=== PATIENT | female | born 1985 | race Caucasian/White ===

== ENCOUNTER 2016-08-15 18:17 | Emergency (ER) | payer MEDICAID ==
--- NOTE | 2016-08-15 18:27 | EDM.PDOC ---
ED HPI Trauma - General Chief Complaint: Lower Extremity Injury/Pain Stated Complaint: RT FOOT HURTS Time Seen by Provider: 08/15/16 18:26 Source: Reports: Patient - History of Present Illness INITIAL COMMENTS - FREE TEXT/NARRATIVE: HISTORY AND PHYSICAL: History of present illness: [] Patient presents with right ankle pain unable to bear weight due to pain she rates 8/10 with weightbearing nonradiating specific to the lateral malleolus posterior aspect, she denies known trauma or injury No fever nausea vomiting chills sweats LMP ended July 29 she has not had intercourse since Review of systems: As per history of present illness and below otherwise all systems reviewed and negative. Past medical history: As per history of present illness and as reviewed below otherwise noncontributory. Surgical history: As per history of present illness and as reviewed below otherwise noncontributory. Social history: No reported history of drug or alcohol abuse. Family history: As per history of present illness and as reviewed below otherwise noncontributory. Physical exam: HEENT: Atraumatic, normocephalic, pupils reactive, negative for conjunctival pallor or scleral icterus, mucous membranes moist, throat clear, neck supple, nontender, trachea midline. Lungs: Clear to auscultation, breath sounds equal bilaterally, chest nontender. Heart: S1S2, regular, negative for clicks, rubs, or JVD. Abdomen: Soft, nondistended, nontender. Negative for masses or hepatosplenomegaly. Negative for costovertebral tenderness. Pelvis: Stable nontender. Genitourinary: Deferred. Rectal: Deferred. Extremities: Atraumatic, negative for cords or calf pain. Neurovascular unremarkable. Neuro: Awake, alert, oriented. Cranial nerves II through XII unremarkable. Cerebellum unremarkable. Motor and sensory unremarkable throughout. Exam nonfocal. Left ankle and affected above the ankle she does have posterior tenderness concerning the lateral malleolus foot is nontender no redness warmth or swelling no mass scarred lesion entire limb neurovascularly intact Diagnostics: [] Left ankle 3 views Therapeutics: [] [Followup Stirrup brace Rest ice ibuprofen Crutches Impression: [] Ankle pain Definitive disposition and diagnosis as appropriate pending reevaluation and review of above. Allergies/ADRs: Allergies codeine Allergy (Severe, Verified 08/15/16 18:21) Swelling codaine Allergy (Uncoded 08/15/16 18:21) Swelling mushroom Allergy (Uncoded 08/15/16 18:21) Swelling Home Medications: Ambulatory Orders Albuterol [Ventolin HFA] 2 puff INH BID PRN 10/08/13 [Confirmed 08/15/16] Albuterol/Ipratropium [DuoNeb 3.0-0.5 MG/3 ML] 3 ml NEB ATDISCHARGE PRN [Confirmed 08/15/16] Cetirizine [ZyrTEC] 10 mg PO DAILY 05/11/15 [Confirmed 08/15/16] Montelukast [Singulair] 10 mg PO ONETIME 05/11/15 [Confirmed 08/15/16] Tiotropium [Spiriva] 18 mcg INH BID 05/11/15 [Confirmed 08/15/16] Albuterol [Proventil HFA] 1 puff INH ASDIRECTED 02/09/16 [Confirmed 08/15/16] Budesonide [Pulmicort] 1 puff INH ASDIRECTED 02/09/16 [Confirmed 08/15/16] Budesonide/Formoterol Fumarate [Symbicort 80-4.5 Mcg Inhaler] 1 puff INH ASDIRECTED PRN 02/09/16 [Confirmed 08/15/16] Omeprazole 20 mg PO BID 02/09/16 [Confirmed 08/15/16] Ondansetron HCl [Zofran] 4 mg PO 08/15/16 Past Medical History Cardiovascular History: Reports: None Respiratory History: Reports: Asthma Gastrointestinal History: Reports: GERD Genitourinary History: Reports: None 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: Musculoskeletal History: Reports: None Neurological History: Reports: Migraines Psychiatric History: Reports: None Endocrine/Metabolic History: Reports: None Hematologic History: Reports: None Dermatologic History: Reports: None - Infectious Disease History Infectious Disease History: Reports: Chicken pox - Past Surgical History HEENT Surgical History: Reports: Adenoidectomy, Oral surgery, Tonsillectomy GI Surgical History: Reports: Cholecystectomy Female Surgical History: Reports: section Social & Family History - Family History Family Medical History: Noncontributory - Tobacco Use Smoking Status *Q: Never Smoker Second Hand Smoke Exposure: No - Caffeine Use Caffeine Use: Reports: Coffee, Energy drinks, Soda, Tea - Alcohol Use Days Per Week of Alcohol Use: 0 Number of Drinks Per Day: 2 Total Drinks Per Week: 0 - Recreational Drug Use Recreational Drug Use: No Drug Use in Last 12 Months: No Review of Systems - Review of Systems Review Of Systems: ROS reveals no pertinent complaints other than HPI. Trauma Exam - Physical Exam Exam: See Below Course - Vital Signs Last Recorded V/S: Last Vital Signs Temp 37.1 C 08/15/16 18:25 Pulse 99 08/15/16 18:25 Resp 18 08/15/16 18:25 BP 127/56 L 08/15/16 18:25 Pulse Ox 95 08/15/16 18:25 - Orders/Labs/Meds Orders: Active Orders 24 hr Category Date Time Status Ankle Min 3V Rt [CR] Stat Exams 08/15/16 18:32 Taken Departure - Departure Time of Disposition: 18:50 Disposition: Home, Self-Care 01 Condition: good Clinical Impression: Ankle pain Forms: ED Department Discharge Additional Instructions: Stirrup brace Rest Ice 20 minute intervals 3 times daily 7-10 days Ibuprofen 4 mg 3 times daily 7-10 days Crutches as needed Followup with primary care in 2 weeks The following information is given to patients seen in the emergency department who are being discharged to home. This information is to outline your options for follow-up care. We provide all patients seen in our emergency department with a follow-up referral. The need for follow-up, as well as the timing and circumstances, are variable depending upon the specifics of your emergency department visit. If you don't have a primary care physician on staff, we will provide you with a referral. We always advise you to contact your personal physician following an emergency department visit to inform them of the circumstance of the visit and for follow-up with them and/or the need for any referrals to a consulting specialist. The emergency department will also refer you to a specialist when appropriate. This referral assures that you have the opportunity for follow-up care with a specialist. All of these measure are taken in an effort to provide you with optimal care, which includes your follow-up. Under all circumstances we always encourage you to contact your private physician who remains a resource for coordinating your care. When calling for follow-up care, please make the office aware that this follow-up is from your recent emergency room visit. If for any reason you are refused follow-up, please contact the [facility] emergency department at and asked to speak to the emergency department charge nurse. - My Orders Last 24 Hours: My Active Orders 08/15/16 18:32 Ankle Min 3V Rt [CR] Stat - Assessment/Plan Last 24 Hours: My Active Orders 08/15/16 18:32 Ankle Min 3V Rt [CR] Stat
[2016-08-15 19:20] VITALS: BP 144/72
--- NOTE | 2016-08-17 10:34 | CR ---
EXAM DATE: 08/15/16 PATIENT'S AGE: 30 Patient: JOSUE ALLEN Facility: [place], [place] Site . Site : 1985 Study: XRay Extremity Right [id number] ankle-08/15/2016 6:45:08 PM Ordering Physician: Nic Cota Final Report: Indication: Pain and swelling. No known injury. Technique: Right ankle three views. Comparison: Right ankle June 25, 2013. Findings: No acute fracture or dislocation. Calcaneal enthesopathy. No additional osseous abnormality. Soft tissues as imaged are unremarkable. Impression: No acute osseous abnormality. Dictated by Reg Castillo MD @ 08/15/2016 7:05:10 PM Dictated by: Reg Castillo MD @ 08/15/2016 19:05:14 (Electronic Signature) Report Signed by Proxy and Original Signed Document filed in the Medical Record. MTDD
== END 2016-08-15 19:15 | disposition home or self-care (01) ==
LOC: MW.ED 18:17
DX: M25.571 Pain in right ankle and joints of right foot (principal); J45.909 Unspecified asthma, uncomplicated; K21.9 Gastro-esophageal reflux disease without esophagitis; Z88.5 Allergy status to narcotic agent; Z91.018 Allergy to other foods; Z79.899 Other long term (current) drug therapy
CPT/HCPCS: 73610-26-RT; 73610-RT; 99282; 99283

== ENCOUNTER 2016-09-26 03:03 | Emergency (ER) | payer MEDICAID ==
[2016-09-26] MEDS ORDERED: predniSONE 20 MG Tab PO ONE (03:06)
[2016-09-26] MEDS ORDERED: Albuterol/Ipratropium 3.0-0.5 MG/3 ML Neb Soln NEB ONE (03:07)
--- NOTE | 2016-09-26 03:09 | EDM.PDOC ---
ED HPI GENERAL MEDICAL PROBLEM - General Chief Complaint: Respiratory Problem Stated Complaint: BREATHING DIFFICULTY Time Seen by Provider: 09/26/16 03:05 - History of Present Illness INITIAL COMMENTS - FREE TEXT/NARRATIVE: HISTORY AND PHYSICAL: History of present illness: Patient's a 30-year-old female history of asthma present since her shortness breath and wheezy she did use her home medications and no significant improvement. Review of systems: As per history of present illness and below otherwise all systems reviewed and negative. Past medical history: As per history of present illness and as reviewed below otherwise noncontributory. Surgical history: As per history of present illness and as reviewed below otherwise noncontributory. Social history: No reported history of drug or alcohol abuse. Family history: As per history of present illness and as reviewed below otherwise noncontributory. Physical exam: HEENT: Atraumatic, normocephalic, pupils reactive, negative for conjunctival pallor or scleral icterus, mucous membranes moist, throat clear, neck supple, nontender, trachea midline. Lungs: Scattered rare end expiratory wheezing no rhonchi no crackle, breath sounds equal bilaterally, chest nontender. Heart: S1S2, regular, negative for clicks, rubs, or JVD. Abdomen: Soft, nondistended, nontender. Negative for masses or hepatosplenomegaly. Negative for costovertebral tenderness. Pelvis: Stable nontender. Genitourinary: Deferred. Rectal: Deferred. Extremities: Atraumatic, negative for cords or calf pain. Neurovascular unremarkable. Neuro: Awake, alert, oriented. Cranial nerves II through XII unremarkable. Cerebellum unremarkable. Motor and sensory unremarkable throughout. Exam nonfocal. Diagnostics: None Therapeutics: Albuterol ipratropium nebulizer prednisone 60 mg by mouth Impression: #1 acute asthmatic exacerbation Definitive disposition and diagnosis as appropriate pending reevaluation and review of above. - Related Data Allergies Allergy/AdvReac Type Severity Reaction Status Date / Time codeine Allergy Severe Swelling Verified 09/26/16 03:09 codaine Allergy Swelling Uncoded 09/26/16 03:09 mushroom Allergy Swelling Uncoded 09/26/16 03:09 Home Meds: Home Meds Albuterol [Ventolin HFA] 2 puff INH BID PRN 10/08/13 [History] Albuterol/Ipratropium [DuoNeb 3.0-0.5 MG/3 ML] 3 ml NEB ATDISCHARGE PRN [History] Cetirizine [ZyrTEC] 10 mg PO DAILY 05/11/15 [History] Montelukast [Singulair] 10 mg PO ONETIME 05/11/15 [History] Tiotropium [Spiriva] 18 mcg INH BID 05/11/15 [History] Albuterol [Proventil HFA] 1 puff INH ASDIRECTED 02/09/16 [History] Budesonide [Pulmicort] 1 puff INH ASDIRECTED 02/09/16 [History] Budesonide/Formoterol Fumarate [Symbicort 80-4.5 Mcg Inhaler] 1 puff INH ASDIRECTED PRN 02/09/16 [History] Omeprazole 20 mg PO BID 02/09/16 [History] Ondansetron HCl [Zofran] 4 mg PO 08/15/16 [History] Past Medical History HEENT History: Reports: Impaired Vision Cardiovascular History: Reports: None Respiratory History: Reports: Asthma Gastrointestinal History: Reports: GERD Genitourinary History: Reports: None 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: Musculoskeletal History: Reports: None Neurological History: Reports: Migraines Psychiatric History: Reports: None Endocrine/Metabolic History: Reports: None Hematologic History: Reports: None Immunologic History: Reports: None Oncologic (Cancer) History: Reports: None Dermatologic History: Reports: None - Infectious Disease History Infectious Disease History: Reports: Chicken Pox - Past Surgical History HEENT Surgical History: Reports: Adenoidectomy, Oral Surgery, Tonsillectomy Female Surgical History: Reports: Section Social & Family History - Family History Family Medical History: Noncontributory - Tobacco Use Smoking Status *Q: Never Smoker Second Hand Smoke Exposure: No - Caffeine Use Caffeine Use: Reports: Coffee, Energy Drinks, Soda, Tea - Alcohol Use Days Per Week of Alcohol Use: 0 Number of Drinks Per Day: 2 Total Drinks Per Week: 0 - Recreational Drug Use Recreational Drug Use: No Drug Use in Last 12 Months: No ED ROS GENERAL - Review of Systems Review Of Systems: ROS reveals no pertinent complaints other than HPI. ED EXAM, GENERAL - Physical Exam Exam: See Below (See dictation) Course - Vital Signs Last Recorded V/S: Last Vital Signs Temp 36.5 C 09/26/16 03:09 Pulse 96 09/26/16 04:31 Resp 28 H 09/26/16 04:31 BP 143/77 H 09/26/16 04:31 Pulse Ox 96 09/26/16 04:31 - Orders/Labs/Meds Orders: Active Orders 24 hr Category Date Time Status RT Aerosol Therapy [RC] ASDIRECTED Care 09/26/16 03:07 Active RT Aerosol Therapy [RC] ASDIRECTED Care 09/26/16 03:07 Active Chest 2V [CR] Stat Exams 09/26/16 03:56 Taken Meds: Medications Discontinued Medications Generic Name Dose Route Start Last Admin Trade Name Freq PRN Reason Stop Dose Admin Albuterol/Ipratropium 3 ml 09/26/16 03:07 09/26/16 03:16 Duoneb 3.0-0.5 Mg/3 Ml NEB 09/26/16 03:08 3 ml ONETIME ONE Administration Albuterol/Ipratropium 3 ml 09/26/16 03:06 09/26/16 03:37 Duoneb 3.0-0.5 Mg/3 Ml NEB 09/26/16 03:07 3 ml ONETIME ONE Administration Albuterol/Ipratropium Confirm 09/26/16 03:11 09/26/16 03:17 Duoneb 3.0-0.5 Mg/3 Ml Administered 09/26/16 03:12 Not Given Dose 3 ml .ROUTE .STK-MED ONE Prednisone 60 mg 09/26/16 03:06 09/26/16 03:16 Prednisone PO 09/26/16 03:07 60 mg ONETIME ONE Administration Departure - Departure Time of Disposition: 05:16 Disposition: Home, Self-Care 01 Condition: good Clinical Impression: Acute asthma - Discharge Information Forms: ED Department Discharge Additional Instructions: The following information is given to patients seen in the emergency department who are being discharged to home. This information is to outline your options for follow-up care. We provide all patients seen in our emergency department with a follow-up referral. The need for follow-up, as well as the timing and circumstances, are variable depending upon the specifics of your emergency department visit. If you don't have a primary care physician on staff, we will provide you with a referral. We always advise you to contact your personal physician following an emergency department visit to inform them of the circumstance of the visit and for follow-up with them and/or the need for any referrals to a consulting specialist. The emergency department will also refer you to a specialist when appropriate. This referral assures that you have the opportunity for followup care with a specialist. All of these measure are taken in an effort to provide you with optimal care, which includes your followup. Under all circumstances we always encourage you to contact your private physician who remains a resource for coordinating your care. When calling for followup care, please make the office aware that this follow-up is from your recent emergency room visit. If for any reason you are refused follow-up, please contact the [facility] emergency department at and asked to speak to the emergency department charge nurse. Continue home meds Medrol as prescribed followup private medical doctor one to 2 days return as needed for discussed - My Orders Last 24 Hours: My Active Orders 09/26/16 03:07 RT Aerosol Therapy [RC] ASDIRECTED RT Aerosol Therapy [RC] ASDIRECTED 09/26/16 03:56 Chest 2V [CR] Stat - Assessment/Plan Last 24 Hours: My Active Orders 09/26/16 03:07 RT Aerosol Therapy [RC] ASDIRECTED RT Aerosol Therapy [RC] ASDIRECTED 09/26/16 03:56 Chest 2V [CR] Stat
[2016-09-26] MEDS ORDERED: Albuterol/Ipratropium 3.0-0.5 MG/3 ML Neb Soln ONE (03:11)
[2016-09-26] MEDS: Albuterol/Ipratropium 3.0-0.5 MG/3 ML Neb Soln NEB ONE ×2 (03:17→03:37)
[2016-09-26 05:31] VITALS: BP 135/71
--- NOTE | 2016-09-28 13:28 | CR ---
EXAM DATE: 09/26/16 PATIENT'S AGE: 30 Patient: JOSUE ALLEN Facility: [place], [place] Site . Site : 1985 Study: XRay Chest [id number]/3/2017 4:09:25 AM Ordering Physician: Peter Bautista Final Report: INDICATION: Shortness of breath TECHNIQUE: Two view chest. FINDINGS: The lungs are clear. The heart, mediastinum and pulmonary vessels are of normal size. There is no evidence of pleural disease. IMPRESSION: Negative chest. Dictated by Cecilia Lewis MD @ Sep 26 2016 5:09AM (Electronic Signature) Report Signed by Proxy. TERESO
== END 2016-09-26 05:27 | disposition home or self-care (01) ==
LOC: MW.ED 03:03
DX: J45.901 Unspecified asthma with (acute) exacerbation (principal); K21.9 Gastro-esophageal reflux disease without esophagitis; Z98.890 Other specified postprocedural states; Z79.899 Other long term (current) drug therapy; Z88.5 Allergy status to narcotic agent; Z91.018 Allergy to other foods
CPT/HCPCS: 71020; 99285; A9270; 99284

== ENCOUNTER 2016-10-23 17:18 | Emergency (ER) | payer MEDICAID ==
--- NOTE | 2016-10-23 17:32 | EDM.PDOC ---
ED HPI GENERAL MEDICAL PROBLEM - General Chief Complaint: Back Pain or Injury Stated Complaint: PAIN TAILBONE Time Seen by Provider: 10/23/16 17:29 Source of Information: Reports: Patient History Limitations: Reports: No Limitations - History of Present Illness INITIAL COMMENTS - FREE TEXT/NARRATIVE: HISTORY AND PHYSICAL: []30-year-old female who fell on cement today from standing position onto buttocks and feels that she might have broken her coccyx History of Present Illness: [] Denies any other injury Review of Systems: As per history of present illness and below otherwise all systems reviewed and negative. Past medical history: As per history of present illness and as reviewed below otherwise noncontributory. Surgical history: As per history of present illness and as reviewed below otherwise noncontributory. Social history: No reported history of drug or alcohol abuse. Family history: As per history of present illness and as reviewed below otherwise noncontributory. Physical exam: Alert oriented woman answering questions appropriately in full sentences HEENT: Atraumatic, normocehpalic, pupils reactive, negative for conjunctival pallor or scleral icterus, mucous membranes moist, throat clear, neck supple, nontender, trachea midline. Lungs: Clear to auscultation, breath sounds equal bilaterally, chest non tender. Heart: S1S2, regular, negative for clicks, rubs, or JVD. Abdomen: Soft, nondistended, nontender. Negative for masses or hepatossplenmegaly. Negative for costovertebral tenderness. Pelvis: Stable nontender. Genitourinary: Deferred. Rectal: Deferred/exquisite tenderness when sitting Extremities: Atraumatic, negative for cords or calf pain. Neurovascular unremarkable. Neuro: Awake, alert, oriented. Cranial nerves II through XII unremarkable. Cerebellum unremarkable. Motor and sensory unremarkable throughout. Exam nonfocal. Diagnostics: [X-ray coccyx] Therapeutics: [] Impression: [Contusion to coccyx] Plan: []Home use something to help relieve the pressure such as an inflatable tube Prescription written for hydrocodone/8 APAP/325 one 3 times a day when necessary pain #12 no refill Definitive disposition and diagnosis as appropriate pending reevaluation and review of above. Onset: Today, Sudden Duration: Hour(s): (6:40 AM) Sacral Pain Score (Numeric/FACES): 10 - Related Data Allergies Allergy/AdvReac Type Severity Reaction Status Date / Time codeine Allergy Severe Swelling Verified 09/26/16 03:09 codaine Allergy Swelling Uncoded 09/26/16 03:09 mushroom Allergy Swelling Uncoded 09/26/16 03:09 Home Meds: Home Meds Albuterol [Ventolin HFA] 2 puff INH BID PRN 10/08/13 [History] Albuterol/Ipratropium [DuoNeb 3.0-0.5 MG/3 ML] 3 ml NEB ATDISCHARGE PRN [History] Cetirizine [ZyrTEC] 10 mg PO DAILY 05/11/15 [History] Montelukast [Singulair] 10 mg PO ONETIME 05/11/15 [History] Tiotropium [Spiriva] 18 mcg INH BID 05/11/15 [History] Albuterol [Proventil HFA] 1 puff INH ASDIRECTED 02/09/16 [History] Budesonide [Pulmicort] 1 puff INH ASDIRECTED 02/09/16 [History] Budesonide/Formoterol Fumarate [Symbicort 80-4.5 Mcg Inhaler] 1 puff INH ASDIRECTED PRN 02/09/16 [History] Omeprazole 20 mg PO BID 02/09/16 [History] Ondansetron HCl [Zofran] 4 mg PO 08/15/16 [History] Clarithromycin 250 mg PO BID 10/23/16 [History] Past Medical History HEENT History: Reports: Impaired Vision Cardiovascular History: Reports: None Respiratory History: Reports: Asthma Gastrointestinal History: Reports: GERD Genitourinary History: Reports: 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: Musculoskeletal History: Reports: None Neurological History: Reports: Migraines Psychiatric History: Reports: None Endocrine/Metabolic History: Reports: None Hematologic History: Reports: None Immunologic History: Reports: None Oncologic (Cancer) History: Reports: None Dermatologic History: Reports: None - Infectious Disease History Infectious Disease History: Reports: Chicken Pox - Past Surgical History HEENT Surgical History: Reports: Adenoidectomy, Oral Surgery, Tonsillectomy Female Surgical History: Reports: Section Social & Family History - Family History Family Medical History: Noncontributory - Tobacco Use Smoking Status *Q: Never Smoker Second Hand Smoke Exposure: No - Caffeine Use Caffeine Use: Reports: Coffee, Energy Drinks, Soda, Tea - Alcohol Use Days Per Week of Alcohol Use: 0 Number of Drinks Per Day: 2 Total Drinks Per Week: 0 - Recreational Drug Use Recreational Drug Use: No Drug Use in Last 12 Months: No ED ROS GENERAL - Review of Systems Review Of Systems: ROS reveals no pertinent complaints other than HPI. ED EXAM,LOWER BACK PAIN/INJURY - Physical Exam Exam: See Below (see dictation) Course - Vital Signs Last Recorded V/S: Last Vital Signs Temp 36.5 C 10/23/16 17:25 Pulse 93 10/23/16 17:25 Resp 18 10/23/16 17:25 BP 127/69 10/23/16 17:25 Pulse Ox 94 L 10/23/16 17:25 - Orders/Labs/Meds Orders: Active Orders 24 hr Category Date Time Status Sacrum Coccyx Min 2V [CR] Stat Exams 10/23/16 17:26 Taken Departure - Departure Time of Disposition: 18:41 Disposition: Home, Self-Care 01 Condition: Good Clinical Impression: Contusion Qualifiers: Encounter type: initial encounter Contusion area: lower back Qualified Code(s) : S30.0XXA - Contusion of lower back and pelvis, initial encounter - Discharge Information Forms: ED Department Discharge Additional Instructions: The following information is given to patients seen in the emergency department who are being discharged to home. This information is to outline your options for follow-up care. We provide all patients seen in our emergency department with a follow-up referral. The need for follow-up, as well as the timing and circumstances, are variable depending upon the specifics of your emergency department visit. If you don't have a primary care physician on staff, we will provide you with a referral. We always advise you to contact your personal physician following an emergency department visit to inform them of the circumstance of the visit and for follow-up with them and/or the need for any referrals to a consulting specialist. The emergency department will also refer you to a specialist when appropriate. This referral assures that you have the opportunity for followup care with a specialist. All of these measure are taken in an effort to provide you with optimal care, which includes your followup. Under all circumstances we always encourage you to contact your private physician who remains a resource for coordinating your care. When calling for followup care, please make the office aware that this follow-up is from your recent emergency room visit. If for any reason you are refused follow-up, please contact the [facility] emergency department at and asked to speak to the emergency department charge nurse. Prescription has been written for hydrocodone/APAP 5/325 one 3 times a day when necessary pain #12 no refill Follow-up with your primary care provider - My Orders Last 24 Hours: My Active Orders 10/23/16 17:26 Sacrum Coccyx Min 2V [CR] Stat - Assessment/Plan Last 24 Hours: My Active Orders 10/23/16 17:26 Sacrum Coccyx Min 2V [CR] Stat
[2016-10-23 20:31] VITALS: BP 132/88
--- NOTE | 2016-10-26 13:40 | CR ---
EXAM DATE: 10/23/16 PATIENT'S AGE: 30 Patient: JOSUE ALLEN Facility: [place], [place] Site . Site : 1985 Study: XRay Pelvis Sacrum Coccyx [id number]/30/2017 6:16:32 PM Ordering Physician: Doctor Sandoval Final Report: INDICATION: pain. pt was sitting on milk cartons when they went out from under her. TECHNIQUE: Sacrum/coccyx view COMPARISON: None FINDINGS: Bones: No fractures or bone lesions. Joint spaces: Mild degenerative changes of the sacroiliac joints bilaterally. Mild degenerative changes of pubic symphysis. . Soft tissues: Unremarkable. IMPRESSION: No acute bony abnormality. Dictated by Selwyn Cruz MD @ 10/23/2016 6:29:56 PM Dictated by: Selwyn Cruz MD @ 10/23/2016 18:30:20 (Electronic Signature) Report Signed by Proxy. TERESO
== END 2016-10-23 19:15 | disposition home or self-care (01) ==
LOC: MW.ED 17:18
DX: S30.0XXA Contusion of lower back and pelvis, initial encounter (principal); J45.909 Unspecified asthma, uncomplicated; K21.9 Gastro-esophageal reflux disease without esophagitis; G43.909 Migraine, unspecified, not intractable, without status migrainosus; Z98.890 Other specified postprocedural states; Z79.899 Other long term (current) drug therapy; Z88.5 Allergy status to narcotic agent; W19.XXXA Unspecified fall, initial encounter
CPT/HCPCS: 72220; 72220-26; 99283

== ENCOUNTER 2016-11-11 07:15 | Day surgery (SDC) | payer MEDICAID ==
[2016-11-11] MEDS ORDERED: Bupivacaine 0.25%/EPINEPHrine 1:200,000 10 ML SDV ONE (07:39)
[2016-11-11] MEDS ORDERED: Albuterol 0.083% 2.5 MG/3 ML Neb Soln NEB ONE (07:46)
--- NOTE | 2016-11-11 07:56 | PCM.PREANE ---
Preanesthetic Assessment - Anesthesia/Transfusion/Family Hx Anesthesia History: Prior Anesthesia Without Reaction Family History of Anesthesia Reaction: No Transfusion History: No Prior Transfusion(s) Intubation History: Unknown - Review of Systems General: No Symptoms Pulmonary: No Symptoms Cardiovascular: No Symptoms Gastrointestinal: No symptoms Neurological: No Symptoms Other: Reports: None - Physical Assessment Height: 1.68 m Weight: 108.862 kg ASA Class: 2 Mental Status: Alert & Oriented x3 Airway Class: Mallampati = 2 Dentition: Reports: Normal Dentition Thyro-Mental Finger Breadths: 3 Mouth Opening Finger Breadths: 3 ROM/Head Extension: Full Lungs: Clear to auscultation, Normal respiratory effort Cardiovascular: Regular Rate, Regular Rhythm - Lab Values: Laboratory Last Values Urine HCG, Qual NEGATIVE (NEGATIVE) 11/11/16 07:18 - Allergies Allergies/Adverse Reactions: Allergies Allergy/AdvReac Type Severity Reaction Status Date / Time codeine Allergy Severe Swelling Verified 09/26/16 03:09 mushroom Allergy Swelling Uncoded 09/26/16 03:09 - Blood Blood Available: No - Anesthesia Plan Pre-Op Medication Ordered: None - Acknowledgements Anesthesia Type Planned: MAC (LMA back-up plan) Pt an Appropriate Candidate for the Planned Anesthesia: Yes Alternatives and Risks of Anesthesia Discussed w Pt/Guardian: Yes Pt/Guardian Understands and Agrees with Anesthesia Plan: Yes PreAnesthesia Questionnaire HEENT History: Reports: Impaired Vision Cardiovascular History: Reports: None Respiratory History: Reports: Asthma (severe, last visit to ER about 3 weeks ago ) Gastrointestinal History: Reports: GERD Genitourinary History: Reports: None 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: Musculoskeletal History: Reports: None Neurological History: Reports: Migraines Psychiatric History: Reports: None Endocrine/Metabolic History: Reports: Obesity/BMI 30+ Hematologic History: Reports: None Immunologic History: Reports: None Oncologic (Cancer) History: Reports: None Dermatologic History: Reports: None - Infectious Disease History Infectious Disease History: Reports: Chicken Pox - Past Surgical History Head Surgeries/Procedures: Reports: None HEENT Surgical History: Reports: Adenoidectomy, Oral Surgery, Tonsillectomy GI Surgical History: Reports: Cholecystectomy Female Surgical History: Reports: Section (x2 x2) - SUBSTANCE USE Smoking Status *Q: Never Smoker Second Hand Smoke Exposure: No Days Per Week of Alcohol Use: 0 Number of Drinks Per Day: 2 Total Drinks Per Week: 0 Recreational Drug Use History: No - HOME MEDS Home Medications: Home Meds Albuterol [Ventolin HFA] 2 puff INH BID PRN 10/08/13 [History] Albuterol/Ipratropium [DuoNeb 3.0-0.5 MG/3 ML] 3 ml NEB ATDISCHARGE PRN [History] Cetirizine [ZyrTEC] 10 mg PO DAILY 05/11/15 [History] Montelukast [Singulair] 10 mg PO ONETIME 05/11/15 [History] Tiotropium [Spiriva] 18 mcg INH BID 05/11/15 [History] Albuterol [Proventil HFA] 1 puff INH ASDIRECTED PRN MDD s 02/09/16 [History] Budesonide [Pulmicort] 1 puff NEB ASDIRECTED 02/09/16 [History] Budesonide/Formoterol Fumarate [Symbicort 80-4.5 Mcg Inhaler] 1 puff INH ASDIRECTED 02/09/16 [History] Omeprazole 20 mg PO BID 02/09/16 [History] Ondansetron HCl [Zofran] 4 mg PO ASDIRECTED PRN 08/15/16 [History] Clarithromycin 250 mg PO BID 10/23/16 [History] - CURRENT (IN HOUSE) MEDS Current Meds: Current Medications Hydrocodone Bitart/Acetaminophen ([place] 325-5 Mg) 1 tab PO Q4H PRN PRN Reason: Pain Albuterol (Proventil Neb Soln) 2.5 mg NEB ONETIME ONE Stop: 11/11/16 07:47 Bupivacaine HCl/Epinephrine Bitart ([place] 0.25%/Epinephrine 1:200,000) 10 ml INJECT ONETIME ONE Stop: 11/11/16 08:01 Lactated Ringer's (Ringers, Lactated) 1,000 mls @ 125 mls/hr IV ASDIRECTED TIFFANY Last Admin: 11/11/16 07:37 Dose: 125 mls/hr Cefazolin Sodium/Dextrose 2 gm (/ Premix) 50 mls @ 100 mls/hr IV ONETIME ONE Stop: 11/11/16 08:29 Discontinued Medications Bupivacaine HCl/Epinephrine Bitart ([place] 0.25%/Epinephrine 1:200,000) Confirm Administered Dose 20 ml .ROUTE .[facility]-MED ONE Stop: 11/11/16 07:40
[2016-11-11] MEDS ORDERED: ceFAZolin 2 GM in Premix Bag 1 BAG IV ONE (08:00)
[2016-11-11] MEDS ORDERED: Bupivacaine 0.25%/EPINEPHrine 1:200,000 10 ML SDV INJECT ONE (08:00)
[2016-11-11] MEDS ORDERED: Lactated Ringers 1,000 ML IV SCH (08:00)
[2016-11-11] MEDS ORDERED: Acetaminophen/HYDROcodone 325-5 MG Tab PO PRN (08:00)
[2016-11-11] MEDS ORDERED: Midazolam 1 MG/ML 2 ML SDV ONE (08:27)
[2016-11-11] MEDS ORDERED: Lidocaine 2% 5 ML SDV ONE (08:27)
[2016-11-11] MEDS ORDERED: fentaNYL 100 MCG/2 ML SDV ONE (08:27)
[2016-11-11] MEDS ORDERED: Propofol 200 MG/20 ML SDV ONE ×2 (08:27)
[2016-11-11] MEDS ORDERED: Ondansetron 4 MG/2 ML SDV ONE ×2 (08:28→08:33)
[2016-11-11] MEDS ORDERED: fentaNYL 100 MCG/2 ML SDV IVPUSH PRN (09:42)
[2016-11-11 13:03] VITALS: BP 132/84
--- NOTE | 2016-11-11 15:30 | PCM.OPNOTE ---
- General Post-Op/Procedure Note Date of Surgery/Procedure: 11/11/16 Operative Procedure(s): left carpal tunnel release, excision of left hand warts x 3 (0.5cm, 1cm and 1cm) and one right hand wart 1.5cm. Pre Op Diagnosis: bilateral hand warts and left carpal tunnel syndrome Post-Op Diagnosis: Same Anesthesia Technique: General LMA, Local Primary Surgeon: Jenelle Whitaker Bellows Charger Assembler: Angelica Champion Complications: None Condition: Good Free Text/Narrative:: Intake & Output 11/10/16 11/11/16 11/11/16 23:59 07:59 15:59 Intake Total 2550 Balance 2550
--- NOTE | 2016-11-12 16:28 | OR ---
SURGEON: JESSICA WILLAMS MD DATE OF PROCEDURE: 11/11/2016 PREOPERATIVE DIAGNOSES: Left carpal tunnel syndrome and bilateral hand warts. POSTOPERATIVE DIAGNOSES: Left carpal tunnel syndrome and bilateral hand warts. PROCEDURE: 1. Left carpal tunnel release. 2. Excision of left hand warts x3 (0.5 cm, 1 cm, and 1 cm). 3. Excision of one right hand wart, 1.5 cm. ANESTHESIA: General LMA. OB GYN PHYSICIAN ASSISTANT: TRINO Scott. INDICATIONS: Ms. Clark is a 30-year-old female with bilateral carpal tunnel syndrome and bilateral hand warts. We discussed release of left carpal tunnel syndrome and excision of the 3 left hand warts, and 1 right hand wart. Risks and benefits were discussed thoroughly including, but not limited to bleeding, infection, damage to underlying or overlying structures, possible need for future interventions, and possible scarring. PROCEDURE IN DETAIL: After informed consent was obtained and placed on the chart, the patient was brought to the operating theater, and laid in the supine position. After adequate general LMA anesthesia was obtained, the area was prepped and draped in normal fashion. Time-out was completed to confirm side and site. Attention was then paid to exsanguination of the left arm and a tourniquet was inflated to 200 mmHg. Once adequately completed, attention was then paid to the left carpal tunnel release. This was done with #15 blade through the skin and subcutaneous tissues under direct visualization. Once adequately released, attention was then paid to irrigation and closure using 5-0 nylon stitches in a horizontal mattress fashion. This was covered with a Band-Aid and then attention was paid to the left hand warts. The finger wart was excised in an ellipse for total of 0.5 cm and closed in a simple fashion. The first web space wart was excised for a total of 1 cm, and the thumb wart was then excised for a total 1 cm as well. Both of these were closed in a primary interrupted fashion using 4-0 chromic stitches. Attention was then paid to the right hand wart, which was excised for a total of 1.5 cm and the left open due to the inability to closure in the periungual area. All 4 warts were sent for pathology. Bovie electrocautery was used to obtain hemostasis after excision of the warts. Once this was completed, the wart locations were dressed with Band-Aids. The left hand was then dressed with an Rory wrap for compression. The patient tolerated the procedures well. All counts and needles were correct at the end of the case. FOLLOWUP INSTRUCTIONS: The patient will see us in 10 to 14 days or sooner if any problems, questions, or concerns. HEGGTHE / APPLE /[id number]
== END 2016-11-11 11:44 | disposition home or self-care (01) ==
LOC: MW.SDS 07:15
PROVIDERS: ATTEND Plastic Surgery
PROC: 01N50ZZ Release Median Nerve, Open Approach (ICD-10-PCS; principal; 2016-11-11)
PROC: 0HBGXZZ Excision of Left Hand Skin, External Approach (ICD-10-PCS; 2016-11-11)
PROC: 0HBFXZZ Excision of Right Hand Skin, External Approach (ICD-10-PCS; 2016-11-11)
DX: G56.02 Carpal tunnel syndrome, left upper limb (principal); B07.9 Viral wart, unspecified; J45.909 Unspecified asthma, uncomplicated; K21.9 Gastro-esophageal reflux disease without esophagitis; E66.9 Obesity, unspecified; Z88.5 Allergy status to narcotic agent; Z91.018 Allergy to other foods; Z90.49 Acquired absence of other specified parts of digestive tract; Z90.89 Acquired absence of other organs; Z98.890 Other specified postprocedural states; Z79.899 Other long term (current) drug therapy; Z68.38 Body mass index [BMI] 38.0-38.9, adult
CPT/HCPCS: 11420; 11421; 11422; 64721; 81025; 88305; 94664; J2250; J2405; J3010; J7120; 01810; J2704

== ENCOUNTER 2016-11-12 21:17 | Emergency (ER) | payer MEDICAID ==
[2016-11-12] MEDS ORDERED: Ondansetron 4 MG/2 ML SDV IVPUSH ONE (21:55)
[2016-11-12] MEDS ORDERED: Sodium Chloride 0.9% 1,000 ML IV SCH (22:00)
[2016-11-12] MEDS ORDERED: HYDROmorphone 2 MG/ML Syringe IVPUSH SCH (22:00)
--- NOTE | 2016-11-12 22:00 | EDM.PDOC ---
ED HPI GENERAL MEDICAL PROBLEM - General Chief Complaint: Headache Stated Complaint: UNK Time Seen by Provider: 11/12/16 21:30 Source of Information: Reports: Patient - History of Present Illness INITIAL COMMENTS - FREE TEXT/NARRATIVE: she presents to the ED today with complaints of post operative pain despite hydrocodone. She has been vomiting and u nable to tolerate po intake No fever She has a diffuse headache and abdominal pain. she states, " I feel terrible". Yesterday she underwent carpal tunnel release and excision of several hand warts. Left Hand Pain Score (Numeric/FACES): 10 Abdomen Pain Score (Numeric/FACES): 8 head Pain Score (Numeric/FACES): 8 - Related Data Allergies Allergy/AdvReac Type Severity Reaction Status Date / Time codeine Allergy Severe Swelling Verified 11/12/16 21:46 mushroom Allergy Swelling Uncoded 09/26/16 03:09 Home Meds: Home Meds Albuterol [Ventolin HFA] 2 puff INH BID PRN 10/08/13 [History] Albuterol/Ipratropium [DuoNeb 3.0-0.5 MG/3 ML] 3 ml NEB ATDISCHARGE PRN [History] Cetirizine [ZyrTEC] 10 mg PO DAILY 05/11/15 [History] Montelukast [Singulair] 10 mg PO ONETIME 05/11/15 [History] Tiotropium [Spiriva HandiHaler] 18 mcg INH BID 05/11/15 [History] Albuterol [Proventil HFA] 1 puff INH ASDIRECTED PRN MDD s 02/09/16 [History] Budesonide [Pulmicort] 1 puff NEB ASDIRECTED 02/09/16 [History] Budesonide/Formoterol Fumarate [Symbicort 80-4.5 Mcg Inhaler] 1 puff INH ASDIRECTED 02/09/16 [History] Omeprazole 20 mg PO BID 02/09/16 [History] Ondansetron HCl [Zofran] 4 mg PO ASDIRECTED PRN 08/15/16 [History] Clarithromycin 250 mg PO BID 10/23/16 [History] Acetaminophen/HYDROcodone [[place] 325-5 MG] 1 tab PO Q4H PRN #30 tablet 11/11/16 [Rx] Past Medical History HEENT History: Reports: Impaired Vision Cardiovascular History: Reports: None Respiratory History: Reports: Asthma Gastrointestinal History: Reports: GERD Genitourinary History: Reports: None 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 Denies: Diabetes, Type I , Diabetes, Type II Hematologic History: Reports: None Immunologic History: Reports: None Oncologic (Cancer) History: Reports: None Dermatologic History: Reports: None - Infectious Disease History Infectious Disease History: Reports: Chicken Pox - Past Surgical History Head Surgeries/Procedures: Reports: None HEENT Surgical History: Reports: Adenoidectomy, Oral Surgery, Tonsillectomy GI Surgical History: Reports: Cholecystectomy Female Surgical History: Reports: Section Social & Family History - Family History Family Medical History: Noncontributory - Tobacco Use Smoking Status *Q: Never Smoker Second Hand Smoke Exposure: No - Caffeine Use Caffeine Use: Reports: Coffee, Energy Drinks, Soda, Tea - Alcohol Use Days Per Week of Alcohol Use: 0 Number of Drinks Per Day: 2 Total Drinks Per Week: 0 - Recreational Drug Use Recreational Drug Use: No Drug Use in Last 12 Months: No ED ROS GENERAL - Review of Systems Review Of Systems: See Below Constitutional: Denies: Fever, Chills Respiratory: Denies: Shortness of Breath, Cough, Sputum Cardiovascular: Denies: Chest Pain GI/Abdominal: Reports: Abdominal Pain, Anorexia, Nausea, Vomiting (malaise and generalized headache.) - Physical Exam Exam: See Below Text/Narrative:: alert appears uncomfortable neck supple lungs CTA heart RRR without m abdomen soft and non tender no ankle edema surgical wounds appear clean not confused. Course - Vital Signs Last Recorded V/S: Last Vital Signs Temp 98.1 F 11/13/16 01:07 Pulse 100 11/13/16 01:39 Resp 18 11/13/16 01:07 BP 134/89 11/13/16 01:39 Pulse Ox 95 11/13/16 01:39 - Orders/Labs/Meds Orders: Active Orders 24 hr Category Date Time Status Sodium Chloride 0.9% [Normal Saline] 1,000 ml Med 11/12/16 22:00 Active IV ASDIRECTED fentaNYL [Sublimaze] Med 11/12/16 23:20 Active 50 mcg IVPUSH Q1H PRN Medication Orders Fentanyl (Sublimaze) 50 mcg IVPUSH Q1H PRN PRN Reason: Pain Last Admin: 11/12/16 23:33 Dose: 50 mcg Sodium Chloride (Normal Saline) 1,000 mls @ 250 mls/hr IV ASDIRECTED TIFFANY Last Admin: 11/12/16 22:18 Dose: 250 mls/hr Labs: Laboratory Tests 11/12/16 11/12/16 11/12/16 Range/Units 22:05 22:05 22:05 WBC 9.66 (4.0-11.0) K/uL RBC 5.19 (4.30-5.90) M/uL Hgb 14.6 (12.0-16.0) g/dL Hct 42.4 (36.0-46.0) % MCV 81.7 (80.0-98.0) fL MCH 28.1 (27.0-32.0) pg MCHC 34.4 (31.0-37.0) g/dL RDW Std Deviation 40.7 (28.0-62.0) fl RDW Coeff of [place] 14 (11.0-15.0) % Plt Count 229 (150-400) K/uL MPV 9.00 (7.40-12.00) fL Neut % (Auto) 70.6 (48.0-80.0) % Lymph % (Auto) 19.3 (16.0-40.0) % [place] % (Auto) 6.4 (0.0-15.0) % Eos % (Auto) 3.4 (0.0-7.0) % Baso % (Auto) 0.3 (0.0-1.5) % Neut # (Auto) 6.8 H (1.4-5.7) K/uL Lymph # (Auto) 1.9 (0.6-2.4) K/uL [place] # (Auto) 0.6 (0.0-0.8) K/uL Eos # (Auto) 0.3 (0.0-0.7) K/uL Baso # (Auto) 0.0 (0.0-0.1) K/uL Nucleated RBC % 0.0 /100WBC Nucleated RBCs # 0 K/uL Sodium 137 (136-146) mmol/L Potassium 4.0 (3.5-5.1) mmol/L Chloride 106 (98-110) mmol/L Carbon Dioxide 23 (21-31) mmol/L BUN 8 (6.0-23.0) mg/dL Creatinine 0.8 (0.6-1.5) mg/dL Est Cr Clr Drug Dosing 94.51 mL/min Estimated GFR (MDRD) > 60.0 ml/min Glucose 90 (60-110) mg/dL Calcium 8.8 (8.8-10.8) mg/dL Magnesium 1.7 (1.5-2.3) mEq/L Total Bilirubin 1.1 (0.1-1.5) mg/dL AST 32 (5-40) IU/L ALT 33 (8-54) IU/L Alkaline Phosphatase 52 (40-150) Total Protein 7.0 (6.0-8.0) g/dL Albumin 4.2 (3.5-5.0) g/dL Globulin 2.8 (2.0-3.5) g/dL Albumin/Globulin Ratio 1.5 (1.3-2.8) HCG, Qual NEGATIVE (NEG) Meds: Medications Generic Name Dose Route Start Last Admin Trade Name Freq PRN Reason Stop Dose Admin Fentanyl 50 mcg 11/12/16 23:20 11/12/16 23:33 Sublimaze IVPUSH 50 mcg Q1H PRN Administration Pain Sodium Chloride 1,000 mls @ 250 mls/hr 11/12/16 22:00 11/12/16 22:18 Normal Saline IV 250 mls/hr ASDIRECTED TIFFANY Administration Discontinued Medications Generic Name Dose Route Start Last Admin Trade Name Freq PRN Reason Stop Dose Admin Diphenhydramine HCl 50 mg 11/12/16 23:48 11/12/16 23:54 Benadryl IVPUSH 11/12/16 23:49 50 mg ONETIME ONE Administration Hydromorphone HCl 2 mg 11/12/16 22:00 11/12/16 22:20 Dilaudid IVPUSH 2 mg NOW TIFFANY Administration Hydromorphone HCl 2 mg 11/12/16 22:11 11/12/16 22:26 Dilaudid IVPUSH 11/12/16 22:12 Not Given ONETIME ONE Hydromorphone HCl Confirm 11/12/16 22:10 11/12/16 22:26 Dilaudid Administered 11/12/16 22:11 Not Given Dose 2 mg .ROUTE .STK-MED ONE Hydromorphone HCl 2 mg 11/13/16 00:30 11/13/16 01:03 Dilaudid IVPUSH 11/13/16 00:31 2 mg ONETIME ONE Administration Ondansetron HCl 8 mg 11/12/16 21:55 11/12/16 22:19 Zofran IVPUSH 11/12/16 21:56 8 mg ONETIME ONE Administration Ondansetron HCl 4 mg 11/13/16 01:01 Zofran IVPUSH 11/13/16 01:02 ONETIME ONE Promethazine HCl 25 mg 11/13/16 01:11 Phenergan IM 11/13/16 01:12 ONETIME ONE - Re-Assessments/Exams Free Text/Narrative Re-Assessment/Exam: 11/13/16 01:44 resting peacefully. When awakened she states, " I feel terrible". some itching with fentanyl. Departure - Departure Time of Disposition: 01:47 Disposition: Home, Self-Care 01 Clinical Impression: Post-operative pain - Discharge Information Referrals: Siddhartha Urbina MD [Primary Care Provider] - Forms: ED Department Discharge Additional Instructions: routine follow up with Dr Whitaker do not use hydrocodone with percocet do not use tylenol with percocet percocet may be habit forming, sedating and constipating zofran ODT 4 mg sl q 4 hr prn nausea #20 percocet 10 1 po q 4 hours prn pain #20 - My Orders Last 24 Hours: My Active Orders 11/12/16 22:00 Sodium Chloride 0.9% [Normal Saline] 1,000 ml IV ASDIRECTED 11/12/16 23:20 fentaNYL [Sublimaze] 50 mcg IVPUSH Q1H PRN - Assessment/Plan Last 24 Hours: My Active Orders 11/12/16 22:00 Sodium Chloride 0.9% [Normal Saline] 1,000 ml IV ASDIRECTED 11/12/16 23:20 fentaNYL [Sublimaze] 50 mcg IVPUSH Q1H PRN
[2016-11-12] MEDS ORDERED: HYDROmorphone 2 MG/ML Syringe ONE (22:10)
[2016-11-12] MEDS ORDERED: HYDROmorphone 1 MG/ML Syringe IVPUSH ONE (22:11)
[2016-11-12 22:39] LABS: CHLORIDE,CL 106 mmol/L (98-110); SODIUM,NA 137 mmol/L (136-146)
[2016-11-12] MEDS ORDERED: fentaNYL 100 MCG/2 ML SDV IVPUSH PRN (23:20)
[2016-11-12] MEDS ORDERED: diphenhydrAMINE 50 MG/ML SDV IVPUSH ONE (23:48)
[2016-11-13] MEDS ORDERED: HYDROmorphone 2 MG/ML Syringe IVPUSH ONE (00:30)
[2016-11-13] MEDS ORDERED: Ondansetron 4 MG/2 ML SDV IVPUSH ONE (01:01)
[2016-11-13] MEDS ORDERED: Promethazine 25 MG/ML SDV IM ONE (01:11)
[2016-11-13 05:07] VITALS: BP 127/72
== END 2016-11-13 02:38 | disposition home or self-care (01) ==
LOC: MW.ED 21:17
DX: G89.18 Other acute postprocedural pain (principal); M79.642 Pain in left hand; J45.909 Unspecified asthma, uncomplicated; K21.9 Gastro-esophageal reflux disease without esophagitis; G43.909 Migraine, unspecified, not intractable, without status migrainosus; E66.9 Obesity, unspecified; Z90.49 Acquired absence of other specified parts of digestive tract; Z88.5 Allergy status to narcotic agent; Z79.899 Other long term (current) drug therapy; Z98.890 Other specified postprocedural states
CPT/HCPCS: 36415; 80053; 83735; 84703; 85025; 96361; 96372; 96374; 96375; 96376; 99284; J1170; J1200; J2405; J2550; J3010; J7040

== ENCOUNTER 2016-11-14 21:04 | Emergency (ER) | payer MEDICAID ==
[2016-11-14 22:11] VITALS: BP 122/72
[2016-11-14] MEDS ORDERED: Bacitracin Oint 1 GM U/D Packet TOP ONE (22:14)
--- NOTE | 2016-11-14 22:17 | EDM.PDOC ---
ED HPI GENERAL MEDICAL PROBLEM - General Chief Complaint: Skin Complaint Stated Complaint: BROKE STITCHES IN HAND Time Seen by Provider: 11/14/16 22:14 Source of Information: Reports: Patient - History of Present Illness INITIAL COMMENTS - FREE TEXT/NARRATIVE: HISTORY AND PHYSICAL: History of present illness: Patient recently had a carpal tunnel release performed by Dr. Roxy Fairbanks on the She was playing with her child at a local playground pushing a [id number] and thought she opened up the sutures however she did put tension on the wound sutures are held just fine wound is clean and dry it did bleed a little bit at the park No fever nausea vomiting chills sweats Surgical lesion wound is clean dry intact no redness warmth or exudate for culture sutures intact entire wound is neurologically and vascularly intact Review of systems: As per history of present illness and below otherwise all systems reviewed and negative. Past medical history: As per history of present illness and as reviewed below otherwise noncontributory. Surgical history: As per history of present illness and as reviewed below otherwise noncontributory. Social history: No reported history of drug or alcohol abuse. Family history: As per history of present illness and as reviewed below otherwise noncontributory. Physical exam: HEENT: Atraumatic, normocephalic, pupils reactive, negative for conjunctival pallor or scleral icterus, mucous membranes moist, throat clear, neck supple, nontender, trachea midline. Lungs: Clear to auscultation, breath sounds equal bilaterally, chest nontender. Heart: S1S2, regular, negative for clicks, rubs, or JVD. Abdomen: Soft, nondistended, nontender. Negative for masses or hepatosplenomegaly. Negative for costovertebral tenderness. Pelvis: Stable nontender. Genitourinary: Deferred. Rectal: Deferred. Extremities: Atraumatic, negative for cords or calf pain. Neurovascular unremarkable. Neuro: Awake, alert, oriented. Cranial nerves II through XII unremarkable. Cerebellum unremarkable. Motor and sensory unremarkable throughout. Exam nonfocal. Skin as per history of present illness otherwise unremarkable Diagnostics: [] Therapeutics: []Bacitracin Bandaging Impression: []4 days postop carpal tunnel release Wound clean dry intact Definitive disposition and diagnosis as appropriate pending reevaluation and review of above. Left Wrist Pain Score (Numeric/FACES): 9 - Related Data Allergies Allergy/AdvReac Type Severity Reaction Status Date / Time codeine Allergy Severe Swelling Verified 11/12/16 21:46 mushroom Allergy Swelling Uncoded 09/26/16 03:09 Home Meds: Home Meds Albuterol [Ventolin HFA] 2 puff INH BID PRN 10/08/13 [History] Albuterol/Ipratropium [DuoNeb 3.0-0.5 MG/3 ML] 3 ml NEB ATDISCHARGE PRN [History] Cetirizine [ZyrTEC] 10 mg PO DAILY 05/11/15 [History] Montelukast [Singulair] 10 mg PO ONETIME 05/11/15 [History] Tiotropium [Spiriva HandiHaler] 18 mcg INH BID 05/11/15 [History] Albuterol [Proventil HFA] 1 puff INH ASDIRECTED PRN MDD s 02/09/16 [History] Budesonide [Pulmicort] 1 puff NEB ASDIRECTED 02/09/16 [History] Budesonide/Formoterol Fumarate [Symbicort 80-4.5 Mcg Inhaler] 1 puff INH ASDIRECTED 02/09/16 [History] Omeprazole 20 mg PO BID 02/09/16 [History] Ondansetron HCl [Zofran] 4 mg PO ASDIRECTED PRN 08/15/16 [History] Clarithromycin 250 mg PO BID 10/23/16 [History] Acetaminophen/HYDROcodone [[place] 325-5 MG] 1 tab PO Q4H PRN #30 tablet 11/11/16 [Rx] oxyCODONE HCl/Acetaminophen [Percocet 10-325 mg Tablet] 1 cap PO Q4H PRN [History] Past Medical History HEENT History: Reports: Impaired Vision Cardiovascular History: Reports: None Respiratory History: Reports: Asthma Gastrointestinal History: Reports: GERD Genitourinary History: Reports: None 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 Denies: Diabetes, Type I , Diabetes, Type II Hematologic History: Reports: None Immunologic History: Reports: None Oncologic (Cancer) History: Reports: None Dermatologic History: Reports: None - Infectious Disease History Infectious Disease History: Reports: Chicken Pox - Past Surgical History Head Surgeries/Procedures: Reports: None HEENT Surgical History: Reports: Adenoidectomy, Oral Surgery, Tonsillectomy GI Surgical History: Reports: Cholecystectomy Female Surgical History: Reports: Section Social & Family History - Family History Family Medical History: Noncontributory - Tobacco Use Smoking Status *Q: Never Smoker Second Hand Smoke Exposure: No - Caffeine Use Caffeine Use: Reports: Coffee, Energy Drinks, Soda, Tea - Alcohol Use Days Per Week of Alcohol Use: 0 Number of Drinks Per Day: 2 Total Drinks Per Week: 0 - Recreational Drug Use Recreational Drug Use: No Drug Use in Last 12 Months: No ED ROS GENERAL - Review of Systems Review Of Systems: ROS reveals no pertinent complaints other than HPI. ED EXAM, SKIN/RASH Exam: See Below Course - Vital Signs Last Recorded V/S: Last Vital Signs Temp 36.4 C 11/14/16 22:03 Pulse 80 11/14/16 22:03 Resp 20 11/14/16 22:03 BP 122/72 11/14/16 22:03 Pulse Ox 96 11/14/16 22:03 - Orders/Labs/Meds Orders: Active Orders 24 hr Category Date Time Status Bacitracin [Bacitracin Oint 1 GM] Med 11/14/16 22:14 Once 1 dose TOP ONETIME ONE Departure - Departure Time of Disposition: 22:16 Disposition: Home, Self-Care 01 Condition: Good Clinical Impression: Encounter for wound re-check - Discharge Information Forms: ED Department Discharge Additional Instructions: Follow-up with Dr. Fairbanks as scheduled Return if symptoms persist or worsen Keep wound clean and dry The following information is given to patients seen in the emergency department who are being discharged to home. This information is to outline your options for follow-up care. We provide all patients seen in our emergency department with a follow-up referral. The need for follow-up, as well as the timing and circumstances, are variable depending upon the specifics of your emergency department visit. If you don't have a primary care physician on staff, we will provide you with a referral. We always advise you to contact your personal physician following an emergency department visit to inform them of the circumstance of the visit and for follow-up with them and/or the need for any referrals to a consulting specialist. The emergency department will also refer you to a specialist when appropriate. This referral assures that you have the opportunity for follow-up care with a specialist. All of these measure are taken in an effort to provide you with optimal care, which includes your follow-up. Under all circumstances we always encourage you to contact your private physician who remains a resource for coordinating your care. When calling for follow-up care, please make the office aware that this follow-up is from your recent emergency room visit. If for any reason you are refused follow-up, please contact the [facility] emergency department at and asked to speak to the emergency department charge nurse. - My Orders Last 24 Hours: My Active Orders 11/14/16 22:14 Bacitracin [Bacitracin Oint 1 GM] 1 dose TOP ONETIME ONE - Assessment/Plan Last 24 Hours: My Active Orders 11/14/16 22:14 Bacitracin [Bacitracin Oint 1 GM] 1 dose TOP ONETIME ONE
== END 2016-11-14 22:20 | disposition home or self-care (01) ==
LOC: MW.ED 21:04
DX: Z48.817 Encounter for surgical aftercare following surgery on the skin and subcutaneous tissue (principal); K21.9 Gastro-esophageal reflux disease without esophagitis; J45.909 Unspecified asthma, uncomplicated; E66.9 Obesity, unspecified; Z91.018 Allergy to other foods; Z79.899 Other long term (current) drug therapy; Z90.49 Acquired absence of other specified parts of digestive tract; Z88.5 Allergy status to narcotic agent; Z98.890 Other specified postprocedural states; Z68.38 Body mass index [BMI] 38.0-38.9, adult
CPT/HCPCS: 99282

== ENCOUNTER 2016-11-21 21:28 | Emergency (ER) | payer MEDICAID ==
--- NOTE | 2016-11-21 21:48 | EDM.PDOC ---
ED HPI GENERAL MEDICAL PROBLEM - General Chief Complaint: Skin Complaint Stated Complaint: BOTH THUMB HURTS Time Seen by Provider: 11/21/16 21:33 - History of Present Illness INITIAL COMMENTS - FREE TEXT/NARRATIVE: HISTORY AND PHYSICAL: History of present illness: The patient is a 30-year-old female who underwent same-day surgery with Dr Whitaker on November 11 for carpal tunnel release of the left wrist as well as wart removal on the left thumb and the right thumb. The patient has been seen in the ED 2 prior times since then on November 12 and November 14, the first visit for pain management as her pain pills were working in the second because she broke open the stitches from her wrist incision. The patient was seen on , 2 days ago, in the clinic and it was felt that there was some early infection in the wounds and she was placed on Bactrim. She was told that if the Bactrim did not improve the redness and the swelling that she should come to be seen to have another antibiotic given to her. She has a follow-up appointment in the clinic on Wednesday and is concerned about the persistent pain most especially in her left thumb as well as the antibiotic not working. She is told that she might have to go on Levaquin. She has no systemic complaints and is otherwise feeling good Review of systems: As per history of present illness and below otherwise all systems reviewed and negative. Past medical history: As per history of present illness and as reviewed below otherwise noncontributory. Surgical history: As per history of present illness and as reviewed below otherwise noncontributory. Social history: No reported history of drug or alcohol abuse. Family history: As per history of present illness and as reviewed below otherwise noncontributory. Physical exam: Gen.: Well-developed mildly overweight female who is nontoxic and speaking clearly and easily in the ED. HEENT: Atraumatic, normocephalic, negative for conjunctival pallor or scleral icterus, mucous membranes moist, throat clear, neck supple, nontender, trachea midline. Lungs: Clear to auscultation, breath sounds equal bilaterally, chest nontender. Heart: S1S2, regular rate and rhythm no overt murmurs Abdomen: Deferred Pelvis: Deferred Genitourinary: Deferred. Rectal: Deferred. Extremities: Atraumatic with no palpable bony deformities, the volar wrist incision on the left clean dry and intact but is slightly open and showing good signs of healing by secondary intention. The incision on the left thumb has surrounding soft tissue swelling and some erythema and tenderness and some serous drainage but the patient is able to range of motion at the thumb albeit with discomfort. It is not grossly swollen warm. The incision on the right thumb is clean and dry and only minimally tender and with no surrounding erythema. All other extremities have full range of motion without defects or deficits. Pulses are intact in the left upper extremity as his neurovascular distally., The legs are negative for cords or calf pain. Neurovascular unremarkable. Neuro: Awake, alert, oriented. Cranial nerves II through XII unremarkable. Cerebellum unremarkable. Motor and sensory unremarkable throughout. Exam nonfocal. Diagnostics: [] Therapeutics: The patient states that she cannot fill her medications via [facility] because she only has Medicaid so I'll write prescriptions that she can fill tomorrow and we will give her a dose of Levaquin and Percocet here. I will also give her a sling. I discussed with the patient that we would add a second antibiotic along with the Bactrim, Levaquin, as well as give her some pain pills to tide her over until she can get to her appointment on Wednesday. I advised moving the fingers of it more elevation and close follow-up as scheduled. Impression: Encounter for wound reevaluation, cellulitis of finger Definitive disposition and diagnosis as appropriate pending reevaluation and review of above. Bilateral Hand Pain Score (Numeric/FACES): 10 - Related Data Allergies Allergy/AdvReac Type Severity Reaction Status Date / Time codeine Allergy Severe Swelling Verified 11/12/16 21:46 mushroom Allergy Swelling Uncoded 09/26/16 03:09 Home Meds: Home Meds Albuterol [Ventolin HFA] 2 puff INH BID PRN 10/08/13 [History] Albuterol/Ipratropium [DuoNeb 3.0-0.5 MG/3 ML] 3 ml NEB ATDISCHARGE PRN [History] Cetirizine [ZyrTEC] 10 mg PO DAILY 05/11/15 [History] Montelukast [Singulair] 10 mg PO ONETIME 05/11/15 [History] Tiotropium [Spiriva HandiHaler] 18 mcg INH BID 05/11/15 [History] Albuterol [Proventil HFA] 1 puff INH ASDIRECTED PRN MDD s 02/09/16 [History] Budesonide [Pulmicort] 1 puff NEB ASDIRECTED 02/09/16 [History] Budesonide/Formoterol Fumarate [Symbicort 80-4.5 Mcg Inhaler] 1 puff INH ASDIRECTED 02/09/16 [History] Omeprazole 20 mg PO BID 02/09/16 [History] Ondansetron HCl [Zofran] 4 mg PO ASDIRECTED PRN 08/15/16 [History] Clarithromycin 250 mg PO BID 10/23/16 [History] Acetaminophen/HYDROcodone [[place] 325-5 MG] 1 tab PO Q4H PRN #30 tablet 11/11/16 [Rx] oxyCODONE HCl/Acetaminophen [Percocet 10-325 mg Tablet] 1 cap PO Q4H PRN [History] Past Medical History HEENT History: Reports: Impaired Vision Cardiovascular History: Reports: None Respiratory History: Reports: Asthma Gastrointestinal History: Reports: GERD Genitourinary History: Reports: None 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 Denies: Diabetes, Type I , Diabetes, Type II Hematologic History: Reports: None Immunologic History: Reports: None Oncologic (Cancer) History: Reports: None Dermatologic History: Reports: None - Infectious Disease History Infectious Disease History: Reports: Chicken Pox - Past Surgical History Head Surgeries/Procedures: Reports: None HEENT Surgical History: Reports: Adenoidectomy, Oral Surgery, Tonsillectomy GI Surgical History: Reports: Cholecystectomy Female Surgical History: Reports: Section Social & Family History - Family History Family Medical History: Noncontributory - Tobacco Use Smoking Status *Q: Never Smoker Second Hand Smoke Exposure: No - Caffeine Use Caffeine Use: Reports: Coffee, Energy Drinks, Soda, Tea - Alcohol Use Days Per Week of Alcohol Use: 0 Number of Drinks Per Day: 2 Total Drinks Per Week: 0 - Recreational Drug Use Recreational Drug Use: No Drug Use in Last 12 Months: No ED ROS GENERAL - Review of Systems Review Of Systems: ROS reveals no pertinent complaints other than HPI. ED EXAM, SKIN/RASH Exam: See Below (See dictation) Course - Vital Signs Last Recorded V/S: Last Vital Signs Temp 36.6 C 11/21/16 21:36 Pulse 97 11/21/16 21:36 Resp 18 11/21/16 21:36 BP 159/88 H 11/21/16 21:36 Pulse Ox 98 11/21/16 21:36 Departure - Departure Time of Disposition: 21:47 Disposition: Home, Self-Care 01 Condition: Good Clinical Impression: Encounter for evaluation of wound Cellulitis Qualifiers: Site of cellulitis: extremity Site of cellulitis of extremity: upper extremity Laterality: left Qualified Code(s): L03.114 - Cellulitis of left upper limb - Discharge Information Forms: ED Department Discharge Additional Instructions: The following information is given to patients seen in the emergency department who are being discharged to home. This information is to outline your options for follow-up care. We provide all patients seen in our emergency department with a follow-up referral. The need for follow-up, as well as the timing and circumstances, are variable depending upon the specifics of your emergency department visit. If you don't have a primary care physician on staff, we will provide you with a referral. We always advise you to contact your personal physician following an emergency department visit to inform them of the circumstance of the visit and for follow-up with them and/or the need for any referrals to a consulting specialist. The emergency department will also refer you to a specialist when appropriate. This referral assures that you have the opportunity for followup care with a specialist. All of these measure are taken in an effort to provide you with optimal care, which includes your followup. Under all circumstances we always encourage you to contact your private physician who remains a resource for coordinating your care. When calling for followup care, please make the office aware that this follow-up is from your recent emergency room visit. If for any reason you are refused follow-up, please contact the [facility] emergency department at and ask to speak to the emergency department charge nurse. [facility] Specialty clinic-Plastic [facility] Hand [facility] [address] [address] Continue to elevate the hand as much as you can and continue with the Bactrim you have at home as well as adding the new antibiotic, Levaquin, that you have been prescribed tonight. Please also take the Percocet as needed for pain and keep your appointment on Wednesday in the clinic. Return to ER as needed and as discussed. Use sling as needed to elevate the hand.
[2016-11-21] MEDS ORDERED: Acetaminophen/oxyCODONE 325-7.5 MG Tab PO ONE (21:50)
[2016-11-21] MEDS ORDERED: Levofloxacin 500 MG Tab PO ONE (21:50)
[2016-11-21 22:17] VITALS: BP 134/75
== END 2016-11-21 22:12 | disposition home or self-care (01) ==
LOC: MW.ED 21:28
DX: L03.114 Cellulitis of left upper limb (principal); J45.909 Unspecified asthma, uncomplicated; K21.9 Gastro-esophageal reflux disease without esophagitis; E66.9 Obesity, unspecified; Z88.5 Allergy status to narcotic agent; Z79.899 Other long term (current) drug therapy; Z68.41 Body mass index [BMI] 40.0-44.9, adult
CPT/HCPCS: 99282; A4566; A9270

== ENCOUNTER 2017-01-17 02:58 | Inpatient (IN) | payer MEDICAID ==
[2017-01-17] MEDS ORDERED: Albuterol/Ipratropium 3.0-0.5 MG/3 ML Neb Soln NEB ONE (03:03)
[2017-01-17] MEDS ORDERED: methylPREDNISolone Sodium Succinate 125 MG/2 ML SDV IVPUSH ONE ×2 (03:03→03:30)
[2017-01-17] MEDS ORDERED: LORazepam 2 MG/ML MDV IVPUSH ONE (03:03)
[2017-01-17] MEDS ORDERED: Albuterol/Ipratropium 3.0-0.5 MG/3 ML Neb Soln ONE (03:05)
--- NOTE | 2017-01-17 03:05 | EDM.PDOC ---
ED HPI GENERAL MEDICAL PROBLEM - General Stated Complaint: HARD TIME BREATHING Time Seen by Provider: 01/17/17 03:04 Source of Information: Reports: Patient - History of Present Illness INITIAL COMMENTS - FREE TEXT/NARRATIVE: HISTORY AND PHYSICAL: History of present illness: []Patient with history of asthma presents with shortness of breath and asthma exacerbation no fever nausea vomiting chills sweats chest pain dizziness or palpitation no bowel or urine symptoms Denies previous hospitalization for asthma therefore no intubations per patient Review of systems: As per history of present illness and below otherwise all systems reviewed and negative. Past medical history: As per history of present illness and as reviewed below otherwise noncontributory. Surgical history: As per history of present illness and as reviewed below otherwise noncontributory. Social history: No reported history of drug or alcohol abuse. Family history: As per history of present illness and as reviewed below otherwise noncontributory. Physical exam: HEENT: Atraumatic, normocephalic, pupils reactive, negative for conjunctival pallor or scleral icterus, mucous membranes moist, throat clear, neck supple, nontender, trachea midline. Lungs: Clear to auscultation and diminished on arrival, coarse wheezing throughout post treatment breath sounds equal bilaterally, chest nontender. Heart: S1S2, regular, negative for clicks, rubs, or JVD. Abdomen: Soft, nondistended, nontender. Negative for masses or hepatosplenomegaly. Negative for costovertebral tenderness. Pelvis: Stable nontender. Genitourinary: Deferred. Rectal: Deferred. Extremities: Atraumatic, negative for cords or calf pain. Neurovascular unremarkable. Neuro: Awake, alert, oriented. Cranial nerves II through XII unremarkable. Cerebellum unremarkable. Motor and sensory unremarkable throughout. Exam nonfocal. Diagnostics: []Chest 1 view CBC CMP UA hCG Therapeutics: []DuoNeb Solu-Medrol 125 mg IV Ativan 1 mg IV Magnesium 2 g IV Impression: []Asthma exacerbation Definitive disposition and diagnosis as appropriate pending reevaluation and review of above. - Related Data Allergies Allergy/AdvReac Type Severity Reaction Status Date / Time codeine Allergy Severe Swelling Verified 01/17/17 03:09 mushroom Allergy Swelling Uncoded 01/17/17 03:09 Home Meds: Home Meds Albuterol [Ventolin HFA] 2 puff INH BID PRN 10/08/13 [History] Albuterol/Ipratropium [DuoNeb 3.0-0.5 MG/3 ML] 3 ml NEB ATDISCHARGE PRN [History] Cetirizine [ZyrTEC] 10 mg PO DAILY 05/11/15 [History] Montelukast [Singulair] 10 mg PO ONETIME 05/11/15 [History] Tiotropium [Spiriva HandiHaler] 18 mcg INH BID 05/11/15 [History] Albuterol [Proventil HFA] 1 puff INH ASDIRECTED PRN MDD s 02/09/16 [History] Budesonide [Pulmicort] 1 puff NEB ASDIRECTED 02/09/16 [History] Budesonide/Formoterol Fumarate [Symbicort 80-4.5 Mcg Inhaler] 1 puff INH ASDIRECTED 02/09/16 [History] Omeprazole 20 mg PO BID 02/09/16 [History] Ondansetron HCl [Zofran] 4 mg PO ASDIRECTED PRN 08/15/16 [History] Clarithromycin 250 mg PO BID 10/23/16 [History] Acetaminophen/HYDROcodone [[place] 325-5 MG] 1 tab PO Q4H PRN #30 tablet 11/11/16 [Rx] oxyCODONE HCl/Acetaminophen [Percocet 10-325 mg Tablet] 1 cap PO Q4H PRN [History] Past Medical History HEENT History: Reports: Impaired Vision Cardiovascular History: Reports: None Respiratory History: Reports: Asthma Gastrointestinal History: Reports: GERD Genitourinary History: Reports: None 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 Denies: Diabetes, Type I , Diabetes, Type II Hematologic History: Reports: None Immunologic History: Reports: None Oncologic (Cancer) History: Reports: None Dermatologic History: Reports: None - Infectious Disease History Infectious Disease History: Reports: Chicken Pox - Past Surgical History Head Surgeries/Procedures: Reports: None HEENT Surgical History: Reports: Adenoidectomy, Oral Surgery, Tonsillectomy GI Surgical History: Reports: Cholecystectomy Female Surgical History: Reports: Section Social & Family History - Family History Family Medical History: Noncontributory - Tobacco Use Smoking Status *Q: Never Smoker Second Hand Smoke Exposure: No - Caffeine Use Caffeine Use: Reports: Coffee, Energy Drinks, Soda, Tea Caffeine Use Comment: 2-3drinks/day - Alcohol Use Days Per Week of Alcohol Use: 0 Number of Drinks Per Day: 2 Total Drinks Per Week: 0 - Recreational Drug Use Recreational Drug Use: No Drug Use in Last 12 Months: No ED ROS GENERAL - Review of Systems Review Of Systems: ROS reveals no pertinent complaints other than HPI. ED EXAM, GENERAL - Physical Exam Exam: See Below Course - Vital Signs Last Recorded V/S: Last Vital Signs Temp Pulse 116 H 01/17/17 04:06 Resp 14 01/17/17 04:06 BP 103/70 01/17/17 04:06 Pulse Ox 95 01/17/17 04:07 - Orders/Labs/Meds Orders: Active Orders 24 hr Category Date Time Status RT Aerosol Therapy [RC] ASDIRECTED Care 01/17/17 03:03 Active Chest 1V Frontal [CR] Stat Exams 01/17/17 03:10 Taken HCG QUALITATIVE,URINE [URCHEM] Stat Lab 01/17/17 03:31 Uncollected UA W/MICROSCOPIC [URIN] Stat Lab 01/17/17 03:31 Uncollected Magnesium Sulfate/Water [Magnesium Sulfate 2 GM in Med 01/17/17 03:30 Active Water 50 ML] 2 gm Premix Bag 1 bag IV ONETIME Sodium Chloride 0.9% [Normal Saline] 1,000 ml Med 01/17/17 03:32 Active IV STAT Medication Orders Magnesium Sulfate 2 gm/ Premix 50 mls @ 25 mls/hr IV ONETIME ONE Stop: 01/17/17 05:29 Last Admin: 01/17/17 03:42 Dose: 25 mls/hr Sodium Chloride (Normal Saline) 1,000 mls @ 999 mls/hr IV STAT ONE Stop: 01/17/17 04:32 Last Infusion: 01/17/17 03:48 Dose: 350 mls/hr Admin: 01/17/17 03:41 Dose: 999 mls/hr Labs: Laboratory Tests 01/17/17 01/17/17 Range/Units 03:06 03:06 WBC 9.58 (4.0-11.0) K/uL RBC 5.15 (4.30-5.90) M/uL Hgb 14.7 (12.0-16.0) g/dL Hct 41.9 (36.0-46.0) % MCV 81.4 (80.0-98.0) fL MCH 28.5 (27.0-32.0) pg MCHC 35.1 (31.0-37.0) g/dL RDW Std Deviation 39.4 (28.0-62.0) fl RDW Coeff of Shaniqua 13 (11.0-15.0) % Plt Count 249 (150-400) K/uL MPV 9.50 (7.40-12.00) fL Neut % (Auto) 48.1 (48.0-80.0) % Lymph % (Auto) 31.9 (16.0-40.0) % [place] % (Auto) 9.1 (0.0-15.0) % Eos % (Auto) 10.2 H (0.0-7.0) % Baso % (Auto) 0.7 (0.0-1.5) % Neut # (Auto) 4.6 (1.4-5.7) K/uL Lymph # (Auto) 3.1 H (0.6-2.4) K/uL [place] # (Auto) 0.9 H (0.0-0.8) K/uL Eos # (Auto) 1.0 H (0.0-0.7) K/uL Baso # (Auto) 0.1 (0.0-0.1) K/uL Nucleated RBC % 0.0 /100WBC Nucleated RBCs # 0 K/uL Sodium 140 (136-146) mmol/L Potassium 3.8 (3.5-5.1) mmol/L Chloride 110 (98-110) mmol/L Carbon Dioxide 18 L (21-31) mmol/L BUN 11 (6.0-23.0) mg/dL Creatinine 0.8 (0.6-1.5) mg/dL Est Cr Clr Drug Dosing 79.11 mL/min Estimated GFR (MDRD) > 60.0 ml/min Glucose 95 (60-110) mg/dL Calcium 9.7 (8.8-10.8) mg/dL Total Bilirubin 0.7 (0.1-1.5) mg/dL AST 24 (5-40) IU/L ALT 24 (8-54) IU/L Alkaline Phosphatase 58 (40-150) Total Protein 7.5 (6.0-8.0) g/dL Albumin 4.1 (3.5-5.0) g/dL Globulin 3.4 (2.0-3.5) g/dL Albumin/Globulin Ratio 1.2 L (1.3-2.8) Meds: Medications Generic Name Dose Route Start Last Admin Trade Name Freq PRN Reason Stop Dose Admin Magnesium Sulfate 2 gm/ Premix 50 mls @ 25 mls/hr 01/17/17 03:30 01/17/17 03: 42 IV 01/17/17 05:29 25 mls/hr ONETIME ONE Administration Sodium Chloride 1,000 mls @ 999 mls/hr 01/17/17 03:32 01/17/17 03:48 Normal Saline IV 01/17/17 04:32 350 mls/hr STAT ONE Infusion Discontinued Medications Generic Name Dose Route Start Last Admin Trade Name Freq PRN Reason Stop Dose Admin Albuterol/Ipratropium 3 ml 01/17/17 03:03 01/17/17 03:13 Duoneb 3.0-0.5 Mg/3 Ml NEB 01/17/17 03:04 3 ml ONETIME ONE Administration Albuterol/Ipratropium Confirm 01/17/17 03:05 01/17/17 03:25 Duoneb 3.0-0.5 Mg/3 Ml Administered 01/17/17 03:06 Not Given Dose 3 ml .ROUTE .STK-MED ONE Lorazepam 1 mg 01/17/17 03:03 01/17/17 03:13 Ativan IVPUSH 01/17/17 03:04 1 mg ONETIME ONE Administration Methylprednisolone Sodium Succinate 125 mg 01/17/17 03:03 01/17/17 03:13 Solu-Medrol IVPUSH 01/17/17 03:04 125 mg ONETIME ONE Administration Methylprednisolone Sodium Succinate 125 mg 01/17/17 03:30 01/17/17 03:42 Solu-Medrol IVPUSH 01/17/17 03:31 125 mg ONETIME ONE Administration Departure - Departure Time of Disposition: 04:09 Disposition: Admitted As Inpatient 64 Condition: Poor Clinical Impression: Asthma exacerbation - Discharge Information - My Orders Last 24 Hours: My Active Orders 01/17/17 03:03 RT Aerosol Therapy [RC] ASDIRECTED 01/17/17 03:10 Chest 1V Frontal [CR] Stat 01/17/17 03:30 Magnesium Sulfate/Water [Magnesium Sulfate 2 GM in Water 50 ML] 2 gm Premix Bag 1 bag IV ONETIME 01/17/17 03:31 HCG QUALITATIVE,URINE [URCHEM] Stat UA W/MICROSCOPIC [URIN] Stat 01/17/17 03:32 Sodium Chloride 0.9% [Normal Saline] 1,000 ml IV STAT - Assessment/Plan Last 24 Hours: My Active Orders 01/17/17 03:03 RT Aerosol Therapy [RC] ASDIRECTED 01/17/17 03:10 Chest 1V Frontal [CR] Stat 01/17/17 03:30 Magnesium Sulfate/Water [Magnesium Sulfate 2 GM in Water 50 ML] 2 gm Premix Bag 1 bag IV ONETIME 01/17/17 03:31 HCG QUALITATIVE,URINE [URCHEM] Stat UA W/MICROSCOPIC [URIN] Stat 01/17/17 03:32 Sodium Chloride 0.9% [Normal Saline] 1,000 ml IV STAT
[2017-01-17] MEDS ORDERED: Magnesium Sulfate/Water 2 GM in Premix Bag 1 BAG IV ONE (03:30)
[2017-01-17] MEDS ORDERED: Sodium Chloride 0.9% 1,000 ML IV ONE (03:32)
[2017-01-17 03:47] LABS: CHLORIDE,CL 110 mmol/L (98-110); SODIUM,NA 140 mmol/L (136-146)
[2017-01-17] MEDS ORDERED: Ondansetron 4 MG/2 ML SDV IVPUSH PRN (05:36)
[2017-01-17] MEDS: Acetaminophen 325 MG Tab PO PRN ×2 (05:46→11:55)
[2017-01-17] MEDS: Albuterol/Ipratropium 3.0-0.5 MG/3 ML Neb Soln NEB SCH ×4 (06:05→23:42)
[2017-01-17] MEDS: methylPREDNISolone Sodium Succinate 125 MG/2 ML SDV IVPUSH SCH ×3 (08:46→20:19)
[2017-01-17] MEDS ORDERED: Budesonide 0.5 MG/2 ML Neb Susp NEB SCH (13:45)
--- NOTE | 2017-01-17 13:49 | PCM.HP ---
H&P History of Present Illness - General Admit Problem/Dx: Admission Diagnosis/Problem Admission Diagnosis/Problem Asthma attack - History of Present Illness Initial Comments - Free Text/Narative: 31 yo female with pmh of Asthma who presents with one day history of shortness of breath and wheezing. She denies any fevers or productive cough. She reports her asthma has worsened when the weather turned cold. chest Pain Score (Numeric/FACES): 8 head Pain Score (Numeric/FACES): 8 - Related Data Allergies/Adverse Reactions: Allergies Allergy/AdvReac Type Severity Reaction Status Date / Time codeine Allergy Severe Swelling Verified 01/17/17 03:09 mushroom Allergy Swelling Uncoded 01/17/17 03:09 Home Medications: Home Meds Albuterol [Ventolin HFA] 2 puff INH BID PRN 10/08/13 [History] Albuterol/Ipratropium [DuoNeb 3.0-0.5 MG/3 ML] 3 ml NEB ATDISCHARGE PRN [History] Cetirizine [ZyrTEC] 10 mg PO DAILY 05/11/15 [History] Montelukast [Singulair] 10 mg PO BEDTIME 05/11/15 [History] Tiotropium [Spiriva HandiHaler] 18 mcg INH BID 05/11/15 [History] Albuterol [Proventil HFA] 1 puff INH ASDIRECTED PRN 02/09/16 [History] Budesonide [Pulmicort] 1 puff NEB ASDIRECTED 02/09/16 [History] Budesonide/Formoterol Fumarate [Symbicort 80-4.5 Mcg Inhaler] 1 puff INH ASDIRECTED 02/09/16 [History] Omeprazole 20 mg PO BID 02/09/16 [History] Ondansetron HCl [Zofran] 4 mg PO ASDIRECTED PRN 08/15/16 [History] Past Medical History HEENT History: Reports: Impaired Vision Cardiovascular History: Reports: None Respiratory History: Reports: Asthma Gastrointestinal History: Reports: GERD Genitourinary History: Reports: None [employer]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: Musculoskeletal History: Reports: None Other Musculoskeletal History: carpal tunnel Neurological History: Reports: Migraines Psychiatric History: Reports: None Endocrine/Metabolic History: Reports: Obesity/BMI 30+ Hematologic History: Reports: None Immunologic History: Reports: None Oncologic (Cancer) History: Reports: None Dermatologic History: Reports: None - Infectious Disease History Infectious Disease History: Reports: Chicken Pox - Past Surgical History Head Surgeries/Procedures: Reports: None HEENT Surgical History: Reports: Adenoidectomy, Oral Surgery, Tonsillectomy GI Surgical History: Reports: Cholecystectomy Female Surgical History: Reports: Section Social & Family History - Family History Family Medical History: Noncontributory Respiratory: Reports: Asthma Endocrine/Metabolic: Reports: Diabetes, type II - Tobacco Use Smoking Status *Q: Never Smoker Second Hand Smoke Exposure: No - Caffeine Use Caffeine Use: Reports: Coffee Caffeine Use Comment: 2-3drinks/day - Alcohol Use Days Per Week of Alcohol Use: 0 Number of Drinks Per Day: 2 Total Drinks Per Week: 0 - Recreational Drug Use Recreational Drug Use: No Drug Use in Last 12 Months: No H&P Review of Systems - Review of Systems: Review Of Systems: ROS reveals no pertinent complaints other than HPI. Exam - Exam Exam: See Below - Vital Signs Vital Signs: Last Vital Signs Temp 36.6 C 01/17/17 12:00 Pulse 119 H 01/17/17 12:00 Resp 20 01/17/17 12:00 BP 109/50 L 01/17/17 12:00 Pulse Ox 93 L 01/17/17 12:00 Weight: 108.499 kg - Exam General: Alert, Oriented, 4 HEENT: Mucosa Moist & [place], Posterior Pharynx Clear Neck: Supple Lungs: Normal Respiratory Effort, Wheezing Cardiovascular: Regular Rhythm, Tachycardia Extremities: Normal Inspection, No Pedal Edema Skin: Warm, Dry, Intact - Patient Data Lab Results Last 24 hrs: Laboratory Results - last 24 hr 01/17/17 01/17/17 Range/Units 08:45 08:45 Urine Color YELLOW Urine Appearance CLEAR Urine pH 6.0 (5.0-8.0) Ur Specific [place] 1.025 (1.001-1.035) Urine Protein NEGATIVE (NEGATIVE) mg/dL Urine Glucose (UA) NEGATIVE (NEGATIVE) mg/dL Urine Ketones NEGATIVE (NEGATIVE) mg/dL Urine Occult Blood NEGATIVE (NEGATIVE) Urine Nitrite NEGATIVE (NEGATIVE) Urine Bilirubin NEGATIVE (NEGATIVE) Urine Urobilinogen 0.2 (<2.0) EU/dL Ur Leukocyte Esterase NEGATIVE (NEGATIVE) Urine RBC 0-2 (0-2/HPF) Urine WBC 0-2 (0-5/HPF) Ur Epithelial Cells MODERATE (NONE-FEW) Urine Bacteria FEW (NEGATIVE) Urine HCG, Qual NEGATIVE (NEGATIVE) Result Diagrams: 01/17/17 03:06 01/17/17 03:06 *Q Meaningful Use (ADM) - VTE *Q VTE Criteria *Q: - Stroke *Q Stroke Criteria *Q: - AMI *Q AMI Criteria *Q: Problem List Initiated/Reviewed/Updated: Yes Orders Last 24hrs: Active Orders 24 hr Category Date Time Status Antiembolic Devices [RC] PER UNIT ROUTINE Care 01/17/17 13:45 Ordered Intake and Output [RC] QSHIFT Care 01/17/17 13:44 Ordered Oxygen Therapy [RC] PRN Care 01/17/17 13:44 Ordered Up ad Suad [RC] ASDIRECTED Care 01/17/17 13:43 Ordered VTE/DVT Education [RC] PER UNIT ROUTINE Care 01/17/17 13:44 Ordered Vital Signs [RC] Q4H Care 01/17/17 13:44 Ordered Regular Diet [DIET] Diet 01/17/17 Breakfast Active BASIC METABOLIC PANEL,BMP [CHEM] AM Lab 01/18/17 05:11 Ordered BASIC METABOLIC PANEL,BMP [CHEM] AM Lab 01/19/17 05:11 Ordered CBC WITH AUTO DIFF [HEME] AM Lab 01/18/17 05:11 Ordered CBC WITH AUTO DIFF [HEME] AM Lab 01/19/17 05:11 Ordered Acetaminophen [Tylenol] Med 01/17/17 05:35 Active 650 mg PO Q4H PRN Albuterol/Ipratropium [DuoNeb 3.0-0.5 MG/3 ML] Med 01/17/17 06:00 Active 3 ml NEB Q6HRRT Budesonide [Pulmicort] Med 01/17/17 13:45 Ordered DOSE mg NEB ASDIRECTED Cetirizine [ZyrTEC] Med 01/18/17 09:00 Ordered 10 mg PO DAILY Enoxaparin [Lovenox] Med 01/18/17 09:00 Ordered 40 mg SUBCUT DAILY Montelukast [Singulair] Med 01/17/17 21:00 Ordered 10 mg PO BEDTIME Omeprazole [Omeprazole] Med 01/17/17 21:00 Ordered 20 mg PO BID Ondansetron [Zofran] Med 01/17/17 05:36 Active 4 mg IVPUSH Q6H PRN Tiotropium [Spiriva HandiHaler] Med 01/17/17 21:00 Ordered 18 mcg INH BID methylPREDNISolone Sod Succ [Solu-MEDROL] Med 01/17/17 09:00 Active 125 mg IVPUSH Q6H Pulse Oximetry Continuous Monitoring [OM.PC] Routine Oth 01/17/17 05:37 Ordered Sequential Compression Device [OM.PC] Per Unit Routine Oth 01/17/17 13:44 Ordered Resuscitation Status Routine Resus Stat 01/17/17 13:43 Ordered Medication Orders Acetaminophen (Tylenol) 650 mg PO Q4H PRN PRN Reason: Headache/Pain Last Admin: 01/17/17 11:55 Dose: 650 mg Admin: 01/17/17 05:46 Dose: 650 mg Albuterol/Ipratropium (Duoneb 3.0-0.5 Mg/3 Ml) 3 ml NEB Q6HRRT [facility] Last Admin: 01/17/17 11:30 Dose: 3 ml Admin: 01/17/17 06:05 Dose: 3 ml Budesonide (Pulmicort) mg NEB ASDIRECTED [place] Methylprednisolone Sodium Succinate (Solu-Medrol) 125 mg IVPUSH Q6H [facility] Last Admin: 01/17/17 08:46 Dose: 125 mg Montelukast Sodium (Singulair) 10 mg PO BEDTIME [facility] Non-Formulary Medication (Cetirizine [Zyrtec]) 10 mg PO DAILY [facility] Non-Formulary Medication (Omeprazole [Omeprazole]) 20 mg PO BID [facility] Ondansetron HCl (Zofran) 4 mg IVPUSH Q6H PRN PRN Reason: Nausea/Vomiting Last Admin: 01/17/17 11:30 Dose: 4 mg Tiotropium [place] (Spiriva Handihaler) 18 mcg INH BID [facility] Assessment/Plan Comment:: 31 yo female admitted with asthma exacerbation. Will treat with duonebs, and IV solumedrol.
[2017-01-17] MEDS ORDERED: SUMAtriptan 50 MG Tab PO STA (14:45)
[2017-01-17] MEDS ORDERED: Sodium Chloride 0.9% 500 ML IV SCH (15:00)
[2017-01-17] MEDS: Omeprazole 20 MG Cap.CR PO SCH (17:34)
[2017-01-17] MEDS: Tiotropium Inhaler 18 MCG Inhalation Powder Cap Kit of 5 INH SCH (20:37)
[2017-01-17] MEDS ORDERED: SUMAtriptan 50 MG Tab PO PRN (20:50)
[2017-01-17] MEDS ORDERED: Montelukast 10 MG Tab PO SCH (21:00)
[2017-01-18] MEDS: methylPREDNISolone Sodium Succinate 125 MG/2 ML SDV IVPUSH SCH ×2 (03:31→08:19)
[2017-01-18 06:15] LABS: CHLORIDE,CL 110 mmol/L (98-110); SODIUM,NA 138 mmol/L (136-146)
[2017-01-18] MEDS: Albuterol/Ipratropium 3.0-0.5 MG/3 ML Neb Soln NEB SCH ×2 (06:23→12:03)
[2017-01-18] MEDS: Omeprazole 20 MG Cap.CR PO SCH (06:36)
[2017-01-18] MEDS ORDERED: Cetirizine 10 MG Tab PO SCH (09:00)
[2017-01-18] MEDS ORDERED: Enoxaparin 40 MG/0.4 ML Syringe SUBCUT SCH (09:00)
[2017-01-18] MEDS: Tiotropium Inhaler 18 MCG Inhalation Powder Cap Kit of 5 INH SCH (09:00)
--- NOTE | 2017-01-18 13:29 | PCM.DCSUM1 ---
Discharge Summary - Hospital Course Brief History: This 31 year old female with pmh of asthma who presented to the ED with one day history of shortness of breath and wheezing. She denies any fevers or productive cough. She reports her asthma has worsened when the weather turned cold. Labwork in the ED was negative and CXR was negative for acute cardiopulmonary process. She was noted to be hypoxic on RA 89% and tachypneic. She was treated with Duonebs and Solumedrol. She was admitted for acute asthma exacerbation. She follows with Dr. French, [employer] in [place] , but has not seen him in over 1 year. - Discharge Data Discharge Date: 01/18/17 Discharge Disposition: Home, Self-Care 01 Condition: Good - Patient Instructions Diet: Regular Diet as Tolerated Activity: No Strenuous Activities Driving: May Drive Today Showering/Bathing: May Shower Notify Provider of: Fever, Increased Pain, Swelling and Redness, Drainage, Nausea and/or Vomiting - Discharge Plan Prescriptions/Med Rec: Prednisone [IJD: Prednisone] 10 - 40 mg PO DAILY #50 tab Home Medications: Home Meds Albuterol [Ventolin HFA] 2 puff INH BID PRN 10/08/13 [History] Albuterol/Ipratropium [DuoNeb 3.0-0.5 MG/3 ML] 3 ml NEB ATDISCHARGE PRN [History] Cetirizine [ZyrTEC] 10 mg PO DAILY 05/11/15 [History] Montelukast [Singulair] 10 mg PO BEDTIME 05/11/15 [History] Tiotropium [Spiriva HandiHaler] 18 mcg INH BID 05/11/15 [History] Albuterol [Proventil HFA] 1 puff INH ASDIRECTED PRN 02/09/16 [History] Budesonide [Pulmicort] 1 puff NEB ASDIRECTED 02/09/16 [History] Budesonide/Formoterol Fumarate [Symbicort 80-4.5 Mcg Inhaler] 1 puff INH ASDIRECTED 02/09/16 [History] Omeprazole 20 mg PO BID 02/09/16 [History] Ondansetron HCl [Zofran] 4 mg PO ASDIRECTED PRN 08/15/16 [History] Acetaminophen [Tylenol] 650 mg PO Q4H PRN tablet 01/18/17 [Rx] Prednisone [IJD: Prednisone] 10 - 40 mg PO DAILY #50 tab 01/18/17 [Rx] Forms: ED Department Discharge Referrals: PCP,None [Primary Care Provider] - (Follow up with PCP in 1 Week. 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 she will arrange this appointment to coincide with her childrens appointments in [place].) - Discharge Summary/Plan Comment DC Time >30 min.: No Discharge Summary/Plan Comment: Discharge Diagnoses Acute asthma exacerbation Nohemy was admitted and treated with nebulizer treatments and Solumderol 125 mg IV q6hr. She is no longer needing oxygen and is sating well on RA, mid to high 90s. She is no longer tachypneic, slight tachycardia noted, low 100-110s. She reports she is feelig much better and is requesting discharge today. She needs to bring her son to a specialist appointment in [facility] tomorrow and is leaving no matter what. She has some scant wheezing, but reports feeling a lot better and is not having much dyspnea. She is to continue all home inhalers as prescribed and long with Zyrtec and Singulair. She was encouraged to follow up with Dr. French, which she reports she will make the appointment because her sons have many appointments and will line up the date to coincide with an appointment of theirs in [place]. She will be given Prednisone taper upon discharge. She is to return to ED or clinic if concerns should arise. - General Info Date of Service: 01/18/17 Admission Dx/Problem (Free Text: Admission Diagnosis/Problem Admission Diagnosis/Problem Asthma exacerbation Subjective Update: Feeling better, scant wheezing. But dyspnea and pressure has improved greatly. Requesting discharge today, she needs to be on the road by "5 am to make it to [place] for my sons appointment." Denies chest pain. No longer hypoxic on RA. Functional Status: Reports: Tolerating Diet, Ambulating, Urinating - Review of Systems General: Reports: No Symptoms. Denies: Fever HEENT: Denies: Headaches, Visual Changes Pulmonary: Reports: Shortness of Breath (scant, much improved.), Wheezing. Denies: Pleuritic Chest Pain, Sputum Cardiovascular: Reports: No Symptoms. Denies: Chest Pain, Palpitations, Edema Gastrointestinal: Reports: No Symptoms. Denies: Abdominal Pain, Nausea, Vomiting Genitourinary: Reports: No Symptoms. Denies: Dysuria, Frequency, Burning Musculoskeletal: Reports: No Symptoms Skin: Reports: No Symptoms Neurological: Reports: No Symptoms Psychiatric: Reports: No Symptoms - Patient Data Vitals - Most Recent: Last Vital Signs Temp 97.8 F 01/18/17 08:00 Pulse 101 H 01/18/17 08:00 Resp 16 01/18/17 08:00 BP 119/69 01/18/17 08:00 Pulse Ox 95 01/18/17 08:00 Weight - Most Recent: 108.499 kg I&O - Last 24 hours: Intake & Output 01/17/17 01/18/17 01/18/17 22:59 06:59 14:59 Intake Total 1025 400 Output Total 500 1550 Balance 525 -1150 Lab Results - Last 24 hrs: Laboratory Results - last 24 hr 01/18/17 01/18/17 Range/Units 05:29 05:29 WBC 15.27 H (4.0-11.0) K/uL RBC 4.93 (4.30-5.90) M/uL Hgb 14.0 (12.0-16.0) g/dL Hct 41.3 (36.0-46.0) % MCV 83.8 (80.0-98.0) fL MCH 28.4 (27.0-32.0) pg MCHC 33.9 (31.0-37.0) g/dL RDW Std Deviation 39.7 (28.0-62.0) fl RDW Coeff of [place] 13 (11.0-15.0) % Plt Count 255 (150-400) K/uL MPV 9.60 (7.40-12.00) fL Neut % (Auto) 90.4 H (48.0-80.0) % Lymph % (Auto) 5.4 L (16.0-40.0) % [place] % (Auto) 4.1 (0.0-15.0) % Eos % (Auto) 0.0 (0.0-7.0) % Baso % (Auto) 0.1 (0.0-1.5) % Neut # (Auto) 13.8 H (1.4-5.7) K/uL Lymph # (Auto) 0.8 (0.6-2.4) K/uL [place] # (Auto) 0.6 (0.0-0.8) K/uL Eos # (Auto) 0.0 (0.0-0.7) K/uL Baso # (Auto) 0.0 (0.0-0.1) K/uL Nucleated RBC % 0.0 /100WBC Nucleated RBCs # 0 K/uL Sodium 138 (136-146) mmol/L Potassium 4.3 (3.5-5.1) mmol/L Chloride 110 (98-110) mmol/L Carbon Dioxide 18 L (21-31) mmol/L BUN 8 (6.0-23.0) mg/dL Creatinine 0.8 (0.6-1.5) mg/dL Est Cr Clr Drug Dosing 93.63 mL/min Estimated GFR (MDRD) > 60.0 ml/min Glucose 177 H (60-110) mg/dL Calcium 9.3 (8.8-10.8) mg/dL Med Orders - Current: Current Medications Acetaminophen (Tylenol) 650 mg PO Q4H PRN PRN Reason: Headache/Pain Last Admin: 01/17/17 11:55 Dose: 650 mg Albuterol/Ipratropium (Duoneb 3.0-0.5 Mg/3 Ml) 3 ml NEB Q6HRRT [facility] Last Admin: 01/18/17 12:03 Dose: Not Given Budesonide (Pulmicort) 0.5 mg NEB ASDIRECTED [facility] Cetirizine HCl (Zyrtec) 10 mg PO DAILY [facility] Last Admin: 01/18/17 08:19 Dose: 10 mg Enoxaparin Sodium (Lovenox) 40 mg SUBCUT DAILY [facility] Last Admin: 01/18/17 08:22 Dose: 40 mg Methylprednisolone Sodium Succinate (Solu-Medrol) 125 mg IVPUSH Q6H [facility] Last Admin: 01/18/17 08:19 Dose: 125 mg Montelukast Sodium (Singulair) 10 mg PO BEDTIME [facility] Last Admin: 01/17/17 20:19 Dose: 10 mg Omeprazole (Omeprazole) 20 mg PO BIDAC [facility] Last Admin: 01/18/17 06:36 Dose: 20 mg Ondansetron HCl (Zofran) 4 mg IVPUSH Q6H PRN PRN Reason: Nausea/Vomiting Last Admin: 01/17/17 11:30 Dose: 4 mg Sumatriptan Succinate (Imitrex) 50 mg PO Q2H PRN PRN Reason: Headache Last Admin: 01/17/17 22:30 Dose: 50 mg Tiotropium [place] (Spiriva Handihaler) 18 mcg INH BID [facility] Last Admin: 01/18/17 09:00 Dose: 1 cap Discontinued Medications Albuterol/Ipratropium (Duoneb 3.0-0.5 Mg/3 Ml) 3 ml NEB ONETIME ONE Stop: 01/17/17 03:04 Last Admin: 01/17/17 03:13 Dose: 3 ml Albuterol/Ipratropium (Duoneb 3.0-0.5 Mg/3 Ml) Confirm Administered Dose 3 ml .ROUTE .STK-MED ONE Stop: 01/17/17 03:06 Last Admin: 01/17/17 03:25 Dose: Not Given Magnesium Sulfate 2 gm/ Premix 50 mls @ 25 mls/hr IV ONETIME ONE Stop: 01/17/17 05:29 Last Admin: 01/17/17 03:42 Dose: 25 mls/hr Sodium Chloride (Normal Saline) 1,000 mls @ 999 mls/hr IV STAT ONE Stop: 01/17/17 04:32 Last Infusion: 01/17/17 03:48 Dose: 350 mls/hr Sodium Chloride (Normal Saline) 500 mls @ 150 mls/hr IV ASDIRECTED [facility] Stop: 01/17/17 18:19 Last Admin: 01/17/17 15:22 Dose: 150 mls/hr Lorazepam (Ativan) 1 mg IVPUSH ONETIME ONE Stop: 01/17/17 03:04 Last Admin: 01/17/17 03:13 Dose: 1 mg Methylprednisolone Sodium Succinate (Solu-Medrol) 125 mg IVPUSH ONETIME ONE Stop: 01/17/17 03:04 Last Admin: 01/17/17 03:13 Dose: 125 mg Methylprednisolone Sodium Succinate (Solu-Medrol) 125 mg IVPUSH ONETIME ONE Stop: 01/17/17 03:31 Last Admin: 01/17/17 03:42 Dose: 125 mg Sumatriptan Succinate (Imitrex) 50 mg PO NOW STA Stop: 01/17/17 14:46 Last Admin: 01/17/17 15:24 Dose: 50 mg - Exam Quality Assessment: Denies: Supplemental Oxygen General: Reports: Alert, Oriented, Cooperative Lungs: Reports: Normal Respiratory Effort, Wheezing (scant throughout) Cardiovascular: Reports: Regular Rate, Regular Rhythm Extremities: Normal Inspection, Normal Range of Motion, Non-Tender, No Pedal Edema, Normal Capillary Refill Neurological: Reports: No New Focal Deficit Psy/Mental Status: Reports: Alert, Normal Affect, Normal Mood *Q Meaningful Use (DIS) - VTE *Q VTE Criteria *Q: - Stroke *Q Stroke Criteria *Q: - AMI *Q AMI Criteria *Q:
[2017-01-18 14:09] VITALS: BP 128/58
--- NOTE | 2017-01-18 18:34 | CR ---
EXAM DATE: 01/17/17 PATIENT'S AGE: 31 Patient: JOSUE ALLEN Facility: [place], [place] Site . Site : [id number] Study: XRay Chest [id number]/24/2017 3:32:33 AM Ordering Physician: Nic Cota Final Report: INDICATION: Shortness of breath TECHNIQUE: Chest radiograph 1 view COMPARISON: 09/26/16 FINDINGS: Moderate degradation of image quality is noted due to body habitus. Cardiovascular and mediastinum: The cardiac silhouette is normal in appearance and size. Mediastinum is within normal limits. Lungs and pleural space: Both lungs are unremarkable in appearance. No sign of pleural effusion. No pneumothorax is seen. Bones and soft tissues: No significant findings. IMPRESSION: 1. No acute cardiopulmonary disease seen. Dictated by: Fred Bruner MD @ 01/17/2017 03:33:37 (Electronic Signature) Report Signed by Proxy. TERESO
== END 2017-01-18 14:10 | disposition home or self-care (01) | DRG 203 ==
LOC: MW.ED 02:58 → MW.MS 04:10
PROVIDERS: ADMIT Internal Medicine; ATTEND Internal Medicine
DX: J45.901 Unspecified asthma with (acute) exacerbation (principal); Z79.899 Other long term (current) drug therapy; Z88.8 Allergy status to other drugs, medicaments and biological substances
CPT/HCPCS: 71010; 80053; 85025; 94664; 96365; 96375; 99285; J2060; J2930 ×2; J3475; J7040; 36415; 80048; 81001; 81025; 94640; 99283; A9270-GY; J1650; J2405

== ENCOUNTER 2017-02-18 12:59 | Inpatient (IN) | payer MEDICAID ==
[2017-02-18] MEDS ORDERED: Sodium Chloride 0.9% 2.5 ML Syringe FLUSH PRN (13:08)
[2017-02-18] MEDS ORDERED: Sodium Chloride 0.9% 10 ML Syringe FLUSH PRN (13:08)
[2017-02-18] MEDS ORDERED: predniSONE 20 MG Tab PO ONE (13:09)
[2017-02-18] MEDS ORDERED: Ketorolac 30 MG/ML SDV IVPUSH ONE (13:15)
[2017-02-18] MEDS: Albuterol/Ipratropium 3.0-0.5 MG/3 ML Neb Soln NEB ONE (13:16)
[2017-02-18] MEDS ORDERED: Sodium Chloride 0.9% 1,000 ML IV ONE ×2 (13:25→15:58)
[2017-02-18] MEDS ORDERED: diphenhydrAMINE 50 MG/ML SDV IVPUSH ONE ×2 (13:45→16:32)
[2017-02-18] MEDS ORDERED: Albuterol 0.5% 5 MG/ML Neb Soln 20 ML Bottle NEB ONE (13:46)
[2017-02-18] MEDS ORDERED: LORazepam 2 MG/ML MDV IVPUSH ONE (14:20)
--- NOTE | 2017-02-18 14:27 | EDM.PDOC ---
ED HPI GENERAL MEDICAL PROBLEM - General Chief Complaint: Asthma Stated Complaint: HEADACHE Time Seen by Provider: 02/18/17 13:01 Source of Information: Reports: Patient History Limitations: Reports: No Limitations - History of Present Illness INITIAL COMMENTS - FREE TEXT/NARRATIVE: History of present illness: []Patient has a history of asthma and started having worsening shortness of breath today and severe wheezing yesterday that is progressively worsening.. She also complains of a severe headache denies any trauma, change in vision, nausea or vomiting. Patient used albuterol and Pulmicort today without relief. Review of systems: As per history of present illness and below otherwise all systems reviewed and negative. Past medical history: As per history of present illness and as reviewed below otherwise noncontributory. Surgical history: As per history of present illness and as reviewed below otherwise noncontributory. Social history: No reported history of drug or alcohol abuse. Family history: As per history of present illness and as reviewed below otherwise noncontributory. Physical exam: General: Well developed, well nourished in NAD HEENT: Atraumatic, normocephalic, pupils reactive, negative for conjunctival pallor or scleral icterus, mucous membranes moist, throat clear, neck supple, nontender, trachea midline. Lungs: Clear to auscultation, breath sounds bilateral expiratory wheezing without accessory muscle use or respiratory distress, chest nontender. Heart: S1S2, regular, negative for clicks, rubs, or JVD. Abdomen: Soft, nondistended, nontender. Negative for masses or hepatosplenomegaly. Negative for costovertebral tenderness. Pelvis: Stable nontender. Genitourinary: Deferred. Rectal: Deferred. Extremities: Atraumatic, negative for cords or calf pain. Neurovascular unremarkable. Neuro: Awake, alert, oriented. Cranial nerves II through XII unremarkable. Cerebellum unremarkable. Motor and sensory unremarkable throughout. Exam nonfocal. Diagnostics: []Chest x-ray shows atelectasis no infiltrates. Therapeutics: []Patient was given several nebulized treatments including 2 albuterol continuous neb and steroids with moderate improvement however wheezing still continued. Also given morphine, Dilaudid, Toradol for pain without any relief patient was also hydrated and given 2 g of magnesium. After 4 hours in the ED with minimal improvement sats maintaining in the high 80s when ahead and call the hospitalist for admission. Impression: []Asthma exacerbation cephalgia Plan: []Admit for observation With continued breathing treatments Definitive disposition and diagnosis as appropriate pending reevaluation and review of above. Headache Pain Score (Numeric/FACES): 10 - Related Data Allergies Allergy/AdvReac Type Severity Reaction Status Date / Time codeine Allergy Severe Swelling Verified 02/18/17 13:10 mushroom Allergy Swelling Uncoded 02/18/17 13:10 Home Meds: Home Meds Albuterol [Ventolin HFA] 2 puff INH BID PRN 10/08/13 [History] Albuterol/Ipratropium [DuoNeb 3.0-0.5 MG/3 ML] 3 ml NEB ATDISCHARGE PRN [History] Cetirizine [ZyrTEC] 10 mg PO DAILY 05/11/15 [History] Montelukast [Singulair] 10 mg PO BEDTIME 05/11/15 [History] Albuterol [Proventil HFA] 1 puff INH ASDIRECTED PRN 02/09/16 [History] Budesonide [Pulmicort] 1 puff NEB ASDIRECTED 02/09/16 [History] Budesonide/Formoterol Fumarate [Symbicort 80-4.5 Mcg Inhaler] 1 puff INH ASDIRECTED 02/09/16 [History] Omeprazole 20 mg PO BID 02/09/16 [History] Ondansetron HCl [Zofran] 4 mg PO ASDIRECTED PRN 08/15/16 [History] Acetaminophen [Tylenol] 650 mg PO Q4H PRN tablet 01/18/17 [Rx] Past Medical History HEENT History: Reports: Impaired Vision Cardiovascular History: Reports: None Respiratory History: Reports: Asthma Gastrointestinal History: Reports: GERD Genitourinary History: Reports: None [employer] History: Reports: Musculoskeletal History: Reports: None Other Musculoskeletal History: carpal tunnel Neurological History: Reports: Migraines Psychiatric History: Reports: None Endocrine/Metabolic History: Reports: Obesity/BMI 30+ Hematologic History: Reports: None Immunologic History: Reports: None Oncologic (Cancer) History: Reports: None Dermatologic History: Reports: None - Infectious Disease History Infectious Disease History: Reports: Chicken Pox - Past Surgical History Head Surgeries/Procedures: Reports: None HEENT Surgical History: Reports: Adenoidectomy, Oral Surgery, Tonsillectomy GI Surgical History: Reports: Cholecystectomy Female Surgical History: Reports: Section Social & Family History - Family History Family Medical History: Noncontributory Respiratory: Reports: Asthma Endocrine/Metabolic: Reports: Diabetes, type II - Tobacco Use Smoking Status *Q: Never Smoker Second Hand Smoke Exposure: No - Caffeine Use Caffeine Use: Reports: Coffee Caffeine Use Comment: 2-3drinks/day - Alcohol Use Days Per Week of Alcohol Use: 0 Number of Drinks Per Day: 2 Total Drinks Per Week: 0 - Recreational Drug Use Recreational Drug Use: No Drug Use in Last 12 Months: No ED ROS GENERAL - Review of Systems Review Of Systems: See Below (See history of present illness) ED EXAM, GENERAL - Physical Exam Exam: See Below (See history of present illness) Course - Vital Signs Last Recorded V/S: Last Vital Signs Temp 36.4 C 02/19/17 07:46 Pulse 103 H 02/19/17 07:46 Resp 16 02/19/17 07:46 BP 139/64 02/19/17 07:46 Pulse Ox 96 02/19/17 07:46 - Orders/Labs/Meds Orders: Active Orders 24 hr Category Date Time Status RT Aerosol Therapy [RC] ASDIRECTED Care 02/18/17 13:08 Active RT Aerosol Therapy [RC] ASDIRECTED Care 02/18/17 13:46 Active RT Aerosol Therapy [RC] ASDIRECTED Care 02/18/17 16:30 Active Chest 2V [CR] Stat Exams 02/18/17 15:59 Taken Sodium Chloride 0.9% [Saline Flush] Med 02/18/17 13:08 Active 10 ml FLUSH ASDIRECTED PRN Sodium Chloride 0.9% [Saline Flush] Med 02/18/17 13:08 Active 2.5 ml FLUSH ASDIRECTED PRN Saline Lock Insert [OM.PC] Stat Oth 02/18/17 13:08 Ordered Medication Orders Acetaminophen (Tylenol) 650 mg PO Q4H PRN PRN Reason: Pain (Mild 1-3)/fever Last Admin: 02/19/17 07:50 Dose: 650 mg Admin: 02/18/17 18:46 Dose: 650 mg Albuterol/Ipratropium (Duoneb 3.0-0.5 Mg/3 Ml) 3 ml NEB Q4HRRT TIFFANY Last Admin: 02/19/17 02:00 Dose: 3 ml Admin: 02/18/17 23:20 Dose: 3 ml Admin: 02/18/17 21:42 Dose: Not Given Admin: 02/18/17 18:50 Dose: 3 ml Bisacodyl (Dulcolax) 5 mg PO DAILY PRN PRN Reason: Constipation Cetirizine HCl (Zyrtec) 10 mg PO DAILY PENDING SALE TO [facility] Enoxaparin Sodium (Lovenox) 40 mg SUBCUT DAILY PENDING SALE TO [facility] Levalbuterol HCl (Xopenex) 1.25 mg NEB Q4H PRN PRN Reason: Wheezing Methylprednisolone Sodium Succinate (Solu-Medrol) 125 mg IVPUSH Q6H PENDING SALE TO [facility] Last Admin: 02/19/17 05:28 Dose: 125 mg Admin: 02/18/17 23:21 Dose: 125 mg Admin: 02/18/17 18:35 Dose: 125 mg Montelukast Sodium (Singulair) 10 mg PO BEDTIME PENDING SALE TO [facility] Last Admin: 02/18/17 20:18 Dose: 10 mg Nalbuphine HCl (Nubain) 10 mg IVPUSH Q3H PRN PRN Reason: Pain Omeprazole (Omeprazole) 20 mg PO BID PENDING SALE TO [facility] Last Admin: 02/18/17 20:18 Dose: 20 mg Ondansetron HCl (Zofran) 4 mg IVPUSH Q4H PRN PRN Reason: Nausea Sodium Chloride (Saline Flush) 10 ml FLUSH ASDIRECTED PRN PRN Reason: Keep Vein Open Last Admin: 02/18/17 13:27 Dose: 10 ml Sodium Chloride (Saline Flush) 2.5 ml FLUSH ASDIRECTED PRN PRN Reason: Keep Vein Open Last Admin: 02/18/17 13:27 Dose: 2.5 ml Temazepam (Restoril) 15 mg PO BEDTIME PRN PRN Reason: Sleep Labs: Laboratory Tests 02/18/17 02/18/17 02/18/17 Range/Units 13:34 13:34 13:34 WBC 9.22 (4.0-11.0) K/uL RBC 5.12 (4.30-5.90) M/uL Hgb 14.7 (12.0-16.0) g/dL Hct 41.9 (36.0-46.0) % MCV 81.8 (80.0-98.0) fL MCH 28.7 (27.0-32.0) pg MCHC 35.1 (31.0-37.0) g/dL RDW Std Deviation 39.7 (28.0-62.0) fl RDW Coeff of Shaniqua 13 (11.0-15.0) % Plt Count 233 (150-400) K/uL MPV 10.10 (7.40-12.00) fL Neut % (Auto) 69.7 (48.0-80.0) % Lymph % (Auto) 17.0 (16.0-40.0) % [place] % (Auto) 8.8 (0.0-15.0) % Eos % (Auto) 4.0 (0.0-7.0) % Baso % (Auto) 0.5 (0.0-1.5) % Neut # (Auto) 6.4 H (1.4-5.7) K/uL Lymph # (Auto) 1.6 (0.6-2.4) K/uL [place] # (Auto) 0.8 (0.0-0.8) K/uL Eos # (Auto) 0.4 (0.0-0.7) K/uL Baso # (Auto) 0.1 (0.0-0.1) K/uL Nucleated RBC % 0.0 /100WBC Nucleated RBCs # 0 K/uL Sodium 138 (136-146) mmol/L Potassium 3.9 (3.5-5.1) mmol/L Chloride 109 (98-110) mmol/L Carbon Dioxide 22 (21-31) mmol/L BUN 9 (6.0-23.0) mg/dL Creatinine 0.8 (0.6-1.5) mg/dL Est Cr Clr Drug Dosing 93.63 mL/min Estimated GFR (MDRD) > 60.0 ml/min Glucose 122 H (60-110) mg/dL Calcium 9.5 (8.8-10.8) mg/dL Total Bilirubin 0.8 (0.1-1.5) mg/dL AST 21 (5-40) IU/L ALT 24 (8-54) IU/L Alkaline Phosphatase 55 (40-150) Total Protein 7.3 (6.0-8.0) g/dL Albumin 4.1 (3.5-5.0) g/dL Globulin 3.2 (2.0-3.5) g/dL Albumin/Globulin Ratio 1.3 (1.3-2.8) HCG, Qual NEGATIVE (NEG) Urine Color Urine Appearance Urine pH (5.0-8.0) Ur Specific [place] (1.001-1.035) Urine Protein (NEGATIVE) mg/dL Urine Glucose (UA) (NEGATIVE) mg/dL Urine Ketones (NEGATIVE) mg/dL Urine Occult Blood (NEGATIVE) Urine Nitrite (NEGATIVE) Urine Bilirubin (NEGATIVE) Urine Urobilinogen (<2.0) EU/dL Ur Leukocyte Esterase (NEGATIVE) Urine RBC (0-2/HPF) Urine WBC (0-5/HPF) Ur Epithelial Cells (NONE-FEW) Urine Bacteria (NEGATIVE) 02/18/17 Range/Units 14:26 WBC (4.0-11.0) K/uL RBC (4.30-5.90) M/uL Hgb (12.0-16.0) g/dL Hct (36.0-46.0) % MCV (80.0-98.0) fL MCH (27.0-32.0) pg MCHC (31.0-37.0) g/dL RDW Std Deviation (28.0-62.0) fl RDW Coeff of [place] (11.0-15.0) % Plt Count (150-400) K/uL MPV (7.40-12.00) fL Neut % (Auto) (48.0-80.0) % Lymph % (Auto) (16.0-40.0) % [place] % (Auto) (0.0-15.0) % Eos % (Auto) (0.0-7.0) % Baso % (Auto) (0.0-1.5) % Neut # (Auto) (1.4-5.7) K/uL Lymph # (Auto) (0.6-2.4) K/uL [place] # (Auto) (0.0-0.8) K/uL Eos # (Auto) (0.0-0.7) K/uL Baso # (Auto) (0.0-0.1) K/uL Nucleated RBC % /100WBC Nucleated RBCs # K/uL Sodium (136-146) mmol/L Potassium (3.5-5.1) mmol/L Chloride (98-110) mmol/L Carbon Dioxide (21-31) mmol/L BUN (6.0-23.0) mg/dL Creatinine (0.6-1.5) mg/dL Est Cr Clr Drug Dosing mL/min Estimated GFR (MDRD) ml/min Glucose (60-110) mg/dL Calcium (8.8-10.8) mg/dL Total Bilirubin (0.1-1.5) mg/dL AST (5-40) IU/L ALT (8-54) IU/L Alkaline Phosphatase (40-150) Total Protein (6.0-8.0) g/dL Albumin (3.5-5.0) g/dL Globulin (2.0-3.5) g/dL Albumin/Globulin Ratio (1.3-2.8) HCG, Qual (NEG) Urine Color YELLOW Urine Appearance CLEAR Urine pH 6.0 (5.0-8.0) Ur Specific [place] <= 1.005 (1.001-1.035) Urine Protein NEGATIVE (NEGATIVE) mg/dL Urine Glucose (UA) NEGATIVE (NEGATIVE) mg/dL Urine Ketones NEGATIVE (NEGATIVE) mg/dL Urine Occult Blood NEGATIVE (NEGATIVE) Urine Nitrite NEGATIVE (NEGATIVE) Urine Bilirubin NEGATIVE (NEGATIVE) Urine Urobilinogen 0.2 (<2.0) EU/dL Ur Leukocyte Esterase NEGATIVE (NEGATIVE) Urine RBC 0-1 (0-2/HPF) Urine WBC 0-1 (0-5/HPF) Ur Epithelial Cells RARE (NONE-FEW) Urine Bacteria RARE (NEGATIVE) Meds: Medications Generic Name Dose Route Start Last Admin Trade Name Freq PRN Reason Stop Dose Admin Acetaminophen 650 mg 02/18/17 18:08 02/19/17 07:50 Tylenol PO 650 mg Q4H PRN Administration Pain (Mild 1-3)/fever Albuterol/Ipratropium 3 ml 02/18/17 19:00 02/19/17 02:00 Duoneb 3.0-0.5 Mg/3 Ml NEB 3 ml Q4HRRT TIFFANY Administration Bisacodyl 5 mg 02/18/17 18:08 Dulcolax PO DAILY PRN Constipation Cetirizine HCl 10 mg 02/19/17 09:00 Zyrtec PO DAILY TIFFANY Enoxaparin Sodium 40 mg 02/19/17 09:00 Lovenox SUBCUT DAILY TIFFANY Levalbuterol HCl 1.25 mg 02/18/17 18:08 Xopenex NEB Q4H PRN Wheezing Methylprednisolone Sodium Succinate 125 mg 02/18/17 18:00 02/19/17 05:28 Solu-Medrol IVPUSH 125 mg Q6H TIFFANY Administration Montelukast Sodium 10 mg 02/18/17 21:00 02/18/17 20:18 Singulair PO 10 mg BEDTIME TIFFANY Administration Nalbuphine HCl 10 mg 02/18/17 18:12 Nubain IVPUSH Q3H PRN Pain Omeprazole 20 mg 02/18/17 21:00 02/18/17 20:18 Omeprazole PO 20 mg BID TIFFANY Administration Ondansetron HCl 4 mg 02/18/17 18:08 Zofran IVPUSH Q4H PRN Nausea Sodium Chloride 10 ml 02/18/17 13:08 02/18/17 13:27 Saline Flush FLUSH 10 ml ASDIRECTED PRN Administration Keep Vein Open Sodium Chloride 2.5 ml 02/18/17 13:08 02/18/17 13:27 Saline Flush FLUSH 2.5 ml ASDIRECTED PRN Administration Keep Vein Open Temazepam 15 mg 02/18/17 18:08 Restoril PO BEDTIME PRN Sleep Discontinued Medications Generic Name Dose Route Start Last Admin Trade Name Freq PRN Reason Stop Dose Admin Albuterol 10 mg 02/18/17 13:46 02/18/17 14:01 Proventil Neb Soln NEB 02/18/17 13:47 10 mg ONETIME ONE Administration Albuterol/Ipratropium 3 ml 02/18/17 13:08 02/18/17 13:16 Duoneb 3.0-0.5 Mg/3 Ml NEB 02/18/17 13:09 3 ml ONETIME ONE Administration Albuterol/Ipratropium 3 ml 02/18/17 16:30 02/18/17 16:40 Duoneb 3.0-0.5 Mg/3 Ml NEB 02/18/17 16:31 3 ml ONETIME ONE Administration Diphenhydramine HCl 50 mg 02/18/17 13:45 02/18/17 13:58 Benadryl IVPUSH 02/18/17 13:46 50 mg ONETIME ONE Administration Diphenhydramine HCl 25 mg 02/18/17 16:32 02/18/17 16:58 Benadryl IVPUSH 02/18/17 16:33 25 mg ONETIME ONE Administration Hydromorphone HCl 0.5 mg 02/18/17 16:20 02/18/17 16:27 Dilaudid IVPUSH 0.5 mg Q1H PRN Administration Pain Sodium Chloride 1,000 mls @ 999 mls/hr 02/18/17 13:25 02/18/17 13:27 Normal Saline IV 02/18/17 14:25 999 mls/hr .Bolus ONE Administration Magnesium Sulfate 2 gm/ Premix 50 mls @ 25 mls/hr 02/18/17 14:52 02/18/17 15: 02 IV 02/18/17 16:51 100 mls/hr ONETIME ONE Administration Sodium Chloride 1,000 mls @ 999 mls/hr 02/18/17 15:58 02/18/17 16:03 Normal Saline IV 02/18/17 16:58 999 mls/hr .Bolus ONE Administration Prochlorperazine Edisylate 10 52 mls @ 150 mls/hr 02/18/17 16:31 02/18/17 17: 34 mg/ Sodium Chloride IV 02/18/17 16:51 Not Given ONETIME ONE Ketorolac Tromethamine 30 mg 02/18/17 13:15 02/18/17 13:33 Toradol IVPUSH 02/18/17 13:16 30 mg ONETIME ONE Administration Lorazepam 1 mg 02/18/17 14:20 02/18/17 14:41 Ativan IVPUSH 02/18/17 14:21 1 mg ONETIME ONE Administration Morphine Sulfate 4 mg 02/18/17 15:37 02/18/17 15:48 Morphine IVPUSH 02/18/17 15:38 4 mg ONETIME ONE Administration Prednisone 60 mg 02/18/17 13:09 02/18/17 13:16 Prednisone PO 02/18/17 13:10 60 mg ONETIME ONE Administration Prochlorperazine Edisylate 10 mg 02/18/17 16:45 02/18/17 16:58 Compazine IV 02/18/17 16:46 10 mg ONETIME ONE Administration Departure - Departure Time of Disposition: 17:35 Disposition: Admitted As Inpatient 64 Clinical Impression: Asthma exacerbation - Discharge Information - My Orders Last 24 Hours: My Active Orders 02/18/17 13:08 RT Aerosol Therapy [RC] ASDIRECTED Sodium Chloride 0.9% [Saline Flush] 10 ml FLUSH ASDIRECTED PRN Sodium Chloride 0.9% [Saline Flush] 2.5 ml FLUSH ASDIRECTED PRN Saline Lock Insert [OM.PC] Stat 02/18/17 13:46 RT Aerosol Therapy [RC] ASDIRECTED 02/18/17 15:59 Chest 2V [CR] Stat 02/18/17 16:30 RT Aerosol Therapy [RC] ASDIRECTED - Assessment/Plan Last 24 Hours: My Active Orders 02/18/17 13:08 RT Aerosol Therapy [RC] ASDIRECTED Sodium Chloride 0.9% [Saline Flush] 10 ml FLUSH ASDIRECTED PRN Sodium Chloride 0.9% [Saline Flush] 2.5 ml FLUSH ASDIRECTED PRN Saline Lock Insert [OM.PC] Stat 02/18/17 13:46 RT Aerosol Therapy [RC] ASDIRECTED 02/18/17 15:59 Chest 2V [CR] Stat 02/18/17 16:30 RT Aerosol Therapy [RC] ASDIRECTED
[2017-02-18 14:40] LABS: CHLORIDE,CL 109 mmol/L (98-110); SODIUM,NA 138 mmol/L (136-146)
[2017-02-18] MEDS ORDERED: Magnesium Sulfate/Water 2 GM in Premix Bag 1 BAG IV ONE (14:52)
[2017-02-18] MEDS ORDERED: Morphine 2 MG/ML Syringe IVPUSH ONE (15:37)
[2017-02-18] MEDS ORDERED: HYDROmorphone 1 MG/ML Syringe IVPUSH PRN (16:20)
[2017-02-18] MEDS ORDERED: Albuterol/Ipratropium 3.0-0.5 MG/3 ML Neb Soln NEB ONE (16:30)
[2017-02-18] MEDS ORDERED: Prochlorperazine 10 MG in Sodium Chloride 0.9% 50 ML IV ONE (16:31)
[2017-02-18] MEDS ORDERED: Prochlorperazine 10 MG/2 ML SDV IV ONE (16:45)
--- NOTE | 2017-02-18 18:06 | PCM.HP ---
H&P History of Present Illness - General Date of Service: 02/18/17 Admit Problem/Dx: Admission Diagnosis/Problem Admission Diagnosis/Problem Asthma with acute exacerbation Source of Information: Patient, Provider, RN - History of Present Illness Initial Comments - Free Text/Narative: She presented to the ED today with headache, nausea and wheezing. She has a history of asthma. Despite ER treatment, she continues to have marked wheezing although she has shown subjective improvement. Headache Pain Score (Numeric/FACES): 10 - Related Data Allergies/Adverse Reactions: Allergies Allergy/AdvReac Type Severity Reaction Status Date / Time codeine Allergy Severe Swelling Verified 02/18/17 13:10 mushroom Allergy Swelling Uncoded 02/18/17 13:10 Home Medications: Home Meds Albuterol [Ventolin HFA] 2 puff INH BID PRN 10/08/13 [History] Albuterol/Ipratropium [DuoNeb 3.0-0.5 MG/3 ML] 3 ml NEB ATDISCHARGE PRN [History] Cetirizine [ZyrTEC] 10 mg PO DAILY 05/11/15 [History] Montelukast [Singulair] 10 mg PO BEDTIME 05/11/15 [History] Albuterol [Proventil HFA] 1 puff INH ASDIRECTED PRN 02/09/16 [History] Budesonide [Pulmicort] 1 puff NEB ASDIRECTED 02/09/16 [History] Budesonide/Formoterol Fumarate [Symbicort 80-4.5 Mcg Inhaler] 1 puff INH ASDIRECTED 02/09/16 [History] Omeprazole 20 mg PO BID 02/09/16 [History] Ondansetron HCl [Zofran] 4 mg PO ASDIRECTED PRN 08/15/16 [History] Acetaminophen [Tylenol] 650 mg PO Q4H PRN tablet 01/18/17 [Rx] Past Medical History HEENT History: Reports: Impaired Vision Cardiovascular History: Reports: None Respiratory History: Reports: Asthma Gastrointestinal History: Reports: GERD Genitourinary History: Reports: None [employer] History: Reports: Musculoskeletal History: Reports: Other (See Below) Other Musculoskeletal History: carpal tunnel Neurological History: Reports: Migraines Psychiatric History: Reports: None Endocrine/Metabolic History: Reports: Obesity/BMI 30+ Hematologic History: Reports: None Immunologic History: Reports: None Oncologic (Cancer) History: Reports: None Dermatologic History: Reports: None - Infectious Disease History Infectious Disease History: Reports: Chicken Pox - Past Surgical History Head Surgeries/Procedures: Reports: None HEENT Surgical History: Reports: Adenoidectomy, Oral Surgery, Tonsillectomy GI Surgical History: Reports: Cholecystectomy Female Surgical History: Reports: Section Musculoskeletal Surgical History: Reports: Carpal Tunnel Social & Family History - Family History Family Medical History: Noncontributory Respiratory: Reports: Asthma Endocrine/Metabolic: Reports: Diabetes, type II - Tobacco Use Smoking Status *Q: Never Smoker Second Hand Smoke Exposure: No - Caffeine Use Caffeine Use: Reports: Coffee Caffeine Use Comment: 2-3drinks/day - Alcohol Use Days Per Week of Alcohol Use: 0 Number of Drinks Per Day: 2 Total Drinks Per Week: 0 - Recreational Drug Use Recreational Drug Use: No Drug Use in Last 12 Months: No H&P Review of Systems - Review of Systems: Review Of Systems: See Below General: Denies: Fever, Chills Pulmonary: Reports: Shortness of Breath, Wheezing Cardiovascular: Denies: Chest Pain Gastrointestinal: Denies: Black Stool, Bloody Stool, Distension, Melena Genitourinary: Denies: Dysuria, Frequency, Burning, Hematuria Skin: Denies: Jaundice Neurological: Reports: Headache. Denies: Seizure Exam - Exam Exam: See Below - Vital Signs Vital Signs: Last Vital Signs Temp 98.6 F 02/18/17 17:43 Pulse 105 H 02/18/17 17:43 Resp 20 02/18/17 17:43 BP 97/57 L 02/18/17 17:43 Pulse Ox 91 L 02/18/17 17:43 Weight: 108.862 kg - Exam Quality Assessment: Supplemental Oxygen General: Alert, Oriented HEENT: EOMI Lungs: Wheezing, Other (marked prolongation of expiration). No: Clear to Auscultation, Rales Cardiovascular: Regular Rate, Regular Rhythm GI/Abdominal Exam: Soft, Non-Tender (Female) Exam: Deferred Rectal (Female) Exam: Deferred Extremities: Non-Tender, No Pedal Edema Neurological: Cranial Nerves Intact Neuro Extensive - Mental Status: Other (she avoids eye contact; ) Neuro Extensive - Motor, Sensory, Reflexes: No: Facial palsy (L), Facial Palsy ( R), Hemeplagia (R), Hemeplagia (L) Psychiatric: Alert. No: Normal Affect (avoids eye contact; answers questions very briefly) - Patient Data Result Diagrams: 02/18/17 13:34 02/18/17 13:34 *Q Meaningful Use (ADM) - VTE *Q VTE Criteria *Q: - Stroke *Q Stroke Criteria *Q: - AMI *Q AMI Criteria *Q: - Problem List (1) Acute asthma SNOMED Code(s): 283052939 ICD Code: J45.909 - UNSPECIFIED ASTHMA, UNCOMPLICATED Status: Acute Current Visit: No (2) Migraine headache SNOMED Code(s): 86978972 Status: Acute Current Visit: No Problem List Initiated/Reviewed/Updated: Yes Orders Last 24hrs: Medication Orders Hydromorphone HCl (Dilaudid) 0.5 mg IVPUSH Q1H PRN PRN Reason: Pain Last Admin: 02/18/17 16:27 Dose: 0.5 mg Sodium Chloride (Saline Flush) 10 ml FLUSH ASDIRECTED PRN PRN Reason: Keep Vein Open Last Admin: 02/18/17 13:27 Dose: 10 ml Sodium Chloride (Saline Flush) 2.5 ml FLUSH ASDIRECTED PRN PRN Reason: Keep Vein Open Last Admin: 02/18/17 13:27 Dose: 2.5 ml Assessment/Plan Comment:: resistent to ER treatment. Admit see orders I reviewed her CXR. I did not see any acute changes. Moises Duque MD
[2017-02-18] MEDS ORDERED: Bisacodyl 5 MG Tab PO PRN (18:08)
[2017-02-18] MEDS ORDERED: Temazepam 15 MG Cap PO PRN (18:08)
[2017-02-18] MEDS ORDERED: Ondansetron 4 MG/2 ML SDV IVPUSH PRN (18:08)
[2017-02-18] MEDS ORDERED: Levalbuterol HCl 1.25 MG/0.5 ML Neb NEB PRN (18:08)
[2017-02-18] MEDS: methylPREDNISolone Sodium Succinate 125 MG/2 ML SDV IVPUSH SCH ×2 (18:35→23:21)
[2017-02-18] MEDS: Acetaminophen 325 MG Tab PO PRN (18:46)
[2017-02-18] MEDS: Albuterol/Ipratropium 3.0-0.5 MG/3 ML Neb Soln NEB SCH ×3 (18:50→23:20)
[2017-02-18] MEDS: Montelukast 10 MG Tab PO SCH (20:18)
[2017-02-18] MEDS: Omeprazole 20 MG Cap.CR PO SCH (20:18)
[2017-02-19] MEDS: Albuterol/Ipratropium 3.0-0.5 MG/3 ML Neb Soln NEB SCH ×7 (02:00→22:07)
[2017-02-19] MEDS: methylPREDNISolone Sodium Succinate 125 MG/2 ML SDV IVPUSH SCH ×3 (05:28→19:24)
[2017-02-19 05:34] LABS: CHLORIDE,CL 112 mmol/L (98-110); SODIUM,NA 140 mmol/L (136-146)
[2017-02-19] MEDS: Acetaminophen 325 MG Tab PO PRN (07:50)
[2017-02-19] MEDS: Enoxaparin 40 MG/0.4 ML Syringe SUBCUT SCH (09:29)
[2017-02-19] MEDS: Cetirizine 10 MG Tab PO SCH (09:30)
[2017-02-19] MEDS: Omeprazole 20 MG Cap.CR PO SCH ×2 (09:30→21:13)
[2017-02-19] MEDS ORDERED: SUMAtriptan 50 MG Tab PO ONE ×2 (10:09→10:30)
--- NOTE | 2017-02-19 12:09 | PCM.PN ---
- General Info Date of Service: 02/19/17 Subjective Update: 31-year-old female with a history of poorly controlled asthma who was admitted to the service last night. Talked to the patient this morning, she tells me that her asthma has been very poorly controlled she's become frustrated with that. Currently she says that she began to feel more short of breath after she went to go take a shower although this isn't something completely new for her. Denies any cough, fever, chills nausea or vomiting. No other complaints. - Review of Systems General: Reports: Other (See history of present illness) - Patient Data Vitals - Most Recent: Last Vital Signs Temp 36.6 C 02/19/17 11:34 Pulse 118 H 02/19/17 11:34 Resp 20 02/19/17 11:34 BP 128/67 02/19/17 11:34 Pulse Ox 94 L 02/19/17 11:34 Weight - Most Recent: 108.862 kg I&O - Last 24 Hours: Intake & Output 02/18/17 02/19/17 02/19/17 22:59 06:59 14:59 Intake Total 250 Output Total 1100 Balance -850 Lab Results Last 24 Hours: Laboratory Results - last 24 hr 02/19/17 02/19/17 Range/Units 04:37 04:37 WBC 8.48 (4.0-11.0) K/uL RBC 4.98 (4.30-5.90) M/uL Hgb 14.1 (12.0-16.0) g/dL Hct 41.4 (36.0-46.0) % MCV 83.1 (80.0-98.0) fL MCH 28.3 (27.0-32.0) pg MCHC 34.1 (31.0-37.0) g/dL RDW Std Deviation 39.9 (28.0-62.0) fl RDW Coeff of Shaniqua 13 (11.0-15.0) % Plt Count 225 (150-400) K/uL MPV 9.90 (7.40-12.00) fL Neut % (Auto) 91.2 H (48.0-80.0) % Lymph % (Auto) 6.8 L (16.0-40.0) % Howard % (Auto) 2.0 (0.0-15.0) % Eos % (Auto) 0.0 (0.0-7.0) % Baso % (Auto) 0.0 (0.0-1.5) % Neut # (Auto) 7.7 H (1.4-5.7) K/uL Lymph # (Auto) 0.6 (0.6-2.4) K/uL Howard # (Auto) 0.2 (0.0-0.8) K/uL Eos # (Auto) 0.0 (0.0-0.7) K/uL Baso # (Auto) 0.0 (0.0-0.1) K/uL Nucleated RBC % 0.0 /100WBC Nucleated RBCs # 0 K/uL Sodium 140 (136-146) mmol/L Potassium 4.4 (3.5-5.1) mmol/L Chloride 112 H (98-110) mmol/L Carbon Dioxide 18 L (21-31) mmol/L BUN 9 (6.0-23.0) mg/dL Creatinine 0.7 (0.6-1.5) mg/dL Est Cr Clr Drug Dosing 107.01 mL/min Estimated GFR (MDRD) > 60.0 ml/min Glucose 146 H (60-110) mg/dL Calcium 9.1 (8.8-10.8) mg/dL Med Orders - Current: Current Medications Acetaminophen (Tylenol) 650 mg PO Q4H PRN PRN Reason: Pain (Mild 1-3)/fever Last Admin: 02/19/17 07:50 Dose: 650 mg Albuterol/Ipratropium (Duoneb 3.0-0.5 Mg/3 Ml) 3 ml NEB Q4HRRT [facility] Last Admin: 02/19/17 10:40 Dose: 3 ml Bisacodyl (Dulcolax) 5 mg PO DAILY PRN PRN Reason: Constipation Cetirizine HCl (Zyrtec) 10 mg PO DAILY [facility] Last Admin: 02/19/17 09:30 Dose: 10 mg Enoxaparin Sodium (Lovenox) 40 mg SUBCUT DAILY [facility] Last Admin: 02/19/17 09:29 Dose: 40 mg Levalbuterol HCl (Xopenex) 1.25 mg NEB Q4H PRN PRN Reason: Wheezing Methylprednisolone Sodium Succinate (Solu-Medrol) 125 mg IVPUSH Q6H [facility] Last Admin: 02/19/17 05:28 Dose: 125 mg Montelukast Sodium (Singulair) 10 mg PO BEDTIME [facility] Last Admin: 02/18/17 20:18 Dose: 10 mg Nalbuphine HCl (Nubain) 10 mg IVPUSH Q3H PRN PRN Reason: Pain Omeprazole (Omeprazole) 20 mg PO BID [facility] Last Admin: 02/19/17 09:30 Dose: 20 mg Ondansetron HCl (Zofran) 4 mg IVPUSH Q4H PRN PRN Reason: Nausea Sodium Chloride (Saline Flush) 10 ml FLUSH ASDIRECTED PRN PRN Reason: Keep Vein Open Last Admin: 02/18/17 13:27 Dose: 10 ml Sodium Chloride (Saline Flush) 2.5 ml FLUSH ASDIRECTED PRN PRN Reason: Keep Vein Open Last Admin: 02/18/17 13:27 Dose: 2.5 ml Temazepam (Restoril) 15 mg PO BEDTIME PRN PRN Reason: Sleep Discontinued Medications Albuterol (Proventil Neb Soln) 10 mg NEB ONETIME ONE Stop: 02/18/17 13:47 Last Admin: 02/18/17 14:01 Dose: 10 mg Albuterol/Ipratropium (Duoneb 3.0-0.5 Mg/3 Ml) 3 ml NEB ONETIME ONE Stop: 02/18/17 13:09 Last Admin: 02/18/17 13:16 Dose: 3 ml Albuterol/Ipratropium (Duoneb 3.0-0.5 Mg/3 Ml) 3 ml NEB ONETIME ONE Stop: 02/18/17 16:31 Last Admin: 02/18/17 16:40 Dose: 3 ml Diphenhydramine HCl (Benadryl) 50 mg IVPUSH ONETIME ONE Stop: 02/18/17 13:46 Last Admin: 02/18/17 13:58 Dose: 50 mg Diphenhydramine HCl (Benadryl) 25 mg IVPUSH ONETIME ONE Stop: 02/18/17 16:33 Last Admin: 02/18/17 16:58 Dose: 25 mg Hydromorphone HCl (Dilaudid) 0.5 mg IVPUSH Q1H PRN PRN Reason: Pain Last Admin: 02/18/17 16:27 Dose: 0.5 mg Sodium Chloride (Normal Saline) 1,000 mls @ 999 mls/hr IV .Bolus ONE Stop: 02/18/17 14:25 Last Admin: 02/18/17 13:27 Dose: 999 mls/hr Magnesium Sulfate 2 gm/ Premix 50 mls @ 25 mls/hr IV ONETIME ONE Stop: 02/18/17 16:51 Last Admin: 02/18/17 15:02 Dose: 100 mls/hr Sodium Chloride (Normal Saline) 1,000 mls @ 999 mls/hr IV .Bolus ONE Stop: 02/18/17 16:58 Last Admin: 02/18/17 16:03 Dose: 999 mls/hr Prochlorperazine Edisylate 10 (mg/ Sodium Chloride) 52 mls @ 150 mls/hr IV ONETIME ONE Stop: 02/18/17 16:51 Last Admin: 02/18/17 17:34 Dose: Not Given Ketorolac Tromethamine (Toradol) 30 mg IVPUSH ONETIME ONE Stop: 02/18/17 13:16 Last Admin: 02/18/17 13:33 Dose: 30 mg Lorazepam (Ativan) 1 mg IVPUSH ONETIME ONE Stop: 02/18/17 14:21 Last Admin: 02/18/17 14:41 Dose: 1 mg Morphine Sulfate (Morphine) 4 mg IVPUSH ONETIME ONE Stop: 02/18/17 15:38 Last Admin: 02/18/17 15:48 Dose: 4 mg Prednisone (Prednisone) 60 mg PO ONETIME ONE Stop: 02/18/17 13:10 Last Admin: 02/18/17 13:16 Dose: 60 mg Prochlorperazine Edisylate (Compazine) 10 mg IV ONETIME ONE Stop: 02/18/17 16:46 Last Admin: 02/18/17 16:58 Dose: 10 mg Sumatriptan Succinate (Imitrex) 50 mg PO ONETIME ONE Stop: 02/19/17 10:10 Last Admin: 02/19/17 10:31 Dose: 50 mg Sumatriptan Succinate (Imitrex) 50 mg PO ONETIME ONE Stop: 02/19/17 10:31 Last Admin: 02/19/17 10:32 Dose: Not Given - Exam General: Alert, Oriented, Cooperative, No Acute Distress HEENT: Pupils Equal, EOMI, Mucous Membr. Moist/[place] Neck: Supple, Trachea Midline, No JVD Lungs: Clear to Auscultation, Other (Increased respiratory effort). No: Rales, Rhonchi, Rub, Stridor, Wheezing GI/Abdominal Exam: Normal Bowel Sounds, Soft, Non-Tender Extremities: Normal Inspection, Normal Range of Motion, Non-Tender, No Pedal Edema, Normal Capillary Refill Skin: Warm, Intact - Problem List Review Problem List Initiated/Reviewed/Updated: Yes - Assessment Assessment:: #1. Acute asthma exacerbation #2. Acute migraine in a patient with a history of it. #2. History of asthma - Plan Plan:: #1. Patient will continue management as is, and we'll try to wean the patient off oxygen as tolerated. Follow-up on labs ordered for tomorrow morning. All questions and concerns were addressed. 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 Anticipated discharge within 1- 2 days. Gave her a one-time dose of 50 mg by mouth sumatriptan for her migraine. We'll follow-up on her response to this.
[2017-02-19] MEDS ORDERED: Ketorolac 30 MG/ML SDV IVPUSH ONE (12:37)
[2017-02-19] MEDS ORDERED: Prochlorperazine 10 MG in Sodium Chloride 0.9% 50 ML IV ONE (12:37)
[2017-02-19] MEDS ORDERED: diphenhydrAMINE 50 MG/ML SDV IVPUSH ONE (12:40)
--- NOTE | 2017-02-19 13:03 | CR ---
EXAM DATE: 02/18/17 PATIENT'S AGE: 31 Patient: JOSUE ALLEN Facility: [place], [place] Site . Site : 1985 Study: XRay Chest [id number] 4:21:12 PM Ordering Physician: Sharath Fuentes Final Report: INDICATIONS: Pain. Shortness of breath. Asthma. Migraine. TECHNIQUE: Chest 2 view. COMPARISON: Chest radiograph 01/17/2017. FINDINGS: No pneumothorax, pleural effusion or airspace consolidation. Cardiac and mediastinal contours are within normal limits. Upper abdomen and osseous structures show no acute abnormality. IMPRESSION: No acute cardiopulmonary disease. Dictated by Reg Castillo MD @ 02/18/2017 4:45:45 PM Dictated by: Reg Castillo MD @ 02/18/2017 16:45:59 (Electronic Signature) Report Signed by Proxy. [facility] HOSPITALAngela
[2017-02-19] MEDS ORDERED: SUMAtriptan 50 MG Tab PO PRN (13:32)
[2017-02-19] MEDS: Albuterol/Ipratropium 3.0-0.5 MG/3 ML Neb Soln NEB ONE (14:14)
[2017-02-19] MEDS: Montelukast 10 MG Tab PO SCH (21:13)
[2017-02-20] MEDS: methylPREDNISolone Sodium Succinate 125 MG/2 ML SDV IVPUSH SCH ×3 (00:18→11:42)
[2017-02-20] MEDS: Albuterol/Ipratropium 3.0-0.5 MG/3 ML Neb Soln NEB SCH ×4 (01:49→14:23)
[2017-02-20] MEDS: Nalbuphine 10 MG/1 ML Vial IVPUSH PRN ×2 (06:08→11:39)
[2017-02-20] MEDS: Enoxaparin 40 MG/0.4 ML Syringe SUBCUT SCH (11:42)
[2017-02-20] MEDS: Omeprazole 20 MG Cap.CR PO SCH (11:43)
[2017-02-20] MEDS: Cetirizine 10 MG Tab PO SCH (11:43)
--- NOTE | 2017-02-20 12:20 | PCM.DCSUM1 ---
Discharge Summary - Hospital Course Brief History: she was admitted with a persistent asthma partially refractory to emergency room treatment. - Discharge Data Discharge Date: 02/20/17 Discharge Disposition: Home, Self-Care 01 Condition: Fair - Discharge Diagnosis/Problem(s) (1) Acute asthma SNOMED Code(s): 746096491 ICD Code: J45.909 - UNSPECIFIED ASTHMA, UNCOMPLICATED Status: Acute Current Visit: No (2) Migraine headache SNOMED Code(s): 16250997 Status: Acute Current Visit: No - Patient Summary/Data Hospital Course: She was treated with maximyst treatments as well as solumedrol. Her asthma improved and her lungs are CTA with oxygen saturation of 94$ on room air at discharge. She also was treated with imitrex and nubain for a migraine headache which is incompletely resolved at discharge but she feels that she can go home now and she wants to return to work today. - Patient Instructions Diet: Usual Diet as Tolerated - Discharge Plan Home Medications: Home Meds Albuterol [Ventolin HFA] 2 puff INH BID PRN 10/08/13 [History] Albuterol/Ipratropium [DuoNeb 3.0-0.5 MG/3 ML] 3 ml NEB ATDISCHARGE PRN [History] Cetirizine [ZyrTEC] 10 mg PO DAILY 05/11/15 [History] Montelukast [Singulair] 10 mg PO BEDTIME 05/11/15 [History] Albuterol [Proventil HFA] 1 puff INH ASDIRECTED PRN 02/09/16 [History] Budesonide [Pulmicort] 1 puff NEB ASDIRECTED 02/09/16 [History] Budesonide/Formoterol Fumarate [Symbicort 80-4.5 Mcg Inhaler] 1 puff INH ASDIRECTED 02/09/16 [History] Omeprazole 20 mg PO BID 02/09/16 [History] Ondansetron HCl [Zofran] 4 mg PO ASDIRECTED PRN 08/15/16 [History] Acetaminophen [Tylenol] 650 mg PO Q4H PRN tablet 01/18/17 [Rx] Patient Handouts: Asthma, Adult Referrals: Siddhartha Urbina MD [Physician] - 03/01/17 10:00 am - Patient Data Vitals - Most Recent: Last Vital Signs Temp 97.9 F 02/20/17 08:00 Pulse 100 02/20/17 08:00 Resp 20 02/20/17 08:00 BP 136/80 02/20/17 08:00 Pulse Ox 93 L 02/20/17 08:00 Weight - Most Recent: 108.862 kg I&O - Last 24 hours: Intake & Output 02/19/17 02/20/17 02/20/17 22:59 06:59 14:59 Intake Total 420 770 Output Total 375 350 Balance 45 420 Med Orders - Current: Current Medications Acetaminophen (Tylenol) 650 mg PO Q4H PRN PRN Reason: Pain (Mild 1-3)/fever Last Admin: 02/19/17 07:50 Dose: 650 mg Albuterol/Ipratropium (Duoneb 3.0-0.5 Mg/3 Ml) 3 ml NEB Q4HRRT [facility] Last Admin: 02/20/17 10:12 Dose: 3 ml Bisacodyl (Dulcolax) 5 mg PO DAILY PRN PRN Reason: Constipation Cetirizine HCl (Zyrtec) 10 mg PO DAILY [facility] Last Admin: 02/20/17 11:43 Dose: 10 mg Enoxaparin Sodium (Lovenox) 40 mg SUBCUT DAILY [facility] Last Admin: 02/20/17 11:42 Dose: 40 mg Levalbuterol HCl (Xopenex) 1.25 mg NEB Q4H PRN PRN Reason: Wheezing Methylprednisolone Sodium Succinate (Solu-Medrol) 125 mg IVPUSH Q6H [facility] Last Admin: 02/20/17 11:42 Dose: 125 mg Montelukast Sodium (Singulair) 10 mg PO BEDTIME [facility] Last Admin: 02/19/17 21:13 Dose: 10 mg Nalbuphine HCl (Nubain) 10 mg IVPUSH Q3H PRN PRN Reason: Pain Last Admin: 02/20/17 11:39 Dose: 10 mg Omeprazole (Omeprazole) 20 mg PO BID [facility] Last Admin: 02/20/17 11:43 Dose: 20 mg Ondansetron HCl (Zofran) 4 mg IVPUSH Q4H PRN PRN Reason: Nausea Sodium Chloride (Saline Flush) 10 ml FLUSH ASDIRECTED PRN PRN Reason: Keep Vein Open Last Admin: 02/18/17 13:27 Dose: 10 ml Sodium Chloride (Saline Flush) 2.5 ml FLUSH ASDIRECTED PRN PRN Reason: Keep Vein Open Last Admin: 02/18/17 13:27 Dose: 2.5 ml Sumatriptan Succinate (Imitrex) 50 mg PO Q2H PRN PRN Reason: migrane Last Admin: 02/19/17 15:01 Dose: 50 mg Temazepam (Restoril) 15 mg PO BEDTIME PRN PRN Reason: Sleep Discontinued Medications Albuterol (Proventil Neb Soln) 10 mg NEB ONETIME ONE Stop: 02/18/17 13:47 Last Admin: 02/18/17 14:01 Dose: 10 mg Albuterol/Ipratropium (Duoneb 3.0-0.5 Mg/3 Ml) 3 ml NEB ONETIME ONE Stop: 02/18/17 13:09 Last Admin: 02/19/17 14:14 Dose: 3 ml Albuterol/Ipratropium (Duoneb 3.0-0.5 Mg/3 Ml) 3 ml NEB ONETIME ONE Stop: 02/18/17 16:31 Last Admin: 02/18/17 16:40 Dose: 3 ml Diphenhydramine HCl (Benadryl) 50 mg IVPUSH ONETIME ONE Stop: 02/18/17 13:46 Last Admin: 02/18/17 13:58 Dose: 50 mg Diphenhydramine HCl (Benadryl) 25 mg IVPUSH ONETIME ONE Stop: 02/18/17 16:33 Last Admin: 02/18/17 16:58 Dose: 25 mg Diphenhydramine HCl (Benadryl) 50 mg IVPUSH ONETIME ONE Stop: 02/19/17 12:41 Last Admin: 02/19/17 13:12 Dose: 50 mg Hydromorphone HCl (Dilaudid) 0.5 mg IVPUSH Q1H PRN PRN Reason: Pain Last Admin: 02/18/17 16:27 Dose: 0.5 mg Sodium Chloride (Normal Saline) 1,000 mls @ 999 mls/hr IV .Bolus ONE Stop: 02/18/17 14:25 Last Admin: 02/18/17 13:27 Dose: 999 mls/hr Magnesium Sulfate 2 gm/ Premix 50 mls @ 25 mls/hr IV ONETIME ONE Stop: 02/18/17 16:51 Last Admin: 02/18/17 15:02 Dose: 100 mls/hr Sodium Chloride (Normal Saline) 1,000 mls @ 999 mls/hr IV .Bolus ONE Stop: 02/18/17 16:58 Last Admin: 02/18/17 16:03 Dose: 999 mls/hr Prochlorperazine Edisylate 10 (mg/ Sodium Chloride) 52 mls @ 150 mls/hr IV ONETIME ONE Stop: 02/18/17 16:51 Last Admin: 02/18/17 17:34 Dose: Not Given Prochlorperazine Edisylate 10 (mg/ Sodium Chloride) 52 mls @ 104 mls/hr IV ONETIME ONE Stop: 02/19/17 13:06 Last Admin: 02/19/17 13:50 Dose: 104 mls/hr Ketorolac Tromethamine (Toradol) 30 mg IVPUSH ONETIME ONE Stop: 02/18/17 13:16 Last Admin: 02/18/17 13:33 Dose: 30 mg Ketorolac Tromethamine (Toradol) 30 mg IVPUSH ONETIME ONE Stop: 02/19/17 12:38 Last Admin: 02/19/17 13:11 Dose: 30 mg Lorazepam (Ativan) 1 mg IVPUSH ONETIME ONE Stop: 02/18/17 14:21 Last Admin: 02/18/17 14:41 Dose: 1 mg Morphine Sulfate (Morphine) 4 mg IVPUSH ONETIME ONE Stop: 02/18/17 15:38 Last Admin: 02/18/17 15:48 Dose: 4 mg Prednisone (Prednisone) 60 mg PO ONETIME ONE Stop: 02/18/17 13:10 Last Admin: 02/18/17 13:16 Dose: 60 mg Prochlorperazine Edisylate (Compazine) 10 mg IV ONETIME ONE Stop: 02/18/17 16:46 Last Admin: 02/18/17 16:58 Dose: 10 mg Sumatriptan Succinate (Imitrex) 50 mg PO ONETIME ONE Stop: 02/19/17 10:10 Last Admin: 02/19/17 10:31 Dose: 50 mg Sumatriptan Succinate (Imitrex) 50 mg PO ONETIME ONE Stop: 02/19/17 10:31 Last Admin: 02/19/17 10:32 Dose: Not Given *Q Meaningful Use (DIS) - VTE *Q VTE Criteria *Q: - Stroke *Q Stroke Criteria *Q: - AMI *Q AMI Criteria *Q:
[2017-02-20 12:32] VITALS: BP 138/74
== END 2017-02-20 13:10 | disposition home or self-care (01) | DRG 203 ==
LOC: MW.ED 12:59 → MW.MS 17:25
PROVIDERS: ADMIT Family Medicine; ATTEND Family Medicine
DX: J45.901 Unspecified asthma with (acute) exacerbation (principal); R51 Headache; G43.909 Migraine, unspecified, not intractable, without status migrainosus; Z79.899 Other long term (current) drug therapy; Z88.8 Allergy status to other drugs, medicaments and biological substances
CPT/HCPCS: 36415; 71020; 80053; 81001; 84703; 85025; 94640; 96361; 96365; 96375; 96376; 99285; A9270; J0780; J1170; J1200 ×2; J1885; J2060; J2270; J3475; J7040 ×2; 80048; 99283; J1650; J2300; J2405; J2930; J7050

== ENCOUNTER 2017-05-19 08:31 | Emergency (ER) | payer SELFPAY ==
--- NOTE | 2017-05-19 09:05 | EDM.PDOC ---
ED HPI GENERAL MEDICAL PROBLEM - General Chief Complaint: Head Injury Stated Complaint: FALL AND HIT HER FACE ON THE SIDEWALK Time Seen by Provider: 05/19/17 08:59 - History of Present Illness INITIAL COMMENTS - FREE TEXT/NARRATIVE: HISTORY AND PHYSICAL: History of present illness: Patient 31-year-old female presents with a history of head trauma she had a fall on Wednesday with loss of consciousness she's had some small bruising to her right face she's had some mild headache no vomiting no neck pain or trauma denies any other concern is now but no visual disturbance. No neurological signs or symptoms Review of systems: As per history of present illness and below otherwise all systems reviewed and negative. Past medical history: As per history of present illness and as reviewed below otherwise noncontributory. Surgical history: As per history of present illness and as reviewed below otherwise noncontributory. Social history: No reported history of drug or alcohol abuse. Family history: As per history of present illness and as reviewed below otherwise noncontributory. Physical exam: HEENT: Some right-sided facial ecchymosis no bony step-off depression crepitation or other significant finding, normocephalic, pupils reactive, negative for conjunctival pallor or scleral icterus, mucous membranes moist, throat clear, neck supple, nontender, trachea midline. Lungs: Clear to auscultation, breath sounds equal bilaterally, chest nontender. Heart: S1S2, regular, negative for clicks, rubs, or JVD. Abdomen: Soft, nondistended, nontender. Negative for masses or hepatosplenomegaly. Negative for costovertebral tenderness. Pelvis: Stable nontender. Genitourinary: Deferred. Rectal: Deferred. Extremities: Atraumatic, negative for cords or calf pain. Neurovascular unremarkable. Neuro: Awake, alert, oriented. Cranial nerves II through XII unremarkable. Cerebellum unremarkable. Motor and sensory unremarkable throughout. Exam nonfocal. Diagnostics: CT brain Therapeutics: None Impression: # 1 cerebral concussion Definitive disposition and diagnosis as appropriate pending reevaluation and review of above. right eye Pain Score (Numeric/FACES): 8 - Related Data Allergies Allergy/AdvReac Type Severity Reaction Status Date / Time codeine Allergy Severe Swelling Verified 05/19/17 08:38 mushroom Allergy Swelling Uncoded 02/18/17 13:10 Home Meds: Home Meds Albuterol [Ventolin HFA] 2 puff INH BID PRN 10/08/13 [History] Albuterol/Ipratropium [DuoNeb 3.0-0.5 MG/3 ML] 3 ml NEB ATDISCHARGE PRN [History] Cetirizine [ZyrTEC] 10 mg PO DAILY 05/11/15 [History] Montelukast [Singulair] 10 mg PO BEDTIME 05/11/15 [History] Albuterol [Proventil HFA] 1 puff INH ASDIRECTED PRN 02/09/16 [History] Budesonide [Pulmicort] 1 puff NEB ASDIRECTED 02/09/16 [History] Budesonide/Formoterol Fumarate [Symbicort 80-4.5 Mcg Inhaler] 1 puff INH ASDIRECTED 02/09/16 [History] Omeprazole 20 mg PO BID 02/09/16 [History] Ondansetron HCl [Zofran] 4 mg PO ASDIRECTED PRN 08/15/16 [History] Acetaminophen [Tylenol] 650 mg PO Q4H PRN tablet 01/18/17 [Rx] Prednisone [IJD: predniSONE] 20 mg PO DAILY #12 tab 02/20/17 [Rx] Past Medical History HEENT History: Reports: Impaired Vision Cardiovascular History: Reports: None Respiratory History: Reports: Asthma Gastrointestinal History: Reports: GERD Genitourinary History: Reports: None R D MANAGER History: Reports: Musculoskeletal History: Reports: None Other Musculoskeletal History: carpal tunnel Neurological History: Reports: Migraines Psychiatric History: Reports: None Endocrine/Metabolic History: Reports: Obesity/BMI 30+ Hematologic History: Reports: None Immunologic History: Reports: None Oncologic (Cancer) History: Reports: None Dermatologic History: Reports: None - Infectious Disease History Infectious Disease History: Reports: Chicken Pox - Past Surgical History Head Surgeries/Procedures: Reports: None HEENT Surgical History: Reports: Adenoidectomy, Oral Surgery, Tonsillectomy GI Surgical History: Reports: Cholecystectomy Female Surgical History: Reports: Section Social & Family History - Family History Family Medical History: Noncontributory Respiratory: Reports: Asthma Endocrine/Metabolic: Reports: Diabetes, type II - Tobacco Use Smoking Status *Q: Never Smoker Second Hand Smoke Exposure: No - Caffeine Use Caffeine Use: Reports: Coffee, Tea Caffeine Use Comment: 2-3drinks/day - Alcohol Use Days Per Week of Alcohol Use: 0 Number of Drinks Per Day: 2 Total Drinks Per Week: 0 - Recreational Drug Use Recreational Drug Use: No Drug Use in Last 12 Months: No ED ROS GENERAL - Review of Systems Review Of Systems: ROS reveals no pertinent complaints other than HPI. ED EXAM, HEAD INJURY - Physical Exam Exam: See Below (See dictation) Course - Vital Signs Last Recorded V/S: Last Vital Signs Temp 36.1 C 05/19/17 08:39 Pulse 93 05/19/17 08:39 Resp 18 05/19/17 08:39 BP 132/60 05/19/17 08:39 Pulse Ox 98 05/19/17 08:39 - Orders/Labs/Meds Orders: Active Orders 24 hr Category Date Time Status Head wo Cont [CT] Stat Exams 05/19/17 08:59 Ordered Departure - Departure Time of Disposition: 09:04 Disposition: Home, Self-Care 01 Condition: Good Clinical Impression: Concussion injury of brain - Discharge Information Referrals: Siddhartha Urbina MD [Primary Care Provider] - Additional Instructions: The following information is given to patients seen in the emergency department who are being discharged to home. This information is to outline your options for follow-up care. We provide all patients seen in our emergency department with a follow-up referral. The need for follow-up, as well as the timing and circumstances, are variable depending upon the specifics of your emergency department visit. If you don't have a primary care physician on staff, we will provide you with a referral. We always advise you to contact your personal physician following an emergency department visit to inform them of the circumstance of the visit and for follow-up with them and/or the need for any referrals to a consulting specialist. The emergency department will also refer you to a specialist when appropriate. This referral assures that you have the opportunity for followup care with a specialist. All of these measure are taken in an effort to provide you with optimal care, which includes your followup. Under all circumstances we always encourage you to contact your private physician who remains a resource for coordinating your care. When calling for followup care, please make the office aware that this follow-up is from your recent emergency room visit. If for any reason you are refused follow-up, please contact the [facility] emergency department at and asked to speak to the emergency department charge nurse. Motrin/Tylenol as directed follow-up primary medical doctor return as needed as discussed - My Orders Last 24 Hours: My Active Orders 05/19/17 08:59 Head wo Cont [CT] Stat - Assessment/Plan Last 24 Hours: My Active Orders 05/19/17 08:59 Head wo Cont [CT] Stat
--- NOTE | 2017-05-19 09:21 | CT ---
EXAMINATION: Non contrast CT head. Coronal and sagittal reformats. HISTORY: Pain FINDINGS: No evidence of intra or extra axial hemorrhage, mass, midline shift, hydrocephalus or edema. No hypoattenuation changes in the major vascular territories to suggest acute infarct. No abnormal intracranial calcifications are detected. No evidence of substantial vascular calcificat ions. Moderate mucosal thickening is noted throughout the maxillary, frontal, and sphenoid sinuses as well as the ethmoid air cells. Minimal leftward deviation of the nasal septum with a small spur. The masto id air cells are clear. Orbits and globes are symmetric. Pituitary fossa appears unremarkable. Calvarium is intact. No evidence of skull fracture. IMPRESSION: 1. No acute intracranial findings. 2. Prominent mucosal thickening noted throughout the paranasal sinuses.
[2017-05-19 09:52] VITALS: BP 111/72
== END 2017-05-19 09:39 | disposition home or self-care (01) ==
LOC: MW.ED 08:31
DX: S06.0X9A Concussion with loss of consciousness of unspecified duration, initial encounter (principal); S00.83XA Contusion of other part of head, initial encounter; J45.909 Unspecified asthma, uncomplicated; K21.9 Gastro-esophageal reflux disease without esophagitis; Z79.899 Other long term (current) drug therapy; Z88.5 Allergy status to narcotic agent; Z91.018 Allergy to other foods; W18.30XA Fall on same level, unspecified, initial encounter
CPT/HCPCS: 70450; 70450-26; 99283-25

== ENCOUNTER 2017-05-27 08:30 | Emergency (ER) | payer SELFPAY ==
[2017-05-27] MEDS ORDERED: Albuterol/Ipratropium 3.0-0.5 MG/3 ML Neb Soln NEB ONE ×2 (08:36→10:15)
[2017-05-27] MEDS ORDERED: methylPREDNISolone Sodium Succinate 125 MG/2 ML SDV IM ONE (08:42)
--- NOTE | 2017-05-27 08:46 | EDM.PDOC ---
ED HPI GENERAL MEDICAL PROBLEM - General Chief Complaint: Respiratory Problem Stated Complaint: ASTHMA ATTACK Time Seen by Provider: 05/27/17 08:38 - History of Present Illness INITIAL COMMENTS - FREE TEXT/NARRATIVE: HISTORY AND PHYSICAL: History of present illness: The patient is a 31-year-old female with a long-standing history of asthma who gives her self neb treatments at home and is currently not on any prednisone and presents with a 2 to three-day history of asthma exacerbation. She has had cough occasionally productive of clear phlegm and increasing shortness of breath and wheezing and says that she has not used prednisone for over a month. She's had no fever runny nose vomiting or diarrhea but sometimes she coughs so hard she has posttussive vomiting. She is tolerating fluids and has no diarrhea. SHe is unsure if she is as she and her are trying that she was told by the doctor that she probably could not get . She's had no urinary complaints no head neck or back pain no sinus congestion; she is not a smoker. Patient states that she was at work this morning and could not give her self neb treatment Review of systems: As per history of present illness and below otherwise all systems reviewed and negative. Past medical history: As per history of present illness and as reviewed below otherwise noncontributory. Surgical history: As per history of present illness and as reviewed below otherwise noncontributory. Social history: No reported history of drug or alcohol abuse. Family history: As per history of present illness and as reviewed below otherwise noncontributory. Physical exam: Gen.: Well-developed well-nourished overweight female who is nontoxic and has a dry hacking cough on my evaluation. Vitals have been reviewed by me. HEENT: Atraumatic, normocephalic, pupils reactive, negative for conjunctival pallor or scleral icterus, mucous membranes moist, throat clear, neck supple, nontender, trachea midline. Lungs: Wheezing throughout all cle[place] with diminished breath sounds at the bases and coarse breath sounds, no work of breathing breath sounds equal bilaterally, chest nontender. Heart: S1S2, slightly tachycardic rate and regular rhythm no overt murmurs Abdomen: Soft, nondistended, nontender. NABS Pelvis: Deferred Genitourinary: Deferred. Rectal: Deferred. Extremities: Atraumatic, negative for cords or calf pain. Neurovascular unremarkable. Neuro: Awake, alert, oriented. Cranial nerves II through XII unremarkable. Cerebellum unremarkable. Motor and sensory unremarkable throughout. Exam nonfocal. Diagnostics: [] Therapeutics: DuoNeb Solu-Medrol After to do an absence wheezing is improved and patient's O2 sat is now 96% with a heart rate of 94. We'll plan on prednisone for home and I will advise the patient on doing nebs at home. Impression: Acute asthma exacerbation Definitive disposition and diagnosis as appropriate pending reevaluation and review of above. - Related Data Allergies Allergy/AdvReac Type Severity Reaction Status Date / Time codeine Allergy Severe Swelling Verified 05/27/17 08:51 mushroom Allergy Swelling Uncoded 05/27/17 08:51 Home Meds: Home Meds Albuterol [Ventolin HFA] 2 puff INH BID PRN 10/08/13 [History] Albuterol/Ipratropium [DuoNeb 3.0-0.5 MG/3 ML] 3 ml NEB ATDISCHARGE PRN [History] Cetirizine [ZyrTEC] 10 mg PO DAILY 05/11/15 [History] Montelukast [Singulair] 10 mg PO BEDTIME 05/11/15 [History] Albuterol [Proventil HFA] 1 puff INH ASDIRECTED PRN 02/09/16 [History] Budesonide [Pulmicort] 1 puff NEB ASDIRECTED 02/09/16 [History] Budesonide/Formoterol Fumarate [Symbicort 80-4.5 Mcg Inhaler] 1 puff INH ASDIRECTED 02/09/16 [History] Omeprazole 20 mg PO BID 02/09/16 [History] Ondansetron HCl [Zofran] 4 mg PO ASDIRECTED PRN 08/15/16 [History] Acetaminophen [Tylenol] 650 mg PO Q4H PRN tablet 01/18/17 [Rx] Past Medical History HEENT History: Reports: Impaired Vision Cardiovascular History: Reports: None Respiratory History: Reports: Asthma Gastrointestinal History: Reports: GERD Genitourinary History: Reports: None 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: Musculoskeletal History: Reports: None Other Musculoskeletal History: carpal tunnel Neurological History: Reports: Migraines Psychiatric History: Reports: None Endocrine/Metabolic History: Reports: Obesity/BMI 30+ Hematologic History: Reports: None Immunologic History: Reports: None Oncologic (Cancer) History: Reports: None Dermatologic History: Reports: None - Infectious Disease History Infectious Disease History: Reports: Chicken Pox - Past Surgical History Head Surgeries/Procedures: Reports: None HEENT Surgical History: Reports: Adenoidectomy, Oral Surgery, Tonsillectomy GI Surgical History: Reports: Cholecystectomy Female Surgical History: Reports: Section Social & Family History - Family History Family Medical History: Noncontributory Respiratory: Reports: Asthma Endocrine/Metabolic: Reports: Diabetes, type II - Tobacco Use Smoking Status *Q: Never Smoker Second Hand Smoke Exposure: No - Caffeine Use Caffeine Use: Reports: Coffee, Tea Caffeine Use Comment: 2-3drinks/day - Alcohol Use Days Per Week of Alcohol Use: 0 Number of Drinks Per Day: 2 Total Drinks Per Week: 0 - Recreational Drug Use Recreational Drug Use: No Drug Use in Last 12 Months: No ED ROS GENERAL - Review of Systems Review Of Systems: ROS reveals no pertinent complaints other than HPI. ED EXAM, GENERAL - Physical Exam Exam: See Below (see Dictation) Course - Vital Signs Last Recorded V/S: Last Vital Signs Temp 37.2 C 05/27/17 08:35 Pulse 115 H 05/27/17 08:35 Resp 30 H 05/27/17 08:35 BP 139/95 H 05/27/17 08:35 Pulse Ox 95 05/27/17 08:35 - Orders/Labs/Meds Orders: Active Orders 24 hr Category Date Time Status RT Aerosol Therapy [RC] ASDIRECTED Care 05/27/17 08:36 Active RT Aerosol Therapy [RC] ASDIRECTED Care 05/27/17 10:15 Active Labs: Laboratory Tests 05/27/17 Range/Units 09:15 Urine HCG, Qual NEGATIVE (NEGATIVE) Meds: Medications Discontinued Medications Generic Name Dose Route Start Last Admin Trade Name Freq PRN Reason Stop Dose Admin Albuterol/Ipratropium 3 ml 05/27/17 08:36 05/27/17 08:40 Duoneb 3.0-0.5 Mg/3 Ml NEB 05/27/17 08:37 3 ml ONETIME ONE Administration Albuterol/Ipratropium 3 ml 05/27/17 10:15 05/27/17 10:32 Duoneb 3.0-0.5 Mg/3 Ml NEB 05/27/17 10:16 3 ml ONETIME ONE Administration Methylprednisolone Sodium Succinate 125 mg 05/27/17 08:42 05/27/17 10:16 Solu-Medrol IM 05/27/17 08:43 125 mg ONETIME ONE Administration Departure - Departure Time of Disposition: 10:54 Disposition: Home, Self-Care 01 Clinical Impression: Acute asthma exacerbation Qualifiers: Asthma severity: mild Asthma persistence: unspecified Qualified Code(s): J45.901 - Unspecified asthma with (acute) exacerbation - Discharge Information Forms: ED Department Discharge Additional Instructions: The following information is given to patients seen in the emergency department who are being discharged to home. This information is to outline your options for follow-up care. We provide all patients seen in our emergency department with a follow-up referral. The need for follow-up, as well as the timing and circumstances, are variable depending upon the specifics of your emergency department visit. If you don't have a primary care physician on staff, we will provide you with a referral. We always advise you to contact your personal physician following an emergency department visit to inform them of the circumstance of the visit and for follow-up with them and/or the need for any referrals to a consulting specialist. The emergency department will also refer you to a specialist when appropriate. This referral assures that you have the opportunity for followup care with a specialist. All of these measure are taken in an effort to provide you with optimal care, which includes your followup. Under all circumstances we always encourage you to contact your private physician who remains a resource for coordinating your care. When calling for followup care, please make the office aware that this follow-up is from your recent emergency room visit. If for any reason you are refused follow-up, please contact the [facility] emergency department at and ask to speak to the emergency department charge nurse. [facility] Primary care- Internal Medicine and Family [address] [address] Please push hydration and use her nebulizer at home every 6 hours for the next 2 days even if you are not feeling like you are wheezing and then every 6 hours as needed. Please take the prednisone as prescribed and call and schedule a clinic follow-up appointment with your provider or one of our clinic doctors in the next few days for reevaluation and further care. Return to ER as needed and as discussed - My Orders Last 24 Hours: My Active Orders 05/27/17 08:36 RT Aerosol Therapy [RC] ASDIRECTED 05/27/17 10:15 RT Aerosol Therapy [RC] ASDIRECTED - Assessment/Plan Last 24 Hours: My Active Orders 05/27/17 08:36 RT Aerosol Therapy [RC] ASDIRECTED 05/27/17 10:15 RT Aerosol Therapy [RC] ASDIRECTED
[2017-05-27 08:51] VITALS: BP 139/95
== END 2017-05-27 11:14 | disposition home or self-care (01) ==
LOC: MW.ED 08:30
DX: J45.901 Unspecified asthma with (acute) exacerbation (principal); K21.9 Gastro-esophageal reflux disease without esophagitis; Z79.899 Other long term (current) drug therapy; Z88.5 Allergy status to narcotic agent; Z91.018 Allergy to other foods
CPT/HCPCS: 81025; 87804; 94640; 96372; 99285; J2930; 99283

== ENCOUNTER 2017-06-22 03:45 | Emergency (ER) | payer SELFPAY ==
[2017-06-22] MEDS ORDERED: Ketorolac 30 MG/ML SDV IVPUSH ONE (03:59)
[2017-06-22] MEDS ORDERED: diphenhydrAMINE 50 MG/ML SDV IVPUSH ONE (03:59)
[2017-06-22] MEDS ORDERED: Metoclopramide 10 MG/2 ML SDV IV ONE (03:59)
[2017-06-22] MEDS ORDERED: Ondansetron 4 MG/2 ML SDV IVPUSH ONE (03:59)
[2017-06-22] MEDS ORDERED: Sodium Chloride 0.9% 1,000 ML IV ONE (04:01)
--- NOTE | 2017-06-22 04:02 | EDM.PDOC ---
ED HPI GENERAL MEDICAL PROBLEM - General Chief Complaint: Headache Stated Complaint: MIGRAINE Time Seen by Provider: 06/22/17 04:00 - History of Present Illness INITIAL COMMENTS - FREE TEXT/NARRATIVE: HISTORY AND PHYSICAL: History of present illness: Patient 31-year-old female presents with concern of migraine headache patient also states she has body aches and pain all over Review of systems: As per history of present illness and below otherwise all systems reviewed and negative. Past medical history: As per history of present illness and as reviewed below otherwise noncontributory. Surgical history: As per history of present illness and as reviewed below otherwise noncontributory. Social history: No reported history of drug or alcohol abuse. Family history: As per history of present illness and as reviewed below otherwise noncontributory. Physical exam: HEENT: Atraumatic, normocephalic, pupils reactive, negative for conjunctival pallor or scleral icterus, mucous membranes moist, throat clear, neck supple, nontender, trachea midline. Lungs: Clear to auscultation, breath sounds equal bilaterally, chest nontender. Heart: S1S2, regular, negative for clicks, rubs, or JVD. Abdomen: Soft, nondistended, nontender. Negative for masses or hepatosplenomegaly. Negative for costovertebral tenderness. Pelvis: Stable nontender. Genitourinary: Deferred. Rectal: Deferred. Extremities: Atraumatic, negative for cords or calf pain. Neurovascular unremarkable. Neuro: Awake, alert, oriented. Cranial nerves II through XII unremarkable. Cerebellum unremarkable. Motor and sensory unremarkable throughout. Exam nonfocal. Diagnostics: CBC CMP influenza screen Therapeutics: Saline 1 L bolus and Toradol 30 mg IV Reglan 10 mg IV Benadryl 50 mg IV Zofran 4 mg IV Impression: #1 migraine headache Definitive disposition and diagnosis as appropriate pending reevaluation and review of above. head Pain Score (Numeric/FACES): 10 - Related Data Allergies Allergy/AdvReac Type Severity Reaction Status Date / Time codeine Allergy Severe Swelling Verified 06/22/17 03:56 mushroom Allergy Swelling Uncoded 06/22/17 03:56 Home Meds: Home Meds Albuterol [Ventolin HFA] 2 puff INH BID PRN 10/08/13 [History] Albuterol/Ipratropium [DuoNeb 3.0-0.5 MG/3 ML] 3 ml NEB ATDISCHARGE PRN [History] Cetirizine [ZyrTEC] 10 mg PO DAILY 05/11/15 [History] Montelukast [Singulair] 10 mg PO BEDTIME 05/11/15 [History] Albuterol [Proventil HFA] 1 puff INH ASDIRECTED PRN 02/09/16 [History] Budesonide [Pulmicort] 1 puff NEB ASDIRECTED 02/09/16 [History] Budesonide/Formoterol Fumarate [Symbicort 80-4.5 Mcg Inhaler] 1 puff INH ASDIRECTED 02/09/16 [History] Omeprazole 20 mg PO BID 02/09/16 [History] Ondansetron HCl [Zofran] 4 mg PO ASDIRECTED PRN 08/15/16 [History] Acetaminophen [Tylenol] 650 mg PO Q4H PRN tablet 01/18/17 [Rx] Past Medical History HEENT History: Reports: Impaired Vision Cardiovascular History: Reports: None Respiratory History: Reports: Asthma Gastrointestinal History: Reports: GERD Genitourinary History: Reports: None 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: Musculoskeletal History: Reports: None Other Musculoskeletal History: carpal tunnel Neurological History: Reports: Migraines Psychiatric History: Reports: None Endocrine/Metabolic History: Reports: Obesity/BMI 30+ Hematologic History: Reports: None Immunologic History: Reports: None Oncologic (Cancer) History: Reports: None Dermatologic History: Reports: None - Infectious Disease History Infectious Disease History: Reports: Chicken Pox - Past Surgical History Head Surgeries/Procedures: Reports: None HEENT Surgical History: Reports: Adenoidectomy, Oral Surgery, Tonsillectomy GI Surgical History: Reports: Cholecystectomy Female Surgical History: Reports: Section Social & Family History - Family History Family Medical History: Noncontributory Respiratory: Reports: Asthma Endocrine/Metabolic: Reports: Diabetes, type II - Tobacco Use Smoking Status *Q: Never Smoker Second Hand Smoke Exposure: No - Caffeine Use Caffeine Use: Reports: Coffee, Tea Caffeine Use Comment: 2-3drinks/day - Alcohol Use Days Per Week of Alcohol Use: 0 Number of Drinks Per Day: 2 Total Drinks Per Week: 0 - Recreational Drug Use Recreational Drug Use: No Drug Use in Last 12 Months: No ED ROS GENERAL - Review of Systems Review Of Systems: ROS reveals no pertinent complaints other than HPI. ED EXAM, GENERAL - Physical Exam Exam: See Below (See dictation) Course - Vital Signs Last Recorded V/S: Last Vital Signs Temp 36.9 C 06/22/17 05:27 Pulse 106 H 06/22/17 05:27 Resp 18 06/22/17 05:27 BP 108/57 L 06/22/17 05:27 Pulse Ox 94 L 06/22/17 05:27 - Orders/Labs/Meds Labs: Laboratory Tests 06/22/17 06/22/17 Range/Units 03:55 03:55 WBC 14.30 H (4.0-11.0) K/uL RBC 5.16 (4.30-5.90) M/uL Hgb 14.4 (12.0-16.0) g/dL Hct 40.8 (36.0-46.0) % MCV 79.1 L (80.0-98.0) fL MCH 27.9 (27.0-32.0) pg MCHC 35.3 (31.0-37.0) g/dL RDW Std Deviation 37.3 (28.0-62.0) fl RDW Coeff of Shaniqua 13 (11.0-15.0) % Plt Count 238 (150-400) K/uL MPV 9.50 (7.40-12.00) fL Neut % (Auto) 88.5 H (48.0-80.0) % Lymph % (Auto) 4.4 L (16.0-40.0) % [place] % (Auto) 6.9 (0.0-15.0) % Eos % (Auto) 0.1 (0.0-7.0) % Baso % (Auto) 0.1 (0.0-1.5) % Neut # (Auto) 12.7 H (1.4-5.7) K/uL Lymph # (Auto) 0.6 (0.6-2.4) K/uL [place] # (Auto) 1.0 H (0.0-0.8) K/uL Eos # (Auto) 0.0 (0.0-0.7) K/uL Baso # (Auto) 0.0 (0.0-0.1) K/uL Nucleated RBC % 0.0 /100WBC Nucleated RBCs # 0 K/uL Sodium 136 (136-146) mmol/L Potassium 4.1 (3.5-5.1) mmol/L Chloride 108 (98-110) mmol/L Carbon Dioxide 17 L (21-31) mmol/L BUN 10 (6.0-23.0) mg/dL Creatinine 1.0 (0.6-1.5) mg/dL Est Cr Clr Drug Dosing TNP Estimated GFR (MDRD) > 60.0 ml/min Glucose 129 H (60-110) mg/dL Calcium 9.6 (8.8-10.8) mg/dL Total Bilirubin 1.6 H (0.1-1.5) mg/dL AST 23 (5-40) IU/L ALT 24 (8-54) IU/L Alkaline Phosphatase 49 (40-150) Total Protein 7.1 (6.0-8.0) g/dL Albumin 4.2 (3.5-5.0) g/dL Globulin 2.9 (2.0-3.5) g/dL Albumin/Globulin Ratio 1.5 (1.3-2.8) Meds: Medications Discontinued Medications Generic Name Dose Route Start Last Admin Trade Name Freq PRN Reason Stop Dose Admin Diphenhydramine HCl 50 mg 06/22/17 03:59 06/22/17 04:07 Benadryl IVPUSH 06/22/17 04:00 50 mg ONETIME ONE Administration Sodium Chloride 1,000 mls @ 999 mls/hr 06/22/17 04:01 06/22/17 04:03 Normal Saline IV 06/22/17 05:01 999 mls/hr STAT ONE Administration Ketorolac Tromethamine 30 mg 06/22/17 03:59 06/22/17 04:06 Toradol IVPUSH 06/22/17 04:00 30 mg ONETIME ONE Administration Metoclopramide HCl 10 mg 06/22/17 03:59 06/22/17 04:06 Reglan IV 06/22/17 04:00 10 mg ONETIME ONE Administration Ondansetron HCl 4 mg 06/22/17 03:59 06/22/17 04:06 Zofran IVPUSH 06/22/17 04:00 4 mg ONETIME ONE Administration Departure - Departure Time of Disposition: 04:02 Disposition: Home, Self-Care 01 Condition: Good Clinical Impression: Migraine - Discharge Information Instructions: Migraine Headache, [id number] Referrals: PCP,None [Primary Care Provider] - Forms: ED Department Discharge Additional Instructions: The following information is given to patients seen in the emergency department who are being discharged to home. This information is to outline your options for follow-up care. We provide all patients seen in our emergency department with a follow-up referral. The need for follow-up, as well as the timing and circumstances, are variable depending upon the specifics of your emergency department visit. If you don't have a primary care physician on staff, we will provide you with a referral. We always advise you to contact your personal physician following an emergency department visit to inform them of the circumstance of the visit and for follow-up with them and/or the need for any referrals to a consulting specialist. The emergency department will also refer you to a specialist when appropriate. This referral assures that you have the opportunity for followup care with a specialist. All of these measure are taken in an effort to provide you with optimal care, which includes your followup. Under all circumstances we always encourage you to contact your private physician who remains a resource for coordinating your care. When calling for followup care, please make the office aware that this follow-up is from your recent emergency room visit. If for any reason you are refused follow-up, please contact the [facility] emergency department at and asked to speak to the emergency department charge nurse. Follow-up primary medical doctor 1-2 days return as needed as discussed Motrin/ Tylenol as directed
[2017-06-22 04:24] LABS: CHLORIDE,CL 108 mmol/L (98-110); SODIUM,NA 136 mmol/L (136-146)
[2017-06-22 07:23] VITALS: BP 102/60
== END 2017-06-22 07:20 | disposition home or self-care (01) ==
LOC: MW.ED 03:45
DX: G43.909 Migraine, unspecified, not intractable, without status migrainosus (principal); Z88.5 Allergy status to narcotic agent; Z91.018 Allergy to other foods; Z79.899 Other long term (current) drug therapy
CPT/HCPCS: 80053; 85025; 87804; 96361; 96374; 96375; 99283; J1200; J1885; J2405; J2765; J7040

== ENCOUNTER 2017-06-24 03:14 | Emergency (ER) | payer SELFPAY ==
--- NOTE | 2017-06-24 03:22 | EDM.PDOC ---
ED HPI GENERAL MEDICAL PROBLEM - General Chief Complaint: Respiratory Problem Stated Complaint: TROUBLE BREATHING Time Seen by Provider: 06/24/17 03:18 - History of Present Illness INITIAL COMMENTS - FREE TEXT/NARRATIVE: HISTORY AND PHYSICAL: History of present illness: Patient 31-year-old female presents with a concern of hyperventilation she denies chest pain nausea vomiting fever chills or other complaints upon arrival she is quite anxious. Review of systems: As per history of present illness and below otherwise all systems reviewed and negative. Past medical history: As per history of present illness and as reviewed below otherwise noncontributory. Surgical history: As per history of present illness and as reviewed below otherwise noncontributory. Social history: No reported history of drug or alcohol abuse. Family history: As per history of present illness and as reviewed below otherwise noncontributory. Physical exam: HEENT: Atraumatic, normocephalic, pupils reactive, negative for conjunctival pallor or scleral icterus, mucous membranes moist, throat clear, neck supple, nontender, trachea midline. Lungs: Clear to auscultation, breath sounds equal bilaterally, chest nontender. Heart: S1S2, regular, negative for clicks, rubs, or JVD. Abdomen: Soft, nondistended, nontender. Negative for masses or hepatosplenomegaly. Negative for costovertebral tenderness. Pelvis: Stable nontender. Genitourinary: Deferred. Rectal: Deferred. Extremities: Atraumatic, negative for cords or calf pain. Neurovascular unremarkable. Neuro: Awake, alert, oriented. Cranial nerves II through XII unremarkable. Cerebellum unremarkable. Motor and sensory unremarkable throughout. Exam nonfocal. Diagnostics: Chest x-ray EKG pulse oximetry Therapeutics: None Impression: 1 anxiety with hyperventilation Definitive disposition and diagnosis as appropriate pending reevaluation and review of above. - Related Data Allergies Allergy/AdvReac Type Severity Reaction Status Date / Time codeine Allergy Severe Swelling Verified 06/24/17 03:18 mushroom Allergy Swelling Uncoded 06/24/17 03:18 Home Meds: Home Meds Albuterol [Ventolin HFA] 2 puff INH BID PRN 10/08/13 [History] Albuterol/Ipratropium [DuoNeb 3.0-0.5 MG/3 ML] 3 ml NEB ATDISCHARGE PRN [History] Cetirizine [ZyrTEC] 10 mg PO DAILY 05/11/15 [History] Montelukast [Singulair] 10 mg PO BEDTIME 05/11/15 [History] Albuterol [Proventil HFA] 1 puff INH ASDIRECTED PRN 02/09/16 [History] Budesonide [Pulmicort] 1 puff NEB ASDIRECTED 02/09/16 [History] Budesonide/Formoterol Fumarate [Symbicort 80-4.5 Mcg Inhaler] 1 puff INH ASDIRECTED 02/09/16 [History] Omeprazole 20 mg PO BID 02/09/16 [History] Ondansetron HCl [Zofran] 4 mg PO ASDIRECTED PRN 08/15/16 [History] Acetaminophen [Tylenol] 650 mg PO Q4H PRN tablet 01/18/17 [Rx] Past Medical History HEENT History: Reports: Impaired Vision Cardiovascular History: Reports: None Respiratory History: Reports: Asthma Gastrointestinal History: Reports: GERD Genitourinary History: Reports: 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: Musculoskeletal History: Reports: None Other Musculoskeletal History: carpal tunnel Neurological History: Reports: Migraines Psychiatric History: Reports: None Endocrine/Metabolic History: Reports: Obesity/BMI 30+ Hematologic History: Reports: None Immunologic History: Reports: None Oncologic (Cancer) History: Reports: None Dermatologic History: Reports: None - Infectious Disease History Infectious Disease History: Reports: Chicken Pox - Past Surgical History Head Surgeries/Procedures: Reports: None HEENT Surgical History: Reports: Adenoidectomy, Oral Surgery, Tonsillectomy GI Surgical History: Reports: Cholecystectomy Female Surgical History: Reports: Section Social & Family History - Family History Family Medical History: Noncontributory Respiratory: Reports: Asthma Endocrine/Metabolic: Reports: Diabetes, type II - Tobacco Use Smoking Status *Q: Never Smoker Second Hand Smoke Exposure: No - Caffeine Use Caffeine Use: Reports: Coffee, Tea Caffeine Use Comment: 2-3drinks/day - Alcohol Use Days Per Week of Alcohol Use: 0 Number of Drinks Per Day: 2 Total Drinks Per Week: 0 - Recreational Drug Use Recreational Drug Use: No Drug Use in Last 12 Months: No ED ROS GENERAL - Review of Systems Review Of Systems: ROS reveals no pertinent complaints other than HPI. ED EXAM, GENERAL - Physical Exam Exam: See Below (See dictation) Departure - Departure Time of Disposition: 03:20 Disposition: Home, Self-Care 01 Condition: Good Clinical Impression: Anxiety, Hyperventilation - Discharge Information Referrals: PCP,None [Primary Care Provider] -
[2017-06-24] MEDS ORDERED: Albuterol/Ipratropium 3.0-0.5 MG/3 ML Neb Soln NEB ONE (04:01)
[2017-06-24 04:24] VITALS: BP 102/73
--- NOTE | 2017-06-24 11:26 | CR ---
EXAM DATE: 06/24/17 PATIENT'S AGE: 31 Patient: JOSUE ALLEN Facility: [place], [place] Site . Site : [id number] Study: XRay Chest [id number] 3:42:30 AM Ordering Physician: Peter Bautista Final Report: Indication: SOB, chest pain, asthma Technique: Chest 2 views Comparison: 02/18/2017 Findings/Impression: Cardiovascular and mediastinum: Heart size and vasculature are normal in caliber and appearance. Mediastinum is within normal limits. Lungs and pleural spaces: Lungs are clear. No sign of infiltrate or mass. No sign of pleural effusion. No pneumothorax. Bones and soft tissues: No significant change. Dictated by Bertin Jackson MD @ 06/24/2017 3:50:12 AM Dictated by: Bertin Jackson MD @ 06/24/2017 03:50:19 (Electronic Signature) Report Signed by Proxy. TERESO
== END 2017-06-24 04:23 | disposition home or self-care (01) ==
LOC: MW.ED 03:14
DX: F41.9 Anxiety disorder, unspecified (principal); F45.8 Other somatoform disorders; Z79.899 Other long term (current) drug therapy
CPT/HCPCS: 71046; 71046-26; 93005; 94640; 99282; 99285-25

== ENCOUNTER 2017-07-25 08:41 | Emergency (ER) | payer MEDICAID, SELFPAY ==
[2017-07-25 09:18] VITALS: BP 137/87
[2017-07-25] MEDS ORDERED: Benzocaine 20% Topical Spray UD MUCMEM ONE (09:24)
[2017-07-25] MEDS ORDERED: Lidocaine 2% Viscous Solution 15 ML Cup PO ONE (09:24)
--- NOTE | 2017-07-25 09:29 | EDM.PDOC ---
ED HPI GENERAL MEDICAL PROBLEM - General Chief Complaint: ENT Problem Stated Complaint: PAIN IN JAW Time Seen by Provider: 07/25/17 08:59 Source of Information: Reports: Patient History Limitations: Reports: No Limitations - History of Present Illness INITIAL COMMENTS - FREE TEXT/NARRATIVE: History of present illness: []She has had 5 days of right lower jaw pain. She has a bad tooth and went and saw a dentist 3 days ago who took x-rays and stated that it was not her tooth causing the pain. Her on penicillin however for an abscess but did not give her any pain medicines. She is now stating that her pain is worse. Review of systems: As per history of present illness and below otherwise all systems reviewed and negative. Past medical history: As per history of present illness and as reviewed below otherwise noncontributory. Surgical history: As per history of present illness and as reviewed below otherwise noncontributory. Social history: No reported history of drug or alcohol abuse. Family history: As per history of present illness and as reviewed below otherwise noncontributory. Physical exam: General: Well developed, well nourished in NAD HEENT: Atraumatic, normocephalic, pupils reactive, negative for conjunctival pallor or scleral icterus, mucous membranes moist, throat clear, neck supple, nontender, trachea midline. No facial swelling no gingival erythema or drainage , but tender to palpation in the area. Lungs: Clear to auscultation, breath sounds equal bilaterally, chest nontender. Heart: S1S2, regular, negative for clicks, rubs, or JVD. Abdomen: Soft, nondistended, nontender. Negative for masses or hepatosplenomegaly. Negative for costovertebral tenderness. Pelvis: Stable nontender. Genitourinary: Deferred. Rectal: Deferred. Extremities: Atraumatic, negative for cords or calf pain. Neurovascular unremarkable. Neuro: Awake, alert, oriented. Cranial nerves II through XII unremarkable. Cerebellum unremarkable. Motor and sensory unremarkable throughout. Exam nonfocal. Diagnostics: [] Therapeutics: [] Impression: []Dental pain Plan: []Continue antibiotics, ibuprofen and Tylenol and ice alternating with heat. Gentle balls for severe pain. Definitive disposition and diagnosis as appropriate pending reevaluation and review of above. left jaw Pain Score (Numeric/FACES): 8 - Related Data Allergies Allergy/AdvReac Type Severity Reaction Status Date / Time codeine Allergy Severe Swelling Verified 07/25/17 09:08 mushroom Allergy Swelling Uncoded 07/25/17 09:08 Home Meds: Home Meds Albuterol [Ventolin HFA] 2 puff INH BID PRN 10/08/13 [History] Albuterol/Ipratropium [DuoNeb 3.0-0.5 MG/3 ML] 3 ml NEB ATDISCHARGE PRN [History] Cetirizine [ZyrTEC] 10 mg PO DAILY 05/11/15 [History] Montelukast [Singulair] 10 mg PO BEDTIME 05/11/15 [History] Albuterol [Proventil HFA] 1 puff INH ASDIRECTED PRN 02/09/16 [History] Budesonide [Pulmicort] 1 puff NEB ASDIRECTED 02/09/16 [History] Budesonide/Formoterol Fumarate [Symbicort 80-4.5 Mcg Inhaler] 1 puff INH ASDIRECTED 02/09/16 [History] Acetaminophen [Tylenol] 650 mg PO Q4H PRN tablet 01/18/17 [Rx] Past Medical History HEENT History: Reports: Impaired Vision Cardiovascular History: Reports: None Respiratory History: Reports: Asthma Gastrointestinal History: Reports: GERD Genitourinary History: Reports: None 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: Musculoskeletal History: Reports: None Other Musculoskeletal History: carpal tunnel Neurological History: Reports: Migraines Psychiatric History: Reports: None Endocrine/Metabolic History: Reports: Obesity/BMI 30+ Hematologic History: Reports: None Immunologic History: Reports: None Oncologic (Cancer) History: Reports: None Dermatologic History: Reports: None - Infectious Disease History Infectious Disease History: Reports: Chicken Pox - Past Surgical History Head Surgeries/Procedures: Reports: None HEENT Surgical History: Reports: Adenoidectomy, Oral Surgery, Tonsillectomy GI Surgical History: Reports: Cholecystectomy Female Surgical History: Reports: Section Social & Family History - Family History Family Medical History: Noncontributory Respiratory: Reports: Asthma Endocrine/Metabolic: Reports: Diabetes, type II - Tobacco Use Smoking Status *Q: Never Smoker Second Hand Smoke Exposure: No - Caffeine Use Caffeine Use: Reports: Other Caffeine Use Comment: 2-3drinks/day - Alcohol Use Days Per Week of Alcohol Use: 0 Number of Drinks Per Day: 2 Total Drinks Per Week: 0 - Recreational Drug Use Recreational Drug Use: No Drug Use in Last 12 Months: No ED ROS ENT - Review of Systems Review Of Systems: See Below (See history of present illness) ED EXAM, ENT - Physical Exam Exam: See Below (See history of present illness) Course - Vital Signs Last Recorded V/S: Last Vital Signs Temp 98.1 F 07/25/17 09:13 Pulse 88 07/25/17 09:13 Resp 18 07/25/17 09:13 BP 137/87 07/25/17 09:13 Pulse Ox 98 07/25/17 09:13 - Orders/Labs/Meds Meds: Medications Discontinued Medications Generic Name Dose Route Start Last Admin Trade Name Pau PRN Reason Stop Dose Admin Benzocaine 2 each 07/25/17 09:24 Hurricaine One 20% MUCMEM 07/25/17 09:25 ONETIME ONE Lidocaine HCl 15 ml 07/25/17 09:24 Xylocaine 2% Viscous PO 07/25/17 09:25 ONETIME ONE Departure - Departure Time of Disposition: 09:27 Disposition: Home, Self-Care 01 Condition: Good Clinical Impression: Pain, dental - Discharge Information Referrals: Siddhartha Urbina MD [Primary Care Provider] -
== END 2017-07-25 09:58 | disposition home or self-care (01) ==
LOC: MW.ED 08:41
DX: K08.89 Other specified disorders of teeth and supporting structures (principal); J45.909 Unspecified asthma, uncomplicated; E66.9 Obesity, unspecified; Z88.5 Allergy status to narcotic agent; Z91.018 Allergy to other foods; Z79.899 Other long term (current) drug therapy
CPT/HCPCS: 99282; A9270

== ENCOUNTER 2017-09-22 09:42 | Emergency (ER) | payer SELFPAY ==
--- NOTE | 2017-09-22 10:15 | EDM.PDOC ---
ED HPI GENERAL MEDICAL PROBLEM - General Chief Complaint: Back Pain or Injury Stated Complaint: BACK PAIN Time Seen by Provider: 09/22/17 10:09 Source of Information: Reports: Patient History Limitations: Reports: No Limitations - History of Present Illness INITIAL COMMENTS - FREE TEXT/NARRATIVE: HISTORY AND PHYSICAL: [] 31-year-old female presenting with right-sided back pain and has to the sciatic area and radiates to her thigh History of Present Illness: []Admission to Dr. Siddhartha Urbina's but was unable to get in to see him today and presented to the emergency department Patient is states this pain has worsened over the last several days. She has been unable to sleep. She also complains of wheezing from her asthma. And the dog jumped on her scratching her eye last night. She did use her nebulizer machine twice daily for the last week Review of Systems: As per history of present illness and below otherwise all systems reviewed and negative. Past medical history: As per history of present illness and as reviewed below otherwise noncontributory. Surgical history: As per history of present illness and as reviewed below otherwise noncontributory. Social history: No reported history of drug or alcohol abuse. Family history: As per history of present illness and as reviewed below otherwise noncontributory. Physical exam: Pleasant woman who is speaking in full sentences without any shortness of breath she is wheezing. She is nontoxic in appearance. HEENT: Atraumatic, normocehpalic, pupils reactive, negative for conjunctival pallor or scleral icterus, mucous membranes moist, throat clear, neck supple, nontender, trachea midline. Tympanic membranes without erythema throat is unremarkable chest has wheezing throughout. Lungs: Anterior crackles on auscultation, breath sounds equal bilaterally, chest non tender. Heart: S1S2, regular, negative for clicks, rubs, or JVD. Abdomen: Soft, nondistended, nontender. Negative for masses or hepatossplenmegaly. Positive for right-sided costovertebral tenderness. Pelvis: Stable nontender. Genitourinary: Deferred. Rectal: Deferred Extremities: Atraumatic, negative for cords or calf pain. Neurovascular unremarkable. Neuro: Awake, alert, oriented. Cranial nerves II through XII unremarkable. Cerebellum unremarkable. Motor and sensory unremarkable throughout. Exam nonfocal. Patient tolerated all procedures well. Minor abrasion noted more towards the sclera not on the left cornea. Diagnostics: []Wood's lamp Therapeutics: []Proparacaine drops Flexeril Toradol Impression: []#1 exacerbation of asthma #2 abrasion to her right eye #3 sciatic pain Plan: []Discharged to home Follow up with Dr. Urbina next week call today for an appointment [address] [place] [id number] Prescription for Flexeril Prescription for Medrol Dosepak Prescription for erythromycin ophthalmic ointment Consider physical therapy for follow-up Definitive disposition and diagnosis as appropriate pending reevaluation and review of above. Onset: Gradual Duration: Day(s):, Getting Worse Location: Reports: Back Quality: Reports: Ache, Burning Severity: Moderate Improves with: Reports: None Worsens with: Reports: None Right Mid Back Pain Score (Numeric/FACES): 7 - Related Data Allergies Allergy/AdvReac Type Severity Reaction Status Date / Time codeine Allergy Severe Swelling Verified 09/22/17 09:52 mushroom Allergy Swelling Uncoded 09/22/17 09:52 Home Meds: Home Meds Albuterol [Ventolin HFA] 2 puff INH BID PRN 10/08/13 [History] Albuterol/Ipratropium [DuoNeb 3.0-0.5 MG/3 ML] 3 ml NEB QID PRN 05/11/15 [ History] Cetirizine [ZyrTEC] 10 mg PO DAILY 05/11/15 [History] Montelukast [Singulair] 10 mg PO BEDTIME 05/11/15 [History] Albuterol [Proventil HFA] 1 puff INH ASDIRECTED PRN 02/09/16 [History] Budesonide [Pulmicort] 1 puff NEB ASDIRECTED 02/09/16 [History] Budesonide/Formoterol Fumarate [Symbicort 80-4.5 Mcg Inhaler] 1 puff INH ASDIRECTED 02/09/16 [History] Acetaminophen [Tylenol] 650 mg PO Q4H PRN tablet 01/18/17 [Rx] Cyclobenzaprine [Flexeril] 10 mg PO TID #30 tab 09/22/17 [Rx] Diclofenac Sodium [Voltaren] 75 mg PO BIDMEALS #20 tab.cr 09/22/17 [Rx] Erythromycin Base [Erythromycin 0.5% Ophth Oint] 1 applic OP Q4H #1 tube [Rx] Past Medical History HEENT History: Reports: Impaired Vision Cardiovascular History: Reports: None Respiratory History: Reports: Asthma Gastrointestinal History: Reports: GERD Genitourinary History: Reports: None 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: Musculoskeletal History: Reports: None Other Musculoskeletal History: carpal tunnel Neurological History: Reports: Migraines Psychiatric History: Reports: None Endocrine/Metabolic History: Reports: Obesity/BMI 30+ Hematologic History: Reports: None Immunologic History: Reports: None Oncologic (Cancer) History: Reports: None Dermatologic History: Reports: None - Infectious Disease History Infectious Disease History: Reports: Chicken Pox - Past Surgical History Head Surgeries/Procedures: Reports: None HEENT Surgical History: Reports: Adenoidectomy, Oral Surgery, Tonsillectomy GI Surgical History: Reports: Cholecystectomy Female Surgical History: Reports: Section Social & Family History - Family History Family Medical History: Noncontributory Respiratory: Reports: Asthma Endocrine/Metabolic: Reports: Diabetes, type II - Tobacco Use Smoking Status *Q: Never Smoker - Caffeine Use Caffeine Use: Reports: Energy Drinks, Soda, Tea Caffeine Use Comment: 2-3drinks/day - Recreational Drug Use Recreational Drug Use: No ED ROS GENERAL - Review of Systems Review Of Systems: ROS reveals no pertinent complaints other than HPI. ED EXAM,LOWER BACK PAIN/INJURY - Physical Exam Exam: See Below (see dictation) Course - Vital Signs Last Recorded V/S: Last Vital Signs Temp 36.6 C 09/22/17 09:49 Pulse 95 09/22/17 09:49 Resp 18 09/22/17 09:49 BP 142/88 H 09/22/17 09:49 Pulse Ox 93 L 09/22/17 09:49 - Orders/Labs/Meds Orders: Active Orders 24 hr Category Date Time Status RT Aerosol Therapy [RC] ASDIRECTED Care 09/22/17 10:54 Ordered Meds: Medications Discontinued Medications Generic Name Dose Route Start Last Admin Trade Name Freq PRN Reason Stop Dose Admin Albuterol/Ipratropium 3 ml 09/22/17 10:54 Duoneb 3.0-0.5 Mg/3 Ml NEB 09/22/17 10:55 ONETIME ONE Cyclobenzaprine HCl 10 mg 09/22/17 10:09 09/22/17 10:19 Flexeril PO 09/22/17 10:10 10 mg ONETIME ONE Administration Ketorolac Tromethamine 60 mg 09/22/17 10:09 09/22/17 10:17 Toradol IM 09/22/17 10:10 60 mg ONETIME ONE Administration Proparacaine HCl 1 ml 09/22/17 10:44 Proparacaine 0.5% Ophth Soln EYERT 09/22/17 10:45 ONETIME ONE Departure - Departure Time of Disposition: 10:51 Disposition: Home, Self-Care 01 Condition: Good Clinical Impression: Exacerbation of asthma Sciatica Qualifiers: Laterality: right Qualified Code(s): M54.31 - Sciatica, right side Corneal abrasion, right Qualifiers: Encounter type: initial encounter Qualified Code(s): S05.01XA - Injury of conjunctiva and corneal abrasion without foreign body, right eye, initial encounter - Discharge Information Prescriptions: Cyclobenzaprine [Flexeril] 10 mg PO TID #30 tab Diclofenac Sodium [Voltaren] 75 mg PO BIDMEALS #20 tab.cr Erythromycin Base [Erythromycin 0.5% Ophth Oint] 1 applic OP Q4H #1 tube Instructions: Asthma, Adult Referrals: PCP,None [Primary Care Provider] - Forms: ED Department Discharge Additional Instructions: The following information is given to patients seen in the emergency department who are being discharged to home. This information is to outline your options for follow-up care. We provide all patients seen in our emergency department with a follow-up referral. The need for follow-up, as well as the timing and circumstances, are variable depending upon the specifics of your emergency department visit. If you don't have a primary care physician on staff, we will provide you with a referral. We always advise you to contact your personal physician following an emergency department visit to inform them of the circumstance of the visit and for follow-up with them and/or the need for any referrals to a consulting specialist. The emergency department will also refer you to a specialist when appropriate. This referral assures that you have the opportunity for followup care with a specialist. All of these measure are taken in an effort to provide you with optimal care, which includes your followup. Under all circumstances we always encourage you to contact your private physician who remains a resource for coordinating your care. When calling for followup care, please make the office aware that this follow-up is from your recent emergency room visit. If for any reason you are refused follow-up, please contact the [facility] emergency department at and asked to speak to the emergency department charge nurse. Today you were found to have some events of sciatica pain of right hip Minor corneal abrasion to the right eye Exacerbation of your asthma Follow-up with Dr. Siddhartha Urbina next week please call for an appointment [address] [place], [place] [address] Prescription for Flexeril Prescription for diclofenac Prescription for erythromycin ophthalmic ointment - My Orders Last 24 Hours: My Active Orders 09/22/17 10:54 RT Aerosol Therapy [RC] ASDIRECTED - Assessment/Plan Last 24 Hours: My Active Orders 09/22/17 10:54 RT Aerosol Therapy [RC] ASDIRECTED
[2017-09-22] MEDS: Ketorolac 60 MG/2 ML SDV IM ONE (10:17)
[2017-09-22] MEDS: Cyclobenzaprine 10 MG Tab PO ONE (10:19)
[2017-09-22] MEDS: Albuterol/Ipratropium 3.0-0.5 MG/3 ML Neb Soln NEB ONE (11:02)
[2017-09-22] MEDS: Proparacaine 0.5% Ophth Soln 15 ML Bottle EYERT ONE (11:36)
[2017-09-22 11:41] VITALS: BP 144/85
== END 2017-09-22 11:25 | disposition home or self-care (01) ==
LOC: MW.ED 09:42
DX: S05.01XA Injury of conjunctiva and corneal abrasion without foreign body, right eye, initial encounter (principal); J45.901 Unspecified asthma with (acute) exacerbation; M54.31 Sciatica, right side; W54.1XXA Struck by dog, initial encounter; K21.9 Gastro-esophageal reflux disease without esophagitis; Z79.899 Other long term (current) drug therapy; Z88.5 Allergy status to narcotic agent; Z91.018 Allergy to other foods
CPT/HCPCS: 94640; 96372; 99283; A9270; J1885

== ENCOUNTER 2017-09-26 10:04 | Emergency (ER) | payer SELFPAY ==
[2017-09-26] MEDS ORDERED: methylPREDNISolone Sodium Succinate 125 MG/2 ML SDV IM ONE (10:30)
[2017-09-26] MEDS ORDERED: diphenhydrAMINE 50 MG Cap PO ONE (10:30)
--- NOTE | 2017-09-26 10:37 | EDM.PDOC ---
ED HPI GENERAL MEDICAL PROBLEM - General Chief Complaint: Skin Complaint Stated Complaint: RASH ON PT'S LEG Time Seen by Provider: 09/26/17 10:21 Source of Information: Reports: Patient History Limitations: Reports: No Limitations - History of Present Illness INITIAL COMMENTS - FREE TEXT/NARRATIVE: HISTORY AND PHYSICAL: History of present illness: Patient is a 31-year-old female who presents to the emergency room today with complaints of a rash to her bilateral lower extremities. She states she was getting ready to go fishing and had been outside for approximately an hour and a half, noted that she had welts and itching to her lower extremities, knees down bilaterally. She does not recall any new contacts with lotions creams or detergents. Has not tried any [id number] products at this time. Review of systems: As per history of present illness and below otherwise all systems reviewed and negative. Past medical history: As per history of present illness and as reviewed below otherwise noncontributory. Surgical history: As per history of present illness and as reviewed below otherwise noncontributory. Social history: No reported history of drug or alcohol abuse. Family history: As per history of present illness and as reviewed below otherwise noncontributory. Physical exam: General: Well-developed and well-nourished 31-year-old female. Alert and oriented. Nontoxic appearing and in no acute distress. HEENT: Atraumatic, normocephalic, pupils equal and reactive bilaterally, negative for conjunctival pallor or scleral icterus, mucous membranes moist, throat clear, neck supple, nontender, trachea midline. No drooling or trismus noted. No meningeal signs Lungs: Clear to auscultation, breath sounds equal bilaterally, chest nontender. Breathes easy and even. No distress. Heart: S1S2, regular rate and rhythm without overt murmur Abdomen: Soft, nondistended, nontender. Negative for masses or hepatosplenomegaly. Negative for costovertebral tenderness. Pelvis: Stable nontender. Genitourinary: Deferred. Rectal: Deferred. Skin: Sporadic welt like hives noted to the lateral calves bilaterally. The area appears erythematous as she has been scratching. Intact, warm, dry. No lesions or rashes noted. Extremities: Atraumatic, negative for cords or calf pain. Neurovascular unremarkable. Neuro: Awake, alert, oriented. Cranial nerves II through XII unremarkable. Cerebellum unremarkable. Motor and sensory unremarkable throughout. Exam nonfocal. Notes: We'll give her Solu-Medrol IM and 50 mg of Benadryl while here. Prescription for hydrocortisone cream for external use 2-3 times daily. We discussed supportive care measures. She voices understanding and is agreeable to plan of care. She denies any further questions at this time. Diagnostics: [] Therapeutics: Solu-Medrol, Benadryl Impression: Contact dermatitis Plan: 1. Please use the hydrocortisone topical cream to to 3 times daily, sparingly to the affected areas. 2. Continue taking Benadryl over the next 24-72 hours. You may add Zantac with the Benadryl for additional relief once daily. 3. Avoid any hot showers or direct heat as this will cause increased itching. 4. Follow-up with her primary caregiver in the next 1-2 days. Return to the ED as needed and as discussed. Definitive disposition and diagnosis as appropriate pending reevaluation and review of above. Onset: Today Duration: Minutes: Location: Reports: Lower Extremity, Left, Lower Extremity, Right Bilateral Lower Leg Pain Score (Numeric/FACES): 6 - Related Data Allergies Allergy/AdvReac Type Severity Reaction Status Date / Time codeine Allergy Severe Swelling Verified 09/26/17 10:15 mushroom Allergy Swelling Uncoded 09/26/17 10:15 Home Meds: Home Meds Albuterol [Ventolin HFA] 2 puff INH BID PRN 10/08/13 [History] Albuterol/Ipratropium [DuoNeb 3.0-0.5 MG/3 ML] 3 ml NEB QID PRN 05/11/15 [ History] Cetirizine [ZyrTEC] 10 mg PO DAILY 05/11/15 [History] Montelukast [Singulair] 10 mg PO BEDTIME 05/11/15 [History] Albuterol [Proventil HFA] 1 puff INH ASDIRECTED PRN 02/09/16 [History] Budesonide [Pulmicort] 1 puff NEB ASDIRECTED 02/09/16 [History] Budesonide/Formoterol Fumarate [Symbicort 80-4.5 Mcg Inhaler] 1 puff INH ASDIRECTED 02/09/16 [History] Acetaminophen [Tylenol] 650 mg PO Q4H PRN tablet 01/18/17 [Rx] Benzonatate [Tessalon Perle] 100 mg PO QID #40 capsule 09/22/17 [Rx] Cyclobenzaprine [Flexeril] 10 mg PO TID #30 tab 09/22/17 [Rx] Diclofenac Sodium [Voltaren] 75 mg PO BIDMEALS #20 tab.cr 09/22/17 [Rx] Past Medical History HEENT History: Reports: Impaired Vision Cardiovascular History: Reports: None Respiratory History: Reports: Asthma Gastrointestinal History: Reports: GERD Genitourinary History: Reports: None 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: Musculoskeletal History: Reports: None Other Musculoskeletal History: carpal tunnel Neurological History: Reports: Migraines Psychiatric History: Reports: None Endocrine/Metabolic History: Reports: Obesity/BMI 30+ Hematologic History: Reports: None Immunologic History: Reports: None Oncologic (Cancer) History: Reports: None Dermatologic History: Reports: None - Infectious Disease History Infectious Disease History: Reports: Chicken Pox - Past Surgical History Head Surgeries/Procedures: Reports: None HEENT Surgical History: Reports: Adenoidectomy, Oral Surgery, Tonsillectomy GI Surgical History: Reports: Cholecystectomy Female Surgical History: Reports: Section Social & Family History - Family History Family Medical History: Noncontributory Respiratory: Reports: Asthma Endocrine/Metabolic: Reports: Diabetes, type II - Tobacco Use Smoking Status *Q: Never Smoker - Caffeine Use Caffeine Use: Reports: Soda, Tea Caffeine Use Comment: 2-3drinks/day - Recreational Drug Use Recreational Drug Use: No ED ROS GENERAL - Review of Systems Review Of Systems: ROS reveals no pertinent complaints other than HPI. ED EXAM, SKIN/RASH Exam: See Below (See dictation) Course - Vital Signs Last Recorded V/S: Last Vital Signs Temp 97.2 F 09/26/17 10:18 Pulse 88 09/26/17 10:18 Resp 18 09/26/17 10:18 BP 139/78 09/26/17 10:18 Pulse Ox 97 09/26/17 10:18 - Orders/Labs/Meds Meds: Medications Discontinued Medications Generic Name Dose Route Start Last Admin Trade Name Freq PRN Reason Stop Dose Admin Diphenhydramine HCl 50 mg 09/26/17 10:30 Benadryl PO 09/26/17 10:31 ONETIME ONE Methylprednisolone Sodium Succinate 125 mg 09/26/17 10:30 Solu-Medrol IM 09/26/17 10:31 ONETIME ONE Departure - Departure Time of Disposition: 10:35 Disposition: Home, Self-Care 01 Clinical Impression: Contact dermatitis Qualifiers: Contact dermatitis type: unspecified Contact dermatitis trigger: unspecified trigger Qualified Code(s): L25.9 - Unspecified contact dermatitis, unspecified cause - Discharge Information Instructions: Contact Dermatitis, [id number] Referrals: PCP,None [Primary Care Provider] - Forms: ED Department Discharge Additional Instructions: The following information is given to patients seen in the emergency department who are being discharged to home. This information is to outline your options for follow-up care. We provide all patients seen in our emergency department with a follow-up referral. The need for follow-up, as well as the timing and circumstances, are variable depending upon the specifics of your emergency department visit. If you don't have a primary care physician on staff, we will provide you with a referral. We always advise you to contact your personal physician following an emergency department visit to inform them of the circumstance of the visit and for follow-up with them and/or the need for any referrals to a consulting specialist. The emergency department will also refer you to a specialist when appropriate. This referral assures that you have the opportunity for follow-up care with a specialist. All of these measure are taken in an effort to provide you with optimal care, which includes your follow-up. Under all circumstances we always encourage you to contact your private physician who remains a resource for coordinating your care. When calling for follow-up care, please make the office aware that this follow-up is from your recent emergency room visit. If for any reason you are refused follow-up, please contact the [facility] Emergency Department at and asked to speak to the emergency department charge nurse. [facility] [address] [place] [id number] 1. Please use the hydrocortisone topical cream to to 3 times daily, sparingly to the affected areas. 2. Continue taking Benadryl over the next 24-72 hours. You may add Zantac with the Benadryl for additional relief once daily. 3. Avoid any hot showers or direct heat as this will cause increased itching. 4. Follow-up with her primary caregiver in the next 1-2 days. Return to the ED as needed and as discussed.
[2017-09-26 11:14] VITALS: BP 136/82
== END 2017-09-26 11:10 | disposition home or self-care (01) ==
LOC: MW.ED 10:04
DX: L25.9 Unspecified contact dermatitis, unspecified cause (principal); J45.909 Unspecified asthma, uncomplicated; K21.9 Gastro-esophageal reflux disease without esophagitis; E66.9 Obesity, unspecified; E11.9 Type 2 diabetes mellitus without complications; Z88.5 Allergy status to narcotic agent; Z91.018 Allergy to other foods; Z79.899 Other long term (current) drug therapy; Z68.38 Body mass index [BMI] 38.0-38.9, adult
CPT/HCPCS: 96372; 99283; A9270; J2930

== ENCOUNTER 2017-10-17 21:03 | Emergency (ER) | payer SELFPAY ==
[2017-10-17] MEDS ORDERED: Albuterol/Ipratropium 3.0-0.5 MG/3 ML Neb Soln NEB ONE (21:24)
--- NOTE | 2017-10-17 21:28 | EDM.PDOC ---
ED HPI GENERAL MEDICAL PROBLEM - General Chief Complaint: General Stated Complaint: MIGRAINE Time Seen by Provider: 10/17/17 21:21 Source of Information: Reports: Patient History Limitations: Reports: No Limitations - History of Present Illness INITIAL COMMENTS - FREE TEXT/NARRATIVE: HISTORY AND PHYSICAL: []31-year-old female presenting with 2 concerns she had a asthma attack today just before coming in and she has a migraine headache History of Present Illness: []Migraine has been present all day the asthma attack started this evening Review of Systems: As per history of present illness and below otherwise all systems reviewed and negative. Past medical history: As per history of present illness and as reviewed below otherwise noncontributory. Surgical history: As per history of present illness and as reviewed below otherwise noncontributory. Social history: No reported history of drug or alcohol abuse. Family history: As per history of present illness and as reviewed below otherwise noncontributory. Physical exam: Alert and oriented female, she is having quick mouth breathing. Patient is flushed skin is warm and dry HEENT: Atraumatic, normocehpalic, pupils reactive, negative for conjunctival pallor or scleral icterus, mucous membranes moist, throat clear, neck supple, nontender, trachea midline. Lungs: Clear to auscultation, breath sounds equal bilaterally, chest non tender. Heart: S1S2, regular, negative for clicks, rubs, or JVD. Abdomen: Soft, nondistended, nontender. Negative for masses or hepatossplenmegaly. Negative for costovertebral tenderness. Pelvis: Stable nontender. Genitourinary: Deferred. Rectal: Deferred Extremities: Atraumatic, negative for cords or calf pain. Neurovascular unremarkable. Neuro: Awake, alert, oriented. Cranial nerves II through XII unremarkable. Cerebellum unremarkable. Motor and sensory unremarkable throughout. Exam nonfocal. Diagnostics: [] Therapeutics: []DuoNeb Compazine IM Benadryl PO Ativan Toradal IM Impression: []Migraine Asthma exacerbation Plan: []Discharge Home and rest Definitive disposition and diagnosis as appropriate pending reevaluation and review of above. Onset: Today, Sudden Duration: Hour(s):, Getting Worse Location: Reports: Head, Chest Quality: Reports: Ache Severity: Moderate Improves with: Reports: None Worsens with: Reports: None Associated Symptoms: Reports: Nausea/Vomiting head Pain Score (Numeric/FACES): 9 - Related Data Allergies Allergy/AdvReac Type Severity Reaction Status Date / Time codeine Allergy Severe Swelling Verified 10/17/17 21:30 mushroom Allergy Swelling Uncoded 10/17/17 21:30 Home Meds: Home Meds Albuterol [Ventolin HFA] 2 puff INH BID PRN 10/08/13 [History] Albuterol/Ipratropium [DuoNeb 3.0-0.5 MG/3 ML] 3 ml NEB QID PRN 05/11/15 [ History] Cetirizine [ZyrTEC] 10 mg PO DAILY 05/11/15 [History] Montelukast [Singulair] 10 mg PO BEDTIME 05/11/15 [History] Albuterol [Proventil HFA] 1 puff INH ASDIRECTED PRN 02/09/16 [History] Budesonide [Pulmicort] 1 puff NEB ASDIRECTED 02/09/16 [History] Budesonide/Formoterol Fumarate [Symbicort 80-4.5 Mcg Inhaler] 1 puff INH ASDIRECTED 02/09/16 [History] Acetaminophen [Tylenol] 650 mg PO Q4H PRN tablet 01/18/17 [Rx] Benzonatate [Tessalon Perle] 100 mg PO QID #40 capsule 09/22/17 [Rx] Cyclobenzaprine [Flexeril] 10 mg PO TID #30 tab 09/22/17 [Rx] Diclofenac Sodium [Voltaren] 75 mg PO BIDMEALS #20 tab.cr 09/22/17 [Rx] Past Medical History HEENT History: Reports: Impaired Vision Cardiovascular History: Reports: None Respiratory History: Reports: Asthma Gastrointestinal History: Reports: GERD Genitourinary History: Reports: None 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: Musculoskeletal History: Reports: None Other Musculoskeletal History: carpal tunnel Neurological History: Reports: Migraines Psychiatric History: Reports: None Endocrine/Metabolic History: Reports: Obesity/BMI 30+ Hematologic History: Reports: None Immunologic History: Reports: None Oncologic (Cancer) History: Reports: None Dermatologic History: Reports: None - Infectious Disease History Infectious Disease History: Reports: Chicken Pox - Past Surgical History Head Surgeries/Procedures: Reports: None HEENT Surgical History: Reports: Adenoidectomy, Oral Surgery, Tonsillectomy GI Surgical History: Reports: Cholecystectomy Female Surgical History: Reports: Section Social & Family History - Family History Family Medical History: Noncontributory Respiratory: Reports: Asthma Endocrine/Metabolic: Reports: Diabetes, type II - Caffeine Use Caffeine Use: Reports: Soda, Tea Caffeine Use Comment: 2-3drinks/day ED ROS GENERAL - Review of Systems Review Of Systems: ROS reveals no pertinent complaints other than HPI. ED EXAM, GENERAL - Physical Exam Exam: See Below (see dictation) Course - Vital Signs Last Recorded V/S: Last Vital Signs Temp 36.9 C 10/17/17 21:03 Pulse 95 10/17/17 21:03 Resp 20 10/17/17 21:03 BP 139/77 10/17/17 21:03 Pulse Ox 95 10/17/17 21:03 - Orders/Labs/Meds Orders: Active Orders 24 hr Category Date Time Status RT Aerosol Therapy [RC] ASDIRECTED Care 10/17/17 21:24 Active Meds: Medications Discontinued Medications Generic Name Dose Route Start Last Admin Trade Name Pau PRN Reason Stop Dose Admin Albuterol/Ipratropium 3 ml 10/17/17 21:24 10/17/17 21:31 Duoneb 3.0-0.5 Mg/3 Ml NEB 10/17/17 21:25 3 ml ONETIME ONE Administration Diphenhydramine HCl 25 mg 10/17/17 21:29 Benadryl PO 10/17/17 21:30 ONETIME ONE Ketorolac Tromethamine 60 mg 10/17/17 21:29 Toradol IM 10/17/17 21:30 ONETIME ONE Lorazepam 0.5 mg 10/17/17 21:30 Ativan PO 10/17/17 21:31 ONETIME ONE Prochlorperazine Edisylate 10 mg 10/17/17 21:30 Compazine IM 10/17/17 21:31 ONETIME ONE Departure - Departure Time of Disposition: 22:04 Disposition: Home, Self-Care 01 Condition: Good Clinical Impression: Migraine Acute asthma exacerbation Qualifiers: Asthma severity: mild Asthma persistence: unspecified Qualified Code(s): J45.901 - Unspecified asthma with (acute) exacerbation - Discharge Information Instructions: Recurrent Migraine Headache, Asthma, Adult, [id number], Asthma Attack Prevention, Adult Referrals: Siddhartha Urbina MD [Primary Care Provider] - Meghann Leyva MD [Physician] - Forms: ED Department Discharge Additional Instructions: The following information is given to patients seen in the emergency department who are being discharged to home. This information is to outline your options for follow-up care. We provide all patients seen in our emergency department with a follow-up referral. The need for follow-up, as well as the timing and circumstances, are variable depending upon the specifics of your emergency department visit. If you don't have a primary care physician on staff, we will provide you with a referral. We always advise you to contact your personal physician following an emergency department visit to inform them of the circumstance of the visit and for follow-up with them and/or the need for any referrals to a consulting specialist. The emergency department will also refer you to a specialist when appropriate. This referral assures that you have the opportunity for followup care with a specialist. All of these measure are taken in an effort to provide you with optimal care, which includes your followup. Under all circumstances we always encourage you to contact your private physician who remains a resource for coordinating your care. When calling for followup care, please make the office aware that this follow-up is from your recent emergency room visit. If for any reason you are refused follow-up, please contact the [facility] emergency department at and asked to speak to the emergency department charge nurse. Follow-up with Dr. Urbina next week Would recommend that you see Dr. Leyva for better control of your migraine headaches Return to the emergency room as discussed directly discussed - My Orders Last 24 Hours: My Active Orders 10/17/17 21:24 RT Aerosol Therapy [RC] ASDIRECTED - Assessment/Plan Last 24 Hours: My Active Orders 10/17/17 21:24 RT Aerosol Therapy [RC] ASDIRECTED
[2017-10-17] MEDS ORDERED: diphenhydrAMINE 25 MG Cap PO ONE (21:29)
[2017-10-17] MEDS ORDERED: Ketorolac 60 MG/2 ML SDV IM ONE (21:29)
[2017-10-17] MEDS ORDERED: Prochlorperazine 10 MG/2 ML SDV IM ONE (21:30)
[2017-10-17] MEDS ORDERED: LORazepam 0.5 MG Tab PO ONE (21:30)
[2017-10-18 02:36] VITALS: BP 138/70
== END 2017-10-17 22:40 | disposition home or self-care (01) ==
LOC: MW.ED 21:03
DX: J45.901 Unspecified asthma with (acute) exacerbation (principal); G43.909 Migraine, unspecified, not intractable, without status migrainosus; K21.9 Gastro-esophageal reflux disease without esophagitis; E11.9 Type 2 diabetes mellitus without complications; Z88.5 Allergy status to narcotic agent; Z91.018 Allergy to other foods; Z79.899 Other long term (current) drug therapy
CPT/HCPCS: 94640; 96372; 99283; A9270; J0780; J1885

== ENCOUNTER 2018-06-30 08:20 | Emergency (ER) | payer BC ==
[2018-06-30] MEDS ORDERED: diphenhydrAMINE 25 MG Cap PO ONE (08:35)
[2018-06-30] MEDS ORDERED: Ketorolac 60 MG/2 ML SDV IM ONE (08:35)
[2018-06-30] MEDS ORDERED: Ondansetron 4 MG Tab.DIS PO ONE (08:35)
--- NOTE | 2018-06-30 08:38 | EDM.PDOC ---
ED HPI GENERAL MEDICAL PROBLEM - General Chief Complaint: Headache Stated Complaint: HEADACHE Time Seen by Provider: 06/30/18 08:33 Source of Information: Reports: Patient History Limitations: Reports: No Limitations - History of Present Illness INITIAL COMMENTS - FREE TEXT/NARRATIVE: History of present illness: []Has a history of chronic migraines and woke up at 1 AM with a typical migraine that was not relieved with Tylenol. She denies any fevers or head trauma. Review of systems: As per history of present illness and below otherwise all systems reviewed and negative. Past medical history: As per history of present illness and as reviewed below otherwise noncontributory. Surgical history: As per history of present illness and as reviewed below otherwise noncontributory. Social history: No reported history of drug or alcohol abuse. Family history: As per history of present illness and as reviewed below otherwise noncontributory. Physical exam: General: Well developed, well nourished in NAD HEENT: Atraumatic, normocephalic, pupils reactive, negative for conjunctival pallor or scleral icterus, mucous membranes moist, throat clear, neck supple, no rigidity nontender, trachea midline. Lungs: Clear to auscultation, breath sounds equal bilaterally, chest nontender. Heart: S1S2, regular, negative for clicks, rubs, or JVD. Abdomen: NABS, Soft, nondistended, nontender. Negative for masses or hepatosplenomegaly. Negative for costovertebral tenderness. Pelvis: Stable nontender. Genitourinary: Deferred. Rectal: Deferred. Extremities: Atraumatic, negative for cords or calf pain. Neurovascular unremarkable. Neuro: Awake, alert, oriented. Cranial nerves II through XII unremarkable. Cerebellum unremarkable. Motor and sensory unremarkable throughout. Exam nonfocal. Skin:warm and dry Diagnostics: None Therapeutics: Toradol, Benadryl, Zofran, Fioricet ED Course: Unremarkable Impression: Migraine headache Prescriptions: None Plan: Follow-up with primary care as needed Definitive disposition and diagnosis as appropriate pending reevaluation and review of above. Headache Pain Score (Numeric/FACES): 8 - Related Data Allergies Allergy/AdvReac Type Severity Reaction Status Date / Time codeine Allergy Severe Swelling Verified 06/30/18 08:29 mushroom Allergy Swelling Uncoded 06/30/18 08:29 Home Meds: Home Meds Albuterol [Ventolin HFA] 2 puff INH BID PRN 10/08/13 [History] Albuterol/Ipratropium [DuoNeb 3.0-0.5 MG/3 ML] 3 ml NEB QID PRN 05/11/15 [ History] Cetirizine [ZyrTEC] 10 mg PO DAILY 05/11/15 [History] Montelukast [Singulair] 10 mg PO BEDTIME 05/11/15 [History] Budesonide [Pulmicort] 1 puff NEB ASDIRECTED 02/09/16 [History] Budesonide/Formoterol Fumarate [Symbicort 80-4.5 Mcg Inhaler] 1 puff INH ASDIRECTED 02/09/16 [History] Past Medical History HEENT History: Reports: Impaired Vision Cardiovascular History: Reports: None Respiratory History: Reports: Asthma Gastrointestinal History: Reports: GERD Genitourinary History: Reports: None 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: Musculoskeletal History: Reports: None Other Musculoskeletal History: carpal tunnel Neurological History: Reports: Migraines Psychiatric History: Reports: None Endocrine/Metabolic History: Reports: Obesity/BMI 30+ Hematologic History: Reports: None Immunologic History: Reports: None Oncologic (Cancer) History: Reports: None Dermatologic History: Reports: None - Infectious Disease History Infectious Disease History: Reports: Chicken Pox - Past Surgical History Head Surgeries/Procedures: Reports: None HEENT Surgical History: Reports: Adenoidectomy, Oral Surgery, Tonsillectomy GI Surgical History: Reports: Cholecystectomy Female Surgical History: Reports: Section Social & Family History - Family History Family Medical History: Noncontributory HEENT: Reports: Glaucoma Cardiac: Reports: None Respiratory: Reports: Asthma GI: Reports: Other (See Below) Other GI Family History: ulcers OBGYN: Reports: 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, Recurrent Spontaneous Musculoskeletal: Reports: Fibromyalgia Endocrine/Metabolic: Reports: Diabetes, type II Dermatologic: Reports: Eczema Oncologic: Reports: Breast, Lung - Tobacco Use Smoking Status *Q: Never Smoker - Caffeine Use Caffeine Use: Reports: Tea Caffeine Use Comment: 2-3drinks/day - Recreational Drug Use Recreational Drug Use: No ED ROS GENERAL - Review of Systems Review Of Systems: ROS reveals no pertinent complaints other than HPI. - Physical Exam Exam: See Below (The history of present illness) Course - Vital Signs Last Recorded V/S: Last Vital Signs Temp 97.9 F 06/30/18 08:29 Pulse 93 06/30/18 08:29 Resp 18 06/30/18 08:29 BP 139/81 06/30/18 08:29 Pulse Ox 93 L 06/30/18 08:29 - Orders/Labs/Meds Meds: Medications Discontinued Medications Generic Name Dose Route Start Last Admin Trade Name Pau PRN Reason Stop Dose Admin Acetaminophen/Butalbital/Caffeine 2 tab 06/30/18 10:22 06/30/18 10:28 Fioricet 325-50-40 Mg PO 06/30/18 10:23 2 tab ONETIME ONE Administration Diphenhydramine HCl 25 mg 06/30/18 08:35 06/30/18 09:02 Benadryl PO 06/30/18 08:36 25 mg ONETIME ONE Administration Ketorolac Tromethamine 60 mg 06/30/18 08:35 06/30/18 09:02 Toradol IM 06/30/18 08:36 60 mg ONETIME ONE Administration Ondansetron HCl 4 mg 06/30/18 08:35 06/30/18 09:02 Zofran Odt PO 06/30/18 08:36 4 mg ONETIME ONE Administration Departure - Departure Time of Disposition: 10:53 Disposition: Home, Self-Care 01 Condition: Good Clinical Impression: Migraine headache Qualifiers: Migraine type: unspecified Status migrainosus presence: without status migrainosus Intractability: not intractable Qualified Code(s): G43.909 - Migraine, unspecified, not intractable, without status migrainosus - Discharge Information *PRESCRIPTION DRUG MONITORING PROGRAM REVIEWED*: No *COPY OF PRESCRIPTION DRUG MONITORING REPORT IN PATIENT GINGER: No Instructions: Migraine Headache, [id number] Referrals: Siddhartha Urbina MD [Primary Care Provider] - Forms: ED Department Discharge Additional Instructions: The following information is given to patients seen in the emergency department who are being discharged to home. This information is to outline your options for follow-up care. We provide all patients seen in our emergency department with a follow-up referral. The need for follow-up, as well as the timing and circumstances, are variable depending upon the specifics of your emergency department visit. If you don't have a primary care physician on staff, we will provide you with a referral. We always advise you to contact your personal physician following an emergency department visit to inform them of the circumstance of the visit and for follow-up with them and/or the need for any referrals to a consulting specialist. The emergency department will also refer you to a specialist when appropriate. This referral assures that you have the opportunity for follow-up care with a specialist. All of these measure are taken in an effort to provide you with optimal care, which includes your follow-up. Under all circumstances we always encourage you to contact your private physician who remains a resource for coordinating your care. When calling for follow-up care, please make the office aware that this follow-up is from your recent emergency room visit. If for any reason you are refused follow-up, please contact the [facility] Emergency Department at and asked to speak to the emergency department charge nurse. [facility] [address] [place] [id number]
[2018-06-30 09:06] VITALS: BP 139/81
[2018-06-30] MEDS ORDERED: Acetaminophen/Butalbital/Caffeine 325-50-40 MG Tab PO ONE (10:22)
== END 2018-06-30 10:30 | disposition home or self-care (01) ==
LOC: MW.ED 08:20
DX: G43.909 Migraine, unspecified, not intractable, without status migrainosus (principal); J45.909 Unspecified asthma, uncomplicated; K21.9 Gastro-esophageal reflux disease without esophagitis; Z88.5 Allergy status to narcotic agent; Z91.018 Allergy to other foods; Z79.899 Other long term (current) drug therapy
CPT/HCPCS: 96372; 99283; A9270; J1885; 99282

== ENCOUNTER 2018-07-24 21:27 | Emergency (ER) | payer BC ==
[2018-07-24] MEDS ORDERED: Amoxicillin/Clavulanate K 875-125 MG Tab PO ONE (21:33)
[2018-07-24] MEDS ORDERED: Ketorolac 60 MG/2 ML SDV IM ONE (21:33)
[2018-07-24] MEDS ORDERED: Benzocaine 20% Topical Spray UD MUCMEM ONE (21:33)
[2018-07-24] MEDS ORDERED: Lidocaine 2% Viscous Solution 15 ML Cup PO ONE (21:33)
--- NOTE | 2018-07-24 21:36 | EDM.PDOC ---
ED HPI GENERAL MEDICAL PROBLEM - General Chief Complaint: ENT Problem Stated Complaint: PT HAS MIGRAINE Time Seen by Provider: 07/24/18 21:32 - History of Present Illness INITIAL COMMENTS - FREE TEXT/NARRATIVE: HISTORY AND PHYSICAL: History of present illness: Patient 32-year-old female presented concern of dentalgia Asians don't have a upper and lower left molar abscess is in the process of trying secured dental follow-up. There's been no fever chills nausea vomiting Review of systems: As per history of present illness and below otherwise all systems reviewed and negative. Past medical history: As per history of present illness and as reviewed below otherwise noncontributory. Surgical history: As per history of present illness and as reviewed below otherwise noncontributory. Social history: No reported history of drug or alcohol abuse. Family history: As per history of present illness and as reviewed below otherwise noncontributory. Physical exam: HEENT: Atraumatic, normocephalic, pupils reactive, negative for conjunctival pallor or scleral icterus, mucous membranes moist, throat clear, neck supple, nontender, trachea midline. Generally poor dentition noted tenderness to the left upper and lower molar region. Lungs: Clear to auscultation, breath sounds equal bilaterally, chest nontender. Heart: S1S2, regular, negative for clicks, rubs, or JVD. Abdomen: Soft, nondistended, nontender. Negative for masses or hepatosplenomegaly. Negative for costovertebral tenderness. Pelvis: Stable nontender. Genitourinary: Deferred. Rectal: Deferred. Extremities: Atraumatic, negative for cords or calf pain. Neurovascular unremarkable. Neuro: Awake, alert, oriented. Cranial nerves II through XII unremarkable. Cerebellum unremarkable. Motor and sensory unremarkable throughout. Exam nonfocal. Diagnostics: None Therapeutics: Augmentin 875 by mouth Toradol 60 mg IM dental balls Impression: #1 dentalgia #2 history of multiple dental abscesses Definitive disposition and diagnosis as appropriate pending reevaluation and review of above. dental pain Pain Score (Numeric/FACES): 10 - Related Data Allergies Allergy/AdvReac Type Severity Reaction Status Date / Time codeine Allergy Severe Swelling Verified 07/24/18 21:31 mushroom Allergy Swelling Uncoded 07/24/18 21:31 Home Meds: Home Meds Albuterol [Ventolin HFA] 2 puff INH BID PRN 10/08/13 [History] Albuterol/Ipratropium [DuoNeb 3.0-0.5 MG/3 ML] 3 ml NEB QID PRN 05/11/15 [ History] Cetirizine [ZyrTEC] 10 mg PO DAILY 05/11/15 [History] Montelukast [Singulair] 10 mg PO BEDTIME 05/11/15 [History] Budesonide [Pulmicort] 1 puff NEB ASDIRECTED 02/09/16 [History] Budesonide/Formoterol Fumarate [Symbicort 80-4.5 Mcg Inhaler] 1 puff INH ASDIRECTED 02/09/16 [History] Past Medical History HEENT History: Reports: Impaired Vision Cardiovascular History: Reports: None Respiratory History: Reports: Asthma Gastrointestinal History: Reports: GERD Genitourinary History: Reports: None 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: Musculoskeletal History: Reports: None Other Musculoskeletal History: carpal tunnel Neurological History: Reports: Migraines Psychiatric History: Reports: None Endocrine/Metabolic History: Reports: Obesity/BMI 30+ Hematologic History: Reports: None Immunologic History: Reports: None Oncologic (Cancer) History: Reports: None Dermatologic History: Reports: None - Infectious Disease History Infectious Disease History: Reports: Chicken Pox - Past Surgical History Head Surgeries/Procedures: Reports: None HEENT Surgical History: Reports: Adenoidectomy, Oral Surgery, Tonsillectomy GI Surgical History: Reports: Cholecystectomy Female Surgical History: Reports: Section Social & Family History - Family History Family Medical History: Noncontributory HEENT: Reports: Glaucoma Cardiac: Reports: None Respiratory: Reports: Asthma GI: Reports: Other (See Below) Other GI Family History: ulcers OBGYN: Reports: 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, Recurrent Spontaneous Musculoskeletal: Reports: Fibromyalgia Endocrine/Metabolic: Reports: Diabetes, type II Dermatologic: Reports: Eczema Oncologic: Reports: Breast, Lung - Caffeine Use Caffeine Use: Reports: Tea Caffeine Use Comment: 2-3drinks/day ED ROS GENERAL - Review of Systems Review Of Systems: ROS reveals no pertinent complaints other than HPI. ED EXAM, GENERAL - Physical Exam Exam: See Below (See dictation) Course - Vital Signs Last Recorded V/S: Last Vital Signs Temp 36.3 C 07/24/18 21:31 Pulse 92 07/24/18 21:31 Resp 18 03/31/19 21:31 BP 145/90 H 07/24/18 21:31 Pulse Ox 98 07/24/18 21:31 Departure - Departure Time of Disposition: 21:35 Disposition: Home, Self-Care 01 Condition: Good Clinical Impression: Dentalgia - Discharge Information Referrals: PCP,None [Primary Care Provider] - Additional Instructions: The following information is given to patients seen in the emergency department who are being discharged to home. This information is to outline your options for follow-up care. We provide all patients seen in our emergency department with a follow-up referral. The need for follow-up, as well as the timing and circumstances, are variable depending upon the specifics of your emergency department visit. If you don't have a primary care physician on staff, we will provide you with a referral. We always advise you to contact your personal physician following an emergency department visit to inform them of the circumstance of the visit and for follow-up with them and/or the need for any referrals to a consulting specialist. The emergency department will also refer you to a specialist when appropriate. This referral assures that you have the opportunity for followup care with a specialist. All of these measure are taken in an effort to provide you with optimal care, which includes your followup. Under all circumstances we always encourage you to contact your private physician who remains a resource for coordinating your care. When calling for followup care, please make the office aware that this follow-up is from your recent emergency room visit. If for any reason you are refused follow-up, please contact the [facility] emergency department at and asked to speak to the emergency department charge nurse. Pen-Vee K as prescribed Motrin/Tylenol as directed dental balls as directed follow-up dentist as discussed and return as needed as discussed
[2018-07-24 22:03] VITALS: BP 145/85
== END 2018-07-24 22:00 | disposition home or self-care (01) ==
LOC: MW.ED 21:27
DX: K08.89 Other specified disorders of teeth and supporting structures (principal); J45.909 Unspecified asthma, uncomplicated; K21.9 Gastro-esophageal reflux disease without esophagitis; Z88.5 Allergy status to narcotic agent; Z79.899 Other long term (current) drug therapy
CPT/HCPCS: 96372; 99282; A9270; J1885

== ENCOUNTER 2018-12-09 01:54 | Emergency (ER) | payer BC ==
[2018-12-09 02:04] VITALS: BP 140/64
[2018-12-09] MEDS ORDERED: Sodium Chloride 0.9% 1,000 ML IV ONE (02:10)
[2018-12-09] MEDS ORDERED: Ketorolac 30 MG/ML SDV IVPUSH ONE (02:10)
[2018-12-09] MEDS ORDERED: Ondansetron 4 MG/2 ML SDV IVPUSH ONE (02:16)
--- NOTE | 2018-12-09 02:16 | EDM.PDOC ---
ED HPI GENERAL MEDICAL PROBLEM - General Chief Complaint: Abdominal Pain Stated Complaint: ABDOMINAL AND VAGINAL PAIN Time Seen by Provider: 12/09/18 02:08 - History of Present Illness INITIAL COMMENTS - FREE TEXT/NARRATIVE: HISTORY AND PHYSICAL: History of present illness: Patient 32-year-old white female presents with concern of lower abdominal pain there's been no fever chills no trauma she denies denies vaginal discharge or irregular bleeding Review of systems: As per history of present illness and below otherwise all systems reviewed and negative. Past medical history: As per history of present illness and as reviewed below otherwise noncontributory. Surgical history: As per history of present illness and as reviewed below otherwise noncontributory. Social history: No reported history of drug or alcohol abuse. Family history: As per history of present illness and as reviewed below otherwise noncontributory. Physical exam: HEENT: Atraumatic, normocephalic, pupils reactive, negative for conjunctival pallor or scleral icterus, mucous membranes moist, throat clear, neck supple, nontender, trachea midline. Lungs: Clear to auscultation, breath sounds equal bilaterally, chest nontender. Heart: S1S2, regular, negative for clicks, rubs, or JVD. Abdomen: Soft, nondistended, no localized tenderness. Negative for masses or hepatosplenomegaly. Negative for costovertebral tenderness. Pelvis: Stable nontender. Genitourinary: Deferred. Rectal: Deferred. Extremities: Atraumatic, negative for cords or calf pain. Neurovascular unremarkable. Neuro: Awake, alert, oriented. Cranial nerves II through XII unremarkable. Cerebellum unremarkable. Motor and sensory unremarkable throughout. Exam nonfocal. Diagnostics: CBC CMP UA hCG CT abdomen and pelvis Therapeutics: Saline 1 L bolus Toradol 30 mg IV Zofran 4 mg IV Impression: #1 abdominal pain #2 medical screening exam Definitive disposition and diagnosis as appropriate pending reevaluation and review of above. abdomen/genital Pain Score (Numeric/FACES): 10 - Related Data Allergies Allergy/AdvReac Type Severity Reaction Status Date / Time codeine Allergy Severe Swelling Verified 12/09/18 01:57 mushroom Allergy Swelling Uncoded 12/09/18 01:57 Home Meds: Home Meds Albuterol [Ventolin HFA] 2 puff INH BID PRN 10/08/13 [History] Albuterol/Ipratropium [DuoNeb 3.0-0.5 MG/3 ML] 3 ml NEB QID PRN 05/11/15 [ History] Cetirizine [ZyrTEC] 10 mg PO DAILY 05/11/15 [History] Montelukast [Singulair] 10 mg PO BEDTIME 05/11/15 [History] Budesonide [Pulmicort] 1 puff NEB ASDIRECTED 02/09/16 [History] Budesonide/Formoterol Fumarate [Symbicort 80-4.5 Mcg Inhaler] 1 puff INH ASDIRECTED 02/09/16 [History] Past Medical History HEENT History: Reports: Impaired Vision Cardiovascular History: Reports: None Respiratory History: Reports: Asthma Gastrointestinal History: Reports: GERD Genitourinary History: Reports: None [employer] History: Reports: Musculoskeletal History: Reports: None Other Musculoskeletal History: carpal tunnel Neurological History: Reports: Migraines Psychiatric History: Reports: None Endocrine/Metabolic History: Reports: Obesity/BMI 30+ Hematologic History: Reports: None Immunologic History: Reports: None Oncologic (Cancer) History: Reports: None Dermatologic History: Reports: None - Infectious Disease History Infectious Disease History: Reports: Chicken Pox - Past Surgical History Head Surgeries/Procedures: Reports: None HEENT Surgical History: Reports: Adenoidectomy, Oral Surgery, Tonsillectomy GI Surgical History: Reports: Cholecystectomy Female Surgical History: Reports: Section Social & Family History - Family History Family Medical History: Noncontributory HEENT: Reports: Glaucoma Cardiac: Reports: None Respiratory: Reports: Asthma GI: Reports: Other (See Below) Other GI Family History: ulcers OBGYN: Reports: 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, Recurrent Spontaneous Musculoskeletal: Reports: Fibromyalgia Endocrine/Metabolic: Reports: Diabetes, type II Dermatologic: Reports: Eczema Oncologic: Reports: Breast, Lung - Tobacco Use Smoking Status *Q: Never Smoker - Caffeine Use Caffeine Use: Reports: Tea Caffeine Use Comment: 2-3drinks/day - Recreational Drug Use Recreational Drug Use: No ED ROS GENERAL - Review of Systems Review Of Systems: ROS reveals no pertinent complaints other than HPI. ED EXAM, GENERAL - Physical Exam Exam: See Below (See dictation) Course - Vital Signs Last Recorded V/S: Last Vital Signs Temp 35.7 C 12/09/18 01:57 Pulse 62 12/09/18 01:57 Resp 18 12/09/18 01:57 BP 140/64 12/09/18 01:57 Pulse Ox 97 12/09/18 01:57 - Orders/Labs/Meds Labs: Laboratory Tests 12/09/18 12/09/18 12/09/18 Range/Units 02:12 02:20 02:20 WBC 5.72 (4.0-11.0) K/uL RBC 5.43 (4.30-5.90) M/uL Hgb 14.5 (12.0-16.0) g/dL Hct 43.1 (36.0-46.0) % MCV 79.4 L (80.0-98.0) fL MCH 26.7 L (27.0-32.0) pg MCHC 33.6 (31.0-37.0) g/dL RDW Std Deviation 39.7 (28.0-62.0) fl RDW Coeff of [place] 14 (11.0-15.0) % Plt Count 299 (150-400) K/uL MPV 9.70 (7.40-12.00) fL Neut % (Auto) 49.5 (48.0-80.0) % Lymph % (Auto) 29.9 (16.0-40.0) % [place] % (Auto) 12.2 (0.0-15.0) % Eos % (Auto) 7.2 H (0.0-7.0) % Baso % (Auto) 1.2 (0.0-1.5) % Neut # (Auto) 2.8 (1.4-5.7) K/uL Lymph # (Auto) 1.7 (0.6-2.4) K/uL [place] # (Auto) 0.7 (0.0-0.8) K/uL Eos # (Auto) 0.4 (0.0-0.7) K/uL Baso # (Auto) 0.1 (0.0-0.1) K/uL Nucleated RBC % 0.0 /100WBC Nucleated RBCs # 0 K/uL Sodium 140 (136-145) mmol/L Potassium 3.8 (3.5-5.1) mmol/L Chloride 105 (98-107) mmol/L Carbon Dioxide 21.7 (21.0-32.0) mmol/L BUN 12 (7.0-18.0) mg/dL Creatinine 1.0 (0.6-1.0) mg/dL Est Cr Clr Drug Dosing 74.21 mL/min Estimated GFR (MDRD) > 60.0 ml/min Glucose 110 H (74-106) mg/dL Calcium 9.1 (8.5-10.1) mg/dL Total Bilirubin 0.5 (0.2-1.0) mg/dL AST 22 (15-37) IU/L ALT 29 (14-63) IU/L Alkaline Phosphatase 64 (46-116) U/L Total Protein 7.2 (6.4-8.2) g/dL Albumin 3.5 (3.4-5.0) g/dL Globulin 3.7 (2.6-4.0) g/dL Albumin/Globulin Ratio 0.9 (0.9-1.6) HCG, Qual (NEG) Urine Color YELLOW Urine Appearance SLT CLOUDY Urine pH 5.5 (5.0-8.0) Ur Specific [place] >= 1.030 (1.001-1.035) Urine Protein NEGATIVE (NEGATIVE) mg/dL Urine Glucose (UA) NEGATIVE (NEGATIVE) mg/dL Urine Ketones NEGATIVE (NEGATIVE) mg/dL Urine Occult Blood MODERATE H (NEGATIVE) Urine Nitrite NEGATIVE (NEGATIVE) Urine Bilirubin NEGATIVE (NEGATIVE) Urine Urobilinogen 0.2 (<2.0) EU/dL Ur Leukocyte Esterase NEGATIVE (NEGATIVE) Urine RBC 5-8 (0-2/HPF) Urine WBC 0-2 (0-5/HPF) Ur Epithelial Cells FEW (NONE-FEW) Calcium Oxalate Crystal RARE (NEGATIVE) Urine Bacteria 1+ H (NEGATIVE) Urine Mucus MODERATE (NONE-MOD) 12/09/18 Range/Units 02:20 WBC (4.0-11.0) K/uL RBC (4.30-5.90) M/uL Hgb (12.0-16.0) g/dL Hct (36.0-46.0) % MCV (80.0-98.0) fL MCH (27.0-32.0) pg MCHC (31.0-37.0) g/dL RDW Std Deviation (28.0-62.0) fl RDW Coeff of [place] (11.0-15.0) % Plt Count (150-400) K/uL MPV (7.40-12.00) fL Neut % (Auto) (48.0-80.0) % Lymph % (Auto) (16.0-40.0) % [place] % (Auto) (0.0-15.0) % Eos % (Auto) (0.0-7.0) % Baso % (Auto) (0.0-1.5) % Neut # (Auto) (1.4-5.7) K/uL Lymph # (Auto) (0.6-2.4) K/uL [place] # (Auto) (0.0-0.8) K/uL Eos # (Auto) (0.0-0.7) K/uL Baso # (Auto) (0.0-0.1) K/uL Nucleated RBC % /100WBC Nucleated RBCs # K/uL Sodium (136-145) mmol/L Potassium (3.5-5.1) mmol/L Chloride (98-107) mmol/L Carbon Dioxide (21.0-32.0) mmol/L BUN (7.0-18.0) mg/dL Creatinine (0.6-1.0) mg/dL Est Cr Clr Drug Dosing mL/min Estimated GFR (MDRD) ml/min Glucose (74-106) mg/dL Calcium (8.5-10.1) mg/dL Total Bilirubin (0.2-1.0) mg/dL AST (15-37) IU/L ALT (14-63) IU/L Alkaline Phosphatase (46-116) U/L Total Protein (6.4-8.2) g/dL Albumin (3.4-5.0) g/dL Globulin (2.6-4.0) g/dL Albumin/Globulin Ratio (0.9-1.6) HCG, Qual NEGATIVE (NEG) Urine Color Urine Appearance Urine pH (5.0-8.0) Ur Specific [place] (1.001-1.035) Urine Protein (NEGATIVE) mg/dL Urine Glucose (UA) (NEGATIVE) mg/dL Urine Ketones (NEGATIVE) mg/dL Urine Occult Blood (NEGATIVE) Urine Nitrite (NEGATIVE) Urine Bilirubin (NEGATIVE) Urine Urobilinogen (<2.0) EU/dL Ur Leukocyte Esterase (NEGATIVE) Urine RBC (0-2/HPF) Urine WBC (0-5/HPF) Ur Epithelial Cells (NONE-FEW) Calcium Oxalate Crystal (NEGATIVE) Urine Bacteria (NEGATIVE) Urine Mucus (NONE-MOD) Meds: Medications Discontinued Medications Generic Name Dose Route Start Last Admin Trade Name Pau PRN Reason Stop Dose Admin Sodium Chloride 1,000 mls @ 999 mls/hr 12/09/18 02:10 12/09/18 02:21 Normal Saline IV 12/09/18 03:10 999 mls/hr STAT ONE Administration Ketorolac Tromethamine 30 mg 12/09/18 02:10 12/09/18 02:22 Toradol IVPUSH 12/09/18 02:11 30 mg ONETIME ONE Administration Ondansetron HCl 4 mg 12/09/18 02:16 12/09/18 02:21 Zofran IVPUSH 12/09/18 02:17 4 mg ONETIME ONE Administration Departure - Departure Time of Disposition: 18:25 Disposition: Home, Self-Care 01 Clinical Impression: Abdominal pain - Discharge Information Instructions: Abdominal Pain, Adult, Over-hf-Rzzo Referrals: General Surgery [Provider Group] [facility] [Outside] Siddhartha Urbina MD [Primary Care Provider] - Forms: ED Department Discharge Additional Instructions: The following information is given to patients seen in the emergency department who are being discharged to home. This information is to outline your options for follow-up care. We provide all patients seen in our emergency department with a follow-up referral. The need for follow-up, as well as the timing and circumstances, are variable depending upon the specifics of your emergency department visit. If you don't have a primary care physician on staff, we will provide you with a referral. We always advise you to contact your personal physician following an emergency department visit to inform them of the circumstance of the visit and for follow-up with them and/or the need for any referrals to a consulting specialist. The emergency department will also refer you to a specialist when appropriate. This referral assures that you have the opportunity for followup care with a specialist. All of these measure are taken in an effort to provide you with optimal care, which includes your followup. Under all circumstances we always encourage you to contact your private physician who remains a resource for coordinating your care. When calling for followup care, please make the office aware that this follow-up is from your recent emergency room visit. If for any reason you are refused follow-up, please contact the [facility] emergency department at and asked to speak to the emergency department charge nurse.
[2018-12-09 02:51] LABS: CHLORIDE,CL 105 mmol/L (98-107); SODIUM,NA 140 mmol/L (136-145)
--- NOTE | 2018-12-09 03:24 | CT ---
INDICATION: Lower abdominal pain. TECHNIQUE: CT Abdomen and pelvis without i.v. contrast. Coronal and sagittal reformats were obtained. COMPARISON: 05/29/2016 FINDINGS: Lower chest: Unremarkable. Liver: Unremarkable. Spleen: Moderate splenomegaly is present with the spleen measuring 13.5 x 6.2 x 12.8 cm and splenic index of 1071.4 Pancreas: Unremarkable. Gallbladder: Previous cholecystectomy noted without significant intra- or extrahepatic biliary ductal dilatation seen. Kidney: There is a 1 mm stone present in the upper pole of the left kidney. The right kidney is unremarkable in appearance. No ureteral calculi seen. Adrenal: Unremarkable. Bowel: Unremarkable. The appendix is normal in appearance and size. Vascular: Unremarkable. Lymph: Unremarkable. Peritoneum: Unremarkable. No pneumoperitoneum is seen. No significant ascites is noted. Pelvis: Unremarkable. Soft tissue: Unremarkable. Bone: Unremarkable for age. IMPRESSION: 1. Moderate splenomegaly is present with the spleen measuring 13.5 x 6.2 x 12.8 cm and splenic index of 1071.4 the appearance is similar to prior exam. Dictated by Fred Bruner MD @ 12/09/2018 3:22:24 AM Please note that all CT scans at this facility use dose modulation, iterative reconstruction, and/or weight-based dosing when appropriate to reduce radiation dose to as low as reasonably achievable. Dictated by: Fred Bruner MD @ 12/09/2018 03:22:29 (Electronically Signed)
== END 2018-12-09 04:10 | disposition home or self-care (01) ==
LOC: MW.ED 01:54
DX: R10.30 Lower abdominal pain, unspecified (principal); J45.909 Unspecified asthma, uncomplicated; K21.9 Gastro-esophageal reflux disease without esophagitis; Z88.5 Allergy status to narcotic agent; Z91.018 Allergy to other foods; Z79.899 Other long term (current) drug therapy
CPT/HCPCS: 36415; 74176; 80053; 81001; 84703; 85025; 96361; 96374; 96375; 99284; J1885; J2405; J7040

== ENCOUNTER 2018-12-10 07:54 | Emergency (ER) | payer BC ==
[2018-12-10] MEDS ORDERED: Ketorolac 30 MG/ML SDV IVPUSH ONE (08:08)
[2018-12-10] MEDS ORDERED: Sodium Chloride 0.9% 2.5 ML Syringe FLUSH PRN (08:08)
[2018-12-10] MEDS ORDERED: Sodium Chloride 0.9% 10 ML Syringe FLUSH PRN (08:08)
[2018-12-10] MEDS ORDERED: Sodium Chloride 0.9% 1,000 ML IV ONE (08:08)
--- NOTE | 2018-12-10 08:13 | EDM.PDOC ---
ED HPI GENERAL MEDICAL PROBLEM - General Chief Complaint: Abdominal Pain Stated Complaint: ABDOMINAL PAIN Time Seen by Provider: 12/10/18 08:09 - History of Present Illness INITIAL COMMENTS - FREE TEXT/NARRATIVE: HISTORY AND PHYSICAL: History of present illness: Patient 32-year-old white female who presents concern of upper abdominal pain she was seen by myself several days prior had an extensive workup including CT of her abdomen and pelvis she has yet to secure follow-up as directed she denies fever chills nausea vomiting. Review of systems: As per history of present illness and below otherwise all systems reviewed and negative. Past medical history: As per history of present illness and as reviewed below otherwise noncontributory. Surgical history: As per history of present illness and as reviewed below otherwise noncontributory. Social history: No reported history of drug or alcohol abuse. Family history: As per history of present illness and as reviewed below otherwise noncontributory. Physical exam: HEENT: Atraumatic, normocephalic, pupils reactive, negative for conjunctival pallor or scleral icterus, mucous membranes moist, throat clear, neck supple, nontender, trachea midline. Lungs: Clear to auscultation, breath sounds equal bilaterally, chest nontender. Heart: S1S2, regular, negative for clicks, rubs, or JVD. Abdomen: Soft, nondistended, no localized tenderness mild tenderness across her upper abdomen deep palpation Negative for masses or hepatosplenomegaly. Negative for costovertebral tenderness. Pelvis: Stable nontender. Genitourinary: Deferred. Rectal: Deferred. Extremities: Atraumatic, negative for cords or calf pain. Neurovascular unremarkable. Neuro: Awake, alert, oriented. Cranial nerves II through XII unremarkable. Cerebellum unremarkable. Motor and sensory unremarkable throughout. Exam nonfocal. Diagnostics: CBC CMP and lipase UA urine drug screen acute abdominal series with chest x-ray Therapeutics: Saline 1 L bolus Toradol 30 mg IV Impression: #1 abdominal pain Definitive disposition and diagnosis as appropriate pending reevaluation and review of above. Epigastric Pain Score (Numeric/FACES): 10 - Related Data Allergies Allergy/AdvReac Type Severity Reaction Status Date / Time codeine Allergy Severe Swelling Verified 12/09/18 01:57 mushroom Allergy Swelling Uncoded 12/09/18 01:57 Home Meds: Home Meds Albuterol [Ventolin HFA] 2 puff INH BID PRN 10/08/13 [History] Albuterol/Ipratropium [DuoNeb 3.0-0.5 MG/3 ML] 3 ml NEB QID PRN 05/11/15 [ History] Cetirizine [ZyrTEC] 10 mg PO DAILY 05/11/15 [History] Montelukast [Singulair] 10 mg PO BEDTIME 05/11/15 [History] Budesonide [Pulmicort] 1 puff NEB ASDIRECTED 02/09/16 [History] Budesonide/Formoterol Fumarate [Symbicort 80-4.5 Mcg Inhaler] 1 puff INH ASDIRECTED 02/09/16 [History] Past Medical History HEENT History: Reports: Impaired Vision Cardiovascular History: Reports: None Respiratory History: Reports: Asthma Gastrointestinal History: Reports: GERD Genitourinary History: Reports: None 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: Musculoskeletal History: Reports: None Other Musculoskeletal History: carpal tunnel Neurological History: Reports: Migraines Psychiatric History: Reports: None Endocrine/Metabolic History: Reports: Obesity/BMI 30+ Hematologic History: Reports: None Immunologic History: Reports: None Oncologic (Cancer) History: Reports: None Dermatologic History: Reports: None - Infectious Disease History Infectious Disease History: Reports: Chicken Pox - Past Surgical History Head Surgeries/Procedures: Reports: None HEENT Surgical History: Reports: Adenoidectomy, Oral Surgery, Tonsillectomy GI Surgical History: Reports: Cholecystectomy Female Surgical History: Reports: Section Social & Family History - Family History Family Medical History: Noncontributory HEENT: Reports: Glaucoma Cardiac: Reports: None Respiratory: Reports: Asthma GI: Reports: Other (See Below) Other GI Family History: ulcers OBGYN: Reports: 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, Recurrent Spontaneous Musculoskeletal: Reports: Fibromyalgia Endocrine/Metabolic: Reports: Diabetes, type II Dermatologic: Reports: Eczema Oncologic: Reports: Breast, Lung - Tobacco Use Smoking Status *Q: Never Smoker - Caffeine Use Caffeine Use: Reports: None Caffeine Use Comment: 2-3drinks/day - Recreational Drug Use Recreational Drug Use: No ED ROS GENERAL - Review of Systems Review Of Systems: ROS reveals no pertinent complaints other than HPI. ED EXAM, GENERAL - Physical Exam Exam: See Below (See dictation) Course - Vital Signs Last Recorded V/S: Last Vital Signs Temp 36.1 C 12/10/18 08:05 Pulse 67 12/10/18 09:18 Resp 16 12/10/18 09:18 BP 115/69 12/10/18 09:18 Pulse Ox 97 12/10/18 09:18 - Orders/Labs/Meds Orders: Active Orders 24 hr Category Date Time Status Abdomen Series w Chest 1V [CR] Stat Exams 12/10/18 08:08 Taken Sodium Chloride 0.9% [Saline Flush] Med 12/10/18 08:08 Active 10 ml FLUSH ASDIRECTED PRN Sodium Chloride 0.9% [Saline Flush] Med 12/10/18 08:08 Active 2.5 ml FLUSH ASDIRECTED PRN Saline Lock Insert [OM.PC] Stat Oth 12/10/18 08:07 Ordered Medication Orders Sodium Chloride (Saline Flush) 10 ml FLUSH ASDIRECTED PRN PRN Reason: Keep Vein Open Last Admin: 12/10/18 08:24 Dose: 10 ml Sodium Chloride (Saline Flush) 2.5 ml FLUSH ASDIRECTED PRN PRN Reason: Keep Vein Open Last Admin: 12/10/18 08:24 Dose: 2.5 ml Labs: Laboratory Tests 12/10/18 12/10/18 12/10/18 Range/Units 08:23 08:23 08:28 WBC 5.59 (4.0-11.0) K/uL RBC 4.73 (4.30-5.90) M/uL Hgb 12.6 (12.0-16.0) g/dL Hct 37.2 (36.0-46.0) % MCV 78.6 L (80.0-98.0) fL MCH 26.6 L (27.0-32.0) pg MCHC 33.9 (31.0-37.0) g/dL RDW Std Deviation 38.9 (28.0-62.0) fl RDW Coeff of Shaniqua 14 (11.0-15.0) % Plt Count 277 (150-400) K/uL MPV 9.20 (7.40-12.00) fL Neut % (Auto) 45.0 L (48.0-80.0) % Lymph % (Auto) 34.7 (16.0-40.0) % [place] % (Auto) 12.2 (0.0-15.0) % Eos % (Auto) 7.0 (0.0-7.0) % Baso % (Auto) 1.1 (0.0-1.5) % Neut # (Auto) 2.5 (1.4-5.7) K/uL Lymph # (Auto) 1.9 (0.6-2.4) K/uL [place] # (Auto) 0.7 (0.0-0.8) K/uL Eos # (Auto) 0.4 (0.0-0.7) K/uL Baso # (Auto) 0.1 (0.0-0.1) K/uL Nucleated RBC % 0.0 /100WBC Nucleated RBCs # 0 K/uL INR Sodium (136-145) mmol/L Potassium (3.5-5.1) mmol/L Chloride (98-107) mmol/L Carbon Dioxide (21.0-32.0) mmol/L BUN (7.0-18.0) mg/dL Creatinine (0.6-1.0) mg/dL Est Cr Clr Drug Dosing mL/min Estimated GFR (MDRD) ml/min Glucose (74-106) mg/dL Calcium (8.5-10.1) mg/dL Total Bilirubin (0.2-1.0) mg/dL AST (15-37) IU/L ALT (14-63) IU/L Alkaline Phosphatase (46-116) U/L Total Protein (6.4-8.2) g/dL Albumin (3.4-5.0) g/dL Globulin (2.6-4.0) g/dL Albumin/Globulin Ratio (0.9-1.6) Lipase (73-393) U/L HCG, Qual (NEG) Urine Color YELLOW Urine Appearance CLEAR Urine pH 5.5 (5.0-8.0) Ur Specific [place] >= 1.030 (1.001-1.035) Urine Protein NEGATIVE (NEGATIVE) mg/dL Urine Glucose (UA) NEGATIVE (NEGATIVE) mg/dL Urine Ketones NEGATIVE (NEGATIVE) mg/dL Urine Occult Blood MODERATE H (NEGATIVE) Urine Nitrite NEGATIVE (NEGATIVE) Urine Bilirubin NEGATIVE (NEGATIVE) Urine Urobilinogen 0.2 (<2.0) EU/dL Ur Leukocyte Esterase NEGATIVE (NEGATIVE) Urine RBC 1-2 (0-2/HPF) Urine WBC 0-1 (0-5/HPF) Ur Epithelial Cells RARE (NONE-FEW) Urine Bacteria RARE (NEGATIVE) Urine Opiates Screen NEGATIVE (NEGATIVE) Ur Oxycodone Screen NEGATIVE (NEGATIVE) Urine Methadone Screen NEGATIVE (NEGATIVE) Ur Barbiturates Screen NEGATIVE (NEGATIVE) Ur Phencyclidine Scrn NEGATIVE (NEGATIVE) Ur Amphetamine Screen NEGATIVE (NEGATIVE) U Methamphetamines Scrn NEGATIVE (NEGATIVE) U Benzodiazepines Scrn NEGATIVE (NEGATIVE) U Cocaine Metab Screen NEGATIVE (NEGATIVE) U Marijuana (THC) Screen NEGATIVE (NEGATIVE) 12/10/18 12/10/18 12/10/18 Range/Units 08:28 08:28 08:28 WBC (4.0-11.0) K/uL RBC (4.30-5.90) M/uL Hgb (12.0-16.0) g/dL Hct (36.0-46.0) % MCV (80.0-98.0) fL MCH (27.0-32.0) pg MCHC (31.0-37.0) g/dL RDW Std Deviation (28.0-62.0) fl RDW Coeff of Shaniqua (11.0-15.0) % Plt Count (150-400) K/uL MPV (7.40-12.00) fL Neut % (Auto) (48.0-80.0) % Lymph % (Auto) (16.0-40.0) % [place] % (Auto) (0.0-15.0) % Eos % (Auto) (0.0-7.0) % Baso % (Auto) (0.0-1.5) % Neut # (Auto) (1.4-5.7) K/uL Lymph # (Auto) (0.6-2.4) K/uL [place] # (Auto) (0.0-0.8) K/uL Eos # (Auto) (0.0-0.7) K/uL Baso # (Auto) (0.0-0.1) K/uL Nucleated RBC % /100WBC Nucleated RBCs # K/uL INR 0.99 Sodium 142 (136-145) mmol/L Potassium 3.9 (3.5-5.1) mmol/L Chloride 107 (98-107) mmol/L Carbon Dioxide 21.8 (21.0-32.0) mmol/L BUN 10 (7.0-18.0) mg/dL Creatinine 0.9 (0.6-1.0) mg/dL Est Cr Clr Drug Dosing 82.45 mL/min Estimated GFR (MDRD) > 60.0 ml/min Glucose 92 (74-106) mg/dL Calcium 9.0 (8.5-10.1) mg/dL Total Bilirubin 0.3 (0.2-1.0) mg/dL AST 21 (15-37) IU/L ALT 29 (14-63) IU/L Alkaline Phosphatase 62 (46-116) U/L Total Protein 6.6 (6.4-8.2) g/dL Albumin 3.3 L (3.4-5.0) g/dL Globulin 3.3 (2.6-4.0) g/dL Albumin/Globulin Ratio 1.0 (0.9-1.6) Lipase 88 (73-393) U/L HCG, Qual NEGATIVE (NEG) Urine Color Urine Appearance Urine pH (5.0-8.0) Ur Specific [place] (1.001-1.035) Urine Protein (NEGATIVE) mg/dL Urine Glucose (UA) (NEGATIVE) mg/dL Urine Ketones (NEGATIVE) mg/dL Urine Occult Blood (NEGATIVE) Urine Nitrite (NEGATIVE) Urine Bilirubin (NEGATIVE) Urine Urobilinogen (<2.0) EU/dL Ur Leukocyte Esterase (NEGATIVE) Urine RBC (0-2/HPF) Urine WBC (0-5/HPF) Ur Epithelial Cells (NONE-FEW) Urine Bacteria (NEGATIVE) Urine Opiates Screen (NEGATIVE) Ur Oxycodone Screen (NEGATIVE) Urine Methadone Screen (NEGATIVE) Ur Barbiturates Screen (NEGATIVE) Ur Phencyclidine Scrn (NEGATIVE) Ur Amphetamine Screen (NEGATIVE) U Methamphetamines Scrn (NEGATIVE) U Benzodiazepines Scrn (NEGATIVE) U Cocaine Metab Screen (NEGATIVE) U Marijuana (THC) Screen (NEGATIVE) Meds: Medications Generic Name Dose Route Start Last Admin Trade Name Freq PRN Reason Stop Dose Admin Sodium Chloride 10 ml 12/10/18 08:08 12/10/18 08:24 Saline Flush FLUSH 10 ml ASDIRECTED PRN Administration Keep Vein Open Sodium Chloride 2.5 ml 12/10/18 08:08 12/10/18 08:24 Saline Flush FLUSH 2.5 ml ASDIRECTED PRN Administration Keep Vein Open Discontinued Medications Generic Name Dose Route Start Last Admin Trade Name Pau PRN Reason Stop Dose Admin Sodium Chloride 1,000 mls @ 999 mls/hr 12/10/18 08:08 12/10/18 08:24 Normal Saline IV 12/10/18 09:08 999 mls/hr STAT ONE Administration Ketorolac Tromethamine 30 mg 12/10/18 08:08 12/10/18 08:23 Toradol IVPUSH 12/10/18 08:09 30 mg ONETIME ONE Administration Departure - Departure Time of Disposition: 09:21 Disposition: Home, Self-Care 01 Condition: Good Clinical Impression: Abdominal pain - Discharge Information Referrals: Siddhartha Urbina MD [Primary Care Provider] - Forms: ED Department Discharge Additional Instructions: The following information is given to patients seen in the emergency department who are being discharged to home. This information is to outline your options for follow-up care. We provide all patients seen in our emergency department with a follow-up referral. The need for follow-up, as well as the timing and circumstances, are variable depending upon the specifics of your emergency department visit. If you don't have a primary care physician on staff, we will provide you with a referral. We always advise you to contact your personal physician following an emergency department visit to inform them of the circumstance of the visit and for follow-up with them and/or the need for any referrals to a consulting specialist. The emergency department will also refer you to a specialist when appropriate. This referral assures that you have the opportunity for followup care with a specialist. All of these measure are taken in an effort to provide you with optimal care, which includes your followup. Under all circumstances we always encourage you to contact your private physician who remains a resource for coordinating your care. When calling for followup care, please make the office aware that this follow-up is from your recent emergency room visit. If for any reason you are refused follow-up, please contact the [facility] emergency department at and asked to speak to the emergency department charge nurse. [facility] Professional Building [address] [place] [address], [address] [place] [address] Follow-up Gen. surgery above: Schedule appointment clear liquids as discussed return as needed as discussed - My Orders Last 24 Hours: My Active Orders 12/10/18 08:07 Saline Lock Insert [OM.PC] Stat 12/10/18 08:08 Abdomen Series w Chest 1V [CR] Stat Sodium Chloride 0.9% [Saline Flush] 10 ml FLUSH ASDIRECTED PRN Sodium Chloride 0.9% [Saline Flush] 2.5 ml FLUSH ASDIRECTED PRN - Assessment/Plan Last 24 Hours: My Active Orders 12/10/18 08:07 Saline Lock Insert [OM.PC] Stat 12/10/18 08:08 Abdomen Series w Chest 1V [CR] Stat Sodium Chloride 0.9% [Saline Flush] 10 ml FLUSH ASDIRECTED PRN Sodium Chloride 0.9% [Saline Flush] 2.5 ml FLUSH ASDIRECTED PRN
[2018-12-10 09:00] LABS: CHLORIDE,CL 107 mmol/L (98-107); SODIUM,NA 142 mmol/L (136-145)
--- NOTE | 2018-12-10 09:44 | CR ---
Indication: Abdominal pain. Technique: AP supine and upright views of the abdomen and pelvis were obtained. Comparison: July 21, 2011. Findings: The heart is normal in size. The lungs are clear. No infiltrate, pleural effusion, or pneumothorax is identified. No free air is identified. Surgical clips are identified in the right upper quadrant. The bowel gas pattern is nonobstructive. Impression: Nonobstructive bowel gas pattern. No free air. No acute cardiopulmonary process. Dictated by Dulce Lee MD @ Dec 10 2018 9:40AM Signed by Dr. Dulce Lee @ Dec 10 2018 9:42AM
[2018-12-10 10:12] VITALS: BP 107/56
== END 2018-12-10 10:19 | disposition home or self-care (01) ==
LOC: MW.ED 07:54
DX: R10.13 Epigastric pain (principal); J45.909 Unspecified asthma, uncomplicated; Z88.5 Allergy status to narcotic agent; Z91.018 Allergy to other foods; Z79.899 Other long term (current) drug therapy
CPT/HCPCS: 36415; 74022; 80053; 80305; 81001; 83690; 84703; 85025; 85610; 96361; 96374; 99284; J1885; J7040; 99283

== ENCOUNTER 2019-01-10 07:13 | Day surgery (SDC) | payer BC ==
[~2019-01-10 07:13] MED LIST: Lactated Ringers 1,000 ML IV SCH; Sodium Chloride 0.9% 10 ML SDV IV PRN; Sodium Chloride 0.9% 10 ML Syringe FLUSH PRN; Sodium Chloride 0.9% 2.5 ML Syringe FLUSH PRN
[2019-01-10] MEDS ORDERED: Propofol 200 MG/20 ML SDV ONE ×2 (07:26→08:49)
[2019-01-10] MEDS ORDERED: Lidocaine 2% 5 ML SDV ONE (07:26)
[2019-01-10] MEDS ORDERED: Midazolam 1 MG/ML 2 ML SDV ONE (07:27)
[2019-01-10] MEDS ORDERED: fentaNYL 100 MCG/2 ML SDV ONE (07:27)
[2019-01-10] MEDS ORDERED: Albuterol/Ipratropium 3.0-0.5 MG/3 ML Neb Soln NEB ONE (07:48)
--- NOTE | 2019-01-10 07:48 | PCM.PREANE ---
Preanesthetic Assessment - Anesthesia/Transfusion/Family Hx Anesthesia History: Prior Anesthesia Without Reaction Family History of Anesthesia Reaction: No Transfusion History: No Prior Transfusion(s) Intubation History: Unknown - Review of Systems General: No Symptoms Pulmonary: No Symptoms Cardiovascular: No Symptoms Neurological: No Symptoms Other: Reports: None - Physical Assessment Vital Signs: Last Vital Signs Temp 97.2 F 01/10/19 07:42 Pulse 71 01/10/19 07:42 Resp 16 01/10/19 07:42 BP 134/60 01/10/19 07:42 Pulse Ox 94 L 01/10/19 07:42 Height: 5 ft 6 in Weight: 112.037 kg ASA Class: 2 Mental Status: Alert & Oriented x3 Airway Class: Mallampati = 3 Dentition: Reports: Normal Dentition ROM/Head Extension: Full Lungs: Normal Respiratory Effort, Other (no wheezes but " tight" despite apparently good airflow) Cardiovascular: Regular Rate, Regular Rhythm - Allergies Allergies/Adverse Reactions: Allergies Allergy/AdvReac Type Severity Reaction Status Date / Time codeine Allergy Severe Swelling Verified 01/04/19 14:58 mushroom Allergy Swelling Uncoded 01/04/19 14:58 - Anesthesia Plan Pre-Op Medication Ordered: Other (taina neb) - Acknowledgements Anesthesia Type Planned: General Anesthesia Pt an Appropriate Candidate for the Planned Anesthesia: Yes Alternatives and Risks of Anesthesia Discussed w Pt/Guardian: Yes Pt/Guardian Understands and Agrees with Anesthesia Plan: Yes Additional Comments: PMH: asthma, last oral steroids 2 mo ago, last ED visit 2 months ago, MO, PLAN: pre-op duoneb, tiva PreAnesthesia Questionnaire HEENT History: Reports: Other (See Below) Other HEENT History: wears glasses, contacts Cardiovascular History: Reports: None Respiratory History: Reports: Asthma Other Respiratory History: uses rescue inhaler daily Gastrointestinal History: Reports: GERD Genitourinary History: Reports: Renal Calculus Other Genitourinary History: currently has kidney stone 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: 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, Musculoskeletal History: Reports: None Other Musculoskeletal History: carpal tunnel Neurological History: Reports: Migraines, Other (See Below) Other Neuro History: hx of motion sickness Psychiatric History: Reports: PTSD Endocrine/Metabolic History: Reports: Obesity/BMI 30+ Hematologic History: Reports: None Immunologic History: Reports: None Oncologic (Cancer) History: Reports: None Dermatologic History: Reports: Eczema - Infectious Disease History Infectious Disease History: Reports: Chicken Pox - Past Surgical History HEENT Surgical History: Reports: Naso-Sinus Surgery, Oral Surgery, Tonsillectomy Other HEENT Surgeries/Procedures: wisdom teeth GI Surgical History: Reports: Cholecystectomy Female Surgical History: Reports: Section - SUBSTANCE USE Smoking Status *Q: Never Smoker Recreational Drug Use History: No - HOME MEDS Home Medications: Home Meds Cetirizine [ZyrTEC] 10 mg PO DAILY 05/11/15 [History] Albuterol Sulfate 2.5 mg INH ASDIRECTED PRN 01/04/19 [History] Albuterol [Proventil HFA] 1 puff INH ASDIRECTED PRN 01/04/19 [History] Fluticasone Propionate [Flonase Allergy Relief] 1 puff NASBOTH ASDIRECTED PRN [History] Fluticasone/Vilanterol [Breo Ellipta 200-25 MCG Inhalation Kit] 1 dose INH DAILY 01/04/19 [History] Imiquimod 1 dose TOP ASDIRECTED 01/04/19 [History] SUMAtriptan Succinate [Imitrex] 100 mg PO ASDIRECTED PRN 01/04/19 [History] Tiotropium [place] [Spiriva Respimat] 1 dose INH ASDIRECTED 01/04/19 [History] - CURRENT (IN HOUSE) MEDS Current Meds: Current Medications Lactated Ringer's (Ringers, Lactated) 1,000 mls @ 125 mls/hr IV ASDIRECTED TIFFANY Last Admin: 01/10/19 07:41 Dose: 125 mls/hr Sodium Chloride (Saline Flush) 10 ml FLUSH ASDIRECTED PRN PRN Reason: Keep Vein Open Sodium Chloride (Saline Flush) 2.5 ml FLUSH ASDIRECTED PRN PRN Reason: Keep Vein Open Sodium Chloride (Saline Flush) 10 ml FLUSH ASDIRECTED PRN PRN Reason: Keep Vein Open Sodium Chloride (Saline Flush) 2.5 ml FLUSH ASDIRECTED PRN PRN Reason: Keep Vein Open Sodium Chloride (Normal Saline) 10 ml IV ASDIRECTED PRN PRN Reason: IV Use Discontinued Medications Fentanyl (Sublimaze) Confirm Administered Dose 100 mcg .ROUTE .STK-MED ONE Stop: 01/10/19 07:28 Lidocaine (Xylocaine-Mpf 2%) Confirm Administered Dose 5 ml .ROUTE .STK-MED ONE Stop: 01/10/19 07:27 Midazolam HCl (Versed 1 Mg/Ml) Confirm Administered Dose 2 mg .ROUTE .STK-MED ONE Stop: 01/10/19 07:28 Propofol (Diprivan 20 Ml) Confirm Administered Dose 400 mg .ROUTE .STK-MED ONE Stop: 01/10/19 07:27
[2019-01-10] MEDS ORDERED: Albuterol 0.083% 2.5 MG/3 ML Neb Soln NEB ONE (08:07)
--- NOTE | 2019-01-10 09:13 | PCM.OPNOTE ---
- General Post-Op/Procedure Note Date of Surgery/Procedure: 01/10/19 Operative Procedure(s): Diagnostic EGD and colonoscopy Findings: Normal EGD and colonoscopy. Limited colonoscopy due to poor prep Pre Op Diagnosis: Abdominal pain Post-Op Diagnosis: same Anesthesia Technique: MAC Primary Surgeon: Cathy Wiggins Condition: Good
--- NOTE | 2019-01-10 09:34 | PCM.POSTAN ---
POST ANESTHESIA ASSESSMENT - MENTAL STATUS Mental Status: Alert, Oriented - VITAL SIGNS Vital Signs: Last Vital Signs Temp 36.2 C 01/10/19 07:42 Pulse 84 01/10/19 09:27 Resp 17 01/10/19 09:27 BP 131/68 01/10/19 09:27 Pulse Ox 94 L 01/10/19 09:27 - RESPIRATORY Respiratory Status: Respiratory Rate WNL, Airway Patent, O2 Saturation Stable - CARDIOVASCULAR CV Status: Pulse Rate WNL, Blood Pressure Stable - GASTROINTESTINAL GI Status: No Symptoms - PAIN Pain Score: 0 - POST OP HYDRATION Hydration Status: Adequate & Stable
--- NOTE | 2019-01-10 09:37 | PCM48HPAN ---
Post Anesthesia Note - EVALUATION WITHIN 48HRS OF ANESTHETIC Vital Signs in Normal Range: Yes Patient Participated in Evaluation: Yes Respiratory Function Stable: Yes Airway Patent: Yes Cardiovascular Function Stable: Yes Hydration Status Stable: Yes Pain Control Satisfactory: Yes Nausea and Vomiting Control Satisfactory: Yes Mental Status Recovered: Yes Vital Signs: Last Vital Signs Temp 97.2 F 01/10/19 07:42 Pulse 84 01/10/19 09:27 Resp 17 01/10/19 09:27 BP 131/68 01/10/19 09:27 Pulse Ox 94 L 01/10/19 09:27
[2019-01-10 10:05] VITALS: BP 110/72; PULSE 76
--- NOTE | 2019-01-10 14:50 | OR ---
SURGEON: CATHY WIGGINS MD DATE OF PROCEDURE: 01/10/2019 PREOPERATIVE DIAGNOSIS: Abdominal pain. POSTOPERATIVE DIAGNOSIS: Abdominal pain. PROCEDURES PERFORMED: Diagnostic esophagogastroduodenoscopy and colonoscopy. PRIMARY SURGEON: Cathy Wiggins MD. ANESTHESIA: MAC. INSTRUMENT USED: Olympus endoscope, colonoscope. EXTENT OF EXAM: To the second portion of duodenum, to the cecum. PREPARATION: EGD, good. Colonoscopy, poor. LIMITATIONS: A large amount of liquid stool and vegetable matter in the colon. INDICATIONS: The patient is a 33-year-old female who presents with epigastric abdominal pain as well as changes in her bowel habits. I explained the need for diagnostic EGD and colonoscopy. I explained the procedure; expected perioperative course; and risks including bleeding, infection, or damage to surrounding structures including perforation. The patient verbalized understanding and wishes to proceed. PROCEDURE IN DETAIL: The patient was brought into the endoscopy suite and placed in the left lateral decubitus position. A time-out was completed verifying the patient's name, age, date of , allergies, and procedure to be performed. Monitored anesthesia care was induced and continuous oxygen was provided via nasal cannula throughout the procedure. After adequate sedation was achieved, a well-lubricated endoscope was placed in the patient's mouth and advanced under direct visualization to the second portion of duodenum. This appeared normal and a photograph was taken. Scope was then fully withdrawn while examining the color, texture, anatomy, and integrity of the mucosa of the upper GI tract. The duodenum appeared normal. The scope was brought in the stomach and a photograph was taken the pylorus as well as the GE junction. Both appeared normal. The gastric mucosa appeared healthy with no evidence of gross inflammation or ulceration. Biopsies were taken of the gastric antrum, body, and fundus, and sent for histologic review and H. pylori testing. The scope was brought in the distal esophagus. The Z-line appeared healthy. A photograph was taken. The distal esophageal mucosa appeared healthy and pink, but a biopsy was taken just above the Z-line and sent to pathology for testing. The remainder of the esophageal mucosa was free of pathology. The scope was removed and this portion of the procedure terminated. A digital rectal exam was performed. This exam was within normal limits. A well-lubricated colonoscope was inserted in the rectum and advanced under direct visualization to the level of the cecum. This was somewhat difficult given that the patient had a large amount of liquid stool in the colon. The cecum was identified by the appendiceal orifice and the terminal ileum. A photograph of this was taken. I then performed a copious amount of irrigation and slowly retracted the scope back while inspecting the color, texture, anatomy, and integrity of the mucosa from the cecum to the anal canal. There was a large amount of vegetable matter in the liquid stool in the colon making it difficult to suction. I was able to clean out the colon adequately enough to note no evidence of any inflammation or ulceration. The terminal ileum did appear healthy. However, the scope was somewhat limited by the amount of solid and semi-solid stool within the colon. The scope was brought into the rectum and retroflexed to allow visualization of the anal canal opening. This appeared normal and a photograph was taken. The scope was straightened out and fully withdrawn. The cecum to anus time was 7 minutes. The patient tolerated the procedure well and was transferred to the PACU in stable condition. ENDOSCOPIC DIAGNOSES: Normal esophagogastroduodenoscopy and colonoscopy, abdominal pain. RECOMMENDATIONS: Follow up in clinic in 2 weeks to discuss the next steps in workup and treatment of this patient. CHRISS CHIU /[id number]
== END 2019-01-10 09:43 | disposition home or self-care (01) ==
LOC: MW.SDS 07:13
PROVIDERS: ATTEND Surgery
DX: R19.4 Change in bowel habit (principal); R10.13 Epigastric pain; K21.9 Gastro-esophageal reflux disease without esophagitis; J45.909 Unspecified asthma, uncomplicated; E66.9 Obesity, unspecified; Z68.39 Body mass index [BMI] 39.0-39.9, adult; Z88.5 Allergy status to narcotic agent; Z79.899 Other long term (current) drug therapy; Z91.018 Allergy to other foods
CPT/HCPCS: 43239; 45378; 81025; 94640; J2001; J2250; J2704; J3010; J7120

== ENCOUNTER 2019-02-03 20:25 | Emergency (ER) | payer BC ==
[2019-02-03] MEDS ORDERED: Albuterol/Ipratropium 3.0-0.5 MG/3 ML Neb Soln NEB ONE (20:48)
[2019-02-03] MEDS ORDERED: methylPREDNISolone Sodium Succinate 125 MG/2 ML SDV IM ONE (20:48)
--- NOTE | 2019-02-03 20:55 | EDM.PDOC ---
ED HPI GENERAL MEDICAL PROBLEM - General Chief Complaint: Respiratory Problem Stated Complaint: ASTHMA Time Seen by Provider: 02/03/19 20:43 - History of Present Illness INITIAL COMMENTS - FREE TEXT/NARRATIVE: HISTORY AND PHYSICAL: History of present illness: The patient is a 33-year-old female who has a history of asthma and presents with 2 or 3 weeks of cough congestion and wheezing and believes allergies on her trip to [place] have been aggravating her asthma. The patient had to be in [place] for her son who had surgery and she said that the symptoms started while she was there. She was not able to get seen by provider their origin in ER and returns here home and is now concerns. She has had a dry hacking cough occasionally productive of some phlegm and some sinus congestion but no fevers no body aches no abdominal pain nausea or vomiting. She says she is mostly concerned about asthma and she has not gotten her flu shot yet. She says she does not feel ill. The patient also states incidentally that she has not had a period and her last period was just over 4 weeks ago. She is just newly late with her menstrual cycle and she has done home test 3 which are positive. She has no abdominal complaints or vaginal bleeding. The patient has a rescue inhaler and has not been on steroids for quite some time and she does have a nebulizer machine but has not been giving any treatments to herself. Review of systems: As per history of present illness and below otherwise all systems reviewed and negative. Past medical history: As per history of present illness and as reviewed below otherwise noncontributory. Surgical history: As per history of present illness and as reviewed below otherwise noncontributory. Social history: No reported history of drug or alcohol abuse. Family history: As per history of present illness and as reviewed below otherwise noncontributory. Physical exam: General: Well-developed well-nourished female who has a slight nasal quality to voice and his cough is dry and hacking here in the ER. She is speaking without breathlessness HEENT: Atraumatic, normocephalic, pupils reactive, negative for conjunctival pallor or scleral icterus, mucous membranes moist, throat clear, neck supple, nontender, trachea midline. Lungs: The patient has wheezing bilaterally with coarse breath sounds but no work of breathing, there is no stridor breath sounds equal bilaterally, chest nontender. Heart: S1S2, regular rate and rhythm no overt murmurs Abdomen: Soft, nondistended, nontender. NABS Pelvis: Deferred Genitourinary: Deferred. Rectal: Deferred. Extremities: Atraumatic, negative for cords or calf pain. Neurovascular unremarkable. No pedal edema Neuro: Awake, alert, oriented. Cranial nerves II through XII unremarkable. Cerebellum unremarkable. Motor and sensory unremarkable throughout. Exam nonfocal. Diagnostics: Influenza swab chest x-ray UCG The patient refused the chest x-ray despite shielding due to her and she says she does not think that she needs it. Therapeutics: Duo neb same Medrol IM The patient is aware that she is and that she needs to start care and on reevaluation she is moving air better and having less wheezing but still has some scattered rhonchi. She has a nebulizer machine at home so I will give her some duo neb and she has albuterol that she can alternate with. I will also give her prednisone and advised that she is follow-up with her provider. Impression: Acute asthma exacerbation, acute bronchitis; early asymptomatic Definitive disposition and diagnosis as appropriate pending reevaluation and review of above. Chest Pain Score (Numeric/FACES): 6 - Related Data Allergies Allergy/AdvReac Type Severity Reaction Status Date / Time codeine Allergy Severe Swelling Verified 02/03/19 20:35 mushroom Allergy Swelling Uncoded 02/03/19 20:35 Home Meds: Home Meds Cetirizine [ZyrTEC] 10 mg PO DAILY 05/11/15 [History] Albuterol Sulfate 2.5 mg INH ASDIRECTED PRN 01/04/19 [History] Albuterol [Proventil HFA] 1 puff INH ASDIRECTED PRN 01/04/19 [History] Fluticasone Propionate [Flonase Allergy Relief] 1 puff NASBOTH ASDIRECTED PRN [History] Fluticasone/Vilanterol [Breo Ellipta 200-25 MCG Inhalation Kit] 1 dose INH DAILY 01/04/19 [History] Imiquimod 1 dose TOP ASDIRECTED 01/04/19 [History] SUMAtriptan Succinate [Imitrex] 100 mg PO ASDIRECTED PRN 01/04/19 [History] Tiotropium [place] [Spiriva Respimat] 1 dose INH ASDIRECTED 01/04/19 [History] Past Medical History HEENT History: Reports: Other (See Below) Other HEENT History: wears glasses, contacts Cardiovascular History: Reports: None Respiratory History: Reports: Asthma Other Respiratory History: uses rescue inhaler daily Gastrointestinal History: Reports: GERD Genitourinary History: Reports: Renal Calculus Other Genitourinary History: currently has kidney stone [employer] History: Reports: 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, Musculoskeletal History: Reports: None Other Musculoskeletal History: carpal tunnel Neurological History: Reports: Migraines, Other (See Below) Other Neuro History: hx of motion sickness Psychiatric History: Reports: PTSD Endocrine/Metabolic History: Reports: Obesity/BMI 30+ Hematologic History: Reports: None Immunologic History: Reports: None Oncologic (Cancer) History: Reports: None Dermatologic History: Reports: Eczema - Infectious Disease History Infectious Disease History: Reports: Chicken Pox - Past Surgical History Head Surgeries/Procedures: Reports: None HEENT Surgical History: Reports: Naso-Sinus Surgery, Oral Surgery, Tonsillectomy Other HEENT Surgeries/Procedures: wisdom teeth GI Surgical History: Reports: Cholecystectomy Female Surgical History: Reports: Section Social & Family History - Family History Family Medical History: Noncontributory HEENT: Reports: Glaucoma Cardiac: Reports: None Respiratory: Reports: Asthma GI: Reports: Other (See Below) Other GI Family History: ulcers OBGYN: Reports: 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, Recurrent Spontaneous Musculoskeletal: Reports: Fibromyalgia Endocrine/Metabolic: Reports: Diabetes, type II Dermatologic: Reports: Eczema Oncologic: Reports: Breast, Lung - Tobacco Use Smoking Status *Q: Never Smoker - Caffeine Use Caffeine Use: Reports: Soda, Tea Caffeine Use Comment: 2-3drinks/day - Recreational Drug Use Recreational Drug Use: No ED ROS GENERAL - Review of Systems Review Of Systems: ROS reveals no pertinent complaints other than HPI. ED EXAM, GENERAL - Physical Exam Exam: See Below (See dictation) Course - Vital Signs Last Recorded V/S: Last Vital Signs Temp 36.6 C 02/03/19 20:36 Pulse 106 H 02/03/19 20:36 Resp 20 02/03/19 20:36 BP 131/87 02/03/19 20:36 Pulse Ox 97 02/03/19 20:36 - Orders/Labs/Meds Orders: Active Orders 24 hr Category Date Time Status RT Aerosol Therapy [RC] ASDIRECTED Care 02/03/19 20:48 Active Labs: Laboratory Tests 02/03/19 Range/Units 21:10 Urine HCG, Qual POSITIVE (NEGATIVE) Meds: Medications Discontinued Medications Generic Name Dose Route Start Last Admin Trade Name Pau PRN Reason Stop Dose Admin Albuterol/Ipratropium 3 ml 02/03/19 20:48 02/03/19 20:53 Duoneb 3.0-0.5 Mg/3 Ml NEB 02/03/19 20:49 3 ml ONETIME ONE Administration Methylprednisolone Sodium Succinate 125 mg 02/03/19 20:48 02/03/19 21:17 Solu-Medrol IM 02/03/19 20:49 125 mg ONETIME ONE Administration Departure - Departure Time of Disposition: 22:01 Disposition: Home, Self-Care 01 Condition: Good Clinical Impression: Early stage of Acute asthma exacerbation Qualifiers: Asthma severity: mild Asthma persistence: unspecified Qualified Code(s): J45.901 - Unspecified asthma with (acute) exacerbation - Discharge Information Referrals: Siddhartha Urbina MD [Primary Care Provider] - Forms: ED Department Discharge Additional Instructions: The following information is given to patients seen in the emergency department who are being discharged to home. This information is to outline your options for follow-up care. We provide all patients seen in our emergency department with a follow-up referral. The need for follow-up, as well as the timing and circumstances, are variable depending upon the specifics of your emergency department visit. If you don't have a primary care physician on staff, we will provide you with a referral. We always advise you to contact your personal physician following an emergency department visit to inform them of the circumstance of the visit and for follow-up with them and/or the need for any referrals to a consulting specialist. The emergency department will also refer you to a specialist when appropriate. This referral assures that you have the opportunity for followup care with a specialist. All of these measure are taken in an effort to provide you with optimal care, which includes your followup. Under all circumstances we always encourage you to contact your private physician who remains a resource for coordinating your care. When calling for followup care, please make the office aware that this follow-up is from your recent emergency room visit. If for any reason you are refused follow-up, please contact the [facility] emergency department at and ask to speak to the emergency department charge nurse. [facility]- Internal Medicine and Family [facility] [address] [place] [id number] [place] [address] Please connect with your provider in the clinic for further care and evaluation of her asthma or connect with one of ours. Also start care for your early and use all medications as prescribed. Also use your rescue inhaler as needed and push hydration. Return to ER as needed and as discussed - My Orders Last 24 Hours: My Active Orders 02/03/19 20:48 RT Aerosol Therapy [RC] ASDIRECTED - Assessment/Plan Last 24 Hours: My Active Orders 02/03/19 20:48 RT Aerosol Therapy [RC] ASDIRECTED
[2019-02-03 23:41] VITALS: BP 147/81; PULSE 94
== END 2019-02-03 22:20 | disposition home or self-care (01) ==
LOC: MW.ED 20:25
DX: O99.511 Diseases of the respiratory system complicating pregnancy, first trimester (principal); J45.901 Unspecified asthma with (acute) exacerbation; Z88.5 Allergy status to narcotic agent; Z91.018 Allergy to other foods; Z79.899 Other long term (current) drug therapy; Z3A.01 Less than 8 weeks gestation of pregnancy
CPT/HCPCS: 81025; 87804; 94640; 96372; 99283; J2930; J7620-GY

== ENCOUNTER 2019-02-09 03:02 | Emergency (ER) | payer BC ==
--- NOTE | 2019-02-09 03:18 | EDM.PDOC ---
ED HPI GENERAL MEDICAL PROBLEM - General Stated Complaint: AND BLEEDING Time Seen by Provider: 02/09/19 03:16 - History of Present Illness INITIAL COMMENTS - FREE TEXT/NARRATIVE: HISTORY AND PHYSICAL: History of present illness: Patient is a 33-year-old white female presents with a concern of cramping and vaginal bleeding with first trimester she has not had OB and this was diagnosed on a recent ER visit in which a routine UCG was done and was found to be positive. Review of systems: As per history of present illness and below otherwise all systems reviewed and negative. Past medical history: As per history of present illness and as reviewed below otherwise noncontributory. Surgical history: As per history of present illness and as reviewed below otherwise noncontributory. Social history: No reported history of drug or alcohol abuse. Family history: As per history of present illness and as reviewed below otherwise noncontributory. Physical exam: HEENT: Atraumatic, normocephalic, pupils reactive, negative for conjunctival pallor or scleral icterus, mucous membranes moist, throat clear, neck supple, nontender, trachea midline. Lungs: Clear to auscultation, breath sounds equal bilaterally, chest nontender. Heart: S1S2, regular, negative for clicks, rubs, or JVD. Abdomen: Soft, nondistended, nontender. Negative for masses or hepatosplenomegaly. Negative for costovertebral tenderness. Pelvis: Stable nontender. Genitourinary: Deferred. Rectal: Deferred. Extremities: Atraumatic, negative for cords or calf pain. Neurovascular unremarkable. Neuro: Awake, alert, oriented. Cranial nerves II through XII unremarkable. Cerebellum unremarkable. Motor and sensory unremarkable throughout. Exam nonfocal. Diagnostics: CBC ABO Rh quantitative beta pelvic ultrasound Therapeutics: None Impression: #1 threatened Definitive disposition and diagnosis as appropriate pending reevaluation and review of above. - Related Data Allergies Allergy/AdvReac Type Severity Reaction Status Date / Time codeine Allergy Severe Swelling Verified 02/09/19 03:21 mushroom Allergy Swelling Uncoded 02/09/19 03:21 Home Meds: Home Meds Cetirizine [ZyrTEC] 10 mg PO DAILY 05/11/15 [History] Albuterol Sulfate 2.5 mg INH ASDIRECTED PRN 01/04/19 [History] Albuterol [Proventil HFA] 1 puff INH ASDIRECTED PRN 01/04/19 [History] Fluticasone Propionate [Flonase Allergy Relief] 1 puff NASBOTH ASDIRECTED PRN [History] Fluticasone/Vilanterol [Breo Ellipta 200-25 MCG Inhalation Kit] 1 dose INH DAILY 01/04/19 [History] Imiquimod 1 dose TOP ASDIRECTED 01/04/19 [History] SUMAtriptan Succinate [Imitrex] 100 mg PO ASDIRECTED PRN 01/04/19 [History] Tiotropium [place] [Spiriva Respimat] 1 dose INH ASDIRECTED 01/04/19 [History] Past Medical History HEENT History: Reports: Other (See Below) Other HEENT History: wears glasses, contacts Cardiovascular History: Reports: None Respiratory History: Reports: Asthma Other Respiratory History: uses rescue inhaler daily Gastrointestinal History: Reports: GERD Genitourinary History: Reports: Renal Calculus Other Genitourinary History: currently has kidney stone [employer] History: Reports: 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, Musculoskeletal History: Reports: None Other Musculoskeletal History: carpal tunnel Neurological History: Reports: Migraines, Other (See Below) Other Neuro History: hx of motion sickness Psychiatric History: Reports: PTSD Endocrine/Metabolic History: Reports: Obesity/BMI 30+ Hematologic History: Reports: None Immunologic History: Reports: None Oncologic (Cancer) History: Reports: None Dermatologic History: Reports: Eczema - Infectious Disease History Infectious Disease History: Reports: Chicken Pox - Past Surgical History Head Surgeries/Procedures: Reports: None HEENT Surgical History: Reports: Naso-Sinus Surgery, Oral Surgery, Tonsillectomy Other HEENT Surgeries/Procedures: wisdom teeth GI Surgical History: Reports: Cholecystectomy Female Surgical History: Reports: Section Social & Family History - Family History Family Medical History: Noncontributory HEENT: Reports: Glaucoma Cardiac: Reports: None Respiratory: Reports: Asthma GI: Reports: Other (See Below) Other GI Family History: ulcers OBGYN: Reports: 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, Recurrent Spontaneous Musculoskeletal: Reports: Fibromyalgia Endocrine/Metabolic: Reports: Diabetes, type II Dermatologic: Reports: Eczema Oncologic: Reports: Breast, Lung - Caffeine Use Caffeine Use: Reports: Soda, Tea Caffeine Use Comment: 2-3drinks/day ED ROS GENERAL - Review of Systems Review Of Systems: ROS reveals no pertinent complaints other than HPI. ED EXAM, GENERAL - Physical Exam Exam: See Below (dictation) Course - Vital Signs Last Recorded V/S: Last Vital Signs Temp 36.1 C 02/09/19 03:10 Pulse 99 02/09/19 03:10 Resp 18 02/09/19 03:10 BP 134/94 H 02/09/19 03:10 Pulse Ox 96 02/09/19 03:10 - Orders/Labs/Meds Orders: Active Orders 24 hr Category Date Time Status OB 1st Tri Sgl 1st Gest [US] Stat Exams 02/09/19 03:16 Ordered ABO/RH TYPE [BBK] Stat Lab 02/09/19 03:25 Received HCG QUANTITATIVE [CHEM] Stat Lab 02/09/19 03:25 Received Labs: Laboratory Tests 02/09/19 Range/Units 03:25 WBC 8.80 (4.0-11.0) K/uL RBC 5.16 (4.30-5.90) M/uL Hgb 13.8 (12.0-16.0) g/dL Hct 41.5 (36.0-46.0) % MCV 80.4 (80.0-98.0) fL MCH 26.7 L (27.0-32.0) pg MCHC 33.3 (31.0-37.0) g/dL RDW Std Deviation 41.3 (28.0-62.0) fl RDW Coeff of Shaniqua 14 (11.0-15.0) % Plt Count 273 (150-400) K/uL MPV 9.00 (7.40-12.00) fL Neut % (Auto) 51.8 (48.0-80.0) % Lymph % (Auto) 28.3 (16.0-40.0) % [place] % (Auto) 7.7 (0.0-15.0) % Eos % (Auto) 11.7 H (0.0-7.0) % Baso % (Auto) 0.5 (0.0-1.5) % Neut # (Auto) 4.6 (1.4-5.7) K/uL Lymph # (Auto) 2.5 H (0.6-2.4) K/uL [place] # (Auto) 0.7 (0.0-0.8) K/uL Eos # (Auto) 1.0 H (0.0-0.7) K/uL Baso # (Auto) 0.0 (0.0-0.1) K/uL Nucleated RBC % 0.0 /100WBC Nucleated RBCs # 0 K/uL Departure - Departure Time of Disposition: 03:40 Disposition: Home, Self-Care 01 Condition: Good Clinical Impression: Vomiting - Discharge Information Referrals: PCP,None [Primary Care Provider] - Additional Instructions: The following information is given to patients seen in the emergency department who are being discharged to home. This information is to outline your options for follow-up care. We provide all patients seen in our emergency department with a follow-up referral. The need for follow-up, as well as the timing and circumstances, are variable depending upon the specifics of your emergency department visit. If you don't have a primary care physician on staff, we will provide you with a referral. We always advise you to contact your personal physician following an emergency department visit to inform them of the circumstance of the visit and for follow-up with them and/or the need for any referrals to a consulting specialist. The emergency department will also refer you to a specialist when appropriate. This referral assures that you have the opportunity for followup care with a specialist. All of these measure are taken in an effort to provide you with optimal care, which includes your followup. Under all circumstances we always encourage you to contact your private physician who remains a resource for coordinating your care. When calling for followup care, please make the office aware that this follow-up is from your recent emergency room visit. If for any reason you are refused follow-up, please contact the [facility] emergency department at and asked to speak to the emergency department charge nurse. [facility] Specialty Care - General Surgery Professional Building [address] [place] [address], [address] [place] [address] [place] as prescribed follow-up general surgery and/or private medical doctor as discussed return as needed as discussed - My Orders Last 24 Hours: My Active Orders 02/09/19 03:16 OB 1st Tri Sgl 1st Gest [US] Stat 02/09/19 03:25 ABO/RH TYPE [BBK] Stat HCG QUANTITATIVE [CHEM] Stat - Assessment/Plan Last 24 Hours: My Active Orders 02/09/19 03:16 OB 1st Tri Sgl 1st Gest [US] Stat 02/09/19 03:25 ABO/RH TYPE [BBK] Stat HCG QUANTITATIVE [CHEM] Stat
--- NOTE | 2019-02-09 04:00 | US ---
INDICATION: Vaginal spotting TECHNIQUE: Ultrasound OB pelvis transvaginal. Real time preciado scale imaging of the pelvis was performed. COMPARISON: None FINDINGS: Gestational sac: A small gestational sac is present near the uterine fundus measuring 7 x 6 x 6 mm with estimated gestational age of 5 weeks, 1 day. No evidence of a perigestational hemorrhage is seen. The amount of fluid within the sac appears appropriate for gestational age. Fetus: No pole is identified. A small yolk sac is seen. Placenta: The placenta has not yet developed. Pelvis: The visualized cervix is closed. The visualized myometrium appears normal. The ovaries are of normal size. Arterial blood flow seen in both ovaries. No significant ascites noted. IMPRESSION: 1. Impression By the 2012 Society of Radiologists in Ultrasound consensus panel criteria, there is an early intrauterine of approximately 5 weeks, 1 day in age and is of unknown viability. Followup beta HCG and ultrasound is recommended. Dictated by Fred Bruner MD @ 02/09/2019 3:58:48 AM Dictated by: Fred Bruner MD @ 02/09/2019 03:58:53 (Electronically Signed)
[2019-02-09 04:34] VITALS: BP 139/58; PULSE 100
== END 2019-02-09 04:34 | disposition home or self-care (01) ==
LOC: MW.ED 03:02
DX: O20.0 Threatened abortion (principal); O99.511 Diseases of the respiratory system complicating pregnancy, first trimester; J45.909 Unspecified asthma, uncomplicated; O99.211 Obesity complicating pregnancy, first trimester; E66.9 Obesity, unspecified; O09.521 Supervision of elderly multigravida, first trimester; Z88.5 Allergy status to narcotic agent; Z91.018 Allergy to other foods; Z79.899 Other long term (current) drug therapy; Z79.51 Long term (current) use of inhaled steroids; Z3A.01 Less than 8 weeks gestation of pregnancy
CPT/HCPCS: 36415; 76801; 76801-26; 84702; 85025; 86900; 86901; 99284-25

== ENCOUNTER 2019-02-14 19:36 | Emergency (ER) | payer BC ==
[2019-02-14] MEDS ORDERED: Ondansetron 4 MG/2 ML SDV IVPUSH ONE (21:10)
[2019-02-14] MEDS ORDERED: Sodium Chloride 0.9% 1,000 ML IV ONE (21:10)
[2019-02-14] MEDS ORDERED: diphenhydrAMINE 50 MG/ML SDV IVPUSH ONE (21:10)
[2019-02-14] MEDS ORDERED: Metoclopramide 10 MG/2 ML SDV IV ONE (21:10)
--- NOTE | 2019-02-14 21:13 | EDM.PDOC ---
ED HPI GENERAL MEDICAL PROBLEM - General Chief Complaint: Headache Stated Complaint: SEVERE HEADACHE Time Seen by Provider: 02/14/19 21:02 - History of Present Illness INITIAL COMMENTS - FREE TEXT/NARRATIVE: HISTORY AND PHYSICAL: History of present illness: Patient 33-year-old white female presents with her migraine headache she denies other trauma concerns and no abdominal pain vaginal bleeding discharge cramping or other concerns. Review of systems: As per history of present illness and below otherwise all systems reviewed and negative. Past medical history: As per history of present illness and as reviewed below otherwise noncontributory. Surgical history: As per history of present illness and as reviewed below otherwise noncontributory. Social history: No reported history of drug or alcohol abuse. Family history: As per history of present illness and as reviewed below otherwise noncontributory. Physical exam: HEENT: Atraumatic, normocephalic, pupils reactive, negative for conjunctival pallor or scleral icterus, mucous membranes moist, throat clear, neck supple, nontender, trachea midline. Lungs: Clear to auscultation, breath sounds equal bilaterally, chest nontender. Heart: S1S2, regular, negative for clicks, rubs, or JVD. Abdomen: Soft, nondistended, nontender. Negative for masses or hepatosplenomegaly. Negative for costovertebral tenderness. Pelvis: Stable nontender. Genitourinary: Deferred. Rectal: Deferred. Extremities: Atraumatic, negative for cords or calf pain. Neurovascular unremarkable. Neuro: Awake, alert, oriented. Cranial nerves II through XII unremarkable. Cerebellum unremarkable. Motor and sensory unremarkable throughout. Exam nonfocal. Diagnostics: None Therapeutics: Saline 1 L bolus Reglan 5 mg IV Benadryl 25 mg IV Zofran 4 mg Impression: #1 migraine headache #2 Definitive disposition and diagnosis as appropriate pending reevaluation and review of above. Headache Pain Score (Numeric/FACES): 10 - Related Data Allergies Allergy/AdvReac Type Severity Reaction Status Date / Time codeine Allergy Severe Swelling Verified 02/14/19 20:08 mushroom Allergy Swelling Uncoded 02/14/19 20:08 Home Meds: Home Meds Cetirizine [ZyrTEC] 10 mg PO DAILY 05/11/15 [History] Albuterol Sulfate 2.5 mg INH ASDIRECTED PRN 01/04/19 [History] Albuterol [Proventil HFA] 1 puff INH ASDIRECTED PRN 01/04/19 [History] Fluticasone Propionate [Flonase Allergy Relief] 1 puff NASBOTH ASDIRECTED PRN [History] Fluticasone/Vilanterol [Breo Ellipta 200-25 MCG Inhalation Kit] 1 dose INH DAILY 01/04/19 [History] Imiquimod 1 dose TOP ASDIRECTED 01/04/19 [History] Tiotropium [place] [Spiriva Respimat] 1 dose INH ASDIRECTED 01/04/19 [History] Past Medical History HEENT History: Reports: Other (See Below) Other HEENT History: wears glasses, contacts Cardiovascular History: Reports: None Respiratory History: Reports: Asthma Other Respiratory History: uses rescue inhaler daily Gastrointestinal History: Reports: GERD Genitourinary History: Reports: Renal Calculus Other Genitourinary History: currently has kidney stone [employer] History: Reports: 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, Musculoskeletal History: Reports: None Other Musculoskeletal History: carpal tunnel Neurological History: Reports: Migraines, Other (See Below) Other Neuro History: hx of motion sickness Psychiatric History: Reports: PTSD Endocrine/Metabolic History: Reports: Obesity/BMI 30+ Hematologic History: Reports: None Immunologic History: Reports: None Oncologic (Cancer) History: Reports: None Dermatologic History: Reports: Eczema - Infectious Disease History Infectious Disease History: Reports: Chicken Pox - Past Surgical History Head Surgeries/Procedures: Reports: None HEENT Surgical History: Reports: Naso-Sinus Surgery, Oral Surgery, Tonsillectomy Other HEENT Surgeries/Procedures: wisdom teeth GI Surgical History: Reports: Cholecystectomy Female Surgical History: Reports: Section Social & Family History - Family History Family Medical History: Noncontributory HEENT: Reports: Glaucoma Cardiac: Reports: None Respiratory: Reports: Asthma GI: Reports: Other (See Below) Other GI Family History: ulcers OBGYN: Reports: 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, Recurrent Spontaneous Musculoskeletal: Reports: Fibromyalgia Endocrine/Metabolic: Reports: Diabetes, type II Dermatologic: Reports: Eczema Oncologic: Reports: Breast, Lung - Tobacco Use Smoking Status *Q: Never Smoker Second Hand Smoke Exposure: No - Caffeine Use Caffeine Use: Reports: None Caffeine Use Comment: 2-3drinks/day - Recreational Drug Use Recreational Drug Use: No ED ROS GENERAL - Review of Systems Review Of Systems: ROS reveals no pertinent complaints other than HPI. ED EXAM, GENERAL - Physical Exam Exam: See Below (See dictation) Course - Vital Signs Last Recorded V/S: Last Vital Signs Temp 36.2 C 02/14/19 20:10 Pulse 104 H 02/14/19 20:10 Resp 20 02/14/19 20:10 BP 136/73 02/14/19 20:10 Pulse Ox 98 02/14/19 20:10 - Orders/Labs/Meds Orders: Active Orders 24 hr Category Date Time Status Sodium Chloride 0.9% [Normal Saline] 1,000 ml Med 02/14/19 21:10 Active IV STAT Medication Orders Sodium Chloride (Normal Saline) 1,000 mls @ 999 mls/hr IV STAT ONE Stop: 02/14/19 22:10 Labs: Laboratory Tests 02/14/19 Range/Units 20:15 Urine Color YELLOW Urine Appearance SLT CLOUDY Urine pH 7.5 (5.0-8.0) Ur Specific [place] 1.020 (1.001-1.035) Urine Protein NEGATIVE (NEGATIVE) mg/dL Urine Glucose (UA) NEGATIVE (NEGATIVE) mg/dL Urine Ketones NEGATIVE (NEGATIVE) mg/dL Urine Occult Blood MODERATE H (NEGATIVE) Urine Nitrite NEGATIVE (NEGATIVE) Urine Bilirubin NEGATIVE (NEGATIVE) Urine Urobilinogen 0.2 (<2.0) EU/dL Ur Leukocyte Esterase NEGATIVE (NEGATIVE) Urine RBC 0-2 (0-2/HPF) Urine WBC 0-2 (0-5/HPF) Ur Epithelial Cells MODERATE (NONE-FEW) Amorphous Sediment LIGHT (NEGATIVE) Urine Bacteria 1+ H (NEGATIVE) Meds: Medications Generic Name Dose Route Start Last Admin Trade Name Freq PRN Reason Stop Dose Admin Sodium Chloride 1,000 mls @ 999 mls/hr 02/14/19 21:10 Normal Saline IV 02/14/19 22:10 STAT ONE Discontinued Medications Generic Name Dose Route Start Last Admin Trade Name Freq PRN Reason Stop Dose Admin Diphenhydramine HCl 25 mg 02/14/19 21:10 Benadryl IVPUSH 02/14/19 21:11 ONETIME ONE Metoclopramide HCl 5 mg 02/14/19 21:10 Reglan IV 02/14/19 21:11 ONETIME ONE Ondansetron HCl 4 mg 02/14/19 21:10 Zofran IVPUSH 02/14/19 21:11 ONETIME ONE Departure - Departure Time of Disposition: 21:12 Disposition: Home, Self-Care 01 Condition: Good Clinical Impression: Migraine, - Discharge Information Referrals: Siddhartha Urbina MD [Primary Care Provider] - Additional Instructions: The following information is given to patients seen in the emergency department who are being discharged to home. This information is to outline your options for follow-up care. We provide all patients seen in our emergency department with a follow-up referral. The need for follow-up, as well as the timing and circumstances, are variable depending upon the specifics of your emergency department visit. If you don't have a primary care physician on staff, we will provide you with a referral. We always advise you to contact your personal physician following an emergency department visit to inform them of the circumstance of the visit and for follow-up with them and/or the need for any referrals to a consulting specialist. The emergency department will also refer you to a specialist when appropriate. This referral assures that you have the opportunity for followup care with a specialist. All of these measure are taken in an effort to provide you with optimal care, which includes your followup. Under all circumstances we always encourage you to contact your private physician who remains a resource for coordinating your care. When calling for followup care, please make the office aware that this follow-up is from your recent emergency room visit. If for any reason you are refused follow-up, please contact the [facility] emergency department at and asked to speak to the emergency department charge nurse. Follow-up primary medical doctor and [employer] as needed as discussed return as needed as discussed - My Orders Last 24 Hours: My Active Orders 02/14/19 21:10 Sodium Chloride 0.9% [Normal Saline] 1,000 ml IV STAT - Assessment/Plan Last 24 Hours: My Active Orders 02/14/19 21:10 Sodium Chloride 0.9% [Normal Saline] 1,000 ml IV STAT
[2019-02-14 22:48] VITALS: BP 126/73; PULSE 94
== END 2019-02-14 22:45 | disposition home or self-care (01) ==
LOC: MW.ED 19:36
DX: O99.351 Diseases of the nervous system complicating pregnancy, first trimester (principal); G43.909 Migraine, unspecified, not intractable, without status migrainosus; O09.512 Supervision of elderly primigravida, second trimester; O34.219 Maternal care for unspecified type scar from previous cesarean delivery; O99.511 Diseases of the respiratory system complicating pregnancy, first trimester; J45.909 Unspecified asthma, uncomplicated; O99.211 Obesity complicating pregnancy, first trimester; E66.9 Obesity, unspecified; Z3A.01 Less than 8 weeks gestation of pregnancy; Z91.048 Other nonmedicinal substance allergy status; Z79.51 Long term (current) use of inhaled steroids; Z79.899 Other long term (current) drug therapy; Z88.5 Allergy status to narcotic agent
CPT/HCPCS: 81001; 96361; 96374; 96375; 99284; J1200; J2405; J2765; J7040; 99283

== ENCOUNTER 2019-02-21 02:09 | Emergency (ER) | payer BC ==
[2019-02-21] MEDS ORDERED: Albuterol/Ipratropium 3.0-0.5 MG/3 ML Neb Soln ONE (02:14)
[2019-02-21] MEDS ORDERED: methylPREDNISolone Sodium Succinate 125 MG/2 ML SDV IM ONE (02:17)
[2019-02-21] MEDS ORDERED: Albuterol/Ipratropium 3.0-0.5 MG/3 ML Neb Soln NEB ONE ×3 (02:17→03:06)
[2019-02-21 02:21] VITALS: PULSE 96
--- NOTE | 2019-02-21 02:33 | EDM.PDOC ---
ED HPI GENERAL MEDICAL PROBLEM - General Chief Complaint: Respiratory Problem Stated Complaint: TROUBLE BREATHING Time Seen by Provider: 02/21/19 02:31 - History of Present Illness INITIAL COMMENTS - FREE TEXT/NARRATIVE: HISTORY AND PHYSICAL: History of present illness: Patient 33-year-old white female with history of asthma dyspraxia 7 weeks presents with concern of wheezing and shortness of breath she states she's use her inhaler numerous times in the last 24 hours and no significant improvement no fever chills vomiting or other concerns she denies vaginal discharge bleeding or other complaints. Review of systems: As per history of present illness and below otherwise all systems reviewed and negative. Past medical history: As per history of present illness and as reviewed below otherwise noncontributory. Surgical history: As per history of present illness and as reviewed below otherwise noncontributory. Social history: No reported history of drug or alcohol abuse. Family history: As per history of present illness and as reviewed below otherwise noncontributory. Physical exam: HEENT: Atraumatic, normocephalic, pupils reactive, negative for conjunctival pallor or scleral icterus, mucous membranes moist, throat clear, neck supple, nontender, trachea midline. Lungs: Scattered wheezing throughout, breath sounds equal bilaterally, chest nontender. Heart: S1S2, regular, negative for clicks, rubs, or JVD. Abdomen: Soft, nondistended, nontender. Negative for masses or hepatosplenomegaly. Negative for costovertebral tenderness. Pelvis: Stable nontender. Genitourinary: Deferred. Rectal: Deferred. Extremities: Atraumatic, negative for cords or calf pain. Neurovascular unremarkable. Neuro: Awake, alert, oriented. Cranial nerves II through XII unremarkable. Cerebellum unremarkable. Motor and sensory unremarkable throughout. Exam nonfocal. Diagnostics: CBC CMP chest x-ray influenza screen Therapeutics: soluMedrol 125 mg IM albuterol ipratropium nebulizer Impression: #1 first trimester #2 acute asthmatic exacerbation Definitive disposition and diagnosis as appropriate pending reevaluation and review of above. headache Pain Score (Numeric/FACES): 8 - Related Data Allergies Allergy/AdvReac Type Severity Reaction Status Date / Time codeine Allergy Severe Swelling Verified 02/14/19 20:08 mushroom Allergy Swelling Uncoded 02/14/19 20:08 Home Meds: Home Meds Cetirizine [ZyrTEC] 10 mg PO DAILY 05/11/15 [History] Albuterol Sulfate 2.5 mg INH ASDIRECTED PRN 01/04/19 [History] Albuterol [Proventil HFA] 1 puff INH ASDIRECTED PRN 01/04/19 [History] Fluticasone Propionate [Flonase Allergy Relief] 1 puff NASBOTH ASDIRECTED PRN [History] Fluticasone/Vilanterol [Breo Ellipta 200-25 MCG Inhalation Kit] 1 dose INH DAILY 01/04/19 [History] Imiquimod 1 dose TOP ASDIRECTED 01/04/19 [History] Tiotropium [place] [Spiriva Respimat] 1 dose INH ASDIRECTED 01/04/19 [History] Past Medical History HEENT History: Reports: Other (See Below) Other HEENT History: wears glasses, contacts Cardiovascular History: Reports: None Respiratory History: Reports: Asthma Other Respiratory History: uses rescue inhaler daily Gastrointestinal History: Reports: GERD Genitourinary History: Reports: Renal Calculus Other Genitourinary History: currently has kidney stone [employer]OUNTER History: Reports: 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, Musculoskeletal History: Reports: None Other Musculoskeletal History: carpal tunnel Neurological History: Reports: Migraines, Other (See Below) Other Neuro History: hx of motion sickness Psychiatric History: Reports: PTSD Endocrine/Metabolic History: Reports: Obesity/BMI 30+ Insulin Pump Model and Side Gluer: None Hematologic History: Reports: None Immunologic History: Reports: None Oncologic (Cancer) History: Reports: None Dermatologic History: Reports: Eczema - Infectious Disease History Infectious Disease History: Reports: None - Past Surgical History Head Surgeries/Procedures: Reports: None HEENT Surgical History: Reports: Naso-Sinus Surgery, Oral Surgery, Tonsillectomy Other HEENT Surgeries/Procedures: wisdom teeth GI Surgical History: Reports: Cholecystectomy Female Surgical History: Reports: Section Social & Family History - Family History Family Medical History: Noncontributory HEENT: Reports: Glaucoma Cardiac: Reports: None Respiratory: Reports: Asthma GI: Reports: Other (See Below) Other GI Family History: ulcers OBGYN: Reports: 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, Recurrent Spontaneous Musculoskeletal: Reports: Fibromyalgia Endocrine/Metabolic: Reports: Diabetes, type II Dermatologic: Reports: Eczema Oncologic: Reports: Breast, Lung - Tobacco Use Smoking Status *Q: Never Smoker - Caffeine Use Caffeine Use: Reports: Soda Caffeine Use Comment: 2-3drinks/day - Recreational Drug Use Recreational Drug Use: No ED ROS GENERAL - Review of Systems Review Of Systems: ROS reveals no pertinent complaints other than HPI. ED EXAM, GENERAL - Physical Exam Exam: See Below (See dictation) Course - Vital Signs Last Recorded V/S: Last Vital Signs Temp 36.3 C 02/21/19 02:17 Pulse 96 02/21/19 02:17 Resp 24 H 02/21/19 02:17 BP 117/72 02/21/19 02:17 Pulse Ox 96 02/21/19 02:17 - Orders/Labs/Meds Orders: Active Orders 24 hr Category Date Time Status RT Aerosol Therapy [RC] ASDIRECTED Care 02/21/19 02:17 Active RT Aerosol Therapy [RC] ASDIRECTED Care 02/21/19 02:18 Active Labs: Laboratory Tests 02/21/19 02/21/19 Range/Units 02:33 02:33 WBC 7.34 (4.0-11.0) K/uL RBC 4.94 (4.30-5.90) M/uL Hgb 13.5 (12.0-16.0) g/dL Hct 39.9 (36.0-46.0) % MCV 80.8 (80.0-98.0) fL MCH 27.3 (27.0-32.0) pg MCHC 33.8 (31.0-37.0) g/dL RDW Std Deviation 42.2 (28.0-62.0) fl RDW Coeff of Shaniqua 14 (11.0-15.0) % Plt Count 218 (150-400) K/uL MPV 9.40 (7.40-12.00) fL Neut % (Auto) 47.2 L (48.0-80.0) % Lymph % (Auto) 30.7 (16.0-40.0) % [place] % (Auto) 10.6 (0.0-15.0) % Eos % (Auto) 10.5 H (0.0-7.0) % Baso % (Auto) 1.0 (0.0-1.5) % Neut # (Auto) 3.5 (1.4-5.7) K/uL Lymph # (Auto) 2.3 (0.6-2.4) K/uL [place] # (Auto) 0.8 (0.0-0.8) K/uL Eos # (Auto) 0.8 H (0.0-0.7) K/uL Baso # (Auto) 0.1 (0.0-0.1) K/uL Nucleated RBC % 0.0 /100WBC Nucleated RBCs # 0 K/uL Sodium 138 (136-145) mmol/L Potassium 3.4 L (3.5-5.1) mmol/L Chloride 102 (98-107) mmol/L Carbon Dioxide 25.1 (21.0-32.0) mmol/L BUN 11 (7.0-18.0) mg/dL Creatinine 0.9 (0.6-1.0) mg/dL Est Cr Clr Drug Dosing 81.67 mL/min Estimated GFR (MDRD) > 60.0 ml/min Glucose 115 H (74-106) mg/dL Calcium 9.0 (8.5-10.1) mg/dL Total Bilirubin 0.6 (0.2-1.0) mg/dL AST 19 (15-37) IU/L ALT 27 (14-63) IU/L Alkaline Phosphatase 49 (46-116) U/L Total Protein 7.0 (6.4-8.2) g/dL Albumin 3.6 (3.4-5.0) g/dL Globulin 3.4 (2.6-4.0) g/dL Albumin/Globulin Ratio 1.1 (0.9-1.6) Meds: Medications Discontinued Medications Generic Name Dose Route Start Last Admin Trade Name Freq PRN Reason Stop Dose Admin Albuterol/Ipratropium 3 ml 02/21/19 02:17 02/21/19 02:20 Duoneb 3.0-0.5 Mg/3 Ml NEB 02/21/19 02:18 3 ml ONETIME ONE Administration Albuterol/Ipratropium Confirm 02/21/19 02:14 02/21/19 02:21 Duoneb 3.0-0.5 Mg/3 Ml Administered 02/21/19 02:15 Not Given Dose 3 ml .ROUTE .STK-MED ONE Albuterol/Ipratropium 3 ml 02/21/19 02:17 02/21/19 02:27 Duoneb 3.0-0.5 Mg/3 Ml NEB 02/21/19 02:18 Not Given ONETIME ONE Methylprednisolone Sodium Succinate 125 mg 02/21/19 02:17 02/21/19 02:40 Solu-Medrol IM 02/21/19 02:18 125 mg ONETIME ONE Administration Departure - Departure Time of Disposition: 03:04 Disposition: Home, Self-Care 01 Condition: Good Clinical Impression: Exacerbation of asthma, First trimester - Discharge Information Referrals: Siddhartha Urbina MD [Primary Care Provider] - Forms: ED Department Discharge Additional Instructions: The following information is given to patients seen in the emergency department who are being discharged to home. This information is to outline your options for follow-up care. We provide all patients seen in our emergency department with a follow-up referral. The need for follow-up, as well as the timing and circumstances, are variable depending upon the specifics of your emergency department visit. If you don't have a primary care physician on staff, we will provide you with a referral. We always advise you to contact your personal physician following an emergency department visit to inform them of the circumstance of the visit and for follow-up with them and/or the need for any referrals to a consulting specialist. The emergency department will also refer you to a specialist when appropriate. This referral assures that you have the opportunity for followup care with a specialist. All of these measure are taken in an effort to provide you with optimal care, which includes your followup. Under all circumstances we always encourage you to contact your private physician who remains a resource for coordinating your care. When calling for followup care, please make the office aware that this follow-up is from your recent emergency room visit. If for any reason you are refused follow-up, please contact the [facility] emergency department at and asked to speak to the emergency department charge nurse. Medrol as prescribed continue albuterol as directed - My Orders Last 24 Hours: My Active Orders 02/21/19 02:17 RT Aerosol Therapy [RC] ASDIRECTED 02/21/19 02:18 RT Aerosol Therapy [RC] ASDIRECTED - Assessment/Plan Last 24 Hours: My Active Orders 02/21/19 02:17 RT Aerosol Therapy [RC] ASDIRECTED 02/21/19 02:18 RT Aerosol Therapy [RC] ASDIRECTED
[2019-02-21 03:00] LABS: BLOOD UREA NITROGEN,BUN 11 mg/dL (7.0-18.0); CARBON DIOXIDE,CO2 25.1 mmol/L (21.0-32.0); CHLORIDE,CL 102 mmol/L (98-107); GLUCOSE RANDOM 115 mg/dL (74-106); POTASSIUM,K 3.4 mmol/L (3.5-5.1); SODIUM,NA 138 mmol/L (136-145)
[2019-02-21 03:07] VITALS: BP 133/70
== END 2019-02-21 03:18 | disposition home or self-care (01) ==
LOC: MW.ED 02:09
DX: O99.511 Diseases of the respiratory system complicating pregnancy, first trimester (principal); J45.901 Unspecified asthma with (acute) exacerbation; O99.281 Endocrine, nutritional and metabolic diseases complicating pregnancy, first trimester; E66.9 Obesity, unspecified; Z79.51 Long term (current) use of inhaled steroids; Z3A.09 9 weeks gestation of pregnancy; Z88.5 Allergy status to narcotic agent; Z91.018 Allergy to other foods; Z68.39 Body mass index [BMI] 39.0-39.9, adult
CPT/HCPCS: 36415; 80053; 85025; 87804; 94640; 96372; 99284; J2930; 99283; J7620-GY

== ENCOUNTER 2019-02-23 02:41 | Emergency (ER) | payer BC ==
--- NOTE | 2019-02-23 02:54 | EDM.PDOC ---
ED HPI GENERAL MEDICAL PROBLEM - General Stated Complaint: 7 WEEKS PREG- "SOMETHING WRONG" Time Seen by Provider: 02/23/19 02:48 - History of Present Illness INITIAL COMMENTS - FREE TEXT/NARRATIVE: HISTORY AND PHYSICAL: History of present illness: Patient 33-year-old female who is currently first trimester pregnancies been seen on multiple occasions and has had a documented intrauterine and presents with a concern of vaginal bleeding patient states she's had some cramping and bleeding that's mostly consistent with what would be a regular. No shortness of breath chest pain there's been no trauma no other concern. Review of systems: As per history of present illness and below otherwise all systems reviewed and negative. Past medical history: As per history of present illness and as reviewed below otherwise noncontributory. Surgical history: As per history of present illness and as reviewed below otherwise noncontributory. Social history: No reported history of drug or alcohol abuse. Family history: As per history of present illness and as reviewed below otherwise noncontributory. Physical exam: HEENT: Atraumatic, normocephalic, pupils reactive, negative for conjunctival pallor or scleral icterus, mucous membranes moist, throat clear, neck supple, nontender, trachea midline. Lungs: Clear to auscultation, breath sounds equal bilaterally, chest nontender. Heart: S1S2, regular, negative for clicks, rubs, or JVD. Abdomen: Soft, nondistended, nontender. Negative for masses or hepatosplenomegaly. Negative for costovertebral tenderness. Pelvis: Stable nontender. Genitourinary: Deferred. Rectal: Deferred. Extremities: Atraumatic, negative for cords or calf pain. Neurovascular unremarkable. Neuro: Awake, alert, oriented. Cranial nerves II through XII unremarkable. Cerebellum unremarkable. Motor and sensory unremarkable throughout. Exam nonfocal. Diagnostics: CBC Therapeutics: None Impression: #1 first trimester bleeding #2 threatened Definitive disposition and diagnosis as appropriate pending reevaluation and review of above. - Related Data Allergies Allergy/AdvReac Type Severity Reaction Status Date / Time codeine Allergy Severe Swelling Verified 02/14/19 20:08 mushroom Allergy Swelling Uncoded 02/14/19 20:08 Home Meds: Home Meds Cetirizine [ZyrTEC] 10 mg PO DAILY 05/11/15 [History] Albuterol Sulfate 2.5 mg INH ASDIRECTED PRN 01/04/19 [History] Albuterol [Proventil HFA] 1 puff INH ASDIRECTED PRN 01/04/19 [History] Fluticasone Propionate [Flonase Allergy Relief] 1 puff NASBOTH ASDIRECTED PRN [History] Fluticasone/Vilanterol [Breo Ellipta 200-25 MCG Inhalation Kit] 1 dose INH DAILY 01/04/19 [History] Imiquimod 1 dose TOP ASDIRECTED 01/04/19 [History] Tiotropium [place] [Spiriva Respimat] 1 dose INH ASDIRECTED 01/04/19 [History] Past Medical History HEENT History: Reports: Other (See Below) Other HEENT History: wears glasses, contacts Cardiovascular History: Reports: None Respiratory History: Reports: Asthma Other Respiratory History: uses rescue inhaler daily Gastrointestinal History: Reports: GERD Genitourinary History: Reports: Renal Calculus Other Genitourinary History: currently has kidney stone 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 NURSE MANAGER History: Reports: 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, Musculoskeletal History: Reports: None Other Musculoskeletal History: carpal tunnel Neurological History: Reports: Migraines, Other (See Below) Other Neuro History: hx of motion sickness Psychiatric History: Reports: PTSD Endocrine/Metabolic History: Reports: Obesity/BMI 30+ 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 Pump Model 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: None Hematologic History: Reports: None Immunologic History: Reports: None Oncologic (Cancer) History: Reports: None Dermatologic History: Reports: Eczema - Infectious Disease History Infectious Disease History: Reports: None - Past Surgical History Head Surgeries/Procedures: Reports: None HEENT Surgical History: Reports: Naso-Sinus Surgery, Oral Surgery, Tonsillectomy Other HEENT Surgeries/Procedures: wisdom teeth GI Surgical History: Reports: Cholecystectomy Female Surgical History: Reports: Section Social & Family History - Family History Family Medical History: Noncontributory HEENT: Reports: Glaucoma Cardiac: Reports: None Respiratory: Reports: Asthma GI: Reports: Other (See Below) Other GI Family History: ulcers OBGYN: Reports: 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, Recurrent Spontaneous Musculoskeletal: Reports: Fibromyalgia Endocrine/Metabolic: Reports: Diabetes, type II Dermatologic: Reports: Eczema Oncologic: Reports: Breast, Lung - Caffeine Use Caffeine Use: Reports: Soda Caffeine Use Comment: 2-3drinks/day ED ROS GENERAL - Review of Systems Review Of Systems: ROS reveals no pertinent complaints other than HPI. ED EXAM, GENERAL - Physical Exam Exam: See Below (See dictation) Course - Orders/Labs/Meds Orders: Active Orders 24 hr Category Date Time Status CBC WITH AUTO DIFF [HEME] Stat Lab 02/23/19 02:49 Ordered Departure - Departure Time of Disposition: 02:53 Disposition: Home, Self-Care 01 Condition: Good Clinical Impression: Threatened - Discharge Information Referrals: Siddhartha Urbina MD [Primary Care Provider] - Additional Instructions: The following information is given to patients seen in the emergency department who are being discharged to home. This information is to outline your options for follow-up care. We provide all patients seen in our emergency department with a follow-up referral. The need for follow-up, as well as the timing and circumstances, are variable depending upon the specifics of your emergency department visit. If you don't have a primary care physician on staff, we will provide you with a referral. We always advise you to contact your personal physician following an emergency department visit to inform them of the circumstance of the visit and for follow-up with them and/or the need for any referrals to a consulting specialist. The emergency department will also refer you to a specialist when appropriate. This referral assures that you have the opportunity for followup care with a specialist. All of these measure are taken in an effort to provide you with optimal care, which includes your followup. Under all circumstances we always encourage you to contact your private physician who remains a resource for coordinating your care. When calling for followup care, please make the office aware that this follow-up is from your recent emergency room visit. If for any reason you are refused follow-up, please contact the [facility] emergency department at and asked to speak to the emergency department charge nurse. Vaginal rest follow-up CLINICAL NURSE MANAGER as discussed return as needed as discussed - My Orders Last 24 Hours: My Active Orders 02/23/19 02:49 CBC WITH AUTO DIFF [HEME] Stat - Assessment/Plan Last 24 Hours: My Active Orders 02/23/19 02:49 CBC WITH AUTO DIFF [HEME] Stat
[2019-02-23 03:02] VITALS: BP 149/91; PULSE 95
== END 2019-02-23 03:12 | disposition home or self-care (01) ==
LOC: MW.ED 02:41
DX: O20.0 Threatened abortion (principal); E66.9 Obesity, unspecified; J45.909 Unspecified asthma, uncomplicated; Z88.5 Allergy status to narcotic agent; Z91.018 Allergy to other foods; Z79.51 Long term (current) use of inhaled steroids; Z3A.01 Less than 8 weeks gestation of pregnancy
CPT/HCPCS: 36415; 85025; 99283; 99284

== ENCOUNTER 2019-09-23 22:18 | Emergency (ER) | payer BC ==
[2019-09-23 22:29] VITALS: BP 136/76; PULSE 96
--- NOTE | 2019-09-23 22:47 | EDM.PDOC ---
ED HPI GENERAL MEDICAL PROBLEM - General Chief Complaint: Lower Extremity Injury/Pain Stated Complaint: RIGHT LEG INJURY Time Seen by Provider: 09/23/19 22:40 Source of Information: Reports: Patient History Limitations: Reports: No Limitations - History of Present Illness INITIAL COMMENTS - FREE TEXT/NARRATIVE: 33-year-old female past medical history of asthma, GERD, migraines, kidney stones presenting with a right ankle injury. About 2 hours prior to arrival, the patient was walking down a flight of stairs when she missed the last few steps and rolled her right ankle. She arrives to the emergency department complaining of pain to the anterior aspect of the right ankle joint. Unable to bear weight due to pain. No other complaints numbness or tingling to the affected extremity. Right Ankle Pain Score (Numeric/FACES): 10 - Related Data Allergies Allergy/AdvReac Type Severity Reaction Status Date / Time codeine Allergy Severe Swelling Verified 09/23/19 22:31 mushroom Allergy Swelling Uncoded 09/23/19 22:31 Home Meds: Home Meds Cetirizine [ZyrTEC] 10 mg PO DAILY 05/11/15 [History] Albuterol Sulfate 2.5 mg INH ASDIRECTED PRN 01/04/19 [History] Albuterol [Proventil HFA] 1 puff INH ASDIRECTED PRN 01/04/19 [History] Fluticasone Propionate [Flonase Allergy Relief] 1 puff NASBOTH ASDIRECTED PRN [History] Fluticasone/Vilanterol [Breo Ellipta 200-25 MCG Inhalation Kit] 1 dose INH DAILY 01/04/19 [History] Imiquimod 1 dose TOP ASDIRECTED 01/04/19 [History] Tiotropium [place] [Spiriva Respimat] 1 dose INH ASDIRECTED 01/04/19 [History] Past Medical History HEENT History: Reports: Other (See Below) Other HEENT History: wears glasses, contacts Cardiovascular History: Reports: None Respiratory History: Reports: Asthma Other Respiratory History: uses rescue inhaler daily Gastrointestinal History: Reports: GERD Genitourinary History: Reports: Renal Calculus Other Genitourinary History: currently has kidney stone 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: Reports: 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, Musculoskeletal History: Reports: None Other Musculoskeletal History: carpal tunnel Neurological History: Reports: Migraines, Other (See Below) Other Neuro History: hx of motion sickness Psychiatric History: Reports: PTSD Endocrine/Metabolic History: Reports: Obesity/BMI 30+ Insulin Pump Model and Parking Assistant: None Hematologic History: Reports: None Immunologic History: Reports: None Oncologic (Cancer) History: Reports: None Dermatologic History: Reports: Eczema - Infectious Disease History Infectious Disease History: Reports: None - Past Surgical History Head Surgeries/Procedures: Reports: None HEENT Surgical History: Reports: Naso-Sinus Surgery, Oral Surgery, Tonsillectomy Other HEENT Surgeries/Procedures: wisdom teeth GI Surgical History: Reports: Cholecystectomy Female Surgical History: Reports: Section Social & Family History - Family History Family Medical History: Noncontributory HEENT: Reports: Glaucoma Cardiac: Reports: None Respiratory: Reports: Asthma GI: Reports: Other (See Below) Other GI Family History: ulcers OBGYN: Reports: 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, Recurrent Spontaneous Musculoskeletal: Reports: Fibromyalgia Endocrine/Metabolic: Reports: Diabetes, type II Dermatologic: Reports: Eczema Oncologic: Reports: Breast, Lung - Tobacco Use Smoking Status *Q: Never Smoker Second Hand Smoke Exposure: No - Caffeine Use Caffeine Use: Reports: None Caffeine Use Comment: 2-3drinks/day - Recreational Drug Use Recreational Drug Use: No Review of Systems - Review of Systems Review Of Systems: See Below Musculoskeletal: Reports: Foot Pain. Denies: Joint Swelling Neurological: Denies: Paresthesia, Tingling, Weakness ED EXAM, GENERAL - Physical Exam Exam: See Below Free Text/Narrative:: Vital signs reviewed. Nursing notes reviewed. Constitutional: Awake, alert, non-distressed. Head: Normocephalic, atraumatic. Eyes: EOMI, conjunctiva normal, no discharge, no scleral icterus. Ears, Nose, Throat: External ears and ears normal, moist oral mucosa. Cardiovascular: 2+ right DP pulse, capillary refill less than 2 seconds in the toes of the right foot. Pulmonary: normal work of breathing, no accessory muscle use. Abdomen/GI: Soft, nontender, nondistended, no guarding or rigidity, no masses. Musculoskeletal: No deformities. Mild tenderness to palpation of the anterior mortise of the right ankle. No tenderness to the malleoli. No tenderness to the calcaneus. No gross deformity or effusion or ecchymosis noted. No tenderness of the right fibular head or the right knee joint. Integumentary: Appropriate color for ethnicity, warm, dry, no pallor or jaundice , no rash. Neurologic: Alert, answering questions appropriately, normal speech, no facial droop, moving all extremities well. Sensation intact to light touch to the right foot and toes of the right foot. Able to wiggle toes without issue. Psychiatric: Appropriate mood and affect, normal thought process. Course - Vital Signs Text/Narrative:: Patient hemodynamically stable, afebrile, well-appearing, looks nontoxic. Differential diagnosis includes but is not limited to: Fracture, dislocation, soft tissue injury. Neurovascularly intact in the affected extremity. No other complaints. 2351: Ankle x-ray read returned, showing no bony injury. Suspect ankle sprain. Will place removable ankle splint and discharge with pain medications. Plan: Patient is stable to discharge home with outpatient primary care follow- up. Given removal ankle splint. Prescription sent for a short course of hydrocodone/APAP via [facility]. [place] PDMP queried, no red flags noted. Recommended [id number] acetaminophen and ibuprofen as well. Strict emergency department return precautions were provided, patient indicated understanding. All questions were answered prior to departure. Discharged in good condition. Last Recorded V/S: Last Vital Signs Temp 36.4 C 09/23/19 22:28 Pulse 96 09/23/19 22:28 Resp 20 09/23/19 22:28 BP 136/76 09/23/19 22:28 Pulse Ox 96 09/23/19 22:28 - Orders/Labs/Meds Orders: Active Orders 24 hr Category Date Time Status Acetaminophen/oxyCODONE [Percocet 325-5 MG] Med 09/23/19 23:59 Once 2 tab PO ONETIME ONE DME for Discharge [COMM] Stat Oth 09/23/19 23:54 Ordered Meds: Medications Discontinued Medications Generic Name Dose Route Start Last Admin Trade Name Darylq PRN Reason Stop Dose Admin Ibuprofen 400 mg 09/23/19 22:50 09/23/19 23:01 Motrin PO 09/23/19 22:51 400 mg ONETIME ONE Administration Oxycodone HCl 10 mg 09/23/19 22:50 09/23/19 23:00 Oxycodone PO 09/23/19 22:51 10 mg ONETIME ONE Administration Departure - Departure Time of Disposition: 23:52 Disposition: Home, Self-Care 01 Condition: Good Clinical Impression: Sprain of right ankle Qualifiers: Encounter type: initial encounter Involved ligament of ankle: unspecified ligament Qualified Code(s): S93.401A - Sprain of unspecified ligament of right ankle, initial encounter - Discharge Information *PRESCRIPTION DRUG MONITORING PROGRAM REVIEWED*: Yes *COPY OF PRESCRIPTION DRUG MONITORING REPORT IN PATIENT GINGER: No Instructions: Pain Medicine Instructions, [id number], Ankle Sprain, Easy-to- Read, Ankle Sprain Referrals: Siddhartha Urbina MD [Primary Care Provider] - 1 Week (Follow-up of injury) Forms: ED Department Discharge Additional Instructions: Thank you for choosing the [facility] emergency department in [place] for your medical needs today. It was a pleasure caring for you. You were seen in the emergency department for an ankle injury. Your x-rays did not show broken bone or dislocation. Your prescribed oxycodone for pain. I also recommend [id number] acetaminophen and ibuprofen. I recommend [id number] acetaminophen (Tylenol) and ibuprofen (Advil or Motrin) as directed on the package for pain. Do not take more than 4000 mg of acetaminophen or 3200 mg of ibuprofen in a 24-hour period. You can also apply heat or cold packs if you find them helpful. Please take them as directed on the package. Be sure to follow-up with your doctor in the next few days to be sure you are doing better. Please return the emergency department immediately if your symptoms worsen or if you feel worse. The following information is given to patients seen in the emergency department who are being discharged. This information is to outline your options for follow -up care. We provide all patients seen in our emergency department with a follow -up referral. The need for follow-up, as well as the timing and circumstances, are variable depending upon the specifics of your emergency department visit. If you don't have a primary care physician on staff, we will provide you with a referral. We always advise you to contact your personal physician following an emergency department visit to inform them of the circumstance of the visit and for follow-up with them and/or the need for any referrals to a consulting specialist. The emergency department will also refer you to a specialist when appropriate. This referral assures that you have the opportunity for follow-up care with a specialist. All of these measure are taken in an effort to provide you with optimal care, which includes your follow-up. Under all circumstances we always encourage you to contact your private physician who remains a resource for coordinating your care. When calling for follow-up care, please make the office aware that this follow-up is from your recent emergency room visit. If for any reason you are refused follow-up, please contact the [facility] Emergency Department at and asked to speak to the emergency department charge nurse. If you do not have a primary care physician that is caring for you, you can contact these clinics below to set up an appointment to establish care: [facility] - Primary Care [address] [place] [id number] [facility] [address] [place] [id number] Sepsis Event Note - Evaluation Sepsis Screening Result: No Definite Risk - Focused Exam Vital Signs: Vital Signs Temp Pulse Resp BP Pulse Ox 09/23/19 22:28 36.4 C 96 20 136/76 96 Date Exam was Performed: 09/23/19 Time Exam was Performed: 23:59 - My Orders Last 24 Hours: My Active Orders 09/23/19 23:54 DME for Discharge [COMM] Stat 09/23/19 23:59 Acetaminophen/oxyCODONE [Percocet 325-5 MG] 2 tab PO ONETIME ONE - Assessment/Plan Last 24 Hours: My Active Orders 09/23/19 23:54 DME for Discharge [COMM] Stat 09/23/19 23:59 Acetaminophen/oxyCODONE [Percocet 325-5 MG] 2 tab PO ONETIME ONE
[2019-09-23] MEDS ORDERED: oxyCODONE 5 MG Tab PO ONE (22:50)
[2019-09-23] MEDS ORDERED: Ibuprofen 400 MG Tab PO ONE (22:50)
--- NOTE | 2019-09-23 23:39 | CR ---
INDICATION: Anterior right ankle pain following trauma TECHNIQUE: Three views right ankle COMPARISON: None FINDINGS: Bones: Alignment is normal. No fractures. Large plantar calcaneal spur. Joint spaces: Unremarkable. Soft tissues: Unremarkable. IMPRESSION: Negative. Dictated by Mikal Mulligan MD @ 09/23/2019 11:38:33 PM Dictated by: Mikal Mulligan MD @ 09/23/2019 23:38:37 (Electronically Signed)
[2019-09-23] MEDS ORDERED: Acetaminophen/oxyCODONE 325-5 MG Tab PO ONE (23:59)
== END 2019-09-24 00:29 | disposition home or self-care (01) ==
LOC: MW.ED 22:18
DX: S93.401A Sprain of unspecified ligament of right ankle, initial encounter (principal); J45.909 Unspecified asthma, uncomplicated; E66.9 Obesity, unspecified; Z68.41 Body mass index [BMI] 40.0-44.9, adult; Z88.5 Allergy status to narcotic agent; Z91.018 Allergy to other foods; Z79.899 Other long term (current) drug therapy; X50.9XXA Other and unspecified overexertion or strenuous movements or postures, initial encounter
CPT/HCPCS: 73610; 99283; A9270; 99282

== ENCOUNTER 2019-11-20 03:16 | Emergency (ER) | payer BC ==
[2019-11-20 03:31] VITALS: BP 132/79; PULSE 80
--- NOTE | 2019-11-20 03:31 | EDM.PDOC ---
ED HPI GENERAL MEDICAL PROBLEM - General Chief Complaint: ENT Problem Stated Complaint: RIGHT EYE SWOLLEN Time Seen by Provider: 11/20/19 03:17 Source of Information: Reports: Patient History Limitations: Reports: No Limitations - History of Present Illness INITIAL COMMENTS - FREE TEXT/NARRATIVE: 33-year-old female presents with right eye pain and swelling since yesterday. Denies fever, chills, blurry vision. She does not wear contact lens. There was no trauma. She took Benadryl prior to arrival. ROS: A 10-point review of systems, other than pertinent positives and negatives as stated per HPI, is otherwise negative Past medical history: No additional pertinent history Past Surgical history: No additional pertinent history Social history: No additional pertinent history Family history: No additional pertinent history PHYSICAL EXAM General: AOx4, GCS = 15, No distress HEENT: dry mucous membrane, right upper eyelid slightly edematous, mild injected right conjunctiva. PERRLA, EOMI, no pain with ocular range of motion. Neck: supple, no meningismus, no Kernig or Brudzinski Cardiac: S1S2 RRR Respiratory: CTAB, no crackles or rales, no wheezing Abdomen: Soft, nontender, no rebound or guarding, nondistended, no pulsatile mass. Back: nontender Musculoskeletal: NVI distally, no deformity Neuro: No focal deficits, CN 2 - 12 WNL. - Related Data Allergies Allergy/AdvReac Type Severity Reaction Status Date / Time codeine Allergy Severe Swelling Verified 09/23/19 22:31 mushroom Allergy Swelling Uncoded 09/23/19 22:31 Home Meds: Home Meds Cetirizine [ZyrTEC] 10 mg PO DAILY 05/11/15 [History] Albuterol Sulfate 2.5 mg INH ASDIRECTED PRN 01/04/19 [History] Albuterol [Proventil HFA] 1 puff INH ASDIRECTED PRN 01/04/19 [History] Fluticasone Propionate [Flonase Allergy Relief] 1 puff NASBOTH ASDIRECTED PRN 01/04/19 [History] Fluticasone/Vilanterol [Breo Ellipta 200-25 MCG Inhalation Kit] 1 dose INH DAILY 01/04/19 [History] Imiquimod 1 dose TOP ASDIRECTED 01/04/19 [History] Tiotropium [place] [Spiriva Respimat] 1 dose INH ASDIRECTED 01/04/19 [History] Erythromycin Base [Erythromycin 0.5% Ophth Oint] 1 applic OP Q4H #1 tube 11/20/19 [Rx] cephALEXin [Keflex] 500 mg PO Q8H #15 cap 11/20/19 [Rx] Past Medical History HEENT History: Reports: Other (See Below) Other HEENT History: wears glasses, contacts Cardiovascular History: Reports: None Respiratory History: Reports: Asthma Other Respiratory History: uses rescue inhaler daily Gastrointestinal History: Reports: GERD Genitourinary History: Reports: Renal Calculus Other Genitourinary History: currently has kidney stone 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: Reports: 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, Musculoskeletal History: Reports: None Other Musculoskeletal History: carpal tunnel Neurological History: Reports: Migraines, Other (See Below) Other Neuro History: hx of motion sickness Psychiatric History: Reports: PTSD Endocrine/Metabolic History: Reports: Obesity/BMI 30+ Insulin Pump Model and Switchboard Installer: None Hematologic History: Reports: None Immunologic History: Reports: None Oncologic (Cancer) History: Reports: None Dermatologic History: Reports: Eczema - Infectious Disease History Infectious Disease History: Reports: None - Past Surgical History Head Surgeries/Procedures: Reports: None HEENT Surgical History: Reports: Naso-Sinus Surgery, Oral Surgery, Tonsillectomy Other HEENT Surgeries/Procedures: wisdom teeth GI Surgical History: Reports: Cholecystectomy Female Surgical History: Reports: Section Social & Family History - Family History Family Medical History: Noncontributory HEENT: Reports: Glaucoma Cardiac: Reports: None Respiratory: Reports: Asthma GI: Reports: Other (See Below) Other GI Family History: ulcers OBGYN: Reports: 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, Recurrent Spontaneous Musculoskeletal: Reports: Fibromyalgia Endocrine/Metabolic: Reports: Diabetes, type II Dermatologic: Reports: Eczema Oncologic: Reports: Breast, Lung - Caffeine Use Caffeine Use: Reports: None Caffeine Use Comment: 2-3drinks/day ED ROS ENT - Review of Systems Review Of Systems: Comprehensive ROS is negative, except as noted in HPI. ED EXAM, ENT - Physical Exam Exam: See Below (see dictation) Course - Re-Assessments/Exams Free Text/Narrative Re-Assessment/Exam: 11/20/19 03:25 I advised the patient to return to the ER for reevaluation if symptoms worsened, including fever, worsening pain, or any other worrisome symptoms. I instructed the patient to follow up with their PCP within 2-3 days. MEDICAL DECISION MAKING: I reviewed the patients past medical records, lab and radiographic findings. I discussed the case with the patient. My differential diagnosis included: Periorbital cellulitis, allergic conjunctivitis, viral conjunctivitis, bacterial conjunctivitis. Doubt acute angle-closure glaucoma, doubt orbital cellulitis. Departure - Departure Time of Disposition: 03:25 Disposition: Home, Self-Care 01 Condition: Good Clinical Impression: Conjunctivitis, Periorbital cellulitis - Discharge Information *PRESCRIPTION DRUG MONITORING PROGRAM REVIEWED*: Not Applicable *COPY OF PRESCRIPTION DRUG MONITORING REPORT IN PATIENT GINGER: Not Applicable Prescriptions: Erythromycin Base [Erythromycin 0.5% Ophth Oint] 1 applic OP Q4H #1 tube cephALEXin [Keflex] 500 mg PO Q8H #15 cap Instructions: Cellulitis, Adult Referrals: Siddhartha Urbina MD [Primary Care Provider] - 3 Days Additional Instructions: The following information is given to patients seen in the emergency department who are being discharged to home. This information is to outline your options for follow-up care. We provide all patients seen in our emergency department with a follow-up referral. The need for follow-up, as well as the timing and circumstances, are variable depending upon the specifics of your emergency department visit. If you don't have a primary care physician on staff, we will provide you with a referral. We always advise you to contact your personal physician following an emergency department visit to inform them of the circumstance of the visit and for follow-up with them and/or the need for any referrals to a consulting specialist. The emergency department will also refer you to a specialist when appropriate. This referral assures that you have the opportunity for follow-up care with a specialist. All of these measure are taken in an effort to provide you with optimal care, which includes your follow-up. Under all circumstances we always encourage you to contact your private physician who remains a resource for coordinating your care. When calling for follow-up care, please make the office aware that this follow-up is from your recent emergency room visit. If for any reason you are refused follow-up, please contact the [facility] Emergency Department at and asked to speak to the emergency department charge nurse. If you do not have a primary care doctor, please follow up with the clinics below within 3-5 days. [facility] [address] [place] [id number] [address] [address]
[2019-11-20] MEDS: Cephalexin 500 MG Cap PO ONE ×2 (03:41→03:43)
== END 2019-11-20 03:45 | disposition home or self-care (01) ==
LOC: MW.ED 03:16
DX: H10.9 Unspecified conjunctivitis (principal); L03.213 Periorbital cellulitis; E66.9 Obesity, unspecified; Z68.39 Body mass index [BMI] 39.0-39.9, adult; J45.909 Unspecified asthma, uncomplicated; Z88.5 Allergy status to narcotic agent; Z91.018 Allergy to other foods; Z79.899 Other long term (current) drug therapy
CPT/HCPCS: 99282; 99283; A9270-GY

== ENCOUNTER 2019-12-27 13:43 | Emergency (ER) | payer OTHER, BC ==
[2019-12-27 14:03] VITALS: BP 134/83; PULSE 100
[2019-12-27] MEDS ORDERED: Ketorolac 60 MG/2 ML SDV IM ONE (14:15)
--- NOTE | 2019-12-27 14:49 | EDM.PDOC ---
ED HPI GENERAL MEDICAL PROBLEM - General Chief Complaint: Upper Extremity Injury/Pain Stated Complaint: INJURY RIGHT SHOULDER/ARM Time Seen by Provider: 12/27/19 13:45 Source of Information: Reports: Patient History Limitations: Reports: No Limitations - History of Present Illness INITIAL COMMENTS - FREE TEXT/NARRATIVE: HISTORY AND PHYSICAL: History of present illness: Patient is a 33-year-old female who presents to the ED today with concern of right shoulder injury that occurred just prior to arrival to the ED. Patient states that she was standing next to the wall when a ladder fell over and hit her right shoulder. Patient states the ladder did not hit her head and only landed directly on her right shoulder. Patient states since then she has had pain with movement of her right shoulder. Denies any other symptoms or concerns. Patient denies fever, chills, chest pain, shortness of breath, or cough. Denies headache, neck stiff ness, change in vision, syncope, or near syncope. Denies nausea, vomiting, abdominal pain, diarrhea, constipation, or dysuria. Has not noted any blood in urine or stool. Patient has been eating and drinking appropriately. Review of systems: As per history of present illness and below otherwise all systems reviewed and negative. Past medical history: As per history of present illness and as reviewed below otherwise noncontributory. Surgical history: As per history of present illness and as reviewed below otherwise noncontributory. Social history: See social history for further information Family history: As per history of present illness and as reviewed below otherwise noncontributory. Physical exam: General: Patient is alert, oriented, and in no acute distress. Patient sitting comfortably on exam table. HEENT: Atraumatic, normocephalic, pupils equal and reactive bilaterally, negative for conjunctival pallor or scleral icterus, mucous membranes moist, TMs normal bilaterally, throat clear, neck supple, nontender, trachea midline. No drooling or trismus noted. No meningeal signs. No hot potato voice noted. Lungs: Clear to auscultation, breath sounds equal bilaterally, chest nontender. Heart: S1S2, regular rate and rhythm without overt murmur Abdomen: Soft, nondistended, nontender. Negative for masses or hepatosplenomegaly. Negative for costovertebral tenderness. Pelvis: Stable nontender. Genitourinary: Deferred. Rectal: Deferred. Skin: Intact, warm, dry. No lesions or rashes noted. Extremities: No obvious deformity of the bilateral upper extremities. Patient does have full range of motion of the left upper extremity. Patient has full range of motion of the right digits, wrist, and elbow but has limited range of motion of the right shoulder due to pain. Patient does have pain with generalized palpation of the right shoulder. Radial pulses grossly intact of the right upper extremity with capillary refill less than 2 seconds. Otherwise, atraumatic, negative for cords or calf pain. Neurovascular unremarkable. Neuro: Awake, alert, oriented. Cranial nerves II through XII unremarkable. Cerebellum unremarkable. Motor and sensory unremarkable throughout. Exam nonfocal. Notes: Discussed importance for follow-up with a primary care provider. Voices understanding and is agreeable to plan of care. Denies any further questions or concerns at this time. Diagnostics: Shoulder x-ray Therapeutics: Toradol, shoulder sling Prescription: None Impression: Right shoulder injury Plan: 1. Rest, ice, elevate the affected extremity. You can apply ice 15 minutes on, 15 minutes off. 2. Tylenol and/or Ibuprofen as directed for pain management or discomfort. 3. Follow up with the primary care provider as discussed. Return to the ED as needed and as discussed. 4. Use sling as needed for symptomatic relief. Definitive disposition and diagnosis as appropriate pending reevaluation and review of above. Right Shoulder Pain Score (Numeric/FACES): 9 - Related Data Allergies Allergy/AdvReac Type Severity Reaction Status Date / Time codeine Allergy Severe Swelling Verified 12/27/19 13:55 mushroom Allergy Swelling Uncoded 12/27/19 13:55 Home Meds: Home Meds Cetirizine [ZyrTEC] 10 mg PO DAILY 05/11/15 [History] Albuterol Sulfate 2.5 mg INH ASDIRECTED PRN 01/04/19 [History] Albuterol [Proventil HFA] 1 puff INH ASDIRECTED PRN 01/04/19 [History] Fluticasone/Vilanterol [Breo Ellipta 200-25 MCG Inhalation Kit] 1 dose INH DAILY 01/04/19 [History] Tiotropium [place] [Spiriva Respimat] 1 dose INH ASDIRECTED 01/04/19 [History] Montelukast [Singulair] 10 mg PO DAILY 12/27/19 [History] Phentermine HCl 37.5 mg PO DAILY 12/27/19 [History] Past Medical History HEENT History: Reports: Other (See Below) Other HEENT History: wears glasses, contacts Cardiovascular History: Reports: None Respiratory History: Reports: Asthma Other Respiratory History: uses rescue inhaler daily Gastrointestinal History: Reports: GERD Genitourinary History: Reports: Renal Calculus Other Genitourinary History: currently has kidney stone 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: 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, Musculoskeletal History: Reports: None Other Musculoskeletal History: carpal tunnel Neurological History: Reports: Migraines, Other (See Below) Other Neuro History: hx of motion sickness Psychiatric History: Reports: PTSD Endocrine/Metabolic History: Reports: Obesity/BMI 30+ Insulin Pump Model and Product Management Consultant: None Hematologic History: Reports: None Immunologic History: Reports: None Oncologic (Cancer) History: Reports: None Dermatologic History: Reports: None - Infectious Disease History Infectious Disease History: Reports: Chicken Pox - Past Surgical History Head Surgeries/Procedures: Reports: None HEENT Surgical History: Reports: Naso-Sinus Surgery, Oral Surgery, Tonsillectomy Other HEENT Surgeries/Procedures: wisdom teeth Cardiovascular Surgical History: Reports: None Respiratory Surgical History: Reports: None GI Surgical History: Reports: Cholecystectomy Female Surgical History: Reports: Section Endocrine Surgical History: Reports: None Neurological Surgical History: Reports: None Musculoskeletal Surgical History: Reports: None Social & Family History - Family History Family Medical History: Noncontributory HEENT: Reports: Glaucoma Cardiac: Reports: None Respiratory: Reports: Asthma GI: Reports: Other (See Below) Other GI Family History: ulcers OBGYN: Reports: 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, Recurrent Spontaneous Musculoskeletal: Reports: Fibromyalgia Endocrine/Metabolic: Reports: Diabetes, type II Dermatologic: Reports: Eczema Oncologic: Reports: Breast, Lung - Tobacco Use Smoking Status *Q: Never Smoker Second Hand Smoke Exposure: No - Caffeine Use Caffeine Use: Reports: Energy Drinks, Soda, Tea Caffeine Use Comment: 2-3drinks/day - Recreational Drug Use Recreational Drug Use: No Review of Systems - Review of Systems Review Of Systems: Comprehensive ROS is negative, except as noted in HPI. ED EXAM, GENERAL - Physical Exam Exam: See Below (see dictation) Course - Vital Signs Last Recorded V/S: Last Vital Signs Temp 97.1 F 12/27/19 13:57 Pulse 100 12/27/19 13:57 Resp 14 12/27/19 13:57 BP 134/83 12/27/19 13:57 Pulse Ox 93 L 12/27/19 13:57 - Orders/Labs/Meds Meds: Medications Discontinued Medications Generic Name Dose Route Start Last Admin Trade Name Pau PRN Reason Stop Dose Admin Ketorolac Tromethamine 60 mg 12/27/19 14:15 12/27/19 14:40 Toradol IM 12/27/19 14:16 60 mg ONETIME ONE Administration Departure - Departure Time of Disposition: 15:30 Disposition: Home, Self-Care 01 Clinical Impression: Shoulder injury Qualifiers: Encounter type: initial encounter Laterality: right Qualified Code(s): S49.91XA - Unspecified injury of right shoulder and upper arm, initial encounter - Discharge Information Referrals: Siddhartha Urbina MD [Primary Care Provider] - Forms: ED Department Discharge Additional Instructions: The following information is given to patients seen in the emergency department who are being discharged to home. This information is to outline your options for follow-up care. We provide all patients seen in our emergency department with a follow-up referral. The need for follow-up, as well as the timing and circumstances, are variable depending upon the specifics of your emergency department visit. If you don't have a primary care physician on staff, we will provide you with a referral. We always advise you to contact your personal physician following an e mergency department visit to inform them of the circumstance of the visit and for follow-up with them and/or the need for any referrals to a consulting specialist. The emergency department will also refer you to a specialist when appropriate. This referral assures that you have the opportunity for follow-up care with a specialist. All of these measure are taken in an effort to provide you with op timal care, which includes your follow-up. Under all circumstances we always encourage you to contact your private physician who remains a resource for coordinating your care. When calling for follow-up care, please make the office aware that this follow-up is from your recent emergency room visit. If for any reason you are refused follow-up, please contact the [facility] Emergency Department at and asked to speak to the emergency department charge nurse. [facility] [address] [place] [address] [facility] [address] [place] [address] 1. Rest, ice, elevate the affected extremity. You can apply ice 15 minutes on, 15 minutes off. 2. Tylenol and/or Ibuprofen as directed for pain management or discomfort. 3. Follow up with the primary care provider as discussed. Return to the ED as needed and as discussed. 4. Use sling as needed for symptomatic relief. Sepsis Event Note (ED) - Evaluation Sepsis Screening Result: No Definite Risk - Focused Exam Vital Signs: Vital Signs Temp Pulse Resp BP Pulse Ox 12/27/19 13:57 97.1 F 100 14 134/83 93 L
--- NOTE | 2019-12-27 15:28 | CR ---
Right shoulder: 3 views of the right shoulder were obtained Comparison: No previous shoulder imaging. Findings: Glenohumeral joint and acromioclavicular joint appears normal. No acute fracture, dislocation or other bony abnormality is appreciated. Impression: 1. No abnormality is appreciated on right shoulder exam. Diagnostic code #1 Study was dictated in MDT
== END 2019-12-27 15:38 | disposition home or self-care (01) ==
LOC: MW.ED 13:43
DX: S49.91XA Unspecified injury of right shoulder and upper arm, initial encounter (principal); J45.909 Unspecified asthma, uncomplicated; E66.9 Obesity, unspecified; Z68.38 Body mass index [BMI] 38.0-38.9, adult; Z98.890 Other specified postprocedural states; Z88.5 Allergy status to narcotic agent; Z91.018 Allergy to other foods; Z79.899 Other long term (current) drug therapy; W20.8XXA Other cause of strike by thrown, projected or falling object, initial encounter
CPT/HCPCS: 73030; 96372; 99283; J1885

== ENCOUNTER 2020-06-18 02:42 | Emergency (ER) | payer BC, OTHER ==
[2020-06-18] MEDS ORDERED: Sodium Chloride 0.9% 1,000 ML IV ONE (02:53)
[2020-06-18] MEDS ORDERED: Albuterol/Ipratropium 3.0-0.5 MG/3 ML Neb Soln NEB ONE (02:53)
[2020-06-18] MEDS ORDERED: Sodium Chloride 0.9% 10 ML Syringe FLUSH PRN (02:53)
[2020-06-18] MEDS ORDERED: methylPREDNISolone Sodium Succinate 125 MG/2 ML SDV IVPUSH ONE (02:53)
[2020-06-18] MEDS: Sodium Chloride 0.9% 2.5 ML Syringe FLUSH PRN ×2 (03:05→03:54)
[2020-06-18 03:25] LABS: BLOOD UREA NITROGEN,BUN 11 mg/dL (7.0-18.0); CARBON DIOXIDE,CO2 21.2 mmol/L (21.0-32.0); CHLORIDE,CL 103 mmol/L (98-107); GLUCOSE RANDOM 111 mg/dL (74-106); POTASSIUM,K 3.9 mmol/L (3.5-5.1); SODIUM,NA 137 mmol/L (136-145)
--- NOTE | 2020-06-18 03:34 | CR ---
INDICATION: Cough, history of asthma TECHNIQUE: Chest radiograph 1 view COMPARISON: 02/04/2018 FINDINGS: Moderate degradation of image quality noted due to body habitus. Mediastinum: The mediastinum is normal in appearance. The heart silhouette is normal in size and morphology. Lung: Both lungs are unremarkable in appearance. No sign of pleural effusion seen. No pneumothorax is identified. Bone and Soft tissue: Unremarkable for age. IMPRESSION: 1. No acute cardiopulmonary disease is seen. Dictated by: Fred Bruner MD @ 06/18/2020 03:31:35 (Electronically Signed)
[2020-06-18] MEDS ORDERED: Azithromycin 250 MG Tab PO ONE (03:46)
--- NOTE | 2020-06-18 03:49 | EDM.PDOC ---
ED HPI GENERAL MEDICAL PROBLEM - General Chief Complaint: Respiratory Problem Stated Complaint: ASTHMA ISSUES Time Seen by Provider: 06/18/20 02:45 - History of Present Illness INITIAL COMMENTS - FREE TEXT/NARRATIVE: HISTORY AND PHYSICAL: History of present illness: This is a 34-year-old female with a history significant for asthma who presents ER today complaining of wheezing and shortness of breath x1 day. Patient reports that she has had a nonproductive cough. Patient has any fevers, shakes, chills, nausea, vomiting, diarrhea. Patient reports that she is been using her nebulizers and inhalers without any significant relief and usually requires steroids when she gets this bad. Patient has any chest pain, abdominal pain, back pain. Patient has any dysuria, frequency, urgency. Patient reports she is tolerating p.o. solids and liquids well. Review of systems: As per history of present illness and below otherwise all systems reviewed and negative. Past medical history: As per history of present illness and as reviewed below otherwise noncontributory. Surgical history: As per history of present illness and as reviewed below otherwise noncontributory. Social history: No reported history of drug or alcohol abuse. Family history: As per history of present illness and as reviewed below otherwise noncontributory. Physical exam: This patient was seen and evaluated during the 2019 SARS-CoV-2 novel coronavirus pandemic period. Community viral transmission is ongoing at time of this encounter and the emergency department is operating under pandemic response procedures. Constitutional: Patient is oriented to person, place, and time. Appears well- developed and well-nourished. No distress. HEENT: Moist mucous membranes Head: Normocephalic and atraumatic Eyes: Right eye exhibits no discharge. Left eye exhibits no discharge. No scleral icterus Neck: Normal range of motion. No tracheal deviation present. Cardiovascular: Normal rate and regular rhythm. Pulmonary: Effort normal, no respiratory distress. Diffuse mild inspiratory and wheezing. Significant amount of upper respiratory breath sounds evident while placing stethoscope over her throat. Abdominal: No distention Musculoskeletal: Normal range of motion Neurologic: Alert and oriented to person, place and time. Skin: [place], warm and dry. Psychiatric: Normal mood and affect. Behavior is normal. Judgment and thought content normal. Nursing note and vital signs have been reviewed Diagnostics: Chest Xray: Normal cardiac silhouette No infiltrates or effusions identified. No PTX No evidence of acute bony fracture. As interpreted by ER MD: Jordon Labs within normal limits Therapeutics: DuoNeb x3 Solu-Medrol Zithromax Assessment and plan: 34-year-old female with history seen for asthma presents ER today with acute asthma exacerbation. Patient has improved after her 3 DuoNeb's here in the ED and IV Solu-Medrol. Patient be discharged home with a prescription for Zithromax and prednisone and instructions to follow-up with her primary care physician in 1 to 2 days. Reassessment at the time of disposition demonstrates that the patient is in no acute distress. The patient has remained stable throughout the entire ED visit and is without objective evidence for acute process requiring urgent intervention or hospitalization. The patient is stable for discharge, counseling is provided as documented above, discussed symptomatic treatment and specific conditions for return. I have spoken with the patient/caregiver and discussed todays findings, in addition to providing specific details for the plan of care. Questions are answered and there is agreement with the plan. Definitive disposition and diagnosis as appropriate pending reevaluation and review of above. - Related Data Allergies Allergy/AdvReac Type Severity Reaction Status Date / Time codeine Allergy Severe Swelling Verified 06/18/20 02:51 cephalexin [From Keflex] Allergy Other Verified 06/18/20 02:51 ibuprofen Allergy Other Verified 06/18/20 02:51 mushroom Allergy Swelling Uncoded 12/27/19 13:55 Home Meds: Home Meds Cetirizine [ZyrTEC] 10 mg PO DAILY 05/11/15 [History] Albuterol Sulfate 2.5 mg INH ASDIRECTED PRN 01/04/19 [History] Albuterol [Proventil HFA] 1 puff INH ASDIRECTED PRN 01/04/19 [History] Fluticasone/Vilanterol [Breo Ellipta 200-25 MCG Inhalation Kit] 1 dose INH DAILY 01/04/19 [History] Tiotropium [place] [Spiriva Respimat] 1 dose INH ASDIRECTED 01/04/19 [History] Montelukast [Singulair] 10 mg PO DAILY 12/27/19 [History] Phentermine HCl 37.5 mg PO DAILY 12/27/19 [History] Azithromycin [Zithromax] 250 mg PO DAILY #4 tablet 06/18/20 [Rx] Omeprazole 20 mg PO DAILY 06/18/20 [History] predniSONE [Prednisone] 1 dose PO ASDIRECTED 06/18/20 [History] predniSONE [Prednisone] 50 mg PO DAILY #5 tablet 06/18/20 [Rx] Past Medical History HEENT History: Reports: Other (See Below) Other HEENT History: wears glasses, contacts Cardiovascular History: Reports: None Respiratory History: Reports: Asthma Other Respiratory History: uses rescue inhaler daily Gastrointestinal History: Reports: GERD Genitourinary History: Reports: Renal Calculus Other Genitourinary History: currently has kidney stone BOOKIE History: Reports: 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, Musculoskeletal History: Reports: None Other Musculoskeletal History: carpal tunnel Neurological History: Reports: Migraines, Other (See Below) Other Neuro History: hx of motion sickness Psychiatric History: Reports: PTSD Endocrine/Metabolic History: Reports: Obesity/BMI 30+ 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 Hematologic History: Reports: None Immunologic History: Reports: None Oncologic (Cancer) History: Reports: None Dermatologic History: Reports: None - Infectious Disease History Infectious Disease History: Reports: Chicken Pox - Past Surgical History Head Surgeries/Procedures: Reports: None HEENT Surgical History: Reports: Naso-Sinus Surgery, Oral Surgery, Tonsillectomy Other HEENT Surgeries/Procedures: wisdom teeth Cardiovascular Surgical History: Reports: None Respiratory Surgical History: Reports: None GI Surgical History: Reports: Cholecystectomy Female Surgical History: Reports: Section Endocrine Surgical History: Reports: None Neurological Surgical History: Reports: None Musculoskeletal Surgical History: Reports: None Other Musculoskeletal Surgeries/Procedures:: carpal tunnel surgery 11/11/2016 Dermatological Surgical History: Reports: None Social & Family History - Family History Family Medical History: No Pertinent Family History HEENT: Reports: Glaucoma Cardiac: Reports: None Respiratory: Reports: Asthma GI: Reports: Other (See Below) Other GI Family History: ulcers OBGYN: Reports: 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, Recurrent Spontaneous Musculoskeletal: Reports: Fibromyalgia Endocrine/Metabolic: Reports: Diabetes, type II Dermatologic: Reports: Eczema Oncologic: Reports: Breast, Lung - Tobacco Use Tobacco Use Status *Q: Never Tobacco User - Caffeine Use Caffeine Use: Reports: None Caffeine Use Comment: 2-3drinks/day - Recreational Drug Use Recreational Drug Use: No ED ROS GENERAL - Review of Systems Review Of Systems: See Below ED EXAM, GENERAL - Physical Exam Exam: See Below Course - Vital Signs Last Recorded V/S: Last Vital Signs Temp 97.2 F 06/18/20 02:52 Pulse 100 06/18/20 03:35 Resp 20 06/18/20 03:35 BP 112/73 06/18/20 03:35 Pulse Ox 100 06/18/20 03:35 - Orders/Labs/Meds Orders: Active Orders 24 hr Category Date Time Status Sodium Chloride 0.9% [Normal Saline] 1,000 ml Med 06/18/20 02:53 Active IV .Bolus Sodium Chloride 0.9% [Saline Flush] Med 06/18/20 02:53 Active 10 ml FLUSH ASDIRECTED PRN Sodium Chloride 0.9% [Saline Flush] Med 06/18/20 02:53 Active 2.5 ml FLUSH ASDIRECTED PRN Saline Lock Insert [OM.PC] Stat Oth 06/18/20 02:53 Ordered Medication Orders Sodium Chloride (Normal Saline) 1,000 mls @ 999 mls/hr IV .Bolus ONE Stop: 06/18/20 03:53 Last Admin: 06/18/20 03:05 Dose: 999 mls/hr Documented by: JOHNATHON Sodium Chloride (Saline Flush) 10 ml FLUSH ASDIRECTED PRN PRN Reason: Keep Vein Open Sodium Chloride (Saline Flush) 2.5 ml FLUSH ASDIRECTED PRN PRN Reason: Keep Vein Open Last Admin: 06/18/20 03:05 Dose: 2.5 ml Documented by: JOHNATHON Labs: Laboratory Tests 06/18/20 06/18/20 Range/Units 03:00 03:00 WBC 6.60 (4.0-11.0) K/uL RBC 4.91 (4.30-5.90) M/uL Hgb 11.7 L (12.0-16.0) g/dL Hct 36.4 (36.0-46.0) % MCV 74.1 L (80.0-98.0) fL MCH 23.8 L (27.0-32.0) pg MCHC 32.1 (31.0-37.0) g/dL RDW Std Deviation 39.5 (28.0-62.0) fl RDW Coeff of Shaniqua 15 (11.0-15.0) % Plt Count 380 (150-400) K/uL MPV 9.40 (7.40-12.00) fL Neut % (Auto) 51.1 (48.0-80.0) % Lymph % (Auto) 30.9 (16.0-40.0) % [place] % (Auto) 9.1 (0.0-15.0) % Eos % (Auto) 7.7 H (0.0-7.0) % Baso % (Auto) 1.2 (0.0-1.5) % Neut # (Auto) 3.4 (1.4-5.7) K/uL Lymph # (Auto) 2.0 (0.6-2.4) K/uL [place] # (Auto) 0.6 (0.0-0.8) K/uL Eos # (Auto) 0.5 (0.0-0.7) K/uL Baso # (Auto) 0.1 (0.0-0.1) K/uL Nucleated RBC % 0.0 /100WBC Nucleated RBCs # 0 K/uL Sodium 137 (136-145) mmol/L Potassium 3.9 (3.5-5.1) mmol/L Chloride 103 (98-107) mmol/L Carbon Dioxide 21.2 (21.0-32.0) mmol/L BUN 11 (7.0-18.0) mg/dL Creatinine 0.8 (0.6-1.0) mg/dL Est Cr Clr Drug Dosing 91.01 mL/min Estimated GFR (MDRD) > 60.0 ml/min Glucose 111 H (74-106) mg/dL Calcium 8.8 (8.5-10.1) mg/dL Total Bilirubin 0.4 (0.2-1.0) mg/dL AST 24 (15-37) IU/L ALT 29 (14-63) IU/L Alkaline Phosphatase 57 (46-116) U/L Total Protein 7.3 (6.4-8.2) g/dL Albumin 3.6 (3.4-5.0) g/dL Globulin 3.7 (2.6-4.0) g/dL Albumin/Globulin Ratio 1.0 (0.9-1.6) Meds: Medications Generic Name Dose Route Start Last Admin Trade Name Freq PRN Reason Stop Dose Admin Sodium Chloride 1,000 mls @ 999 mls/hr 06/18/20 02:53 06/18/20 03:05 Normal Saline IV 06/18/20 03:53 999 mls/hr .Bolus ONE Administration Sodium Chloride 10 ml 06/18/20 02:53 Saline Flush FLUSH ASDIRECTED PRN Keep Vein Open Sodium Chloride 2.5 ml 06/18/20 02:53 06/18/20 03:05 Saline Flush FLUSH 2.5 ml ASDIRECTED PRN Administration Keep Vein Open Discontinued Medications Generic Name Dose Route Start Last Admin Trade Name Darylq PRN Reason Stop Dose Admin Albuterol/Ipratropium 9 ml 06/18/20 02:53 06/18/20 03:06 Duoneb 3.0-0.5 Mg/3 Ml NEB 06/18/20 02:54 9 ml ONETIME ONE Administration Methylprednisolone Sodium Succinate 125 mg 06/18/20 02:53 06/18/20 03:08 Solu-Medrol IVPUSH 06/18/20 02:54 125 mg ONETIME ONE Administration Departure - Departure Time of Disposition: 03:47 Disposition: Home, Self-Care 01 Condition: Good Clinical Impression: Cough, Bronchitis Asthma exacerbation Qualifiers: Asthma severity: moderate Asthma persistence: unspecified Qualified Code(s): J45.901 - Unspecified asthma with (acute) exacerbation - Discharge Information Instructions: Asthma, Adult, Cough, Adult, [id number] Referrals: Siddhartha Urbina MD [Primary Care Provider] - Additional Instructions: You were seen and evaluated in the ER today for your asthma. You have been given 3 DuoNeb's in the ED as well as IV Solu-Medrol. Your chest x-ray your blood tests are all within normal limits. You will be discharged home with a prescription for an antibiotic, prednisone. Please get plenty of rest over the next 1 to 2 days. Please make an appointment see your doctor in 1 to 2 days for reevaluation. The following information is given to patients seen in the emergency department who are being discharged to home. This information is to outline your options for follow-up care. We provide all patients seen in our emergency department with a follow-up referral. The need for follow-up, as well as the timing and circumstances, are variable depending upon the specifics of your emergency department visit. If you don't have a primary care physician on staff, we will provide you with a referral. We always advise you to contact your personal physician following an emergency department visit to inform them of the circumstance of the visit and for follow-up with them and/or the need for any referrals to a consulting specialist. The emergency department will also refer you to a specialist when appropriate. This referral assures that you have the opportunity for follow-up care with a specialist. All of these measure are taken in an effort to provide you with optimal care, which includes your follow-up. Under all circumstances we always encourage you to contact your private physician who remains a resource for coordinating your care. When calling for follow-up care, please make the office aware that this follow-up is from your recent emergency room visit. If for any reason you are refused follow-up, please contact the [facility] Emergency Department at and asked to speak to the emergency department charge nurse. [facility] - Primary Care [address] [place] [address] [id number] [address] [address] Sepsis Event Note (ED) - Evaluation Sepsis Screening Result: Possible Sepsis Risk - Focused Exam Vital Signs: Vital Signs Temp Pulse Resp BP Pulse Ox 06/18/20 03:35 100 20 112/73 100 06/18/20 02:52 97.2 F 110 H 24 H 117/84 96 - My Orders Last 24 Hours: My Active Orders 06/18/20 02:53 Sodium Chloride 0.9% [Normal Saline] 1,000 ml IV .Bolus Sodium Chloride 0.9% [Saline Flush] 10 ml FLUSH ASDIRECTED PRN Sodium Chloride 0.9% [Saline Flush] 2.5 ml FLUSH ASDIRECTED PRN Saline Lock Insert [OM.PC] Stat - Assessment/Plan Last 24 Hours: My Active Orders 06/18/20 02:53 Sodium Chloride 0.9% [Normal Saline] 1,000 ml IV .Bolus Sodium Chloride 0.9% [Saline Flush] 10 ml FLUSH ASDIRECTED PRN Sodium Chloride 0.9% [Saline Flush] 2.5 ml FLUSH ASDIRECTED PRN Saline Lock Insert [OM.PC] Stat
[2020-06-18 04:25] VITALS: BP 127/74; PULSE 95
== END 2020-06-18 04:26 | disposition home or self-care (01) ==
LOC: MW.ED 02:42
DX: J45.901 Unspecified asthma with (acute) exacerbation (principal); K21.9 Gastro-esophageal reflux disease without esophagitis; E66.9 Obesity, unspecified; Z88.5 Allergy status to narcotic agent; Z88.1 Allergy status to other antibiotic agents; Z88.6 Allergy status to analgesic agent; Z91.018 Allergy to other foods; Z79.899 Other long term (current) drug therapy; Z68.41 Body mass index [BMI] 40.0-44.9, adult
CPT/HCPCS: 36415; 71045; 80053; 85025; 96374; 99285; A9270; J2930; J7030; 99283; J7620-GY

== ENCOUNTER 2020-08-17 12:50 | Emergency (ER) | payer BC ==
[2020-08-17 12:59] VITALS: BP 160/55; PULSE 111
--- NOTE | 2020-08-17 13:11 | EDM.PDOC ---
ED HPI GENERAL MEDICAL PROBLEM - General Chief Complaint: Back Pain or Injury Stated Complaint: SOB Time Seen by Provider: 08/17/20 13:01 Source of Information: Reports: Patient History Limitations: Reports: Uncooperative - History of Present Illness INITIAL COMMENTS - FREE TEXT/NARRATIVE: A 34-year-old female who presented today for evaluation. When I walked into the room I introduced myself as Dr. Saleh and asked the patient how we could help her today she then started to scream and states what the F does not look like I am having a F in asthma attack. I asked the patient what the issue was then she continue to be upset and continue to scream at me and yelling in the ER. We did ask patient to lower her voice which she states that this is how she talks when she is upset and not happy and she will continue to speak this way. We did ask the patient if we can start over the conversation over ad what was bothering her she states she had been waiting in the room for 5 minutes before she saw provider. She then asked me to stop asking her questions and reviewed the chart. I then again asked patient to start a conversation over she then said "screw this" and walk out stating I'll go be seen somewhere else. We told the patient we would be happy to take care of her if she would like to come back in and she continue to walk out. middle back Pain Score (Numeric/FACES): 10 - Related Data Allergies Allergy/AdvReac Type Severity Reaction Status Date / Time codeine Allergy Severe Swelling Verified 08/17/20 13:08 cephalexin [From Keflex] Allergy Other Verified 08/17/20 13:08 ibuprofen Allergy Other Verified 08/17/20 13:08 mushroom Allergy Swelling Uncoded 08/17/20 13:08 Home Meds: Home Meds Cetirizine [ZyrTEC] 10 mg PO DAILY 05/11/15 [History] Albuterol Sulfate 2.5 mg INH ASDIRECTED PRN 01/04/19 [History] Albuterol [Proventil HFA] 1 puff INH ASDIRECTED PRN 01/04/19 [History] Fluticasone/Vilanterol [Breo Ellipta 200-25 MCG Inhalation Kit] 1 dose INH DAILY 01/04/19 [History] Tiotropium Gerald [Spiriva Respimat] 1 dose INH ASDIRECTED 01/04/19 [History] Montelukast [Singulair] 10 mg PO DAILY 12/27/19 [History] Phentermine HCl 37.5 mg PO DAILY 12/27/19 [History] Azithromycin [Zithromax] 250 mg PO DAILY #4 tablet 06/18/20 [Rx] Omeprazole 20 mg PO DAILY 06/18/20 [History] predniSONE [Prednisone] 1 dose PO ASDIRECTED 06/18/20 [History] predniSONE [Prednisone] 50 mg PO DAILY #5 tablet 06/18/20 [Rx] Past Medical History HEENT History: Reports: Other (See Below) Other HEENT History: wears glasses, contacts Cardiovascular History: Reports: None Respiratory History: Reports: Asthma Other Respiratory History: uses rescue inhaler daily Gastrointestinal History: Reports: GERD Genitourinary History: Reports: Renal Calculus Other Genitourinary History: currently has kidney stone 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: Reports: 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, Musculoskeletal History: Reports: None Other Musculoskeletal History: carpal tunnel Neurological History: Reports: Migraines, Other (See Below) Other Neuro History: hx of motion sickness Psychiatric History: Reports: PTSD Endocrine/Metabolic History: Reports: Obesity/BMI 30+ Insulin Pump Model and Sales And Marketing 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: None Hematologic History: Reports: None Immunologic History: Reports: None Oncologic (Cancer) History: Reports: None Dermatologic History: Reports: None - Infectious Disease History Infectious Disease History: Reports: Chicken Pox - Past Surgical History Head Surgeries/Procedures: Reports: None HEENT Surgical History: Reports: Naso-Sinus Surgery, Oral Surgery, Tonsillectomy Other HEENT Surgeries/Procedures: wisdom teeth Cardiovascular Surgical History: Reports: None Respiratory Surgical History: Reports: None GI Surgical History: Reports: Cholecystectomy Female Surgical History: Reports: Section Endocrine Surgical History: Reports: None Neurological Surgical History: Reports: None Musculoskeletal Surgical History: Reports: None Other Musculoskeletal Surgeries/Procedures:: carpal tunnel surgery 11/11/2016 Dermatological Surgical History: Reports: None Social & Family History - Family History Family Medical History: No Pertinent Family History HEENT: Reports: Glaucoma Cardiac: Reports: None Respiratory: Reports: Asthma GI: Reports: Other (See Below) Other GI Family History: ulcers OBGYN: Reports: 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, Recurrent Spontaneous Musculoskeletal: Reports: Fibromyalgia Endocrine/Metabolic: Reports: Diabetes, type II Dermatologic: Reports: Eczema Oncologic: Reports: Breast, Lung - Caffeine Use Caffeine Use: Reports: None Caffeine Use Comment: 2-3drinks/day - Recreational Drug Use Recreational Drug Use: No ED ROS GENERAL - Review of Systems Review Of Systems: Unable To Obtain Reason Not Obtained: pt walked out ED EXAM, GENERAL - Physical Exam Exam: Not Obtained Reason Not Obtained: pt walked out Course - Vital Signs Last Recorded V/S: Last Vital Signs Temp 97.8 F 08/17/20 12:56 Pulse 111 H 08/17/20 12:56 Resp 16 08/17/20 12:56 BP 160/55 H 08/17/20 12:56 Pulse Ox 95 08/17/20 12:56 Departure - Departure Time of Disposition: 13:27 Disposition: Eloped 07 Condition: Good Clinical Impression: General medical exam - Discharge Information *PRESCRIPTION DRUG MONITORING PROGRAM REVIEWED*: Not Applicable *COPY OF PRESCRIPTION DRUG MONITORING REPORT IN PATIENT GINGER: Not Applicable Referrals: Siddhartha Urbina MD [Primary Care Provider] - Forms: ED Department Discharge Sepsis Event Note (ED) - Evaluation Sepsis Screening Result: No Definite Risk - Focused Exam Vital Signs: Vital Signs Temp Pulse Resp BP Pulse Ox 08/17/20 12:56 97.8 F 111 H 16 160/55 H 95
[2020-08-18] MEDS ORDERED: Albuterol/Ipratropium 3.0-0.5 MG/3 ML Neb Soln ONE (21:39)
== END 2020-08-17 13:10 | disposition left against medical advice (07) ==
LOC: MW.ED 12:50
DX: R06.02 Shortness of breath (principal); Z53.21 Procedure and treatment not carried out due to patient leaving prior to being seen by health care provider
CPT/HCPCS: 99282

== ENCOUNTER 2020-08-18 21:41 | Observation (INO) | payer BC ==
[2020-08-18] MEDS ORDERED: Ketorolac 15 MG/ML SDV IM ONE (21:50)
[2020-08-18 22:07] LABS: BLOOD UREA NITROGEN,BUN 6 mg/dL (7.0-18.0); CARBON DIOXIDE,CO2 27.6 mmol/L (21.0-32.0); CHLORIDE,CL 106 mmol/L (98-107); GLUCOSE RANDOM 124 mg/dL (74-106); POTASSIUM,K 3.8 mmol/L (3.5-5.1); SODIUM,NA 142 mmol/L (136-145)
[2020-08-18] MEDS: Albuterol/Ipratropium 3.0-0.5 MG/3 ML Neb Soln NEB ONE ×2 (22:14→22:26)
--- NOTE | 2020-08-18 22:20 | CR ---
INDICATION: Shortness of breath TECHNIQUE: Chest radiograph 1 view COMPARISON: 06/18/2020 FINDINGS: Moderate degradation of image quality noted due to body habitus. Mediastinum: The mediastinum is normal in appearance. The heart silhouette is normal in size and morphology. Lung: Both lungs are unremarkable in appearance. No sign of pleural effusion seen. No pneumothorax is identified. Bone and Soft tissue: Unremarkable for age. IMPRESSION: 1. No acute cardiopulmonary disease is seen. Dictated by: Fred Bruner MD @ 08/18/2020 22:19:57 (Electronically Signed)
[2020-08-18] MEDS ORDERED: Albuterol/Ipratropium 3.0-0.5 MG/3 ML Neb Soln NEB ONE (22:31)
[2020-08-18] MEDS ORDERED: Magnesium Sulfate (4.06 MEQ/ML) 5 GM/10 ML SDV IV STA (23:10)
[2020-08-18] MEDS ORDERED: Magnesium Sulfate/Water 2 GM/50 ML BAG IV STA (23:17)
[2020-08-19] MEDS ORDERED: Ondansetron 4 MG/2 ML SDV IVPUSH PRN (01:26)
[2020-08-19] MEDS ORDERED: Albuterol/Ipratropium 3.0-0.5 MG/3 ML Neb Soln NEB ONE (02:01)
[2020-08-19] MEDS: methylPREDNISolone Sodium Succinate 40 MG/1 ML SDV IVPUSH SCH ×3 (02:32→17:20)
[2020-08-19] MEDS: Albuterol/Ipratropium 3.0-0.5 MG/3 ML Neb Soln NEB SCH ×6 (02:33→23:02)
[2020-08-19] MEDS: Enoxaparin 40 MG/0.4 ML Syringe SUBCUT SCH (02:33)
[2020-08-19] MEDS ORDERED: Acetaminophen 500 MG Tab PO ONE (02:54)
[2020-08-19] MEDS: Lactated Ringers 1,000 ML IV SCH ×3 (04:03→21:13)
--- NOTE | 2020-08-19 04:28 | EDM.PDOC ---
ED HPI GENERAL MEDICAL PROBLEM - General Chief Complaint: Respiratory Problem Stated Complaint: ems Time Seen by Provider: 08/18/20 21:42 - History of Present Illness INITIAL COMMENTS - FREE TEXT/NARRATIVE: CHIEF COMPLAINT(S): Asthma HISTORY OF PRESENT ILLNESS: This is a 34-year-old woman with a past medical history of asthma who comes to the emergency department with a chief complaint of asthma. The patient was brought in by EMS. Per EMS: On arrival the patient was tripoding and vomiting into a bucket. They stated that her oxygen saturation was okay but she was tachypneic in route. They stated that they gave 2 DuoNeb treatments and 125 mg of Solu-Medrol. Patient states that since yesterday she has been experiencing worsening asthma. She states that she does not have any fevers or chills, but does state that she does have sharp chest pain that radiates around her chest to her back. She states it is exacerbated by her deep breathing. She denies any numbness, tingling, weakness. She denies any diaphoresis. She states that she ran out of her inhalers 2 days ago. She rates her pain as 10 out of 10. She states that taking deep breaths exacerbate it. She denies any relieving factors. REVIEW OF SYSTEMS: Constitutional: Denies fever, chills. Eyes: Denies eye pain Ears, Nose, Mouth, & Throat: Denies earache Cardiovascular: Positive for pleuritic chest pain Respiratory: Positive for shortness of breath and wheezing Gastrointestinal: Denies Nausea, vomiting, diarrhea, hematochezia. Genitourinary: Denies hematuria Skin:Denies a rash MSK: Denies joint pain Neurological: Positive for headache. Denies blurred vision, numbness, tingling, weakness Psychiatric: Denies depression PAST MEDICAL HISTORY: As per history of present illness and as reviewed below otherwise noncontributory. SURGICAL HISTORY: As per history of present illness and as reviewed below otherwise noncontributory. SOCIAL HISTORY: As per history of present illness and as reviewed below otherwise noncontributory. FAMILY HISTORY: As per history of present illness and as reviewed below otherwise noncontributory. EXAMINATION OF ORGAN SYSTEMS/BODY AREAS: Constitutional: Blood pressure was 143/75, heart rate 101, respiratory rate 18 with an oxygen saturation of 100% after DuoNeb treatment. Temperature 36.4 General: Young woman who appears to be in a moderate amount of respiratory distress Psychiatric: Appropriate mood and affect. Eyes: No scleral icterus or conjunctival erythema ENMT: Moist mucous membranes. No pharyngeal erythema Cardiovascular: Tachycardic but regular no gallops, murmurs, or rubs. Bilateral upper extremity pulses symmetric and intact. No peripheral edema. No JVD. Respiratory: This patient is speaking in 1-2 word sentences. The patient is sitting in a tripod position. The patient has audible wheezing with prolonged expiratory phase. On lung auscultation the patient did have bilateral inspiratory and expiratory wheezing. No crackles noted. Gastrointestinal: Soft, non-tender, non-distended. Normoactive bowel sounds Genitourinary: No suprapubic tenderness Musculoskeletal: Normal range of motion. Skin: No lesions or abrasions. Neurological: Alert, GCS 15 MEDICAL DECISION MAKING AND COURSE IN THE ED WITH INTERPRETATION/REVIEW OF DIAGNOSTIC STUDIES: This is a 34-year-old woman with a past medical history of asthma who comes to the emergency department with acute asthma exacerbation who is tripoding with normal saturation but appears to be in a moderate amount of respiratory distress. At this time we will provide the patient with an additional DuoNeb treatment. We will start the patient on BiPAP with initial settings of 10, 5, 40%. The patient has artery received Solu-Medrol 125 mg in route and 2 DuoNeb treatments. We will provide the patient with Toradol for pain relief. On the quality assurance monitor body the patient was sinus rhythm at a tachycardic rate and pulse oximetry was 95% with good waveform. We will reevaluate after DuoNeb treatment with BiPAP. After third DuoNeb treatment and placement on BiPAP the patient did appear to be in less respiratory distress with improved aeration of the lungs. At this time we will continue with BiPAP for work of breathing. We did provide an additional DuoNeb treatment through BiPAP. Laboratory: CBC reveals a microcytic anemia with a hemoglobin of 11 and hematocrit of 34.9 which is unchanged from prior. There is eosinophilia with an eosinophil number count of 1.7 which is high. BMP is unremarkable. Covid is negative. The radiological images were viewed by myself along with reading the report from the radiologist. Chest x-ray does not reveal any acute cardiopulmonary process. Patient is observed in the emergency department however the patient did require supplemental oxygenation although her lung sounds did improve with the patient being able to be weaned off BiPAP. The patient was able to speak in full sentences and appeared more comfortable at this time. Given the hypoxia and likely additional need for further treatment given the severe asthma exacerbation I did discuss admission with the patient. She was amenable to this plan. Therefore I contacted hospitalist Dr. Edwards who accepted the patient for admission. DISPOSITION: The patient was admitted to the hospital in stable condition CONDITION: Serious PROCEDURES: Cardiac monitoring interpretation, pulse oximetry interpretation FINAL IMPRESSION(S)/DIAGNOSES: 1. Acute hypoxic respiratory failure requiring noninvasive positive pressure ventilation secondary to acute asthma exacerbation 2. Acute severe persistent asthma exacerbation Critical Care Procedure Note Authorized and performed by: Thien Joya M.D. Critical Care Time: 35 minutes Due to a high probability of clinically significant, life threatening deter ioration, the patient required my highest level of preparedness to intervene emergently and I personally spent this critical care time directly and personally managing the patient. This critical care time included obtaining a history, examining the patient, pulse oximetry; ordering and review of studies; arranging urgent treatment with development of a management plan; evaluation of a patients reponse to treatment; frequent assessment; and discussions with other providers. This critical care time was performed to assess and manage the high probability of imminent, life threatening deterioration that could result in multiorgan failure. It was exclusive of separate billable procedures and treating other patients. Please see MDM section and rest of the note for further information on patient assessment and treatment. Thien Joya M.D. head, neck, back, chest, Pain Score (Numeric/FACES): 10 - Related Data Allergies Allergy/AdvReac Type Severity Reaction Status Date / Time codeine Allergy Severe Swelling Verified 08/19/20 03:25 amoxicillin [From Augmentin] Allergy Nausea and Verified 08/19/20 03:25 Vomiting cephalexin [From Keflex] Allergy Other Verified 08/19/20 03:25 clavulanic acid Allergy Nausea and Verified 08/19/20 03:25 [From Augmentin] Vomiting ibuprofen Allergy Other Verified 08/19/20 03:25 mushroom Allergy Swelling Uncoded 08/19/20 03:25 Home Meds: Home Meds Cetirizine [ZyrTEC] 10 mg PO DAILY 05/11/15 [History] Albuterol Sulfate 2.5 mg INH ASDIRECTED PRN 01/04/19 [History] Albuterol [Proventil HFA] 1 puff INH ASDIRECTED PRN 01/04/19 [History] Fluticasone/Vilanterol [Breo Ellipta 200-25 MCG Inhalation Kit] 1 dose INH DAILY 01/04/19 [History] Montelukast [Singulair] 10 mg PO DAILY 12/27/19 [History] Phentermine HCl 37.5 mg PO DAILY 12/27/19 [History] Omeprazole 20 mg PO DAILY 06/18/20 [History] Past Medical History HEENT History: Reports: Other (See Below) Other HEENT History: wears glasses, contacts Cardiovascular History: Reports: None Respiratory History: Reports: Asthma Other Respiratory History: uses rescue inhaler daily Gastrointestinal History: Reports: GERD Genitourinary History: Reports: Renal Calculus Other Genitourinary History: currently has kidney stone TOP SPOTTER History: Reports: 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, Musculoskeletal History: Reports: None Other Musculoskeletal History: carpal tunnel Neurological History: Reports: Migraines, Other (See Below) Other Neuro History: hx of motion sickness Psychiatric History: Reports: PTSD Endocrine/Metabolic History: Reports: Obesity/BMI 30+ 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 Hematologic History: Reports: None Immunologic History: Reports: None Oncologic (Cancer) History: Reports: None Dermatologic History: Reports: None - Infectious Disease History Infectious Disease History: Reports: Chicken Pox - Past Surgical History Head Surgeries/Procedures: Reports: None HEENT Surgical History: Reports: Naso-Sinus Surgery, Oral Surgery, Tonsillectomy Other HEENT Surgeries/Procedures: wisdom teeth Cardiovascular Surgical History: Reports: None Respiratory Surgical History: Reports: None GI Surgical History: Reports: Cholecystectomy Female Surgical History: Reports: Section Endocrine Surgical History: Reports: None Neurological Surgical History: Reports: None Musculoskeletal Surgical History: Reports: None Other Musculoskeletal Surgeries/Procedures:: carpal tunnel surgery 11/11/2016 Dermatological Surgical History: Reports: None Social & Family History - Family History Family Medical History: No Pertinent Family History HEENT: Reports: Glaucoma Cardiac: Reports: None Respiratory: Reports: Asthma GI: Reports: Other (See Below) Other GI Family History: ulcers OBGYN: Reports: 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, Recurrent Spontaneous Musculoskeletal: Reports: Fibromyalgia Endocrine/Metabolic: Reports: Diabetes, type II Dermatologic: Reports: Eczema Oncologic: Reports: Breast, Lung - Tobacco Use Tobacco Use Status *Q: Unknown Ever Used Tobacco - Caffeine Use Caffeine Use: Reports: None Caffeine Use Comment: 2-3drinks/day ED ROS GENERAL - Review of Systems Review Of Systems: See Below ED EXAM, GENERAL - Physical Exam Exam: See Below Course - Vital Signs Last Recorded V/S: Last Vital Signs Temp 36.4 C 08/19/20 03:15 Pulse 96 08/19/20 03:15 Resp 18 08/19/20 03:15 BP 140/76 08/19/20 03:15 Pulse Ox 96 08/19/20 03:15 - Orders/Labs/Meds Orders: Active Orders 24 hr Category Date Time Status BIPAP Adult [RT BiPAP/CPAP] [RC] CONTINUOUS Care 08/18/20 21:45 Active Cardiac Monitoring [RC] . DIRECTED Care 08/18/20 21:44 Active Pulse Oximetry [RC] ASDIRECTED Care 08/18/20 21:44 Active RT Aerosol Therapy [RC] ASDIRECTED Care 08/18/20 21:49 Active RT Aerosol Therapy [RC] ASDIRECTED Care 08/18/20 22:31 Active Medication Orders Acetaminophen (Acetaminophen 325 Mg Tab) 650 mg PO Q4H PRN PRN Reason: Pain (Mild 1-3)/fever Albuterol/Ipratropium (Albuterol/Ipratropium 3.0-0.5 Mg/3 Ml Neb Soln) 3 ml NEB Q4HRRT [facility] Last Admin: 08/19/20 02:33 Dose: Not Given Documented by: ADELAIDE Enoxaparin Sodium (Enoxaparin 40 Mg/0.4 Ml Syringe) 40 mg SUBCUT Q24H [facility] Last Admin: 08/19/20 02:33 Dose: 40 mg Documented by: ADELAIDE Lactated Ringer's (Ringers, Lactated) 1,000 mls @ 125 mls/hr IV ASDIRECTED [facility] Last Admin: 08/19/20 04:03 Dose: 125 mls/hr Documented by: VEL Methylprednisolone Sodium Succinate (Methylprednisolone Sodium Succinate 40 Mg/1 Ml Sdv) 40 mg IVPUSH Q8H [facility] Last Admin: 08/19/20 02:32 Dose: 40 mg Documented by: ADELAIDE Ondansetron HCl (Ondansetron 4 Mg/2 Ml Sdv) 4 mg IVPUSH Q4H PRN PRN Reason: Nausea/Vomiting Pantoprazole Sodium (Pantoprazole 40 Mg Vial) 40 mg IV DAILY TIFFANY Labs: Laboratory Tests 08/18/20 08/18/20 08/18/20 Range/Units 21:45 21:45 23:11 WBC 9.40 (4.0-11.0) K/uL RBC 4.70 (4.30-5.90) M/uL Hgb 11.0 L (12.0-16.0) g/dL Hct 34.9 L (36.0-46.0) % MCV 74.3 L (80.0-98.0) fL MCH 23.4 L (27.0-32.0) pg MCHC 31.5 (31.0-37.0) g/dL RDW Std Deviation 41.9 (28.0-62.0) fl RDW Coeff of Shaniqua 15 (11.0-15.0) % Plt Count 346 (150-400) K/uL MPV 9.50 (7.40-12.00) fL Neut % (Auto) 51.3 (48.0-80.0) % Lymph % (Auto) 23.1 (16.0-40.0) % [facility] [place] [facility] % (Auto) 6.4 (0.0-15.0) % Eos % (Auto) 18.1 H (0.0-7.0) % Baso % (Auto) 1.1 (0.0-1.5) % Neut # (Auto) 4.8 (1.4-5.7) K/uL Lymph # (Auto) 2.2 (0.6-2.4) K/uL [facility] # (Auto) 0.6 (0.0-0.8) K/uL Eos # (Auto) 1.7 H (0.0-0.7) K/uL Baso # (Auto) 0.1 (0.0-0.1) K/uL Nucleated RBC % 0.0 /100WBC Nucleated RBCs # 0 K/uL Sodium 142 (136-145) mmol/L Potassium 3.8 (3.5-5.1) mmol/L Chloride 106 (98-107) mmol/L Carbon Dioxide 27.6 (21.0-32.0) mmol/L BUN 6 L (7.0-18.0) mg/dL Creatinine 0.9 (0.6-1.0) mg/dL Est Cr Clr Drug Dosing 80.90 mL/min Estimated GFR (MDRD) > 60.0 ml/min Glucose 124 H (74-106) mg/dL Calcium 8.7 (8.5-10.1) mg/dL SARS-CoV-2 RNA (PINEDA) NEGATIVE (NEGATIVE) Meds: Medications Generic Name Dose Route Start Last Admin Trade Name Pau PRN Reason Stop Dose Admin Acetaminophen 650 mg 08/19/20 01:26 Acetaminophen 325 Mg Tab PO Q4H PRN Pain (Mild 1-3)/fever Albuterol/Ipratropium 3 ml 08/19/20 02:00 08/19/20 02:33 Albuterol/Ipratropium 3.0-0.5 Mg/3 Ml Neb Soln NEB Not Given Q4HRRT TIFFANY Enoxaparin Sodium 40 mg 08/19/20 01:30 08/19/20 02:33 Enoxaparin 40 Mg/0.4 Ml Syringe SUBCUT 40 mg Q24H TIFFANY Administration Lactated Ringer's 1,000 mls @ 125 mls/hr 08/19/20 01:30 08/19/20 04:03 Ringers, Lactated IV 125 mls/hr ASDIRECTED TIFFANY Administration Methylprednisolone Sodium Succinate 40 mg 08/19/20 01:30 08/19/20 02:32 Methylprednisolone Sodium Succinate 40 Mg/1 Ml Sdv IVPUSH 40 mg Q8H TIFFANY Administration Ondansetron HCl 4 mg 08/19/20 01:26 Ondansetron 4 Mg/2 Ml Sdv IVPUSH Q4H PRN Nausea/Vomiting Pantoprazole Sodium 40 mg 08/19/20 09:00 Pantoprazole 40 Mg Vial IV DAILY TIFFANY Discontinued Medications Generic Name Dose Route Start Last Admin Trade Name Pau PRN Reason Stop Dose Admin Acetaminophen 1,000 mg 08/19/20 02:54 08/19/20 03:04 Acetaminophen 500 Mg Tab PO 08/19/20 02:55 1,000 mg ONETIME ONE Administration Albuterol/Ipratropium 3 ml 08/18/20 21:49 08/18/20 22:26 Albuterol/Ipratropium 3.0-0.5 Mg/3 Ml Neb Soln NEB 08/18/20 21:50 3 ml ONETIME ONE Administration Albuterol/Ipratropium 3 ml 08/18/20 22:31 08/18/20 22:41 Albuterol/Ipratropium 3.0-0.5 Mg/3 Ml Neb Soln NEB 08/18/20 22:32 Not Given ONETIME ONE Albuterol/Ipratropium 3 ml 08/19/20 02:01 08/19/20 02:33 Albuterol/Ipratropium 3.0-0.5 Mg/3 Ml Neb Soln NEB 08/19/20 02:02 3 ml ONETIME ONE Administration Magnesium Sulfate 2 gm in 50 mls @ 50 mls/hr 08/18/20 23:17 08/18/20 23:38 Magnesium Sulfate In Water 2 Gm/50 Ml IV 08/19/20 00:16 50 mls/hr NOW STA Administration Ketorolac Tromethamine 15 mg 08/18/20 21:50 08/18/20 22:12 Ketorolac 15 Mg/Ml Sdv IM 08/18/20 21:51 15 mg ONETIME ONE Administration Magnesium Sulfate 2 gm 08/18/20 23:10 Magnesium Sulfate (4.06 Meq/Ml) 5 Gm/10 Ml Sdv IV 08/18/20 23:11 ONETIME STA Departure - Departure Time of Disposition: 01:09 Disposition: Still A Patient 30 Condition: Serious Clinical Impression: Asthma with status asthmaticus - Discharge Information Sepsis Event Note (ED) - Evaluation Sepsis Screening Result: No Definite Risk - Focused Exam Vital Signs: Vital Signs Temp Pulse Resp BP Pulse Ox 08/19/20 00:39 97 132/77 92 L 08/18/20 23:39 99 150/84 H 97 08/18/20 21:47 36.4 C 101 H 18 143/75 H 100 - My Orders Last 24 Hours: My Active Orders 08/18/20 21:44 Cardiac Monitoring [RC] . DIRECTED Pulse Oximetry [RC] ASDIRECTED 08/18/20 21:45 BIPAP Adult [RT BiPAP/CPAP] [RC] CONTINUOUS 08/18/20 21:49 RT Aerosol Therapy [RC] ASDIRECTED 08/18/20 22:31 RT Aerosol Therapy [RC] ASDIRECTED - Assessment/Plan Last 24 Hours: My Active Orders 08/18/20 21:44 Cardiac Monitoring [RC] . DIRECTED Pulse Oximetry [RC] ASDIRECTED 08/18/20 21:45 BIPAP Adult [RT BiPAP/CPAP] [RC] CONTINUOUS 08/18/20 21:49 RT Aerosol Therapy [RC] ASDIRECTED 08/18/20 22:31 RT Aerosol Therapy [RC] ASDIRECTED
[2020-08-19 06:12] LABS: BLOOD UREA NITROGEN,BUN 7 mg/dL (7.0-18.0); CARBON DIOXIDE,CO2 23.6 mmol/L (21.0-32.0); CHLORIDE,CL 105 mmol/L (98-107); GLUCOSE RANDOM 236 mg/dL (74-106); SODIUM,NA 139 mmol/L (136-145)
[2020-08-19] MEDS ORDERED: Sodium Chloride 0.9% 2.5 ML Syringe FLUSH PRN (08:16)
--- NOTE | 2020-08-19 08:19 | PCM.HP.2 ---
H&P History of Present Illness - General Date of Service: 08/19/20 Admit Problem/Dx: Admission Diagnosis/Problem Admission Diagnosis/Problem Asthma attack Source of Information: Patient History Limitations: Reports: No Limitations - History of Present Illness Initial Comments - Free Text/Narative: This 34-year-old female with past medical history of chronic migraines along with moderate to severe uncontrolled asthma presented to the ER after multiple ER presentations for worsening shortness of breath and asthma exacerbation. She was noted to be satting well with no hypoxia but was in significant respiratory distress. She was treated with magnesium along with multiple duo nebs. She reports that over the last month her asthma has significantly worsened and she has been using nebulizers and her rescue inhaler almost constantly. She has ran out of 2 inhalers in the last 2 weeks. She reports that she is allergic to nearly everything and is normally wheezy at baseline. She reports that she is out of her Breo and has not been using that recently. She has been using albuterol ipratropium and Ventolin at home to help maintain her respiratory status. She denies seeing pulmonology recently but has been seen by machine clothing replacer. She reports that she thinks this exacerbation is caused by some black mold within her living facility that the [facility] does not want to acknowledge. She does not smoke. Rare alcohol use and no recreational drug use. In the ER no leukocytosis noted. BMP within normal limits Covid negative. Chest x-ray negative for any acute cardiopulmonary process including pneumonia. Again in the ER she was treated with multiple duo nebs along with magnesium IV. She was also given Solu-Medrol 125 mg in the ambulance on the way over. She was also noted to have migraine in the ER and was given 15 mg of Toradol. She will be admitted for acute asthma exacerbation. head, neck, back, chest, Pain Score (Numeric/FACES): 10 - Related Data Allergies/Adverse Reactions: Allergies Allergy/AdvReac Type Severity Reaction Status Date / Time codeine Allergy Severe Swelling Verified 08/19/20 03:25 amoxicillin [From Augmentin] Allergy Nausea and Verified 08/19/20 03:25 Vomiting cephalexin [From Keflex] Allergy Other Verified 08/19/20 03:25 clavulanic acid Allergy Nausea and Verified 08/19/20 03:25 [From Augmentin] Vomiting ibuprofen Allergy Other Verified 08/19/20 03:25 mushroom Allergy Swelling Uncoded 08/19/20 03:25 Home Medications: Home Meds Cetirizine [ZyrTEC] 10 mg PO DAILY 05/11/15 [History] Albuterol Sulfate 2.5 mg NEB Q4H PRN 01/04/19 [History] Albuterol [Proventil HFA] 1 puff INH ASDIRECTED PRN 01/04/19 [History] Fluticasone/Vilanterol [Breo Ellipta 200-25 MCG Inhalation Kit] 1 dose INH DAILY 01/04/19 [History] Montelukast [Singulair] 10 mg PO DAILY 12/27/19 [History] Phentermine HCl 37.5 mg PO DAILY 12/27/19 [History] Omeprazole 20 mg PO DAILY 06/18/20 [History] Past Medical History HEENT History: Reports: Other (See Below) Other HEENT History: wears glasses, contacts Cardiovascular History: Reports: None. 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: Reports: 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, Musculoskeletal History: Reports: None Other Musculoskeletal History: carpal tunnel Neurological History: Reports: Migraines, Other (See Below) Other Neuro History: hx of motion sickness Psychiatric History: Reports: PTSD Endocrine/Metabolic History: Reports: Obesity/BMI 30+ Insulin Pump Model and Property Field Adjuster: None Hematologic History: Reports: None Immunologic History: Reports: None Oncologic (Cancer) History: Reports: None Dermatologic History: Reports: None - Infectious Disease History Infectious Disease History: Reports: Chicken Pox - Past Surgical History Head Surgeries/Procedures: Reports: None HEENT Surgical History: Reports: Naso-Sinus Surgery, Oral Surgery, Tonsillectomy Other HEENT Surgeries/Procedures: wisdom teeth Cardiovascular Surgical History: Reports: None Respiratory Surgical History: Reports: None GI Surgical History: Reports: Cholecystectomy Female Surgical History: Reports: Section Endocrine Surgical History: Reports: None Neurological Surgical History: Reports: None Musculoskeletal Surgical History: Reports: None Other Musculoskeletal Surgeries/Procedures:: carpal tunnel surgery 11/11/2016 Dermatological Surgical History: Reports: None Social & Family History - Family History Family Medical History: No Pertinent Family History HEENT: Reports: Glaucoma Cardiac: Reports: None Respiratory: Reports: Asthma GI: Reports: Other (See Below) Other GI Family History: ulcers OBGYN: Reports: 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, Recurrent Spontaneous Musculoskeletal: Reports: Fibromyalgia Endocrine/Metabolic: Reports: Diabetes, type II Dermatologic: Reports: Eczema Oncologic: Reports: Breast, Lung - Tobacco Use Tobacco Use Status *Q: Never Tobacco User - Caffeine Use Caffeine Use: Reports: Soda Caffeine Use Comment: 2-3drinks/day - Alcohol Use Alcohol Use History: No - Recreational Drug Use Recreational Drug Use: No - Living Situation & Occupation Living situation: Reports: H&P Review of Systems - Review of Systems: Review Of Systems: See Below General: Reports: Weakness. Denies: Fever, Chills HEENT: Reports: Headaches (Migraine at this time. Normal chronic migraine she reports that she takes large amount of Tylenol daily for these.). Denies: Sinus Congestion, Sore Throat, Vertigo Pulmonary: Reports: Shortness of Breath, Wheezing, Pleuritic Chest Pain (With deep breathing and coughing), Cough. Denies: Sputum, Hemoptysis Gastrointestinal: Reports: No Symptoms. Denies: Abdominal Pain, Black Stool, Bloody Stool, Nausea, Vomiting Genitourinary: Reports: No Symptoms. Denies: Dysuria, Frequency Musculoskeletal: Reports: No Symptoms Skin: Reports: No Symptoms Psychiatric: Reports: No Symptoms Neurological: Reports: No Symptoms Hematologic/Lymphatic: Reports: No Symptoms Immunologic: Reports: Environmental Allergy, Grass Allergy, Mold Allergy Exam - Exam Exam: See Below - Vital Signs Vital Signs: Last Vital Signs Temp 97.4 F 08/19/20 08:00 Pulse 103 H 08/19/20 08:00 Resp 20 08/19/20 08:00 BP 128/84 08/19/20 08:00 Pulse Ox 92 L 08/19/20 08:00 Weight: 111.448 kg - Exam Quality Assessment: Supplemental Oxygen (2 L), DVT Prophylaxis General: Alert, Oriented, Cooperative Neck: Supple, Trachea Midline Lungs: Rhonchi, Wheezing. No: Normal Respiratory Effort (Dyspnea) Cardiovascular: Regular Rate, Regular Rhythm, Normal S1, Normal S2 GI/Abdominal Exam: Normal Bowel Sounds, Soft, Non-Tender Back Exam: Normal Inspection, Full Range of Motion Extremities: Normal Inspection, Normal Range of Motion, Non-Tender, No Pedal Edema Neurological: Cranial Nerves Intact Neuro Extensive - Mental Status: Alert, Oriented x3 Neuro Extensive - Motor, Sensory, Reflexes: CN II-XII Intact Psychiatric: Alert, Normal Affect, Normal Mood - Patient Data Lab Results Last 24 hrs: Laboratory Results - last 24 hr 08/18/20 08/18/20 08/18/20 Range/Units 21:45 21:45 23:11 WBC 9.40 (4.0-11.0) K/uL RBC 4.70 (4.30-5.90) M/uL Hgb 11.0 L (12.0-16.0) g/dL Hct 34.9 L (36.0-46.0) % MCV 74.3 L (80.0-98.0) fL MCH 23.4 L (27.0-32.0) pg MCHC 31.5 (31.0-37.0) g/dL RDW Std Deviation 41.9 (28.0-62.0) fl RDW Coeff of Shaniqua 15 (11.0-15.0) % Plt Count 346 (150-400) K/uL MPV 9.50 (7.40-12.00) fL Neut % (Auto) 51.3 (48.0-80.0) % Lymph % (Auto) 23.1 (16.0-40.0) % Dixie % (Auto) 6.4 (0.0-15.0) % Eos % (Auto) 18.1 H (0.0-7.0) % Baso % (Auto) 1.1 (0.0-1.5) % Neut # (Auto) 4.8 (1.4-5.7) K/uL Lymph # (Auto) 2.2 (0.6-2.4) K/uL Dixie # (Auto) 0.6 (0.0-0.8) K/uL Eos # (Auto) 1.7 H (0.0-0.7) K/uL Baso # (Auto) 0.1 (0.0-0.1) K/uL Nucleated RBC % 0.0 /100WBC Nucleated RBCs # 0 K/uL Sodium 142 (136-145) mmol/L Potassium 3.8 (3.5-5.1) mmol/L Chloride 106 (98-107) mmol/L Carbon Dioxide 27.6 (21.0-32.0) mmol/L BUN 6 L (7.0-18.0) mg/dL Creatinine 0.9 (0.6-1.0) mg/dL Est Cr Clr Drug Dosing 80.90 mL/min Estimated GFR (MDRD) > 60.0 ml/min Glucose 124 H (74-106) mg/dL POC Glucose (70-99) mg/dL Calcium 8.7 (8.5-10.1) mg/dL Phosphorus (2.6-4.7) mg/dL Magnesium (1.8-2.4) mg/dL SARS-CoV-2 RNA (PINEDA) NEGATIVE (NEGATIVE) 08/19/20 08/19/20 08/19/20 Range/Units 05:14 05:14 06:22 WBC 6.24 (4.0-11.0) K/uL RBC 4.74 (4.30-5.90) M/uL Hgb 11.1 L (12.0-16.0) g/dL Hct 34.9 L (36.0-46.0) % MCV 73.6 L (80.0-98.0) fL MCH 23.4 L (27.0-32.0) pg MCHC 31.8 (31.0-37.0) g/dL RDW Std Deviation 41.2 (28.0-62.0) fl RDW Coeff of Shaniqua 15 (11.0-15.0) % Plt Count 318 (150-400) K/uL MPV 9.50 (7.40-12.00) fL Neut % (Auto) 91.3 H (48.0-80.0) % Lymph % (Auto) 7.1 L (16.0-40.0) % Dixie % (Auto) 0.8 (0.0-15.0) % Eos % (Auto) 0.5 (0.0-7.0) % Baso % (Auto) 0.3 (0.0-1.5) % Neut # (Auto) 5.7 (1.4-5.7) K/uL Lymph # (Auto) 0.4 L (0.6-2.4) K/uL Dixie # (Auto) 0.1 (0.0-0.8) K/uL Eos # (Auto) 0.0 (0.0-0.7) K/uL Baso # (Auto) 0.0 (0.0-0.1) K/uL Nucleated RBC % 0.0 /100WBC Nucleated RBCs # 0 K/uL Sodium 139 (136-145) mmol/L Potassium 4.0 (3.5-5.1) mmol/L Chloride 105 (98-107) mmol/L Carbon Dioxide 23.6 (21.0-32.0) mmol/L BUN 7 (7.0-18.0) mg/dL Creatinine 0.9 (0.6-1.0) mg/dL Est Cr Clr Drug Dosing 80.90 mL/min Estimated GFR (MDRD) > 60.0 ml/min Glucose 236 H (74-106) mg/dL POC Glucose 192 H (70-99) mg/dL Calcium 8.4 L (8.5-10.1) mg/dL Phosphorus 1.8 L (2.6-4.7) mg/dL Magnesium 2.1 (1.8-2.4) mg/dL SARS-CoV-2 RNA (PINEDA) (NEGATIVE) Result Diagrams: 08/19/20 05:14 08/19/20 05:14 Sepsis Event Note - Evaluation Sepsis Screening Result: No Definite Risk - Focused Exam Vital Signs: Vital Signs Temp Pulse Resp BP Pulse Ox Pulse Ox 08/19/20 08:00 97.4 F 103 H 20 128/84 92 L 08/19/20 04:00 94 L 08/19/20 03:15 97.6 F 96 18 140/76 96 96 08/19/20 02:30 96 184/106 H 93 L 08/19/20 01:09 97 136/89 91 L 08/19/20 00:39 97 132/77 92 L 08/18/20 23:39 99 150/84 H 97 08/18/20 21:47 97.6 F 101 H 18 143/75 H 100 - Problem List (1) Asthma with status asthmaticus SNOMED Code(s): 372836123 ICD Code: J45.902 - UNSPECIFIED ASTHMA WITH STATUS ASTHMATICUS Status: Acute Current Visit: Yes Qualifiers: Asthma severity: severe Asthma persistence: persistent Qualified Code(s): J45.52 - Severe persistent asthma with status asthmaticus (2) Anxiety SNOMED Code(s): 12959242 ICD Code: F41.9 - ANXIETY DISORDER, UNSPECIFIED Status: Chronic Current Visit: No (3) GERD (gastroesophageal reflux disease) SNOMED Code(s): 300689691 ICD Code: K21.9 - GASTRO-ESOPHAGEAL REFLUX DISEASE WITHOUT ESOPHAGITIS Status: Chronic Current Visit: No (4) Migraine SNOMED Code(s): 37077543 ICD Code: G43.909 - MIGRAINE, UNSP, NOT INTRACTABLE, WITHOUT STATUS MIGRAINOSUS Status: Chronic Current Visit: No Qualifiers: Migraine type: unspecified Status migrainosus presence: without status migrainosus Intractability: not intractable Qualified Code(s): G43.909 - Migraine, unspecified, not intractable, without status migrainosus (5) Environmental and seasonal allergies SNOMED Code(s): 616204104, 012394090, 989182466 ICD Code: J30.89 - OTHER ALLERGIC RHINITIS Status: Chronic Current Visit: Yes Problem List Initiated/Reviewed/Updated: Yes Orders Last 24hrs: Active Orders 24 hr Category Date Time Status Admission Status [Patient Status] [ADT] Stat ADT 08/19/20 01:34 Active Ambulate [RC] ASDIRECTED Care 08/19/20 01:26 Active Antiembolic Devices [RC] PER UNIT ROUTINE Care 08/19/20 01:27 Active Oxygen Therapy [RC] PRN Care 08/19/20 01:26 Active RT Aerosol Therapy [RC] ASDIRECTED Care 08/19/20 01:28 Active VTE/DVT Education [RC] PER UNIT ROUTINE Care 08/19/20 01:26 Active Vital Signs [RC] Q4H Care 08/19/20 01:26 Active Respiratory Care Assess and Treatment [CONS] Routine Cons 08/19/20 08:16 Ordered Regular Diet [DIET] Diet 08/19/20 Breakfast Active Acetaminophen [TylenoL] Med 08/19/20 01:26 Active 650 mg PO Q4H PRN Albuterol/Ipratropium [DuoNeb 3.0-0.5 MG/3 ML] Med 08/19/20 02:00 Active 3 ml NEB Q4HRRT Cetirizine [ZyrTEC] Med 08/19/20 09:00 Ordered 10 mg PO DAILY Enoxaparin [Lovenox] Med 08/19/20 01:30 Active 40 mg SUBCUT Q24H Fluticasone/Vilanterol [Breo Ellipta 200-25 MCG Med 08/19/20 09:00 Ordered Inhalation Kit] 1 dose INH DAILY Lactated Ringers [Ringers, Lactated] 1,000 ml Med 08/19/20 01:30 Active IV ASDIRECTED Montelukast [Singulair] Med 08/19/20 09:00 Ordered 10 mg PO DAILY Omeprazole Med 08/19/20 09:00 Ordered 20 mg PO DAILY Ondansetron [Zofran] Med 08/19/20 01:26 Active 4 mg IVPUSH Q4H PRN Pantoprazole [ProTONIX IV] 40 mg Med 08/19/20 09:00 Stop Req Sodium Chloride 0.9% [Normal Saline] 10 ml IV DAILY Sodium Chloride 0.9% [Saline Flush] Med 08/19/20 08:16 Ordered 2.5 ml FLUSH ASDIRECTED PRN methylPREDNISolone Sod Succ [Solu-MEDROL] Med 08/19/20 01:30 Active 40 mg IVPUSH Q8H Saline Lock Insert [OM.PC] Routine Oth 08/19/20 08:16 Ordered Sequential Compression Device [OM.PC] Per Unit Routine Oth 08/19/20 01:26 Ordered Resuscitation Status Routine Resus Stat 08/19/20 01:26 Ordered Medication Orders Acetaminophen (Acetaminophen 325 Mg Tab) 650 mg PO Q4H PRN PRN Reason: Pain (Mild 1-3)/fever Albuterol/Ipratropium (Albuterol/Ipratropium 3.0-0.5 Mg/3 Ml Neb Soln) 3 ml NEB Q4HRRT [facility] Last Admin: 08/19/20 06:23 Dose: 3 ml Documented by: Admin: 08/19/20 02:33 Dose: Not Given Documented by: ADELAIDE Cetirizine HCl (Cetirizine 10 Mg Tab) 10 mg PO DAILY [facility] Enoxaparin Sodium (Enoxaparin 40 Mg/0.4 Ml Syringe) 40 mg SUBCUT Q24H [facility] Last Admin: 08/19/20 02:33 Dose: 40 mg Documented by: ADELAIDE Lactated Ringer's (Ringers, Lactated) 1,000 mls @ 125 mls/hr IV ASDIRECTED [facility] Last Admin: 08/19/20 04:03 Dose: 125 mls/hr Documented by: VEL Pantoprazole Sodium 40 mg/ (Sodium Chloride) 10 mls @ 200 mls/hr IV DAILY [facility] Methylprednisolone Sodium Succinate (Methylprednisolone Sodium Succinate 40 Mg/1 Ml Sdv) 40 mg IVPUSH Q8H [facility] Last Admin: 08/19/20 02:32 Dose: 40 mg Documented by: ADELAIDE Montelukast Sodium (Montelukast 10 Mg Tab) 10 mg PO BEDTIME [facility] Omeprazole (Omeprazole 20 Mg Cap.Cr) 20 mg PO ACBREAKFAST [facility]FFANY Ondansetron HCl (Ondansetron 4 Mg/2 Ml Sdv) 4 mg IVPUSH Q4H PRN PRN Reason: Nausea/Vomiting Breo Ellipta 200-25 (Mcg Inhalation) 1 each INH DAILY [facility] Assessment/Plan Comment:: This 34-year-old female admitted with severe asthma exacerbation 1. Asthma exacerbation -Continue DuoNebs -Continue IV Solu-Medrol 40 mg every 8 hours -Encourage I-S -Continue Zyrtec and Singulair -Patient uses Breo sounds like she is out if she is unable to get Breo inhaler will start Advair during her hospitalization -Needs follow-up with pulmonology as she likely has poorly controlled asthma -RT consult for improved asthma education and control. 2. Acute migraine -We will give Toradol, Reglan, Benadryl and monitor response -Reports she has taken Imitrex in the past but needs to take this at acute onset which is passed the time. If above cocktail does not work will consider Imitrex subcutaneous GI prophylaxis: Omeprazole VTE prophylaxis: Lovenox Dispo 2 days pending improvement
[2020-08-19] MEDS: Cetirizine 10 MG Tab PO SCH (08:51)
[2020-08-19] MEDS ORDERED: Ketorolac 30 MG/ML SDV IVPUSH ONE (08:51)
[2020-08-19] MEDS ORDERED: Metoclopramide 10 MG/2 ML SDV IVPUSH ONE (08:51)
[2020-08-19] MEDS ORDERED: diphenhydrAMINE 50 MG/ML SDV IVPUSH ONE (08:51)
[2020-08-19] MEDS: Omeprazole 20 MG Cap.CR PO SCH (08:53)
[2020-08-19] MEDS: VILANTEROL INH SCH (08:57)
[2020-08-19] MEDS: FLUTICASONE FUROATE INH SCH (08:57)
[2020-08-19] MEDS ORDERED: Pantoprazole 40 MG Vial IV SCH (09:00)
[2020-08-19] MEDS ORDERED: Pantoprazole 40 MG in Sodium Chloride 0.9% 10 ML IV SCH (09:00)
[2020-08-19] MEDS: Phosphorus #1 250 MG Tab PO SCH ×3 (09:08→18:52)
[2020-08-19] MEDS ORDERED: Glucagon,Human Recombinant 1 MG Vial IM PRN (13:54)
[2020-08-19] MEDS ORDERED: 50% Dextrose in Water 50 ML Syringe IV PRN (13:54)
[2020-08-19] MEDS: Acetaminophen 325 MG Tab PO PRN ×2 (14:34→20:27)
[2020-08-19] MEDS: Insulin Aspart 100 Units/ML 3 ML Pen SUBCUT SCH (18:53)
[2020-08-19] MEDS: Montelukast 10 MG Tab PO SCH (20:27)
[2020-08-20] MEDS: Phosphorus #1 250 MG Tab PO SCH ×4 (00:24→17:31)
[2020-08-20] MEDS ORDERED: Ketorolac 15 MG/ML SDV IVPUSH ONE (00:43)
[2020-08-20] MEDS ORDERED: Lidocaine 5% 700 MG Patch TOP SCH ×3 (00:45→17:00)
[2020-08-20] MEDS: Enoxaparin 40 MG/0.4 ML Syringe SUBCUT SCH (01:11)
[2020-08-20] MEDS: methylPREDNISolone Sodium Succinate 40 MG/1 ML SDV IVPUSH SCH ×3 (01:13→20:38)
[2020-08-20] MEDS: Albuterol/Ipratropium 3.0-0.5 MG/3 ML Neb Soln NEB SCH ×6 (01:16→21:07)
[2020-08-20] MEDS: Lactated Ringers 1,000 ML IV SCH (05:43)
[2020-08-20] MEDS: Acetaminophen 325 MG Tab PO PRN ×2 (05:43→20:32)
[2020-08-20 06:12] LABS: BLOOD UREA NITROGEN,BUN 9 mg/dL (7.0-18.0); CARBON DIOXIDE,CO2 22.2 mmol/L (21.0-32.0); CHLORIDE,CL 107 mmol/L (98-107); GLUCOSE RANDOM 178 mg/dL (74-106); POTASSIUM,K 3.8 mmol/L (3.5-5.1); SODIUM,NA 141 mmol/L (136-145)
[2020-08-20] MEDS ORDERED: Ketorolac 30 MG/ML SDV IVPUSH ONE (06:42)
[2020-08-20] MEDS ORDERED: Cyclobenzaprine 5 MG Tab PO ONE ×2 (06:43→10:30)
[2020-08-20] MEDS: Omeprazole 20 MG Cap.CR PO SCH (08:13)
--- NOTE | 2020-08-20 08:30 | CR ---
INDICATION: Severe back pain TECHNIQUE: Thoracic spine 3 view COMPARISON: None FINDINGS: Bones: Alignment is normal. No fractures or significant bone lesions. Joints: Disc spaces and facets are unremarkable. Soft tissues: Unremarkable. IMPRESSION: Unremarkable thoracic spine. No acute or specific finding to explain back pain. Dictated by Alan Telles MD @ 08/20/2020 8:29:[address] Alan Telles @ Aug 20 2020 8:29AM
--- NOTE | 2020-08-20 08:33 | CR ---
INDICATION: Severe low back pain TECHNIQUE: Lumbar spine 3 view COMPARISON: None FINDINGS: Bones: Alignment is normal. No fractures or significant bone lesions. Joints: Disc spaces and facets are unremarkable. Soft tissues: Unremarkable. IMPRESSION: Unremarkable lumbar spine. No findings to explain back pain. Dictated by Alan Telles MD @ 08/20/2020 8:32:[address] Alan Telles @ Aug 20 2020 8:32AM
[2020-08-20] MEDS: Insulin Aspart 100 Units/ML 3 ML Pen SUBCUT SCH ×3 (09:01→17:31)
[2020-08-20] MEDS: FLUTICASONE FUROATE INH SCH (09:20)
[2020-08-20] MEDS: VILANTEROL INH SCH (09:20)
[2020-08-20] MEDS: Cetirizine 10 MG Tab PO SCH (10:21)
[2020-08-20] MEDS ORDERED: Morphine 2 MG/ML SYRINGE IVPUSH ONE (10:30)
--- NOTE | 2020-08-20 12:44 | PCM.PN ---
- General Info Date of Service: 08/20/20 Admission Dx/Problem (Free Text): Admission Diagnosis/Problem Admission Diagnosis/Problem Asthma attack Subjective Update: Reports headache is better today but complains of upper musculoskeletal back pain. Patient reports breathing is better little bit more near baseline. Continues to have wheezing. Shortness of breath is much improved. Like to get some sleep and have back pain improved. Reports that heat and Flexeril did help back pain quite a bit. Patient appears to have spasm of left upper trapezius muscle. Functional Status: Reports: Tolerating Diet, Ambulating, Urinating. Denies: Pa in Controlled - Review of Systems General: Reports: No Symptoms. Denies: Weakness, Fatigue Pulmonary: Reports: Shortness of Breath (Much improved), Cough, Wheezing Cardiovascular: Reports: No Symptoms. Denies: Chest Pain Gastrointestinal: Reports: No Symptoms. Denies: Abdominal Pain, Nausea, Vomiting Genitourinary: Reports: No Symptoms. Denies: Dysuria, Frequency, Burning Musculoskeletal: Reports: Back Pain (Left upper back) Skin: Reports: No Symptoms Neurological: Reports: No Symptoms Psychiatric: Reports: No Symptoms - Patient Data Vitals - Most Recent: Last Vital Signs Temp 98.2 F 08/20/20 08:20 Pulse 84 08/20/20 08:20 Resp 14 08/20/20 08:20 BP 142/82 H 08/20/20 08:20 Pulse Ox 95 08/20/20 08:20 Weight - Most Recent: 111.448 kg I&O - Last 24 Hours: Intake & Output 08/19/20 08/20/20 08/20/20 22:59 06:59 14:59 Intake Total 2148 350 Output Total 0 650 Balance 2148 -300 Lab Results Last 24 Hours: Laboratory Results - last 24 hr 08/19/20 08/19/20 08/20/20 Range/Units 14:37 17:19 04:54 WBC 12.99 H (4.0-11.0) K/uL RBC 4.40 (4.30-5.90) M/uL Hgb 10.2 L (12.0-16.0) g/dL Hct 32.5 L (36.0-46.0) % MCV 73.9 L (80.0-98.0) fL MCH 23.2 L (27.0-32.0) pg MCHC 31.4 (31.0-37.0) g/dL RDW Std Deviation 41.9 (28.0-62.0) fl RDW Coeff of [place] 15 (11.0-15.0) % Plt Count 359 (150-400) K/uL MPV 9.70 (7.40-12.00) fL Neut % (Auto) 88.6 H (48.0-80.0) % Lymph % (Auto) 5.9 L (16.0-40.0) % [place] % (Auto) 5.4 (0.0-15.0) % Eos % (Auto) 0.0 (0.0-7.0) % Baso % (Auto) 0.1 (0.0-1.5) % Neut # (Auto) 11.5 H (1.4-5.7) K/uL Lymph # (Auto) 0.8 (0.6-2.4) K/uL [place] # (Auto) 0.7 (0.0-0.8) K/uL Eos # (Auto) 0.0 (0.0-0.7) K/uL Baso # (Auto) 0.0 (0.0-0.1) K/uL Nucleated RBC % 0.0 /100WBC Nucleated RBCs # 0 K/uL Sodium (136-145) mmol/L Potassium (3.5-5.1) mmol/L Chloride (98-107) mmol/L Carbon Dioxide (21.0-32.0) mmol/L BUN (7.0-18.0) mg/dL Creatinine (0.6-1.0) mg/dL Est Cr Clr Drug Dosing mL/min Estimated GFR (MDRD) ml/min Glucose (74-106) mg/dL POC Glucose 258 H 139 H (70-99) mg/dL Calcium (8.5-10.1) mg/dL Phosphorus (2.6-4.7) mg/dL Magnesium (1.8-2.4) mg/dL 08/20/20 08/20/20 08/20/20 Range/Units 04:54 08:07 11:58 WBC (4.0-11.0) K/uL RBC (4.30-5.90) M/uL Hgb (12.0-16.0) g/dL Hct (36.0-46.0) % MCV (80.0-98.0) fL MCH (27.0-32.0) pg MCHC (31.0-37.0) g/dL RDW Std Deviation (28.0-62.0) fl RDW Coeff of [place] (11.0-15.0) % Plt Count (150-400) K/uL MPV (7.40-12.00) fL Neut % (Auto) (48.0-80.0) % Lymph % (Auto) (16.0-40.0) % [place] % (Auto) (0.0-15.0) % Eos % (Auto) (0.0-7.0) % Baso % (Auto) (0.0-1.5) % Neut # (Auto) (1.4-5.7) K/uL Lymph # (Auto) (0.6-2.4) K/uL [place] # (Auto) (0.0-0.8) K/uL Eos # (Auto) (0.0-0.7) K/uL Baso # (Auto) (0.0-0.1) K/uL Nucleated RBC % /100WBC Nucleated RBCs # K/uL Sodium 141 (136-145) mmol/L Potassium 3.8 (3.5-5.1) mmol/L Chloride 107 (98-107) mmol/L Carbon Dioxide 22.2 (21.0-32.0) mmol/L BUN 9 (7.0-18.0) mg/dL Creatinine 0.9 (0.6-1.0) mg/dL Est Cr Clr Drug Dosing 80.90 mL/min Estimated GFR (MDRD) > 60.0 ml/min Glucose 178 H (74-106) mg/dL POC Glucose 146 H 135 H (70-99) mg/dL Calcium 8.5 (8.5-10.1) mg/dL Phosphorus 2.8 (2.6-4.7) mg/dL Magnesium 2.0 (1.8-2.4) mg/dL Med Orders - Current: Current Medications Acetaminophen (Acetaminophen 325 Mg Tab) 650 mg PO Q4H PRN PRN Reason: Pain (Mild 1-3)/fever Last Admin: 08/20/20 05:43 Dose: 650 mg Documented by: Albuterol/Ipratropium (Albuterol/Ipratropium 3.0-0.5 Mg/3 Ml Neb Soln) 3 ml NEB Q4HRRT [facility] Last Admin: 08/20/20 09:17 Dose: 3 ml Documented by: Cetirizine HCl (Cetirizine 10 Mg Tab) 10 mg PO DAILY [facility] Last Admin: 08/20/20 10:21 Dose: 10 mg Documented by: Cyclobenzaprine HCl (Cyclobenzaprine 10 Mg Tab) 10 mg PO TID PRN PRN Reason: muscle spasms Dextrose/Water (50% Dextrose In Water 50 Ml Syringe) 50 ml IV ASDIRECTED PRN PRN Reason: Hypoglycemia Enoxaparin Sodium (Enoxaparin 40 Mg/0.4 Ml Syringe) 40 mg SUBCUT Q24H [facility] Glucagon (Glucagon,Human Recombinant 1 Mg Vial) 1 mg IM ASDIRECTED PRN PRN Reason: Hypoglycemia Insulin Aspart (Insulin Aspart 100 Units/Ml 3 Ml Pen) 0 unit SUBCUT TIDAC [facility]; Protocol Last Admin: 08/20/20 12:26 Dose: Not Given Documented by: Lidocaine (Lidocaine 5% 700 Mg Patch) 700 mg TOP Q24H [facility] Last Admin: 08/20/20 00:58 Dose: 700 mg Documented by: Methylprednisolone Sodium Succinate (Methylprednisolone Sodium Succinate 40 Mg/1 Ml Sdv) 40 mg IVPUSH Q12H [facility] Miscellaneous Information (Remove Lidocaine Patch) 1 ea TRDERM Q24H [facility] Montelukast Sodium (Montelukast 10 Mg Tab) 10 mg PO BEDTIME [facility] Last Admin: 08/19/20 20:27 Dose: 10 mg Documented by: Omeprazole (Omeprazole 20 Mg Cap.Cr) 20 mg PO ACBREAKFAST [facility] Last Admin: 08/20/20 08:13 Dose: 20 mg Documented by: Ondansetron HCl (Ondansetron 4 Mg/2 Ml Sdv) 4 mg IVPUSH Q4H PRN PRN Reason: Nausea/Vomiting Oxycodone HCl (Oxycodone 5 Mg Tab) 5 mg PO Q4H PRN PRN Reason: Pain Breo Ellipta 200-25 (Mcg Inhalation) 1 each INH DAILY [facility] Last Admin: 08/20/20 09:20 Dose: Not Given Documented by: Sodium Chloride (Sodium Chloride 0.9% 2.5 Ml Syringe) 2.5 ml FLUSH ASDIRECTED PRN PRN Reason: Keep Vein Open Sodium Phosphate (Phosphorus #1 250 Mg Tab) 250 mg PO QID [facility] Last Admin: 08/20/20 11:52 Dose: 250 mg Documented by: Discontinued Medications Acetaminophen (Acetaminophen 500 Mg Tab) 1,000 mg PO ONETIME ONE Stop: 08/19/20 02:55 Last Admin: 08/19/20 03:04 Dose: 1,000 mg Documented by: Albuterol/Ipratropium (Albuterol/Ipratropium 3.0-0.5 Mg/3 Ml Neb Soln) 3 ml NEB ONETIME ONE Stop: 08/18/20 21:50 Last Admin: 08/18/20 22:26 Dose: 3 ml Documented by: Albuterol/Ipratropium (Albuterol/Ipratropium 3.0-0.5 Mg/3 Ml Neb Soln) 3 ml NEB ONETIME ONE Stop: 08/18/20 22:32 Last Admin: 08/18/20 22:41 Dose: Not Given Documented by: Albuterol/Ipratropium (Albuterol/Ipratropium 3.0-0.5 Mg/3 Ml Neb Soln) 3 ml NEB ONETIME ONE Stop: 08/19/20 02:02 Last Admin: 08/19/20 02:33 Dose: 3 ml Documented by: Cyclobenzaprine HCl (Cyclobenzaprine 5 Mg Tab) 5 mg PO ONETIME ONE Stop: 08/20/20 06:44 Last Admin: 08/20/20 07:40 Dose: 5 mg Documented by: Cyclobenzaprine HCl (Cyclobenzaprine 5 Mg Tab) 5 mg PO ONETIME ONE Stop: 08/20/20 10:31 Last Admin: 08/20/20 10:42 Dose: 5 mg Documented by: Diphenhydramine HCl (Diphenhydramine 50 Mg/Ml Sdv) 25 mg IVPUSH ONETIME ONE Stop: 08/19/20 08:52 Last Admin: 08/19/20 09:41 Dose: 25 mg Documented by: Enoxaparin Sodium (Enoxaparin 40 Mg/0.4 Ml Syringe) 40 mg SUBCUT Q24H [facility] Last Admin: 08/20/20 01:11 Dose: 40 mg Documented by: Magnesium Sulfate (Magnesium Sulfate In Water 2 Gm/50 Ml) 2 gm in 50 mls @ 50 mls/hr IV NOW STA Stop: 08/19/20 00:16 Last Admin: 08/18/20 23:38 Dose: 50 mls/hr Documented by: Lactated Ringer's (Ringers, Lactated) 1,000 mls @ 125 mls/hr IV ASDIRECTED [facility] Last Admin: 08/20/20 05:43 Dose: 125 mls/hr Documented by: Pantoprazole Sodium 40 mg/ (Sodium Chloride) 10 mls @ 200 mls/hr IV DAILY [facility] Ketorolac Tromethamine (Ketorolac 15 Mg/Ml Sdv) 15 mg IM ONETIME ONE Stop: 08/18/20 21:51 Last Admin: 08/18/20 22:12 Dose: 15 mg Documented by: Ketorolac Tromethamine (Ketorolac 30 Mg/Ml Sdv) 30 mg IVPUSH ONETIME ONE Stop: 08/19/20 08:52 Last Admin: 08/19/20 09:07 Dose: 30 mg Documented by: Ketorolac Tromethamine (Ketorolac 15 Mg/Ml Sdv) 15 mg IVPUSH ONETIME ONE Stop: 08/20/20 00:44 Last Admin: 08/20/20 01:07 Dose: 15 mg Documented by: Ketorolac Tromethamine (Ketorolac 30 Mg/Ml Sdv) 30 mg IVPUSH ONETIME ONE Stop: 08/20/20 06:43 Last Admin: 08/20/20 08:10 Dose: 30 mg Documented by: Lidocaine (Lidocaine 5% 700 Mg Patch) 700 mg TOP Q24H [facility] Magnesium Sulfate (Magnesium Sulfate (4.06 Meq/Ml) 5 Gm/10 Ml Sdv) 2 gm IV ONETIME STA Stop: 08/18/20 23:11 Methylprednisolone Sodium Succinate (Methylprednisolone Sodium Succinate 40 Mg/1 Ml Sdv) 40 mg IVPUSH Q8H [facility] Last Admin: 08/20/20 10:21 Dose: 40 mg Documented by: Metoclopramide HCl (Metoclopramide 10 Mg/2 Ml Sdv) 10 mg IVPUSH ONETIME ONE Stop: 08/19/20 08:52 Last Admin: 08/19/20 09:06 Dose: 10 mg Documented by: Morphine Sulfate (Morphine 2 Mg/Ml Syringe) 2 mg IVPUSH ONETIME ONE Stop: 08/20/20 10:31 Last Admin: 08/20/20 10:42 Dose: 2 mg Documented by: - Exam General: Alert, Oriented, Cooperative, No Acute Distress Lungs: Normal Respiratory Effort, Wheezing Cardiovascular: Regular Rate, Regular Rhythm Back Exam: Normal Inspection, Full Range of Motion, Muscle Spasm (Noted to left trapezius muscle. Knotted muscle noted in the back and quite tender to palpation.). No: Paraspinal Tenderness Extremities: Normal Inspection, Normal Range of Motion, Non-Tender, No Pedal Edema Neurological: No New Focal Deficit Psy/Mental Status: Alert, Normal Affect, Normal Mood - Patient Data Lab Results Last 24 hrs: Laboratory Results - last 24 hr 08/19/20 08/19/20 08/20/20 Range/Units 14:37 17:19 04:54 WBC 12.99 H (4.0-11.0) K/uL RBC 4.40 (4.30-5.90) M/uL Hgb 10.2 L (12.0-16.0) g/dL Hct 32.5 L (36.0-46.0) % MCV 73.9 L (80.0-98.0) fL MCH 23.2 L (27.0-32.0) pg MCHC 31.4 (31.0-37.0) g/dL RDW Std Deviation 41.9 (28.0-62.0) fl RDW Coeff of [place] 15 (11.0-15.0) % Plt Count 359 (150-400) K/uL MPV 9.70 (7.40-12.00) fL Neut % (Auto) 88.6 H (48.0-80.0) % Lymph % (Auto) 5.9 L (16.0-40.0) % [place] % (Auto) 5.4 (0.0-15.0) % Eos % (Auto) 0.0 (0.0-7.0) % Baso % (Auto) 0.1 (0.0-1.5) % Neut # (Auto) 11.5 H (1.4-5.7) K/uL Lymph # (Auto) 0.8 (0.6-2.4) K/uL [place] # (Auto) 0.7 (0.0-0.8) K/uL Eos # (Auto) 0.0 (0.0-0.7) K/uL Baso # (Auto) 0.0 (0.0-0.1) K/uL Nucleated RBC % 0.0 /100WBC Nucleated RBCs # 0 K/uL Sodium (136-145) mmol/L Potassium (3.5-5.1) mmol/L Chloride (98-107) mmol/L Carbon Dioxide (21.0-32.0) mmol/L BUN (7.0-18.0) mg/dL Creatinine (0.6-1.0) mg/dL Est Cr Clr Drug Dosing mL/min Estimated GFR (MDRD) ml/min Glucose (74-106) mg/dL POC Glucose 258 H 139 H (70-99) mg/dL Calcium (8.5-10.1) mg/dL Phosphorus (2.6-4.7) mg/dL Magnesium (1.8-2.4) mg/dL 08/20/20 08/20/20 08/20/20 Range/Units 04:54 08:07 11:58 WBC (4.0-11.0) K/uL RBC (4.30-5.90) M/uL Hgb (12.0-16.0) g/dL Hct (36.0-46.0) % MCV (80.0-98.0) fL MCH (27.0-32.0) pg MCHC (31.0-37.0) g/dL RDW Std Deviation (28.0-62.0) fl RDW Coeff of [place] (11.0-15.0) % Plt Count (150-400) K/uL MPV (7.40-12.00) fL Neut % (Auto) (48.0-80.0) % Lymph % (Auto) (16.0-40.0) % [place] % (Auto) (0.0-15.0) % Eos % (Auto) (0.0-7.0) % Baso % (Auto) (0.0-1.5) % Neut # (Auto) (1.4-5.7) K/uL Lymph # (Auto) (0.6-2.4) K/uL [place] # (Auto) (0.0-0.8) K/uL Eos # (Auto) (0.0-0.7) K/uL Baso # (Auto) (0.0-0.1) K/uL Nucleated RBC % /100WBC Nucleated RBCs # K/uL Sodium 141 (136-145) mmol/L Potassium 3.8 (3.5-5.1) mmol/L Chloride 107 (98-107) mmol/L Carbon Dioxide 22.2 (21.0-32.0) mmol/L BUN 9 (7.0-18.0) mg/dL Creatinine 0.9 (0.6-1.0) mg/dL Est Cr Clr Drug Dosing 80.90 mL/min Estimated GFR (MDRD) > 60.0 ml/min Glucose 178 H (74-106) mg/dL POC Glucose 146 H 135 H (70-99) mg/dL Calcium 8.5 (8.5-10.1) mg/dL Phosphorus 2.8 (2.6-4.7) mg/dL Magnesium 2.0 (1.8-2.4) mg/dL Result Diagrams: 08/20/20 04:54 08/20/20 04:54 Sepsis Event Note - Evaluation Sepsis Screening Result: No Definite Risk - Focused Exam Vital Signs: Vital Signs Temp Pulse Resp BP Pulse Ox 08/20/20 08:20 98.2 F 84 14 142/82 H 95 08/20/20 05:00 98.2 F 101 H 17 126/72 95 08/20/20 00:49 98.3 F 113 H 126/66 96 - Problem List & Annotations (1) Asthma with status asthmaticus SNOMED Code(s): 865177221 Code(s): J45.902 - UNSPECIFIED ASTHMA WITH STATUS ASTHMATICUS Status: Acute Current Visit: Yes Qualifiers: Asthma severity: severe Asthma persistence: persistent Qualified Code(s): J45.52 - Severe persistent asthma with status asthmaticus (2) Anxiety SNOMED Code(s): 18650033 Code(s): F41.9 - ANXIETY DISORDER, UNSPECIFIED Status: Chronic Current Visit: No (3) GERD (gastroesophageal reflux disease) SNOMED Code(s): 578140944 Code(s): K21.9 - GASTRO-ESOPHAGEAL REFLUX DISEASE WITHOUT ESOPHAGITIS Status: Chronic Current Visit: No (4) Migraine SNOMED Code(s): 35625860 Code(s): G43.909 - MIGRAINE, UNSP, NOT INTRACTABLE, WITHOUT STATUS MIGRAINOSUS Status: Chronic Current Visit: No Qualifiers: Migraine type: unspecified Status migrainosus presence: without status migrainosus Intractability: not intractable Qualified Code(s): G43.909 - Migraine, unspecified, not intractable, without status migrainosus (5) Environmental and seasonal allergies SNOMED Code(s): 593567711, 489491371, 931176523 Code(s): J30.89 - OTHER ALLERGIC RHINITIS Status: Chronic Current Visit: Yes (6) Acute back pain SNOMED Code(s): 546348679, 628714149 Code(s): M54.9 - DORSALGIA, UNSPECIFIED Status: Acute Current Visit: Yes Qualifiers: Back pain location: thoracic back pain Back pain laterality: left Qualified Code(s): M54.6 - Pain in thoracic spine - Problem List Review Problem List Initiated/Reviewed/Updated: Yes - My Orders Last 24 Hours: My Active Orders 08/19/20 13:54 Blood Glucose Check, Bedside [RC] TIDAC Dextrose 50% in Water 50 ml IV ASDIRECTED PRN Glucagon,Human Recombinant [GlucaGen] 1 mg IM ASDIRECTED PRN 08/19/20 17:00 Insulin Aspart [NovoLOG] See Protocol SUBCUT TIDAC 08/19/20 21:00 Montelukast [Singulair] 10 mg PO BEDTIME 08/20/20 12:30 oxyCODONE 5 mg PO Q4H PRN 08/20/20 14:00 Cyclobenzaprine [Flexeril] 10 mg PO TID PRN 08/20/20 21:00 methylPREDNISolone Sod Succ [Solu-MEDROL] 40 mg IVPUSH Q12H 08/21/20 05:11 BASIC METABOLIC PANEL,BMP [CHEM] AM CBC WITH AUTO DIFF [HEME] AM MAGNESIUM [CHEM] AM PHOSPHORUS [CHEM] AM 08/22/20 05:11 BASIC METABOLIC PANEL,BMP [CHEM] AM CBC WITH AUTO DIFF [HEME] AM MAGNESIUM [CHEM] AM PHOSPHORUS [CHEM] AM - Plan Plan:: This 34-year-old female admitted with severe asthma exacerbation 1. Asthma exacerbation -Continue DuoNebs -Continue IV Solu-Medrol 40 mg every 12 hours -Encourage I-S -Continue Zyrtec and Singulair -Patient uses Breo sounds like she is out if she is unable to get Breo inhaler will start Advair during her hospitalization -Needs follow-up with pulmonology as she likely has poorly controlled asthma -RT consult for improved asthma education and control. 2. Acute migraine -Resolved 3. Back pain -Appears to have muscle spasm to left trapezius muscle. Knotting noted. Flexer il and heat helped we will continue with Flexeril 3 times daily as needed as well as oxycodone heat and rest. GI prophylaxis: Omeprazole VTE prophylaxis: Lovenox Dispo 2 days pending improvement
[2020-08-20] MEDS: oxyCODONE 5 MG Tab PO PRN ×2 (14:28→20:33)
[2020-08-20] MEDS: Montelukast 10 MG Tab PO SCH (20:31)
[2020-08-20] MEDS ORDERED: Enoxaparin 40 MG/0.4 ML Syringe SUBCUT SCH (22:00)
[2020-08-20] MEDS: Cyclobenzaprine 10 MG Tab PO PRN (22:53)
[2020-08-21] MEDS: Phosphorus #1 250 MG Tab PO SCH ×3 (00:32→11:04)
[2020-08-21] MEDS: Acetaminophen 325 MG Tab PO PRN ×3 (00:33→11:03)
[2020-08-21] MEDS: oxyCODONE 5 MG Tab PO PRN ×3 (00:33→11:01)
[2020-08-21] MEDS: Albuterol/Ipratropium 3.0-0.5 MG/3 ML Neb Soln NEB SCH ×3 (01:10→09:45)
[2020-08-21 06:21] LABS: BLOOD UREA NITROGEN,BUN 12 mg/dL (7.0-18.0); CARBON DIOXIDE,CO2 24.5 mmol/L (21.0-32.0); CHLORIDE,CL 107 mmol/L (98-107); GLUCOSE RANDOM 139 mg/dL (74-106); POTASSIUM,K 4.3 mmol/L (3.5-5.1); SODIUM,NA 140 mmol/L (136-145)
[2020-08-21] MEDS: Omeprazole 20 MG Cap.CR PO SCH (08:17)
[2020-08-21] MEDS: Cetirizine 10 MG Tab PO SCH (08:17)
[2020-08-21] MEDS: Cyclobenzaprine 10 MG Tab PO PRN (08:22)
[2020-08-21] MEDS: methylPREDNISolone Sodium Succinate 40 MG/1 ML SDV IVPUSH SCH (08:46)
[2020-08-21] MEDS: Insulin Aspart 100 Units/ML 3 ML Pen SUBCUT SCH ×2 (09:02→12:35)
[2020-08-21] MEDS: VILANTEROL INH SCH (09:46)
[2020-08-21] MEDS: FLUTICASONE FUROATE INH SCH (09:46)
--- NOTE | 2020-08-21 10:17 | PCM.DCSUM1 ---
Discharge Summary - Hospital Course Brief History: This 34-year-old female with past medical history of chronic migraines along with moderate to severe uncontrolled asthma presented to the ER after multiple ER presentations for worsening shortness of breath and asthma exacerbation. She was noted to be satting well with no hypoxia but was in significant respiratory distress. She was treated with magnesium along with multiple duo nebs. She reports that over the last month her asthma has significantly worsened and she has been using nebulizers and her rescue inhaler almost constantly. She has ran out of 2 inhalers in the last 2 weeks. She reports that she is allergic to nearly everything and is normally wheezy at baseline. She reports that she is out of her Breo and has not been using that recently. She has been using albuterol ipratropium and Ventolin at home to help maintain her respiratory status. She denies seeing pulmonology recently but has been seen by website developer. She reports that she thinks this exacerbation is caused by some black mold within her living facility that the [facility] does not want to acknowledge. She does not smoke. Rare alcohol use and no recreational drug use. In the ER no leukocytosis noted. BMP within normal limits Covid negative. Chest x-ray negative for any acute cardiopulmonary process including pneumonia. Again in the ER she was treated with multiple duo nebs along with magnesium IV. She was also given Solu-Medrol 125 mg in the ambulance on the way over. She was also noted to have migraine in the ER and was given 15 mg of Toradol. She will be admitted for acute asthma exacerbation. Diagnosis: Stroke: No - Discharge Data Discharge Date: 08/21/20 Discharge Disposition: Home, Self-Care 01 Condition: Stable - Referral to Home Health Primary Care Physician: Siddhartha Urbina MD - Discharge Diagnosis/Problem(s) (1) Asthma with status asthmaticus SNOMED Code(s): 064429273 ICD Code: J45.902 - UNSPECIFIED ASTHMA WITH STATUS ASTHMATICUS Status: Acute Current Visit: Yes Qualifiers: Asthma severity: severe Asthma persistence: persistent Qualified Code(s): J45.52 - Severe persistent asthma with status asthmaticus (2) Anxiety SNOMED Code(s): 77492585 ICD Code: F41.9 - ANXIETY DISORDER, UNSPECIFIED Status: Chronic Current Visit: No (3) GERD (gastroesophageal reflux disease) SNOMED Code(s): 034743572 ICD Code: K21.9 - GASTRO-ESOPHAGEAL REFLUX DISEASE WITHOUT ESOPHAGITIS Status: Chronic Current Visit: No (4) Migraine SNOMED Code(s): 55417003 ICD Code: G43.909 - MIGRAINE, UNSP, NOT INTRACTABLE, WITHOUT STATUS MIGRAINOSUS Status: Chronic Current Visit: No Qualifiers: Migraine type: unspecified Status migrainosus presence: without status migrainosus Intractability: not intractable Qualified Code(s): G43.909 - Migraine, unspecified, not intractable, without status migrainosus (5) Environmental and seasonal allergies SNOMED Code(s): 089418512, 791508961, 329341422 ICD Code: J30.89 - OTHER ALLERGIC RHINITIS Status: Chronic Current Visit: Yes (6) Acute back pain SNOMED Code(s): 682284622, 830852893 ICD Code: M54.9 - DORSALGIA, UNSPECIFIED Status: Acute Current Visit: Yes Qualifiers: Back pain location: thoracic back pain Back pain laterality: left Qualified Code(s): M54.6 - Pain in thoracic spine - Patient Summary/Data Consults: Consultations 08/19/20 08:16 Respiratory Care Assess and Treatment [CONS] Routine Hospital Course: Admission diagnoses Acute asthma exacerbation Discharge diagnoses Acute asthma exacerbation Acute upper back pain Nohemy was admitted secondary to acute asthma exacerbation after multiple visits to the ER. She was admitted and treated with aggressive albuterol nebulizers along with IV Solu-Medrol. She was continued on home Breo, Zyrtec and Singulair. She steadily improved and today wheezing is significantly better. Solu-Medrol was decreased yesterday to every 12 hours and she continued to improve today. On day 1 admission patient started having upper back pain with notable spasming to left trapezius. She had palpable knot and has significant pain with this palpation. She is started on lidocaine patch along with Flexeril and intermittent oxycodone. Today she is continuing to have back pain but it is much improved she feels as though the lidocaine patches as well as heat are helping. She feels this is likely secondary to our hospital bed and is eager to be discharged home today. She will be continued on Flexeril as needed as well as oxycodone as needed for 3 days. She is encouraged to use massage and heat along with ice to help with pain. X-rays were obtained which showed no acute osseous concern and pain is all musculoskeletal not along the spinal column. Patient had no neurological changes. For her breathing she will be sent home with a new prescription for Breo along with rescue inhaler. She is also be sent home for 4 days of prednisone 40 mg daily. She is to continue Zyrtec as well as Singulair. She was encouraged to see pulmonology for moderate to severe asthma symptoms. She is to follow-up with PCP and return to the ER clinic if concerns should arise. Work note provided. - Patient Instructions Diet: Regular Diet as Tolerated Activity: As Tolerated Driving: Do Not Drive Showering/Bathing: May Shower Notify Provider of: Fever, Increased Pain, Swelling and Redness, Drainage, Nausea and/or Vomiting - Discharge Plan *PRESCRIPTION DRUG MONITORING PROGRAM REVIEWED*: Not Applicable *COPY OF PRESCRIPTION DRUG MONITORING REPORT IN PATIENT GINGER: Not Applicable Prescriptions/Med Rec: Fluticasone/Vilanterol [Breo Ellipta 200-25 MCG Inhalation Kit] 1 each IH DAILY #1 each Cyclobenzaprine [Flexeril] 10 mg PO TID PRN #15 tablet PRN Reason: muscle spasms Lidocaine 5% [Lidoderm 5%] 700 mg TOP Q24H #5 patch oxyCODONE 5 mg PO Q6H PRN #15 tablet PRN Reason: Pain predniSONE [Prednisone] 40 mg PO DAILY #8 tablet Albuterol [Proventil HFA] 1 puff INH ASDIRECTED PRN #1 inhaler PRN Reason: Wheezing Home Medications: Home Meds Cetirizine [ZyrTEC] 10 mg PO DAILY 05/11/15 [History] Albuterol Sulfate 2.5 mg NEB Q4H PRN 01/04/19 [History] Fluticasone/Vilanterol [Breo Ellipta 200-25 MCG Inhalation Kit] 1 dose INH DAILY 01/04/19 [History] Montelukast [Singulair] 10 mg PO DAILY 12/27/19 [History] Phentermine HCl 37.5 mg PO DAILY 12/27/19 [History] Omeprazole 20 mg PO DAILY 06/18/20 [History] Acetaminophen [Tylenol] 650 mg PO Q4H PRN tablet 08/21/20 [Rx] Albuterol [Proventil HFA] 1 puff INH ASDIRECTED PRN #1 inhaler 08/21/20 [Rx] Cyclobenzaprine [Flexeril] 10 mg PO TID PRN #15 tablet 08/21/20 [Rx] Fluticasone/Vilanterol [Breo Ellipta 200-25 MCG Inhalation Kit] 1 each IH DAILY #1 each 08/21/20 [Rx] Lidocaine 5% [Lidoderm 5%] 700 mg TOP Q24H #5 patch 08/21/20 [Rx] oxyCODONE 5 mg PO Q6H PRN #15 tablet 08/21/20 [Rx] predniSONE [Prednisone] 40 mg PO DAILY #8 tablet 08/21/20 [Rx] Oxygen Therapy Mode: Room Air Patient Handouts: Cyclobenzaprine tablets, Fluticasone; Vilanterol inhalation powder, Oxycodone tablets or capsules, Albuterol inhalation aerosol, Asthma, Adult, Fytr-[id number]-Qurd, Prednisone tablets, Lidocaine dermal patch, Asthma Attack Prevention, Adult, Asthma and Physical Activity Forms: ED Department Discharge Referrals: Siddhartha Urbina MD [Primary Care Provider] - 08/26/20 10:15 am - Discharge Summary/Plan Comment DC Time >30 min.: No - Patient Data Vitals - Most Recent: Last Vital Signs Temp 97.8 F 08/21/20 08:28 Pulse 88 08/21/20 08:28 Resp 20 08/21/20 08:28 BP 130/61 08/21/20 08:28 Pulse Ox 94 L 08/21/20 08:28 Weight - Most Recent: 111.448 kg I&O - Last 24 hours: Intake & Output 08/20/20 08/21/20 08/21/20 22:59 06:59 14:59 Intake Total 1898 700 Output Total 950 Balance 1898 -250 Lab Results - Last 24 hrs: Laboratory Results - last 24 hr 08/20/20 08/20/20 08/21/20 Range/Units 11:58 17:27 05:31 WBC 10.11 (4.0-11.0) K/uL RBC 4.44 (4.30-5.90) M/uL Hgb 10.3 L (12.0-16.0) g/dL Hct 33.1 L (36.0-46.0) % MCV 74.5 L (80.0-98.0) fL MCH 23.2 L (27.0-32.0) pg MCHC 31.1 (31.0-37.0) g/dL RDW Std Deviation 42.3 (28.0-62.0) fl RDW Coeff of Shaniqua 16 H (11.0-15.0) % Plt Count 350 (150-400) K/uL MPV 9.60 (7.40-12.00) fL Neut % (Auto) 83.2 H (48.0-80.0) % Lymph % (Auto) 9.5 L (16.0-40.0) % [place] % (Auto) 7.3 (0.0-15.0) % Eos % (Auto) 0.0 (0.0-7.0) % Baso % (Auto) 0.0 (0.0-1.5) % Neut # (Auto) 8.4 H (1.4-5.7) K/uL Lymph # (Auto) 1.0 (0.6-2.4) K/uL [place] # (Auto) 0.7 (0.0-0.8) K/uL Eos # (Auto) 0.0 (0.0-0.7) K/uL Baso # (Auto) 0.0 (0.0-0.1) K/uL Nucleated RBC % 0.0 /100WBC Nucleated RBCs # 0 K/uL Sodium (136-145) mmol/L Potassium (3.5-5.1) mmol/L Chloride (98-107) mmol/L Carbon Dioxide (21.0-32.0) mmol/L BUN (7.0-18.0) mg/dL Creatinine (0.6-1.0) mg/dL Est Cr Clr Drug Dosing mL/min Estimated GFR (MDRD) ml/min Glucose (74-106) mg/dL POC Glucose 135 H 168 H (70-99) mg/dL Calcium (8.5-10.1) mg/dL Phosphorus (2.6-4.7) mg/dL Magnesium (1.8-2.4) mg/dL 08/21/20 08/21/20 Range/Units 05:31 08:24 WBC (4.0-11.0) K/uL RBC (4.30-5.90) M/uL Hgb (12.0-16.0) g/dL Hct (36.0-46.0) % MCV (80.0-98.0) fL MCH (27.0-32.0) pg MCHC (31.0-37.0) g/dL RDW Std Deviation (28.0-62.0) fl RDW Coeff of Shaniqua (11.0-15.0) % Plt Count (150-400) K/uL MPV (7.40-12.00) fL Neut % (Auto) (48.0-80.0) % Lymph % (Auto) (16.0-40.0) % [place] % (Auto) (0.0-15.0) % Eos % (Auto) (0.0-7.0) % Baso % (Auto) (0.0-1.5) % Neut # (Auto) (1.4-5.7) K/uL Lymph # (Auto) (0.6-2.4) K/uL [place] # (Auto) (0.0-0.8) K/uL Eos # (Auto) (0.0-0.7) K/uL Baso # (Auto) (0.0-0.1) K/uL Nucleated RBC % /100WBC Nucleated RBCs # K/uL Sodium 140 (136-145) mmol/L Potassium 4.3 (3.5-5.1) mmol/L Chloride 107 (98-107) mmol/L Carbon Dioxide 24.5 (21.0-32.0) mmol/L BUN 12 (7.0-18.0) mg/dL Creatinine 0.8 (0.6-1.0) mg/dL Est Cr Clr Drug Dosing 91.01 mL/min Estimated GFR (MDRD) > 60.0 ml/min Glucose 139 H (74-106) mg/dL POC Glucose 125 H (70-99) mg/dL Calcium 8.0 L (8.5-10.1) mg/dL Phosphorus 3.7 (2.6-4.7) mg/dL Magnesium 2.2 (1.8-2.4) mg/dL Med Orders - Current: Current Medications Acetaminophen (Acetaminophen 325 Mg Tab) 650 mg PO Q4H PRN PRN Reason: Pain (Mild 1-3)/fever Last Admin: 08/21/20 05:26 Dose: 650 mg Documented by: Albuterol/Ipratropium (Albuterol/Ipratropium 3.0-0.5 Mg/3 Ml Neb Soln) 3 ml NEB Q4HRRT [facility] Last Admin: 08/21/20 09:45 Dose: 3 ml Documented by: Cetirizine HCl (Cetirizine 10 Mg Tab) 10 mg PO DAILY [facility] Last Admin: 08/21/20 08:17 Dose: 10 mg Documented by: Cyclobenzaprine HCl (Cyclobenzaprine 10 Mg Tab) 10 mg PO TID PRN PRN Reason: muscle spasms Last Admin: 08/21/20 08:22 Dose: 10 mg Documented by: Dextrose/Water (50% Dextrose In Water 50 Ml Syringe) 50 ml IV ASDIRECTED PRN PRN Reason: Hypoglycemia Enoxaparin Sodium (Enoxaparin 40 Mg/0.4 Ml Syringe) 40 mg SUBCUT Q24H [facility] Last Admin: 08/20/20 21:10 Dose: 40 mg Documented by: Glucagon (Glucagon,Human Recombinant 1 Mg Vial) 1 mg IM ASDIRECTED PRN PRN Reason: Hypoglycemia Insulin Aspart (Insulin Aspart 100 Units/Ml 3 Ml Pen) 0 unit SUBCUT TIDAC [facility]; Protocol Last Admin: 08/21/20 09:02 Dose: Not Given Documented by: Lidocaine (Lidocaine 5% 700 Mg Patch) 700 mg TOP Q24H [facility] Last Admin: 08/20/20 17:37 Dose: 700 mg Documented by: Methylprednisolone Sodium Succinate (Methylprednisolone Sodium Succinate 40 Mg/1 Ml Sdv) 40 mg IVPUSH Q12H [facility] Last Admin: 08/21/20 08:46 Dose: 40 mg Documented by: Miscellaneous Information (Remove Lidocaine Patch) 1 ea TRDERM Q24H [facility] Last Admin: 08/21/20 05:27 Dose: 1 ea Documented by: Montelukast Sodium (Montelukast 10 Mg Tab) 10 mg PO BEDTIME [facility] Last Admin: 08/20/20 20:31 Dose: 10 mg Documented by: Omeprazole (Omeprazole 20 Mg Cap.Cr) 20 mg PO ACBREAKFAST [facility] Last Admin: 08/21/20 08:17 Dose: 20 mg Documented by: Ondansetron HCl (Ondansetron 4 Mg/2 Ml Sdv) 4 mg IVPUSH Q4H PRN PRN Reason: Nausea/Vomiting Oxycodone HCl (Oxycodone 5 Mg Tab) 5 mg PO Q4H PRN PRN Reason: Pain Last Admin: 08/21/20 05:26 Dose: 5 mg Documented by: [place] Ellipta 200-25 (Mcg Inhalation) 1 each INH DAILY [facility] Last Admin: 08/21/20 09:46 Dose: Not Given Documented by: Sodium Chloride (Sodium Chloride 0.9% 2.5 Ml Syringe) 2.5 ml FLUSH ASDIRECTED PRN PRN Reason: Keep Vein Open Sodium Phosphate (Phosphorus #1 250 Mg Tab) 250 mg PO QID [facility] Last Admin: 08/21/20 05:26 Dose: 250 mg Documented by: Discontinued Medications Acetaminophen (Acetaminophen 500 Mg Tab) 1,000 mg PO ONETIME ONE Stop: 08/19/20 02:55 Last Admin: 08/19/20 03:04 Dose: 1,000 mg Documented by: Albuterol/Ipratropium (Albuterol/Ipratropium 3.0-0.5 Mg/3 Ml Neb Soln) 3 ml NEB ONETIME ONE Stop: 08/18/20 21:50 Last Admin: 08/18/20 22:26 Dose: 3 ml Documented by: Albuterol/Ipratropium (Albuterol/Ipratropium 3.0-0.5 Mg/3 Ml Neb Soln) 3 ml NEB ONETIME ONE Stop: 08/18/20 22:32 Last Admin: 08/18/20 22:41 Dose: Not Given Documented by: Albuterol/Ipratropium (Albuterol/Ipratropium 3.0-0.5 Mg/3 Ml Neb Soln) 3 ml NEB ONETIME ONE Stop: 08/19/20 02:02 Last Admin: 08/19/20 02:33 Dose: 3 ml Documented by: Cyclobenzaprine HCl (Cyclobenzaprine 5 Mg Tab) 5 mg PO ONETIME ONE Stop: 08/20/20 06:44 Last Admin: 08/20/20 07:40 Dose: 5 mg Documented by: Cyclobenzaprine HCl (Cyclobenzaprine 5 Mg Tab) 5 mg PO ONETIME ONE Stop: 08/20/20 10:31 Last Admin: 08/20/20 10:42 Dose: 5 mg Documented by: Diphenhydramine HCl (Diphenhydramine 50 Mg/Ml Sdv) 25 mg IVPUSH ONETIME ONE Stop: 08/19/20 08:52 Last Admin: 08/19/20 09:41 Dose: 25 mg Documented by: Enoxaparin Sodium (Enoxaparin 40 Mg/0.4 Ml Syringe) 40 mg SUBCUT Q24H [facility] Last Admin: 08/20/20 01:11 Dose: 40 mg Documented by: Magnesium Sulfate (Magnesium Sulfate In Water 2 Gm/50 Ml) 2 gm in 50 mls @ 50 mls/hr IV NOW STA Stop: 08/19/20 00:16 Last Admin: 08/18/20 23:38 Dose: 50 mls/hr Documented by: Lactated Ringer's (Ringers, Lactated) 1,000 mls @ 125 mls/hr IV ASDIRECTED [facility] Last Admin: 08/20/20 05:43 Dose: 125 mls/hr Documented by: Pantoprazole Sodium 40 mg/ (Sodium Chloride) 10 mls @ 200 mls/hr IV DAILY [facility] Ketorolac Tromethamine (Ketorolac 15 Mg/Ml Sdv) 15 mg IM ONETIME ONE Stop: 08/18/20 21:51 Last Admin: 08/18/20 22:12 Dose: 15 mg Documented by: Ketorolac Tromethamine (Ketorolac 30 Mg/Ml Sdv) 30 mg IVPUSH ONETIME ONE Stop: 08/19/20 08:52 Last Admin: 08/19/20 09:07 Dose: 30 mg Documented by: Ketorolac Tromethamine (Ketorolac 15 Mg/Ml Sdv) 15 mg IVPUSH ONETIME ONE Stop: 08/20/20 00:44 Last Admin: 08/20/20 01:07 Dose: 15 mg Documented by: Ketorolac Tromethamine (Ketorolac 30 Mg/Ml Sdv) 30 mg IVPUSH ONETIME ONE Stop: 08/20/20 06:43 Last Admin: 08/20/20 08:10 Dose: 30 mg Documented by: Lidocaine (Lidocaine 5% 700 Mg Patch) 700 mg TOP Q24H [facility] Lidocaine (Lidocaine 5% 700 Mg Patch) 700 mg TOP Q24H [facility] Last Admin: 08/20/20 00:58 Dose: 700 mg Documented by: Magnesium Sulfate (Magnesium Sulfate (4.06 Meq/Ml) 5 Gm/10 Ml Sdv) 2 gm IV ONETIME STA Stop: 08/18/20 23:11 Methylprednisolone Sodium Succinate (Methylprednisolone Sodium Succinate 40 Mg/1 Ml Sdv) 40 mg IVPUSH Q8H [facility] Last Admin: 08/20/20 10:21 Dose: 40 mg Documented by: Metoclopramide HCl (Metoclopramide 10 Mg/2 Ml Sdv) 10 mg IVPUSH ONETIME ONE Stop: 08/19/20 08:52 Last Admin: 08/19/20 09:06 Dose: 10 mg Documented by: Miscellaneous Information (Remove Lidocaine Patch) 1 ea TRDERM Q24H [facility] Miscellaneous Information (Remove Lidocaine Patch) 1 ea TRDERM Q24H [facility] Last Admin: 08/20/20 15:04 Dose: Not Given Documented by: Morphine Sulfate (Morphine 2 Mg/Ml Syringe) 2 mg IVPUSH ONETIME ONE Stop: 08/20/20 10:31 Last Admin: 08/20/20 10:42 Dose: 2 mg Documented by: - Exam General: Reports: Alert, Oriented, Cooperative, Mild Distress (upper back pain improved since yesterday.) Lungs: Reports: Clear to Auscultation, Normal Respiratory Effort. Denies: Wheezing Cardiovascular: Reports: Regular Rate, Regular Rhythm GI/Abdominal Exam: Normal Bowel Sounds, Soft, Non-Tender Back Exam: Reports: Normal Inspection, Full Range of Motion Neurological: Reports: No New Focal Deficit Psy/Mental Status: Reports: Alert, Normal Affect, Normal Mood
[2020-08-21 12:03] VITALS: BP 150/80
[2020-08-21 12:18] VITALS: PULSE 98
== END 2020-08-21 14:45 | disposition home or self-care (01) ==
LOC: MW.ED 21:41 → INTOOBSV 08-19 01:09 → MW.MS 08-19 01:09
PROVIDERS: ADMIT Student in an Organized Health Care Education/Training Program; ATTEND Student in an Organized Health Care Education/Training Program
DX: J45.52 Severe persistent asthma with status asthmaticus (principal); J45.51 Severe persistent asthma with (acute) exacerbation; G43.909 Migraine, unspecified, not intractable, without status migrainosus; K21.9 Gastro-esophageal reflux disease without esophagitis; E66.9 Obesity, unspecified; Z88.5 Allergy status to narcotic agent; Z88.8 Allergy status to other drugs, medicaments and biological substances; Z88.1 Allergy status to other antibiotic agents; Z79.899 Other long term (current) drug therapy; Z98.890 Other specified postprocedural states; Z20.822 Contact with and (suspected) exposure to COVID-19; M54.9 Dorsalgia, unspecified
CPT/HCPCS: 36415; 71045; 71045-26; 72070; 72070-26; 72100; 72100-26; 80048; 82947; 83735; 84100; 85025; 94640; 94660; 96365; 96375; 99285-25; 99291; A9270-GY; J1200; J1650; J1815-GY; J1885; J2270; J2765; J2920; J3475; J7120; J7620-GY; U0002

== ENCOUNTER 2020-10-07 08:17 | Emergency (ER) | payer BC ==
--- NOTE | 2020-10-07 08:21 | EDM.PDOC ---
ED HPI GENERAL MEDICAL PROBLEM - General Stated Complaint: LFT ARM PAIN AND PROBLEMS WITH FACE Time Seen by Provider: 10/07/20 08:19 Source of Information: Reports: Patient History Limitations: Reports: No Limitations - History of Present Illness INITIAL COMMENTS - FREE TEXT/NARRATIVE: 34-year-old female past medical history asthma, GERD, renal stones, chronic back pain presents for left chest, arm, neck, face pain since yesterday. Patient states that she was with her family at the [place] when she began to experience the pain. She states it is constant. She notes chronic shortness of breath but de nies any changes. She also notes that her ankles were very swollen yesterday although this is improved today. She denies any history of cardiac pathology and has never had a cardiac cath or stress test. chest Pain Score (Numeric/FACES): 3 - Related Data Allergies Allergy/AdvReac Type Severity Reaction Status Date / Time codeine Allergy Severe Swelling Verified 10/07/20 08:45 amoxicillin [From Augmentin] Allergy Nausea and Verified 10/07/20 08:45 Vomiting cephalexin [From Keflex] Allergy Other Verified 10/07/20 08:45 clavulanic acid Allergy Nausea and Verified 10/07/20 08:45 [From Augmentin] Vomiting ibuprofen Allergy Other Verified 10/07/20 08:45 mushroom Allergy Swelling Uncoded 10/07/20 08:45 Home Meds: Home Meds Cetirizine [ZyrTEC] 10 mg PO DAILY 05/11/15 [History] Albuterol Sulfate 2.5 mg NEB Q4H PRN 01/04/19 [History] Fluticasone/Vilanterol [Breo Ellipta 200-25 MCG Inhalation Kit] 1 dose INH DAILY 01/04/19 [History] Montelukast [Singulair] 10 mg PO DAILY 12/27/19 [History] Phentermine HCl 37.5 mg PO DAILY 12/27/19 [History] Omeprazole 20 mg PO DAILY 06/18/20 [History] Acetaminophen [Tylenol] 650 mg PO Q4H PRN tablet 08/21/20 [Rx] Albuterol [Proventil HFA] 1 puff INH ASDIRECTED PRN #1 inhaler 08/21/20 [Rx] Cyclobenzaprine [Flexeril] 10 mg PO TID PRN #15 tablet 08/21/20 [Rx] Fluticasone/Vilanterol [Breo Ellipta 200-25 MCG Inhalation Kit] 1 each IH DAILY #1 each 08/21/20 [Rx] Lidocaine 5% [Lidoderm 5%] 700 mg TOP Q24H #5 patch 08/21/20 [Rx] oxyCODONE 5 mg PO Q6H PRN #15 tablet 08/21/20 [Rx] predniSONE [Prednisone] 40 mg PO DAILY #8 tablet 08/21/20 [Rx] Past Medical History HEENT History: Reports: Other (See Below) Other HEENT History: wears glasses, contacts Cardiovascular History: Reports: None. Denies: CAD, High Cholesterol, [place] Respiratory History: Reports: Asthma (Caused by severe allergies to multiple pollens trees and grasses) Other Respiratory History: uses rescue inhaler daily Gastrointestinal History: Reports: GERD Genitourinary History: Reports: Renal Calculus Other Genitourinary History: currently has kidney stone PROCED TECH History: Reports: 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, Musculoskeletal History: Reports: None Other Musculoskeletal History: carpal tunnel Neurological History: Reports: Migraines, Other (See Below) Other Neuro History: hx of motion sickness Psychiatric History: Reports: PTSD Endocrine/Metabolic History: Reports: Obesity/BMI 30+ 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 Hematologic History: Reports: None Immunologic History: Reports: None Oncologic (Cancer) History: Reports: None Dermatologic History: Reports: None - Infectious Disease History Infectious Disease History: Reports: Chicken Pox - Past Surgical History Head Surgeries/Procedures: Reports: None HEENT Surgical History: Reports: Naso-Sinus Surgery, Oral Surgery, Tonsillectomy Other HEENT Surgeries/Procedures: wisdom teeth Cardiovascular Surgical History: Reports: None Respiratory Surgical History: Reports: None GI Surgical History: Reports: Cholecystectomy Female Surgical History: Reports: Section Endocrine Surgical History: Reports: None Neurological Surgical History: Reports: None Musculoskeletal Surgical History: Reports: None Other Musculoskeletal Surgeries/Procedures:: carpal tunnel surgery 11/11/2016 Dermatological Surgical History: Reports: None Social & Family History - Family History Family Medical History: No Pertinent Family History HEENT: Reports: Glaucoma Cardiac: Reports: None Respiratory: Reports: Asthma GI: Reports: Other (See Below) Other GI Family History: ulcers OBGYN: Reports: 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, Recurrent Spontaneous Musculoskeletal: Reports: Fibromyalgia Endocrine/Metabolic: Reports: Diabetes, type II Dermatologic: Reports: Eczema Oncologic: Reports: Breast, Lung - Caffeine Use Caffeine Use: Reports: Soda Caffeine Use Comment: 2-3drinks/day - Living Situation & Occupation Living situation: Reports: ED ROS GENERAL - Review of Systems Review Of Systems: Comprehensive ROS is negative, except as noted in HPI. ED EXAM, GENERAL - Physical Exam Exam: See Below Exam Limited By: No Limitations General Appearance: Alert, WD/WN, No Apparent Distress Throat/Mouth: Normal Voice, No Airway Compromise Head: Atraumatic, Normocephalic Neck: Normal Inspection Respiratory/Chest: No Respiratory Distress, Lungs Clear, Normal Breath Sounds, No Accessory Muscle Use Cardiovascular: Normal Peripheral Pulses, Regular Rate, Rhythm, No Edema GI/Abdominal: Soft, Non-Tender Extremities: Normal Inspection Neurological: Alert, Normal Cognition, Normal Gait Psychiatric: Normal Affect, Normal Mood Skin Exam: Warm, Dry, Intact, Normal Color #1 Interpretation EKG Date: 10/07/20 Time: 08:18 Rhythm: NSR Rate (Beats/Min): 95 [place]: Normal P-Wave: Present QRS: Normal ST-T: Normal QT: Normal KS/PQ Interval: 183 EKG Interpretation Comments: Normal EKG Course - Vital Signs Last Recorded V/S: Last Vital Signs Temp 98.2 F 10/07/20 10:08 Pulse 91 10/07/20 11:19 Resp 18 10/07/20 11:19 BP 132/80 10/07/20 11:19 Pulse Ox 98 10/07/20 11:19 - Orders/Labs/Meds Orders: Active Orders 24 hr Category Date Time Status EKG Documentation Completion [RC] STAT Care 10/07/20 08:31 Active Nitroglycerin [Nitrostat] Med 10/07/20 08:31 Active 0.4 mg SL Q5M PRN Sodium Chloride 0.9% [Saline Flush] Med 10/07/20 08:31 Active 10 ml FLUSH ASDIRECTED PRN Sodium Chloride 0.9% [Saline Flush] Med 10/07/20 08:31 Active 2.5 ml FLUSH ASDIRECTED PRN Saline Lock Insert [OM.PC] Stat Oth 10/07/20 08:31 Ordered Medication Orders Nitroglycerin (Nitroglycerin 0.4 Mg Tab.Sl) 0.4 mg SL Q5M PRN PRN Reason: Chest Pain Last Admin: 10/07/20 08:40 Dose: 0.4 mg Documented by: JOHN Sodium Chloride (Sodium Chloride 0.9% 10 Ml Syringe) 10 ml FLUSH ASDIRECTED PRN PRN Reason: Keep Vein Open Last Admin: 10/07/20 08:41 Dose: 10 ml Documented by: JOHN Sodium Chloride (Sodium Chloride 0.9% 2.5 Ml Syringe) 2.5 ml FLUSH ASDIRECTED PRN PRN Reason: Keep Vein Open Last Admin: 10/07/20 08:41 Dose: 2.5 ml Documented by: JOHN Labs: Laboratory Tests 10/07/20 10/07/20 10/07/20 Range/Units 08:45 08:45 08:45 WBC 7.44 (4.0-11.0) K/uL RBC 4.51 (4.30-5.90) M/uL Hgb 10.6 L (12.0-16.0) g/dL Hct 33.3 L (36.0-46.0) % MCV 73.8 L (80.0-98.0) fL MCH 23.5 L (27.0-32.0) pg MCHC 31.8 (31.0-37.0) g/dL RDW Std Deviation 43.0 (28.0-62.0) fl RDW Coeff of [place] 16 H (11.0-15.0) % Plt Count 246 (150-400) K/uL MPV 9.70 (7.40-12.00) fL Neut % (Auto) 61.2 (48.0-80.0) % Lymph % (Auto) 21.1 (16.0-40.0) % [place] % (Auto) 11.0 (0.0-15.0) % Eos % (Auto) 6.3 (0.0-7.0) % Baso % (Auto) 0.4 (0.0-1.5) % Neut # (Auto) 4.6 (1.4-5.7) K/uL Lymph # (Auto) 1.6 (0.6-2.4) K/uL [place] # (Auto) 0.8 (0.0-0.8) K/uL Eos # (Auto) 0.5 (0.0-0.7) K/uL Baso # (Auto) 0.0 (0.0-0.1) K/uL Nucleated RBC % 0.0 /100WBC Nucleated RBCs # 0 K/uL D-Dimer, Quantitative 0.32 (0.0-0.50) mg/L FEU Sodium 139 (136-145) mmol/L Potassium 3.7 (3.5-5.1) mmol/L Chloride 104 (98-107) mmol/L Carbon Dioxide 23.8 (21.0-32.0) mmol/L BUN 11 (7.0-18.0) mg/dL Creatinine 0.8 (0.6-1.0) mg/dL Est Cr Clr Drug Dosing 91.01 mL/min Estimated GFR (MDRD) > 60.0 ml/min Glucose 101 (74-106) mg/dL Calcium 8.5 (8.5-10.1) mg/dL Magnesium 1.7 L (1.8-2.4) mg/dL Total Bilirubin 0.5 (0.2-1.0) mg/dL AST 22 (15-37) IU/L ALT 32 (14-63) IU/L Alkaline Phosphatase 54 (46-116) U/L Troponin I < 0.050 (0.000-0.056) ng/mL B-Natriuretic Peptide (<100) PG/ML Total Protein 6.8 (6.4-8.2) g/dL Albumin 3.1 L (3.4-5.0) g/dL Globulin 3.7 (2.6-4.0) g/dL Albumin/Globulin Ratio 0.8 L (0.9-1.6) 10/07/20 10/07/20 Range/Units 08:45 11:20 WBC (4.0-11.0) K/uL RBC (4.30-5.90) M/uL Hgb (12.0-16.0) g/dL Hct (36.0-46.0) % MCV (80.0-98.0) fL MCH (27.0-32.0) pg MCHC (31.0-37.0) g/dL RDW Std Deviation (28.0-62.0) fl RDW Coeff of [place] (11.0-15.0) % Plt Count (150-400) K/uL MPV (7.40-12.00) fL Neut % (Auto) (48.0-80.0) % Lymph % (Auto) (16.0-40.0) % [place] % (Auto) (0.0-15.0) % Eos % (Auto) (0.0-7.0) % Baso % (Auto) (0.0-1.5) % Neut # (Auto) (1.4-5.7) K/uL Lymph # (Auto) (0.6-2.4) K/uL [place] # (Auto) (0.0-0.8) K/uL Eos # (Auto) (0.0-0.7) K/uL Baso # (Auto) (0.0-0.1) K/uL Nucleated RBC % /100WBC Nucleated RBCs # K/uL D-Dimer, Quantitative (0.0-0.50) mg/L FEU Sodium (136-145) mmol/L Potassium (3.5-5.1) mmol/L Chloride (98-107) mmol/L Carbon Dioxide (21.0-32.0) mmol/L BUN (7.0-18.0) mg/dL Creatinine (0.6-1.0) mg/dL Est Cr Clr Drug Dosing mL/min Estimated GFR (MDRD) ml/min Glucose (74-106) mg/dL Calcium (8.5-10.1) mg/dL Magnesium (1.8-2.4) mg/dL Total Bilirubin (0.2-1.0) mg/dL AST (15-37) IU/L ALT (14-63) IU/L Alkaline Phosphatase (46-116) U/L Troponin I < 0.050 (0.000-0.056) ng/mL B-Natriuretic Peptide 92 (<100) PG/ML Total Protein (6.4-8.2) g/dL Albumin (3.4-5.0) g/dL Globulin (2.6-4.0) g/dL Albumin/Globulin Ratio (0.9-1.6) Meds: Medications Generic Name Dose Route Start Last Admin Trade Name Freq PRN Reason Stop Dose Admin Nitroglycerin 0.4 mg 10/07/20 08:31 10/07/20 08:40 Nitroglycerin 0.4 Mg Tab.Sl SL 0.4 mg Q5M PRN Administration Chest Pain Sodium Chloride 10 ml 10/07/20 08:31 10/07/20 08:41 Sodium Chloride 0.9% 10 Ml Syringe FLUSH 10 ml ASDIRECTED PRN Administration Keep Vein Open Sodium Chloride 2.5 ml 10/07/20 08:31 10/07/20 08:41 Sodium Chloride 0.9% 2.5 Ml Syringe FLUSH 2.5 ml ASDIRECTED PRN Administration Keep Vein Open Discontinued Medications Generic Name Dose Route Start Last Admin Trade Name Freq PRN Reason Stop Dose Admin Aspirin 324 mg 10/07/20 08:31 10/07/20 08:39 Aspirin 81 Mg Tab.Chew PO 10/07/20 08:32 324 mg ONETIME ONE Administration Oxycodone/Acetaminophen 1 tab 10/07/20 10:08 10/07/20 10:17 Acetaminophen/Oxycodone 325-10 Mg Tab PO 10/07/20 10:09 1 tab ONETIME ONE Administration - Re-Assessments/Exams Free Text/Narrative Re-Assessment/Exam: 10/07/20 08:39 EKG is nonischemic. Will get labs including troponin and D-dimer. Will get chest x-ray. Will give aspirin and trial nitroglycerin. 10/07/20 10:01 HEART = 1; will get repeat troponin to ensure no rise. If negative will d/c with cardiology f/u within 1-week. 10/07/20 12:02 Repeat troponin is negative. Will discharge with cardiology follow-up. Departure - Departure Time of Disposition: 12:02 Disposition: Home, Self-Care 01 Condition: Good Clinical Impression: Chest pain Qualifiers: Chest pain type: unspecified Qualified Code(s): R07.9 - Chest pain, unspecified - Discharge Information Instructions: Nonspecific Chest Pain, Adult Additional Instructions: Your cardiac work-up is unremarkable. However given the chest pain that you are experiencing in the left arm pain I would recommend following up with cardiology and consider getting a cardiac stress test for definitive cardiac work-up. If your chest pain returns or you have difficulty breathing you should come back to the emergency department for reassessment. The following information is given to patients seen in the emergency department who are being discharged to home. This information is to outline your options for follow-up care. We provide all patients seen in our emergency department with a follow-up referral. The need for follow-up, as well as the timing and circumstances, are variable depending upon the specifics of your emergency department visit. If you don't have a primary care physician on staff, we will provide you with a referral. We always advise you to contact your personal physician following an emergency department visit to inform them of the circumstance of the visit and for follow-up with them and/or the need for any referrals to a consulting specialist. The emergency department will also refer you to a specialist when appropriate. This referral assures that you have the opportunity for follow-up care with a specialist. All of these measure are taken in an effort to provide you with optimal care, which includes your follow-up. Under all circumstances we always encourage you to contact your private physician who remains a resource for coordinating your care. When calling for follow-up care, please make the office aware that this follow-up is from your recent emergency room visit. If for any reason you are refused follow-up, please contact the [facility] Emergency Department at and asked to speak to the emergency department charge nurse. Please follow up with your primary care physician. If you do not have a primary care physician, see below: [facility] [address] [place] [id number] [id number] [facility] [address] [place] [id number] Sepsis Event Note (ED) - Focused Exam Vital Signs: Vital Signs Temp Pulse Resp BP BP Pulse Ox 10/07/20 11:19 91 18 132/80 98 10/07/20 10:37 98 18 125/71 97 10/07/20 10:08 98.2 F 96 18 154/70 H 98 10/07/20 09:37 98.2 F 101 H 18 160/110 H 97 10/07/20 08:51 98.4 F 96 18 159/93 H 98 10/07/20 08:40 169/85 H 10/07/20 08:31 98.4 F 98 20 168/85 H 98 - My Orders Last 24 Hours: My Active Orders 10/07/20 08:31 EKG Documentation Completion [RC] STAT Nitroglycerin [Nitrostat] 0.4 mg SL Q5M PRN Sodium Chloride 0.9% [Saline Flush] 10 ml FLUSH ASDIRECTED PRN Sodium Chloride 0.9% [Saline Flush] 2.5 ml FLUSH ASDIRECTED PRN Saline Lock Insert [OM.PC] Stat - Assessment/Plan Last 24 Hours: My Active Orders 10/07/20 08:31 EKG Documentation Completion [RC] STAT Nitroglycerin [Nitrostat] 0.4 mg SL Q5M PRN Sodium Chloride 0.9% [Saline Flush] 10 ml FLUSH ASDIRECTED PRN Sodium Chloride 0.9% [Saline Flush] 2.5 ml FLUSH ASDIRECTED PRN Saline Lock Insert [OM.PC] Stat
[2020-10-07] MEDS ORDERED: Aspirin 81 MG Tab.Chew PO ONE (08:31)
[2020-10-07] MEDS ORDERED: Sodium Chloride 0.9% 10 ML Syringe FLUSH PRN (08:31)
[2020-10-07] MEDS ORDERED: Sodium Chloride 0.9% 2.5 ML Syringe FLUSH PRN (08:31)
[2020-10-07] MEDS ORDERED: Nitroglycerin 0.4 MG Tab.SL SL PRN (08:31)
[2020-10-07 09:06] LABS: BLOOD UREA NITROGEN,BUN 11 mg/dL (7.0-18.0); CARBON DIOXIDE,CO2 23.8 mmol/L (21.0-32.0); CHLORIDE,CL 104 mmol/L (98-107); GLUCOSE RANDOM 101 mg/dL (74-106); POTASSIUM,K 3.7 mmol/L (3.5-5.1); SODIUM,NA 139 mmol/L (136-145)
--- NOTE | 2020-10-07 09:14 | CR ---
INDICATION: Chest pain TECHNIQUE: Chest 1 views COMPARISON: August 18, 2020 FINDINGS: Cardiovascular and mediastinum: Heart size and vasculature are normal in caliber and appearance. Lungs and pleural spaces: Lungs are clear. No sign of infiltrate or mass. No sign of pleural effusion. No pneumothorax. Bones and soft tissues: No significant findings. IMPRESSION: No acute findings and no significant changes from the prior exam. Dictated by Alan Telles MD @ 10/07/2020 9:14:[address] Alan Telles @ Oct 07 2020 9:14AM
[2020-10-07] MEDS ORDERED: Acetaminophen/oxyCODONE 325-10 MG Tab PO ONE (10:08)
[2020-10-07 12:14] VITALS: BP 115/68; PULSE 82
== END 2020-10-07 12:14 | disposition home or self-care (01) ==
LOC: MW.ED 08:17
DX: R07.9 Chest pain, unspecified (principal); J45.909 Unspecified asthma, uncomplicated; K21.9 Gastro-esophageal reflux disease without esophagitis; E66.9 Obesity, unspecified; Z68.41 Body mass index [BMI] 40.0-44.9, adult; Z88.5 Allergy status to narcotic agent; Z88.0 Allergy status to penicillin; Z88.1 Allergy status to other antibiotic agents; Z88.6 Allergy status to analgesic agent; Z91.018 Allergy to other foods; Z79.899 Other long term (current) drug therapy
CPT/HCPCS: 36415; 71045; 80053; 83735; 83880; 84484; 85025; 85379; 93005; 99285; A9270; 93010; 99283

== ENCOUNTER 2020-10-29 00:13 | Observation (INO) | payer BC ==
[2020-10-29] MEDS ORDERED: Albuterol/Ipratropium 3.0-0.5 MG/3 ML Neb Soln ONE (00:15)
[2020-10-29] MEDS ORDERED: Albuterol/Ipratropium 3.0-0.5 MG/3 ML Neb Soln NEB ONE (00:16)
[2020-10-29] MEDS ORDERED: Sodium Chloride 0.9% 10 ML Syringe FLUSH PRN (00:16)
[2020-10-29] MEDS ORDERED: Sodium Chloride 0.9% 2.5 ML Syringe FLUSH PRN (00:16)
[2020-10-29] MEDS ORDERED: methylPREDNISolone Sodium Succinate 125 MG/2 ML SDV IVPUSH ONE (00:16)
[2020-10-29] MEDS ORDERED: Sodium Chloride 0.9% 1,000 ML IV ONE (00:18)
--- NOTE | 2020-10-29 00:19 | EDM.PDOC ---
ED HPI GENERAL MEDICAL PROBLEM - General Chief Complaint: Asthma Stated Complaint: TROUBLE BREATHING Time Seen by Provider: 10/29/20 00:20 - History of Present Illness INITIAL COMMENTS - FREE TEXT/NARRATIVE: History of present illness: [] Patient is in the process of moving. Her nebulizers put away. She has had a 3- day exacerbation of asthma. Tonight she is used her inhaler without a spacer about 8 times. She is extremely short of breath and anxious. Review of systems: As per history of present illness and below otherwise all systems reviewed and negative. Past medical history: As per history of present illness and as reviewed below otherwise noncontributory. Surgical history: As per history of present illness and as reviewed below otherwise noncontributory. Social history: No reported history of drug or alcohol abuse. Family history: As per history of present illness and as reviewed below otherwise noncontributory. Physical exam: Constitutional - well developed, well-nourished and in acute distress HEENT - normocephalic, no evidence of trauma - external nose and mouth normal - no mass in neck and no JVD - mucosae moist EYES - full EOM, PERRL, no icterus - no evidence of inflammation, injection, or drainage Respiratory -moderately severe respiratory distress, equal bilateral expansion, lungs diminished throughout with wheezes throughout Cardiovascular - Regular Rhythm with S1 and S2 appreciated and no murmur, gallop or rub. GI - abdomen soft without distension or organomegaly - normal bowel sounds - no guard or rebound Musculoskeletal no gross deformity of long bones or joints - no tenderness, swelling or edema Neurologic - Alert and oriented times four - CN II-XII grossly intact - motor sensory and coordination symmetrically normal Psychiatric - appropriate mood and affect with normal thought content Hematologic - No petechiae or purpura - mucosa appropriate color and sclera not pale - normal nail bed color and refill Integument - no rash or evidence of trauma - normal turgor Diagnostics: [] Therapeutics: [] Impression: [] Plan: [] Definitive disposition and diagnosis as appropriate pending reevaluation and review of above. Lung Pain Score (Numeric/FACES): 8 - Related Data Allergies Allergy/AdvReac Type Severity Reaction Status Date / Time codeine Allergy Severe Swelling Verified 10/29/20 00:23 amoxicillin [From Augmentin] Allergy Nausea and Verified 10/29/20 00:23 Vomiting cephalexin [From Keflex] Allergy Other Verified 10/29/20 00:23 clavulanic acid Allergy Nausea and Verified 10/29/20 00:23 [From Augmentin] Vomiting ibuprofen Allergy Other Verified 10/29/20 00:23 mushroom Allergy Swelling Uncoded 10/29/20 00:23 Home Meds: Home Meds Cetirizine [ZyrTEC] 10 mg PO DAILY 05/11/15 [History] Albuterol Sulfate 2.5 mg NEB Q4H PRN 01/04/19 [History] Fluticasone/Vilanterol [Breo Ellipta 200-25 MCG Inhalation Kit] 1 dose INH DAILY 01/04/19 [History] Montelukast [Singulair] 10 mg PO DAILY 12/27/19 [History] Phentermine HCl 37.5 mg PO DAILY 12/27/19 [History] Omeprazole 20 mg PO DAILY 06/18/20 [History] Acetaminophen [Tylenol] 650 mg PO Q4H PRN tablet 08/21/20 [Rx] Albuterol [Proventil HFA] 1 puff INH ASDIRECTED PRN #1 inhaler 08/21/20 [Rx] Fluticasone/Vilanterol [Breo Ellipta 200-25 MCG Inhalation Kit] 1 each IH DAILY #1 each 08/21/20 [Rx] predniSONE [Prednisone] 40 mg PO DAILY #8 tablet 08/21/20 [Rx] Past Medical History HEENT History: Reports: Other (See Below) Other HEENT History: wears glasses, contacts Cardiovascular History: Reports: None Respiratory History: Reports: Asthma Other Respiratory History: uses rescue inhaler daily Gastrointestinal History: Reports: GERD Genitourinary History: Reports: Renal Calculus Other Genitourinary History: currently has kidney stone 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 PATHOLOGIST History: Reports: 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, Musculoskeletal History: Reports: None Other Musculoskeletal History: carpal tunnel Neurological History: Reports: Migraines, Other (See Below) Other Neuro History: hx of motion sickness Psychiatric History: Reports: PTSD Endocrine/Metabolic History: Reports: Obesity/BMI 30+ Insulin Pump Model 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: 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 Hematologic History: Reports: None Immunologic History: Reports: None Oncologic (Cancer) History: Reports: None Dermatologic History: Reports: None - Infectious Disease History Infectious Disease History: Reports: Chicken Pox - Past Surgical History Head Surgeries/Procedures: Reports: None HEENT Surgical History: Reports: Naso-Sinus Surgery, Oral Surgery, Tonsillectomy Other HEENT Surgeries/Procedures: wisdom teeth Cardiovascular Surgical History: Reports: None Respiratory Surgical History: Reports: None GI Surgical History: Reports: Cholecystectomy Female Surgical History: Reports: Section Endocrine Surgical History: Reports: None Neurological Surgical History: Reports: None Musculoskeletal Surgical History: Reports: None Other Musculoskeletal Surgeries/Procedures:: carpal tunnel surgery 11/11/2016 Dermatological Surgical History: Reports: None Social & Family History - Family History Family Medical History: No Pertinent Family History HEENT: Reports: Glaucoma Cardiac: Reports: None Respiratory: Reports: Asthma GI: Reports: Other (See Below) Other GI Family History: ulcers OBGYN: Reports: 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, Recurrent Spontaneous Musculoskeletal: Reports: Fibromyalgia Endocrine/Metabolic: Reports: Diabetes, type II Dermatologic: Reports: Eczema Oncologic: Reports: Breast, Lung - Caffeine Use Caffeine Use: Reports: None Caffeine Use Comment: 2-3drinks/day - Living Situation & Occupation Living situation: Reports: ED ROS GENERAL - Review of Systems Review Of Systems: Comprehensive ROS is negative, except as noted in HPI. ED EXAM, GENERAL - Physical Exam Exam: See Below Free Text/Narrative:: My physical exam is in the HPI #1 Interpretation EKG Interpretation Comments: EKG sinus tachycardia heart rate 117 MA interval 154 QT duration 475 QRS axis 44. Late transition R wave in the precordium. Compared to 10/07/2020 no acute change. Impression no acute injury Course - Vital Signs Text/Narrative:: 00:45 a little less distress and better air exchange on auscultation. Still with coarse wheezes. Chest x-ray reveals no pneumothorax. No obvious discrete infiltrate The patient was unable to go to the bathroom and back without extreme shortness of breath. She had seemed to improve but when she got back from the walk to the bathroom her oxygen saturations 90% she has diminished breath sounds prolonged expiratory phase and wheezes throughout. Discussed with Dr. Miller and placed on telemetry observation Last Recorded V/S: Last Vital Signs Temp 36.2 C 10/29/20 00:25 Pulse 105 H 10/29/20 02:30 Resp 24 H 10/29/20 00:25 BP 151/88 H 10/29/20 02:30 Pulse Ox 93 L 10/29/20 02:30 - Orders/Labs/Meds Orders: Active Orders 24 hr Category Date Time Status Admission Status [Patient Status] [ADT] Stat ADT 10/29/20 03:27 Ordered EKG Documentation Completion [RC] STAT Care 10/29/20 00:28 Active RT Aerosol Therapy [RC] ASDIRECTED Care 10/29/20 00:16 Active RT Aerosol Therapy [RC] ASDIRECTED Care 10/29/20 00:53 Active Naloxone [Narcan] Med 10/29/20 03:28 Once 0.4 mg IVPUSH ONETIME ONE Sodium Chloride 0.9% [Saline Flush] Med 10/29/20 00:16 Active 10 ml FLUSH ASDIRECTED PRN Sodium Chloride 0.9% [Saline Flush] Med 10/29/20 00:16 Active 2.5 ml FLUSH ASDIRECTED PRN Saline Lock Insert [OM.PC] Stat Oth 10/29/20 00:16 Ordered Medication Orders Sodium Chloride (Sodium Chloride 0.9% 10 Ml Syringe) 10 ml FLUSH ASDIRECTED PRN PRN Reason: Keep Vein Open Last Admin: 10/29/20 00:29 Dose: 10 ml Documented by: ADELAIDE Sodium Chloride (Sodium Chloride 0.9% 2.5 Ml Syringe) 2.5 ml FLUSH ASDIRECTED PRN PRN Reason: Keep Vein Open Last Admin: 10/29/20 00:29 Dose: 2.5 ml Documented by: ADELAIDE Labs: Laboratory Tests 10/29/20 10/29/20 10/29/20 Range/Units 00:22 00:22 02:12 WBC 9.39 (4.0-11.0) K/uL RBC 4.95 (4.30-5.90) M/uL Hgb 11.4 L (12.0-16.0) g/dL Hct 35.1 L (36.0-46.0) % MCV 70.9 L (80.0-98.0) fL MCH 23.0 L (27.0-32.0) pg MCHC 32.5 (31.0-37.0) g/dL RDW Std Deviation 40.0 (28.0-62.0) fl RDW Coeff of Shaniqua 16 H (11.0-15.0) % Plt Count 379 (150-400) K/uL MPV 9.60 (7.40-12.00) fL Neut % (Auto) 47.6 L (48.0-80.0) % Lymph % (Auto) 25.5 (16.0-40.0) % [place]ata[place] % (Auto) 8.6 (0.0-15.0) % Eos % (Auto) 17.0 H (0.0-7.0) % Baso % (Auto) 1.3 (0.0-1.5) % Neut # (Auto) 4.5 (1.4-5.7) K/uL Lymph # (Auto) 2.4 (0.6-2.4) K/uL [place] # (Auto) 0.8 (0.0-0.8) K/uL Eos # (Auto) 1.6 H (0.0-0.7) K/uL Baso # (Auto) 0.1 (0.0-0.1) K/uL Sodium 140 (136-145) mmol/L Potassium 3.5 (3.5-5.1) mmol/L Chloride 106 (98-107) mmol/L Carbon Dioxide 23.0 (21.0-32.0) mmol/L BUN 10 (7.0-18.0) mg/dL Creatinine 0.9 (0.6-1.0) mg/dL Est Cr Clr Drug Dosing 80.90 mL/min Estimated GFR (MDRD) > 60.0 ml/min Glucose 103 (74-106) mg/dL Calcium 8.6 (8.5-10.1) mg/dL Total Bilirubin 0.4 (0.2-1.0) mg/dL AST 30 (15-37) IU/L ALT 31 (14-63) IU/L Alkaline Phosphatase 77 (46-116) U/L Total Protein 7.0 (6.4-8.2) g/dL Albumin 3.5 (3.4-5.0) g/dL Globulin 3.5 (2.6-4.0) g/dL Albumin/Globulin Ratio 1.0 (0.9-1.6) SARS-CoV-2 RNA (PINEDA) NEGATIVE (NEGATIVE) Meds: Medications Generic Name Dose Route Start Last Admin Trade Name Freq PRN Reason Stop Dose Admin Sodium Chloride 10 ml 10/29/20 00:16 10/29/20 00:29 Sodium Chloride 0.9% 10 Ml Syringe FLUSH 10 ml ASDIRECTED PRN Administration Keep Vein Open Sodium Chloride 2.5 ml 10/29/20 00:16 10/29/20 00:29 Sodium Chloride 0.9% 2.5 Ml Syringe FLUSH 2.5 ml ASDIRECTED PRN Administration Keep Vein Open Discontinued Medications Generic Name Dose Route Start Last Admin Trade Name Pau PRN Reason Stop Dose Admin Albuterol 5 mg 10/29/20 00:52 10/29/20 00:56 Albuterol 0.083% 2.5 Mg/3 Ml Neb Soln NEB 10/29/20 00:53 5 mg ONETIME ONE Administration Albuterol/Ipratropium Confirm 10/29/20 00:15 10/29/20 00:26 Albuterol/Ipratropium 3.0-0.5 Mg/3 Ml Neb Soln Administered 10/29/20 00:16 Not Given Dose 3 ml .ROUTE .STK-MED ONE Albuterol/Ipratropium 3 ml 10/29/20 00:16 10/29/20 00:29 Albuterol/Ipratropium 3.0-0.5 Mg/3 Ml Neb Soln NEB 10/29/20 00:17 3 ml ONETIME ONE Administration Sodium Chloride 1,000 mls @ 1,000 mls/hr 10/29/20 00:18 10/29/20 00:29 Normal Saline IV 10/29/20 01:17 1,000 mls/hr .Bolus ONE Administration Magnesium Sulfate 2 gm in 50 mls @ 50 mls/hr 10/29/20 01:00 10/29/20 01:08 Magnesium Sulfate In Water 2 Gm/50 Ml IV 10/29/20 01:59 50 mls/hr NOW ONE Administration Ketorolac Tromethamine 30 mg 10/29/20 00:35 10/29/20 00:48 Ketorolac 30 Mg/Ml Sdv IVPUSH 10/29/20 00:36 30 mg ONETIME ONE Administration Magnesium Sulfate 2 gm 10/29/20 00:55 Magnesium Sulfate (4.06 Meq/Ml) 5 Gm/10 Ml Sdv IV 10/29/20 00:56 STAT STA Methylprednisolone Sodium Succinate 125 mg 10/29/20 00:16 10/29/20 00:29 Methylprednisolone Sodium Succinate 125 Mg/2 Ml Sdv IVPUSH 10/29/20 00:17 125 mg ONETIME ONE Administration Departure - Departure Time of Disposition: 03:29 Disposition: Refer to Observation Condition: Good Clinical Impression: Status asthmaticus Qualifiers: Asthma severity: severe Asthma persistence: persistent Qualified Code(s): J45.52 - Severe persistent asthma with status asthmaticus - Discharge Information Referrals: PCP,None [Primary Care Provider] - Forms: ED Department Discharge Sepsis Event Note (ED) - Focused Exam Vital Signs: Vital Signs Temp Pulse Resp BP Pulse Ox 10/29/20 02:30 105 H 151/88 H 93 L 10/29/20 02:00 108 H 134/78 93 L 10/29/20 01:29 111 H 131/83 91 L 10/29/20 00:58 112 H 142/116 H 96 10/29/20 00:54 111 H 92 L 10/29/20 00:25 36.2 C 110 H 24 H 140/97 H 94 L - My Orders Last 24 Hours: My Active Orders 10/29/20 00:16 RT Aerosol Therapy [RC] ASDIRECTED Sodium Chloride 0.9% [Saline Flush] 10 ml FLUSH ASDIRECTED PRN Sodium Chloride 0.9% [Saline Flush] 2.5 ml FLUSH ASDIRECTED PRN Saline Lock Insert [OM.PC] Stat 10/29/20 00:28 EKG Documentation Completion [RC] STAT 10/29/20 00:53 RT Aerosol Therapy [RC] ASDIRECTED 10/29/20 03:27 Admission Status [Patient Status] [ADT] Stat 10/29/20 03:28 Naloxone [Narcan] 0.4 mg IVPUSH ONETIME ONE - Assessment/Plan Last 24 Hours: My Active Orders 10/29/20 00:16 RT Aerosol Therapy [RC] ASDIRECTED Sodium Chloride 0.9% [Saline Flush] 10 ml FLUSH ASDIRECTED PRN Sodium Chloride 0.9% [Saline Flush] 2.5 ml FLUSH ASDIRECTED PRN Saline Lock Insert [OM.PC] Stat 10/29/20 00:28 EKG Documentation Completion [RC] STAT 10/29/20 00:53 RT Aerosol Therapy [RC] ASDIRECTED 10/29/20 03:27 Admission Status [Patient Status] [ADT] Stat 10/29/20 03:28 Naloxone [Narcan] 0.4 mg IVPUSH ONETIME ONE
[2020-10-29] MEDS ORDERED: Ketorolac 30 MG/ML SDV IVPUSH ONE ×2 (00:35→09:18)
[2020-10-29] MEDS ORDERED: Albuterol 0.083% 2.5 MG/3 ML Neb Soln NEB ONE (00:52)
[2020-10-29] MEDS ORDERED: Magnesium Sulfate (4.06 MEQ/ML) 5 GM/10 ML SDV IV STA (00:55)
[2020-10-29 00:56] LABS: BLOOD UREA NITROGEN,BUN 10 mg/dL (7.0-18.0); CHLORIDE,CL 106 mmol/L (98-107); GLUCOSE RANDOM 103 mg/dL (74-106); POTASSIUM,K 3.5 mmol/L (3.5-5.1); SODIUM,NA 140 mmol/L (136-145)
[2020-10-29] MEDS ORDERED: Magnesium Sulfate/Water 2 GM/50 ML BAG IV ONE (01:00)
--- NOTE | 2020-10-29 01:17 | CR ---
For Patients: As a result of the Cures Act, medical imaging exams and procedure reports are released immediately into your electronic medical record. You may view this report before your referring provider. If you have questions, please contact your health care provider. INDICATION: Dyspnea. TECHNIQUE: AP chest. COMPARISON: 10/07/2020. FINDINGS: Normal cardiac, mediastinal and hilar contours. Normal pulmonary vasculature. Lungs are grossly clear. No pleural fluid or pneumothorax. IMPRESSION: No radiographic signs of acute thoracic disease. Dictated by Georgi Moncada MD @ 10/29/2020 1:16:06 AM Dictated by: Georgi Moncada MD @ 10/29/2020 01:16:12 (Electronically Signed)
[2020-10-29] MEDS ORDERED: Naloxone 0.4 MG/ML Syringe IVPUSH ONE (03:28)
[2020-10-29] MEDS ORDERED: Albuterol/Ipratropium 3.0-0.5 MG/3 ML Neb Soln NEB PRN (05:08)
[2020-10-29] MEDS ORDERED: Ondansetron 4 MG/2 ML SDV IVPUSH PRN (05:08)
[2020-10-29] MEDS: Lactated Ringers 1,000 ML IV SCH ×3 (05:24→21:45)
--- NOTE | 2020-10-29 08:36 | PCM.HP.2 ---
H&P History of Present Illness - General Date of Service: 10/29/20 Admit Problem/Dx: Admission Diagnosis/Problem Admission Diagnosis/Problem Asthma with status asthmaticus Source of Information: Patient History Limitations: Reports: No Limitations - History of Present Illness Initial Comments - Free Text/Narative: This 34-year-old female with past medical history of asthma, GERD and obesity presented to the ER with complaints of asthma exacerbation. She reports she is currently in the process of moving and her nebulizers are put away. She reports that prior to coming to the ER she used her inhaler without spacer approximately 8 times but she continues to be extremely short of breath and anxious. She reports that over the last 3 days she has used approximately 100 puffs of her albuterol inhaler due to the increase shortness of breath. She normally uses her albuterol nebulizers when things get this bad but again this is packed away and she has not been able to get to it. She denies any fevers or chills. She reports chest tightness along with shortness of breath and significant audible wheezing. She denies any abdominal pain any diarrhea or constipation. She reports she does have a migraine now pressure all over her head she reports she has this when she gets significant asthma attacks she reportedly takes 6 tabs of Tylenol at home to help this otherwise takes Imitrex before he gets to bed. She otherwise feels that the cocktail given in the ER helped significantly. She denies any tobacco use no recreational drug use and no alcohol use. She reports she does see pulmonology. She was recently admitted in July after moving to a place that had black mold. She no longer lives there now, has done well since previous hospitalization until the last few days she feels like this is secondary to allergies as well as weather change. In the ER no leukocytosis noted hemoglobin 11.4 hematocrit 35.1. Platelets 379,000. CMP otherwise normal. Covid swab negative chest x-ray obtained in the ER reveals no acute cardiopulmonary process. In the ER she was treated with magnesium IV normal saline bolus 125 mg of Solu-Medrol and DuoNeb's. She was noted to be hypoxic on arrival at 88%, heart rate elevated at 128. She will be admitted for acute asthma exacerbation. Lung Pain Score (Numeric/FACES): 8 Headache Pain Score (Numeric/FACES): 7 - Related Data Allergies/Adverse Reactions: Allergies Allergy/AdvReac Type Severity Reaction Status Date / Time codeine Allergy Severe Swelling Verified 10/29/20 00:23 amoxicillin [From Augmentin] Allergy Nausea and Verified 10/29/20 00:23 Vomiting cephalexin [From Keflex] Allergy Other Verified 10/29/20 00:23 clavulanic acid Allergy Nausea and Verified 10/29/20 00:23 [From Augmentin] Vomiting ibuprofen Allergy Other Verified 10/29/20 00:23 mushroom Allergy Swelling Uncoded 10/29/20 00:23 Home Medications: Home Meds Cetirizine [ZyrTEC] 10 mg PO DAILY 05/11/15 [History] Albuterol Sulfate 2.5 mg NEB Q4H PRN 01/04/19 [History] Fluticasone/Vilanterol [Breo Ellipta 200-25 MCG Inhalation Kit] 1 dose INH DAILY 01/04/19 [History] Montelukast [Singulair] 10 mg PO DAILY 12/27/19 [History] Phentermine HCl 37.5 mg PO DAILY 12/27/19 [History] Omeprazole 20 mg PO DAILY 06/18/20 [History] Acetaminophen [Tylenol] 650 mg PO Q4H PRN tablet 08/21/20 [Rx] Albuterol [Proventil HFA] 1 puff INH ASDIRECTED PRN #1 inhaler 08/21/20 [Rx] Fluticasone/Vilanterol [Breo Ellipta 200-25 MCG Inhalation Kit] 1 each IH DAILY #1 each 08/21/20 [Rx] predniSONE [Prednisone] 40 mg PO DAILY #8 tablet 08/21/20 [Rx] Past Medical History HEENT History: Reports: Other (See Below) Other HEENT History: wears glasses, contacts Cardiovascular History: Reports: None Respiratory History: Reports: Asthma Other Respiratory History: uses rescue inhaler daily Gastrointestinal History: Reports: GERD Genitourinary History: Reports: Renal Calculus Other Genitourinary History: currently has kidney stone [employer] History: Reports: 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, Musculoskeletal History: Reports: None Other Musculoskeletal History: carpal tunnel Neurological History: Reports: Migraines, Other (See Below) Other Neuro History: hx of motion sickness Psychiatric History: Reports: PTSD Endocrine/Metabolic History: Reports: Obesity/BMI 30+ Insulin Pump Model and Mechanical Lead: None Hematologic History: Reports: None Immunologic History: Reports: None Oncologic (Cancer) History: Reports: None Dermatologic History: Reports: None - Infectious Disease History Infectious Disease History: Reports: Chicken Pox - Past Surgical History Head Surgeries/Procedures: Reports: None HEENT Surgical History: Reports: Naso-Sinus Surgery, Oral Surgery, Tonsillectomy Other HEENT Surgeries/Procedures: wisdom teeth Cardiovascular Surgical History: Reports: None Respiratory Surgical History: Reports: None GI Surgical History: Reports: Cholecystectomy Female Surgical History: Reports: Section Endocrine Surgical History: Reports: None Neurological Surgical History: Reports: None Musculoskeletal Surgical History: Reports: None Other Musculoskeletal Surgeries/Procedures:: carpal tunnel surgery 11/11/2016 Dermatological Surgical History: Reports: None Social & Family History - Family History Family Medical History: No Pertinent Family History HEENT: Reports: Glaucoma Cardiac: Reports: None Respiratory: Reports: Asthma GI: Reports: Other (See Below) Other GI Family History: ulcers OBGYN: Reports: 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, Recurrent Spontaneous Musculoskeletal: Reports: Fibromyalgia Endocrine/Metabolic: Reports: Diabetes, type II Dermatologic: Reports: Eczema Oncologic: Reports: Breast, Lung - Tobacco Use Tobacco Use Status *Q: Never Tobacco User Second Hand Smoke Exposure: No - Caffeine Use Caffeine Use: Reports: Coffee Caffeine Use Comment: 2-3drinks/day - Recreational Drug Use Recreational Drug Use: No - Living Situation & Occupation Living situation: Reports: H&P Review of Systems - Review of Systems: Review Of Systems: See Below General: Reports: No Symptoms. Denies: Fever, Chills, Malaise HEENT: Reports: Headaches (Migraine all of her pressure light sensitivity) Pulmonary: Reports: Shortness of Breath (Improved since arriving to the ER), Wheezing (Improved but continues significantly), Cough, Sputum (Clear mucus) Cardiovascular: Reports: No Symptoms. Denies: Chest Pain, Palpitations, Edema Gastrointestinal: Reports: No Symptoms. Denies: Abdominal Pain Genitourinary: Reports: No Symptoms. Denies: Dysuria, Frequency, Burning Musculoskeletal: Reports: No Symptoms Skin: Reports: No Symptoms Psychiatric: Reports: No Symptoms Neurological: Reports: No Symptoms Hematologic/Lymphatic: Reports: No Symptoms Immunologic: Reports: No Symptoms Exam - Exam Exam: See Below - Vital Signs Vital Signs: Last Vital Signs Temp 97.1 F 10/29/20 00:25 Pulse 105 H 10/29/20 04:00 Resp 24 H 10/29/20 00:25 BP 147/93 H 10/29/20 04:00 Pulse Ox 93 L 10/29/20 04:00 Weight: 113.353 kg - Exam Quality Assessment: Supplemental Oxygen, DVT Prophylaxis General: Alert, Oriented, Cooperative HEENT: Conjunctiva Clear, Mucosa Moist & [place], Posterior Pharynx Clear Lungs: Decreased Breath Sounds, Wheezing (Audible and start expiratory wheezes). No: Normal Respiratory Effort (Mild dyspnea noted) Cardiovascular: Regular Rate, Regular Rhythm, Normal S1, Normal S2. No: Systolic Murmur GI/Abdominal Exam: Normal Bowel Sounds, Soft, Non-Tender Extremities: Normal Inspection, Normal Range of Motion, Non-Tender, No Pedal Edema Skin: Warm, Dry, Intact Neuro Extensive - Mental Status: Alert, Oriented x3 Neuro Extensive - Motor, Sensory, Reflexes: CN II-XII Intact, Normal Gait Psychiatric: Alert, Normal Affect, Normal Mood - Patient Data Lab Results Last 24 hrs: Laboratory Results - last 24 hr 10/29/20 10/29/20 10/29/20 Range/Units 00:22 00:22 02:12 WBC 9.39 (4.0-11.0) K/uL RBC 4.95 (4.30-5.90) M/uL Hgb 11.4 L (12.0-16.0) g/dL Hct 35.1 L (36.0-46.0) % MCV 70.9 L (80.0-98.0) fL MCH 23.0 L (27.0-32.0) pg MCHC 32.5 (31.0-37.0) g/dL RDW Std Deviation 40.0 (28.0-62.0) fl RDW Coeff of Shaniqua 16 H (11.0-15.0) % Plt Count 379 (150-400) K/uL MPV 9.60 (7.40-12.00) fL Neut % (Auto) 47.6 L (48.0-80.0) % Lymph % (Auto) 25.5 (16.0-40.0) % [place] % (Auto) 8.6 (0.0-15.0) % Eos % (Auto) 17.0 H (0.0-7.0) % Baso % (Auto) 1.3 (0.0-1.5) % Neut # (Auto) 4.5 (1.4-5.7) K/uL Lymph # (Auto) 2.4 (0.6-2.4) K/uL [place] # (Auto) 0.8 (0.0-0.8) K/uL Eos # (Auto) 1.6 H (0.0-0.7) K/uL Baso # (Auto) 0.1 (0.0-0.1) K/uL Sodium 140 (136-145) mmol/L Potassium 3.5 (3.5-5.1) mmol/L Chloride 106 (98-107) mmol/L Carbon Dioxide 23.0 (21.0-32.0) mmol/L BUN 10 (7.0-18.0) mg/dL Creatinine 0.9 (0.6-1.0) mg/dL Est Cr Clr Drug Dosing 80.90 mL/min Estimated GFR (MDRD) > 60.0 ml/min Glucose 103 (74-106) mg/dL Calcium 8.6 (8.5-10.1) mg/dL Total Bilirubin 0.4 (0.2-1.0) mg/dL AST 30 (15-37) IU/L ALT 31 (14-63) IU/L Alkaline Phosphatase 77 (46-116) U/L Total Protein 7.0 (6.4-8.2) g/dL Albumin 3.5 (3.4-5.0) g/dL Globulin 3.5 (2.6-4.0) g/dL Albumin/Globulin Ratio 1.0 (0.9-1.6) SARS-CoV-2 RNA (PINEDA) NEGATIVE (NEGATIVE) Result Diagrams: 10/29/20 00:22 10/29/20 00:22 Sepsis Event Note - Evaluation Sepsis Screening Result: No Definite Risk - Focused Exam Vital Signs: Vital Signs Temp Pulse Resp BP Pulse Ox 10/29/20 04:00 105 H 147/93 H 93 L 10/29/20 03:30 102 H 148/87 H 94 L 10/29/20 02:30 105 H 151/88 H 93 L 10/29/20 02:00 108 H 134/78 93 L 10/29/20 01:29 111 H 131/83 91 L 10/29/20 00:58 112 H 142/116 H 96 10/29/20 00:54 111 H 92 L 10/29/20 00:53 109 H 10/29/20 00:25 97.1 F 110 H 24 H 140/97 H 94 L 10/29/20 00:16 128 H - Problem List (1) Asthma with status asthmaticus SNOMED Code(s): 226593693 ICD Code: J45.902 - UNSPECIFIED ASTHMA WITH STATUS ASTHMATICUS Status: Acute Current Visit: Yes Qualifiers: Asthma severity: severe Asthma persistence: persistent Qualified Code(s): J45.52 - Severe persistent asthma with status asthmaticus (2) Hypoxia SNOMED Code(s): 146613314 ICD Code: R09.02 - HYPOXEMIA Status: Acute Current Visit: No (3) Anxiety SNOMED Code(s): 99652819 ICD Code: F41.9 - ANXIETY DISORDER, UNSPECIFIED Status: Chronic Current Visit: No (4) Environmental and seasonal allergies SNOMED Code(s): 054672649, 650184624, 177440330 ICD Code: J30.89 - OTHER ALLERGIC RHINITIS Status: Chronic Current Visit: No (5) GERD (gastroesophageal reflux disease) SNOMED Code(s): 065509398 ICD Code: K21.9 - GASTRO-ESOPHAGEAL REFLUX DISEASE WITHOUT ESOPHAGITIS Status: Chronic Current Visit: No Problem List Initiated/Reviewed/Updated: Yes Orders Last 24hrs: Active Orders 24 hr Category Date Time Status Admission Status [Patient Status] [ADT] Stat ADT 10/29/20 03:27 Active Antiembolic Devices [RC] PER UNIT ROUTINE Care 10/29/20 05:09 Active EKG Documentation Completion [RC] STAT Care 10/29/20 00:28 Active Oxygen Therapy [RC] ASDIRECTED Care 10/29/20 05:08 Active Pulse Oximetry [RC] PRN Care 10/29/20 05:08 Active RT Aerosol Therapy [RC] ASDIRECTED Care 10/29/20 00:16 Active RT Aerosol Therapy [RC] ASDIRECTED Care 10/29/20 00:53 Active RT Aerosol Therapy [RC] ASDIRECTED Care 10/29/20 05:09 Active Telemetry Monitoring [Cardiac Monitoring] [RC] . Care 10/29/20 05:10 Active DIRECTED Vital Signs [RC] Q4H Care 10/29/20 05:08 Active Heart Healthy Diet [DIET] Diet 10/29/20 Breakfast Active Acetaminophen [TylenoL] Med 10/29/20 05:08 Active 650 mg PO Q6H PRN Albuterol/Ipratropium [DuoNeb 3.0-0.5 MG/3 ML] Med 10/29/20 05:08 Active 3 ml NEB Q4HRRT PRN Enoxaparin [Lovenox] Med 10/29/20 09:00 Active 40 mg SUBCUT Q24H Lactated Ringers [Ringers, Lactated] 1,000 ml Med 10/29/20 05:15 Active IV ASDIRECTED Montelukast [Singulair] Med 10/29/20 21:00 Active 10 mg PO BEDTIME Ondansetron [Zofran] Med 10/29/20 05:08 Active 4 mg IVPUSH Q4H PRN Sodium Chloride 0.9% [Saline Flush] Med 10/29/20 00:16 Active 10 ml FLUSH ASDIRECTED PRN Sodium Chloride 0.9% [Saline Flush] Med 10/29/20 00:16 Active 2.5 ml FLUSH ASDIRECTED PRN methylPREDNISolone Sod Succ [Solu-MEDROL] Med 10/29/20 08:00 Active 40 mg IVPUSH Q8H Saline Lock Insert [OM.PC] Stat Oth 10/29/20 00:16 Ordered Sequential Compression Device [OM.PC] Routine Oth 10/29/20 05:08 Ordered Medication Orders Acetaminophen (Acetaminophen 325 Mg Tab) 650 mg PO Q6H PRN PRN Reason: Pain Albuterol/Ipratropium (Albuterol/Ipratropium 3.0-0.5 Mg/3 Ml Neb Soln) 3 ml NEB Q4HRRT PRN PRN Reason: Shortness of Breath Enoxaparin Sodium (Enoxaparin 40 Mg/0.4 Ml Syringe) 40 mg SUBCUT Q24H TIFFANY Lactated Ringer's (Ringers, Lactated) 1,000 mls @ 125 mls/hr IV ASDIRECTED TIFFANY Last Admin: 10/29/20 05:24 Dose: 125 mls/hr Documented by: VEL Methylprednisolone Sodium Succinate (Methylprednisolone Sodium Succinate 40 Mg/1 Ml Sdv) 40 mg IVPUSH Q8H TIFFANY Montelukast Sodium (Montelukast 10 Mg Tab) 10 mg PO BEDTIME TIFFANY Ondansetron HCl (Ondansetron 4 Mg/2 Ml Sdv) 4 mg IVPUSH Q4H PRN PRN Reason: nausea/vomiting Sodium Chloride (Sodium Chloride 0.9% 10 Ml Syringe) 10 ml FLUSH ASDIRECTED PRN PRN Reason: Keep Vein Open Last Admin: 10/29/20 00:29 Dose: 10 ml Documented by: ADELAIDE Sodium Chloride (Sodium Chloride 0.9% 2.5 Ml Syringe) 2.5 ml FLUSH ASDIRECTED PRN PRN Reason: Keep Vein Open Last Admin: 10/29/20 00:29 Dose: 2.5 ml Documented by: ADELAIDE Assessment/Plan Comment:: This 34-year-old female admitted with acute asthma exacerbation. 1. Acute asthma exacerbation -Continue DuoNebs, will schedule every 4 hours -Albuterol nebulizers as needed -Continue oxygen as needed to keep sats greater than 90% -Continue Solu-Medrol -Consult respiratory therapy for asthma education and counseling -Continue Breo, Zyrtec and Singulair 2. Migraine -Give Toradol, Reglan and Benadryl cocktail at this time -Monitor later today for symptom improvement VTE prophylaxis: Lovenox CODE STATUS: Full code Dispo: 1 to 2 days pending improvement - Mortality Measure Prognosis:: Good
[2020-10-29] MEDS: methylPREDNISolone Sodium Succinate 40 MG/1 ML SDV IVPUSH SCH ×3 (08:49→23:31)
[2020-10-29] MEDS: Enoxaparin 40 MG/0.4 ML Syringe SUBCUT SCH (08:49)
[2020-10-29] MEDS: Cetirizine 10 MG Tab PO SCH (09:03)
[2020-10-29] MEDS: Omeprazole 20 MG Cap.CR PO SCH (09:03)
[2020-10-29] MEDS ORDERED: Pantoprazole 40 MG in Sodium Chloride 0.9% 10 ML IV ONE (09:18)
[2020-10-29] MEDS ORDERED: Metoclopramide 10 MG/2 ML SDV IVPUSH ONE (09:18)
[2020-10-29] MEDS ORDERED: diphenhydrAMINE 50 MG/ML SDV IVPUSH ONE (09:18)
[2020-10-29] MEDS: Acetaminophen 325 MG Tab PO PRN ×3 (09:21→23:30)
[2020-10-29] MEDS: Albuterol/Ipratropium 3.0-0.5 MG/3 ML Neb Soln NEB SCH ×4 (09:24→21:47)
[2020-10-29] MEDS ORDERED: Albuterol 0.083% 2.5 MG/3 ML Neb Soln NEB PRN (09:29)
[2020-10-29] MEDS ORDERED: Montelukast 10 MG Tab PO SCH (21:00)
[2020-10-30] MEDS: Albuterol/Ipratropium 3.0-0.5 MG/3 ML Neb Soln NEB SCH ×3 (03:55→09:36)
[2020-10-30] MEDS: Acetaminophen 325 MG Tab PO PRN (05:36)
[2020-10-30] MEDS: Lactated Ringers 1,000 ML IV SCH (05:41)
[2020-10-30] MEDS: Omeprazole 20 MG Cap.CR PO SCH (06:30)
[2020-10-30 06:50] LABS: BLOOD UREA NITROGEN,BUN 11 mg/dL (7.0-18.0); CARBON DIOXIDE,CO2 21.4 mmol/L (21.0-32.0); CHLORIDE,CL 108 mmol/L (98-107); GLUCOSE RANDOM 148 mg/dL (74-106); POTASSIUM,K 4.3 mmol/L (3.5-5.1); SODIUM,NA 139 mmol/L (136-145)
[2020-10-30] MEDS: Cetirizine 10 MG Tab PO SCH (08:58)
[2020-10-30] MEDS: methylPREDNISolone Sodium Succinate 40 MG/1 ML SDV IVPUSH SCH (08:58)
[2020-10-30] MEDS: Enoxaparin 40 MG/0.4 ML Syringe SUBCUT SCH (09:24)
[2020-10-30 09:28] VITALS: BP 118/65; PULSE 102
--- NOTE | 2020-10-30 12:45 | PCM.DCSUM1 ---
Discharge Summary - Hospital Course Brief History: This 34-year-old female with past medical history of asthma, GERD and obesity presented to the ER with complaints of asthma exacerbation. She reports she is currently in the process of moving and her nebulizers are put away. She reports that prior to coming to the ER she used her inhaler without spacer approximately 8 times but she continues to be extremely short of breath and anxious. She reports that over the last 3 days she has used approximately 100 puffs of her albuterol inhaler due to the increase shortness of breath. She normally uses her albuterol nebulizers when things get this bad but again this is packed away and she has not been able to get to it. She denies any fevers or chills. She reports chest tightness along with shortness of breath and significant audible wheezing. She denies any abdominal pain any diarrhea or constipation. She reports she does have a migraine now pressure all over her head she reports she has this when she gets significant asthma attacks she reportedly takes 6 tabs of Tylenol at home to help this otherwise takes Imitrex before he gets to bed. She otherwise feels that the cocktail given in the ER helped significantly. She denies any tobacco use no recreational drug use and no alcohol use. She reports she does see pulmonology. She was recently admitted in July after moving to a place that had black mold. She no longer lives there now, has done well since previous hospitalization until the last few days she feels like this is secondary to allergies as well as weather change. In the ER no leukocytosis noted hemoglobin 11.4 hematocrit 35.1. Platelets 379,000. CMP otherwise normal. Covid swab negative chest x-ray obtained in the ER reveals no acute cardiopulmonary process. In the ER she was treated with magnesium IV normal saline bolus 125 mg of Solu-Medrol and DuoNeb's. She was noted to be hypoxic on arrival at 88%, heart rate elevated at 128. She will be admitted for acute asthma exacerbation. Diagnosis: Stroke: No - Discharge Data Discharge Date: 10/30/20 Discharge Disposition: Home, Self-Care 01 Condition: Good - Referral to Home Health Primary Care Physician: PCP None - Discharge Diagnosis/Problem(s) (1) Asthma with status asthmaticus SNOMED Code(s): 853387874 ICD Code: J45.902 - UNSPECIFIED ASTHMA WITH STATUS ASTHMATICUS Status: Acute Current Visit: Yes Qualifiers: Asthma severity: severe Asthma persistence: persistent Qualified Code(s): J45.52 - Severe persistent asthma with status asthmaticus (2) Hypoxia SNOMED Code(s): 691581240 ICD Code: R09.02 - HYPOXEMIA Status: Acute Current Visit: No (3) Anxiety SNOMED Code(s): 67263564 ICD Code: F41.9 - ANXIETY DISORDER, UNSPECIFIED Status: Chronic Current Visit: No (4) Environmental and seasonal allergies SNOMED Code(s): 099708676, 022301983, 692383982 ICD Code: J30.89 - OTHER ALLERGIC RHINITIS Status: Chronic Current Visit: No (5) GERD (gastroesophageal reflux disease) SNOMED Code(s): 051228277 ICD Code: K21.9 - GASTRO-ESOPHAGEAL REFLUX DISEASE WITHOUT ESOPHAGITIS Status: Chronic Current Visit: No - Patient Summary/Data Hospital Course: Admission diagnoses Asthma exacerbation with hypoxia Discharge diagnoses asthma exacerbation with hypoxia, resolved Nohemy was admitted secondary to exacerbation of asthma. She was treated with duo nebs, Solu-Medrol, magnesium and continued on her home medications of Breo. She is doing well this morning. She was weaned off of oxygen satting 95% on room air. Lung sounds significantly clear compared to admission. Scattered faint expiratory wheezing noted. Patient reports her migraines much improved and she is eager to be discharged home today. She will be discharged home to continue all her home medications of Singulair, Zyrtec, Breo and rescue inhaler. She was counseled on staying away from triggers such as her animals as well as black mold. She is to follow-up with her PCP. She will be given rescue inhaler prescription she uses significant amount of her current inhaler during this episode prior to admission. She will also be given 40 mg prednisone daily for 4 more days. She is to return to the ER clinic if concerns should arise sooner. - Patient Instructions Diet: Regular Diet as Tolerated Activity: As Tolerated, No Strenuous Activities Showering/Bathing: May Shower Notify Provider of: Fever, Increased Pain, Swelling and Redness, Drainage, Nausea and/or Vomiting - Discharge Plan *PRESCRIPTION DRUG MONITORING PROGRAM REVIEWED*: Not Applicable *COPY OF PRESCRIPTION DRUG MONITORING REPORT IN PATIENT GINGER: Not Applicable Prescriptions/Med Rec: predniSONE 40 mg PO WITHBREAKFAST #8 tab Albuterol [Proventil HFA] 1 puff INH Q4HR PRN #1 inhaler PRN Reason: Wheezing Home Medications: Home Meds Cetirizine [ZyrTEC] 10 mg PO DAILY 05/11/15 [History] Albuterol Sulfate 2.5 mg NEB Q4H PRN 01/04/19 [History] Fluticasone/Vilanterol [Breo Ellipta 200-25 MCG Inhalation Kit] 1 dose INH DAILY 01/04/19 [History] Montelukast [Singulair] 10 mg PO DAILY 12/27/19 [History] Phentermine HCl 37.5 mg PO DAILY 12/27/19 [History] Omeprazole 20 mg PO DAILY 06/18/20 [History] Acetaminophen [Tylenol] 650 mg PO Q4H PRN tablet 08/21/20 [Rx] Fluticasone/Vilanterol [Breo Ellipta 200-25 MCG Inhalation Kit] 1 each IH DAILY #1 each 08/21/20 [Rx] predniSONE [Prednisone] 40 mg PO DAILY #8 tablet 08/21/20 [Rx] Albuterol [Proventil HFA] 1 puff INH Q4HR PRN #1 inhaler 10/30/20 [Rx] predniSONE 40 mg PO WITHBREAKFAST #8 tab 10/30/20 [Rx] Oxygen Therapy Mode: Room Air Patient Handouts: Albuterol inhalation powder, Asthma, Adult, Migraine Headache, Pbag-gy-Looh, Albuterol inhalation aerosol, Prednisone tablets Referrals: Siddhartha Urbina MD [Ordering Only Provider] - 11/08/20 10:15 am (Please arrive 15 minutes early with your ID and wearing a face covering. ) - Discharge Summary/Plan Comment DC Time >30 min.: No - Patient Data Vitals - Most Recent: Last Vital Signs Temp 98.2 F 10/30/20 08:00 Pulse 102 H 10/30/20 08:00 Resp 18 10/30/20 08:00 BP 118/65 10/30/20 08:00 Pulse Ox 95 10/30/20 08:00 Weight - Most Recent: 113.353 kg I&O - Last 24 hours: Intake & Output 10/29/20 10/30/20 10/30/20 22:59 06:59 14:59 Intake Total 550 4092 Output Total 900 800 Balance -350 3292 Lab Results - Last 24 hrs: Laboratory Results - last 24 hr 10/30/20 10/30/20 Range/Units 06:08 06:08 WBC 13.06 H (4.0-11.0) K/uL RBC 4.63 (4.30-5.90) M/uL Hgb 10.6 L (12.0-16.0) g/dL Hct 33.9 L (36.0-46.0) % MCV 73.2 L (80.0-98.0) fL MCH 22.9 L (27.0-32.0) pg MCHC 31.3 (31.0-37.0) g/dL RDW Std Deviation 41.9 (28.0-62.0) fl RDW Coeff of Shaniqua 16 H (11.0-15.0) % Plt Count 354 (150-400) K/uL MPV 10.00 (7.40-12.00) fL Neut % (Auto) 85.8 H (48.0-80.0) % Lymph % (Auto) 6.7 L (16.0-40.0) % [place] % (Auto) 7.2 (0.0-15.0) % Eos % (Auto) 0.2 (0.0-7.0) % Baso % (Auto) 0.1 (0.0-1.5) % Neut # (Auto) 11.2 H (1.4-5.7) K/uL Lymph # (Auto) 0.9 (0.6-2.4) K/uL [place] # (Auto) 0.9 H (0.0-0.8) K/uL Eos # (Auto) 0.0 (0.0-0.7) K/uL Baso # (Auto) 0.0 (0.0-0.1) K/uL Nucleated RBC % 0.0 /100WBC Nucleated RBCs # 0 K/uL Sodium 139 (136-145) mmol/L Potassium 4.3 (3.5-5.1) mmol/L Chloride 108 H (98-107) mmol/L Carbon Dioxide 21.4 (21.0-32.0) mmol/L BUN 11 (7.0-18.0) mg/dL Creatinine 0.8 (0.6-1.0) mg/dL Est Cr Clr Drug Dosing 91.01 mL/min Estimated GFR (MDRD) > 60.0 ml/min Glucose 148 H (74-106) mg/dL Calcium 8.2 L (8.5-10.1) mg/dL Med Orders - Current: Current Medications Acetaminophen (Acetaminophen 325 Mg Tab) 650 mg PO Q6H PRN PRN Reason: Pain Last Admin: 10/30/20 05:36 Dose: 650 mg Documented by: Albuterol (Albuterol 0.083% 2.5 Mg/3 Ml Neb Soln) 2.5 mg NEB Q2H PRN PRN Reason: Shortness Of Breath/wheezing Albuterol/Ipratropium (Albuterol/Ipratropium 3.0-0.5 Mg/3 Ml Neb Soln) 3 ml NEB Q4HRRT [facility] Last Admin: 10/30/20 09:36 Dose: 3 ml Documented by: Cetirizine HCl (Cetirizine 10 Mg Tab) 10 mg PO DAILY [facility] Last Admin: 10/30/20 08:58 Dose: 10 mg Documented by: Enoxaparin Sodium (Enoxaparin 40 Mg/0.4 Ml Syringe) 40 mg SUBCUT Q24H [facility] Last Admin: 10/30/20 09:24 Dose: Not Given Documented by: Methylprednisolone Sodium Succinate (Methylprednisolone Sodium Succinate 40 Mg/1 Ml Sdv) 40 mg IVPUSH Q8H [facility] Last Admin: 10/30/20 08:58 Dose: 40 mg Documented by: Montelukast Sodium (Montelukast 10 Mg Tab) 10 mg PO BEDTIME [facility] Last Admin: 10/29/20 21:00 Dose: 10 mg Documented by: Omeprazole (Omeprazole 20 Mg Cap.Cr) 20 mg PO ACBREAKFAST [facility] Last Admin: 10/30/20 06:30 Dose: 20 mg Documented by: Ondansetron HCl (Ondansetron 4 Mg/2 Ml Sdv) 4 mg IVPUSH Q4H PRN PRN Reason: nausea/vomiting Fluticasone/Vilanterol [Breo Ellipta 200-25 Mcg Inhalation] 1 each INH DAILY [facility] Last Admin: 10/30/20 09:37 Dose: Not Given Documented by: Discontinued Medications Albuterol (Albuterol 0.083% 2.5 Mg/3 Ml Neb Soln) 5 mg NEB ONETIME ONE Stop: 10/29/20 00:53 Last Admin: 10/29/20 00:56 Dose: 5 mg Documented by: Albuterol/Ipratropium (Albuterol/Ipratropium 3.0-0.5 Mg/3 Ml Neb Soln) Confirm Administered Dose 3 ml .ROUTE .STK-MED ONE Stop: 10/29/20 00:16 Last Admin: 10/29/20 00:26 Dose: Not Given Documented by: Albuterol/Ipratropium (Albuterol/Ipratropium 3.0-0.5 Mg/3 Ml Neb Soln) 3 ml NEB ONETIME ONE Stop: 10/29/20 00:17 Last Admin: 10/29/20 00:29 Dose: 3 ml Documented by: Albuterol/Ipratropium (Albuterol/Ipratropium 3.0-0.5 Mg/3 Ml Neb Soln) 3 ml NEB Q4HRRT PRN PRN Reason: Shortness of Breath Diphenhydramine HCl (Diphenhydramine 50 Mg/Ml Sdv) 25 mg IVPUSH ONETIME ONE Stop: 10/29/20 09:19 Last Admin: 10/29/20 10:14 Dose: 25 mg Documented by: Sodium Chloride (Normal Saline) 1,000 mls @ 1,000 mls/hr IV .Bolus ONE Stop: 10/29/20 01:17 Last Admin: 10/29/20 00:29 Dose: 1,000 mls/hr Documented by: Magnesium Sulfate (Magnesium Sulfate In Water 2 Gm/50 Ml) 2 gm in 50 mls @ 50 mls/hr IV NOW ONE Stop: 10/29/20 01:59 Last Admin: 10/29/20 01:08 Dose: 50 mls/hr Documented by: Lactated Ringer's (Ringers, Lactated) 1,000 mls @ 125 mls/hr IV ASDIRECTED [facility] Last Admin: 10/30/20 05:41 Dose: 125 mls/hr Documented by: Pantoprazole Sodium 40 mg/ (Sodium Chloride) 10 mls @ 300 mls/hr IV NOW ONE Stop: 10/29/20 09:19 Last Admin: 10/29/20 10:16 Dose: Not Given Documented by: Ketorolac Tromethamine (Ketorolac 30 Mg/Ml Sdv) 30 mg IVPUSH ONETIME ONE Stop: 10/29/20 00:36 Last Admin: 10/29/20 00:48 Dose: 30 mg Documented by: Ketorolac Tromethamine (Ketorolac 30 Mg/Ml Sdv) 30 mg IVPUSH ONETIME ONE Stop: 10/29/20 09:19 Last Admin: 10/29/20 10:12 Dose: 30 mg Documented by: Magnesium Sulfate (Magnesium Sulfate (4.06 Meq/Ml) 5 Gm/10 Ml Sdv) 2 gm IV STAT STA Stop: 10/29/20 00:56 Methylprednisolone Sodium Succinate (Methylprednisolone Sodium Succinate 125 Mg/2 Ml Sdv) 125 mg IVPUSH ONETIME ONE Stop: 10/29/20 00:17 Last Admin: 10/29/20 00:29 Dose: 125 mg Documented by: Metoclopramide HCl (Metoclopramide 10 Mg/2 Ml Sdv) 5 mg IVPUSH ONETIME ONE Stop: 10/29/20 09:19 Last Admin: 10/29/20 10:14 Dose: 5 mg Documented by: Sodium Chloride (Sodium Chloride 0.9% 10 Ml Syringe) 10 ml FLUSH ASDIRECTED PRN PRN Reason: Keep Vein Open Last Admin: 10/29/20 00:29 Dose: 10 ml Documented by: Sodium Chloride (Sodium Chloride 0.9% 2.5 Ml Syringe) 2.5 ml FLUSH ASDIRECTED PRN PRN Reason: Keep Vein Open Last Admin: 10/29/20 00:29 Dose: 2.5 ml Documented by:
== END 2020-10-30 13:00 | disposition home or self-care (01) ==
LOC: MW.ED 00:13 → MW.MS 03:27
PROVIDERS: ADMIT Student in an Organized Health Care Education/Training Program; ATTEND Student in an Organized Health Care Education/Training Program
DX: J45.51 Severe persistent asthma with (acute) exacerbation (principal); J45.52 Severe persistent asthma with status asthmaticus; K21.9 Gastro-esophageal reflux disease without esophagitis; R09.02 Hypoxemia; G43.909 Migraine, unspecified, not intractable, without status migrainosus; E66.9 Obesity, unspecified; Z20.822 Contact with and (suspected) exposure to COVID-19; Z88.5 Allergy status to narcotic agent; Z88.1 Allergy status to other antibiotic agents; Z88.8 Allergy status to other drugs, medicaments and biological substances; Z91.018 Allergy to other foods; Z79.899 Other long term (current) drug therapy; Z98.890 Other specified postprocedural states; Z68.41 Body mass index [BMI] 40.0-44.9, adult
CPT/HCPCS: 36415; 71045; 80048; 80053; 85025; 87635; 93005; 94640; 96365; 96372; 96375; 96376; 99285; A9270; G0378; J1200; J1650; J1885; J2765; J2920; J2930; J3475; J7030; J7120; J7620-GY; U0002

== ENCOUNTER 2020-12-16 03:49 | Emergency (ER) | payer BC ==
[2020-12-16] MEDS ORDERED: predniSONE 20 MG Tab PO ONE (04:11)
--- NOTE | 2020-12-16 04:15 | EDM.PDOC ---
ED HPI GENERAL MEDICAL PROBLEM - General Chief Complaint: Respiratory Problem Stated Complaint: SHORTNESS OF BREATH, COUGHING, ASTHMA Time Seen by Provider: 12/16/20 03:54 - History of Present Illness INITIAL COMMENTS - FREE TEXT/NARRATIVE: History of present illness: [] This patient with a history of asthma has been admitted in the past but never intubated. She is worse for 24 hours or more with cough and shortness of breath. She is worse with exertion. The patient has a headache and muscle aches. Her son was diagnosed last night here with COVID-19. They live in the same home. She has not been vaccinated. This patient was seen and evaluated during the 2019 SARS-CoV-2 novel coronavirus pandemic period. Community viral transmission is ongoing at time of this encounter and the emergency department is operating under pandemic response procedures. Review of systems: As per history of present illness and below otherwise all systems reviewed and negative. Past medical history: As per history of present illness and as reviewed below otherwise noncontributory. Surgical history: As per history of present illness and as reviewed below otherwise noncontributory. Social history: No reported history of drug or alcohol abuse. Family history: As per history of present illness and as reviewed below otherwise noncontributory. Physical exam: Constitutional - well developed, well-nourished and in no acute distress HEENT - normocephalic, no evidence of trauma - external nose and mouth normal - no mass in neck and no JVD - mucosae moist EYES - full EOM, PERRL, no icterus - no evidence of inflammation, injection, or drainage Respiratory - no respiratory distress, equal bilateral expansion, lungs minutes breath sounds with wheezes scattered throughout. Cardiovascular - Regular Rhythm with S1 and S2 appreciated and no murmur, gallop or rub. GI - abdomen soft without distension or organomegaly - normal bowel sounds - no guard or rebound Musculoskeletal no gross deformity of long bones or joints - no tenderness, swelling or edema Neurologic - Alert and oriented times four - CN II-XII grossly intact - motor sensory and coordination symmetrically normal Psychiatric - appropriate mood and affect with normal thought content Hematologic - No petechiae or purpura - mucosa appropriate color and sclera not pale - normal nail bed color and refill Integument - no rash or evidence of trauma - normal turgor Diagnostics: [] Therapeutics: [] Impression: [] Plan: [] Definitive disposition and diagnosis as appropriate pending reevaluation and review of above. - Related Data Allergies Allergy/AdvReac Type Severity Reaction Status Date / Time codeine Allergy Severe Swelling Verified 12/16/20 03:57 amoxicillin [From Augmentin] Allergy Nausea and Verified 12/16/20 03:57 Vomiting cephalexin [From Keflex] Allergy Other Verified 12/16/20 03:57 clavulanic acid Allergy Nausea and Verified 12/16/20 03:57 [From Augmentin] Vomiting ibuprofen Allergy Other Verified 12/16/20 03:57 mushroom Allergy Swelling Uncoded 12/16/20 03:57 Home Meds: Home Meds Cetirizine [ZyrTEC] 10 mg PO DAILY 05/11/15 [History] Albuterol Sulfate 2.5 mg NEB Q4H PRN 01/04/19 [History] Fluticasone/Vilanterol [Breo Ellipta 200-25 MCG Inhalation Kit] 1 dose INH DAILY 01/04/19 [History] Montelukast [Singulair] 10 mg PO DAILY 12/27/19 [History] Phentermine HCl 37.5 mg PO DAILY 12/27/19 [History] Omeprazole 20 mg PO DAILY 06/18/20 [History] Acetaminophen [Tylenol] 650 mg PO Q4H PRN tablet 08/21/20 [Rx] Fluticasone/Vilanterol [Breo Ellipta 200-25 MCG Inhalation Kit] 1 each IH DAILY #1 each 08/21/20 [Rx] predniSONE [Prednisone] 40 mg PO DAILY #8 tablet 08/21/20 [Rx] Albuterol [Proventil HFA] 1 puff INH Q4HR PRN #1 inhaler 10/30/20 [Rx] predniSONE 40 mg PO WITHBREAKFAST #8 tab 10/30/20 [Rx] Benzonatate 200 mg PO TID PRN #10 capsule 12/16/20 [Rx] predniSONE [Prednisone] 60 mg PO DAILY #21 tablet 12/16/20 [Rx] Past Medical History HEENT History: Reports: Other (See Below) Other HEENT History: wears glasses, contacts Cardiovascular History: Reports: None Respiratory History: Reports: Asthma Other Respiratory History: uses rescue inhaler daily Gastrointestinal History: Reports: GERD Genitourinary History: Reports: Renal Calculus Other Genitourinary History: currently has kidney stone [employer] History: Reports: 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, Musculoskeletal History: Reports: None Other Musculoskeletal History: carpal tunnel Neurological History: Reports: Migraines, Other (See Below) Other Neuro History: hx of motion sickness Psychiatric History: Reports: PTSD Endocrine/Metabolic History: Reports: Obesity/BMI 30+ Insulin Pump Model and Pipe Coverer: None Hematologic History: Reports: None Immunologic History: Reports: None Oncologic (Cancer) History: Reports: None Dermatologic History: Reports: None - Infectious Disease History Infectious Disease History: Reports: Chicken Pox - Past Surgical History Head Surgeries/Procedures: Reports: None HEENT Surgical History: Reports: Naso-Sinus Surgery, Oral Surgery, Tonsillectomy Other HEENT Surgeries/Procedures: wisdom teeth Cardiovascular Surgical History: Reports: None Respiratory Surgical History: Reports: None GI Surgical History: Reports: Cholecystectomy Female Surgical History: Reports: Section Endocrine Surgical History: Reports: None Neurological Surgical History: Reports: None Musculoskeletal Surgical History: Reports: None Other Musculoskeletal Surgeries/Procedures:: carpal tunnel surgery 11/11/2016 Dermatological Surgical History: Reports: None Social & Family History - Family History Family Medical History: No Pertinent Family History HEENT: Reports: Glaucoma Cardiac: Reports: None Respiratory: Reports: Asthma GI: Reports: Other (See Below) Other GI Family History: ulcers OBGYN: Reports: 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, Recurrent Spontaneous Musculoskeletal: Reports: Fibromyalgia Endocrine/Metabolic: Reports: Diabetes, type II Dermatologic: Reports: Eczema Oncologic: Reports: Breast, Lung - Caffeine Use Caffeine Use: Reports: Soda, Tea Caffeine Use Comment: 2-3drinks/day - Living Situation & Occupation Living situation: Reports: ED ROS GENERAL - Review of Systems Review Of Systems: Comprehensive ROS is negative, except as noted in HPI. ED EXAM, GENERAL - Physical Exam Exam: See Below Free Text/Narrative:: My physical exam is in the HPI Course - Vital Signs Text/Narrative:: 5:16 AM lung sounds and oxygen saturation improved. Last Recorded V/S: Last Vital Signs Temp 37.1 C 12/16/20 03:55 Pulse 122 H 12/16/20 03:55 Resp 20 12/16/20 03:55 BP 147/70 H 12/16/20 03:55 Pulse Ox 92 L 12/16/20 03:55 - Orders/Labs/Meds Labs: Laboratory Tests 12/16/20 Range/Units 04:15 SARS-CoV-2 RNA (PINEDA) POSITIVE H (NEGATIVE) Meds: Medications Discontinued Medications Generic Name Dose Route Start Last Admin Trade Name Pau PRN Reason Stop Dose Admin Prednisone 60 mg 12/16/20 04:11 12/16/20 04:17 Prednisone 20 Mg Tab PO 12/16/20 04:12 60 mg ONETIME ONE Administration Departure - Departure Time of Disposition: 05:18 Disposition: Home, Self-Care 01 Condition: Good Clinical Impression: COVID-19 Asthma exacerbation Qualifiers: Asthma severity: moderate Asthma persistence: unspecified Qualified Code(s): J45.901 - Unspecified asthma with (acute) exacerbation - Discharge Information Instructions: COVID-19 Vaccine Information, COVID-19 Frequently Asked Qu estions, What You Should Know About COVID-19 to Protect Yourself and Others - [facility], 10 Things You Can Do to Manage Your COVID-19 Symptoms at Home - [facility] (10/25/2019), Asthma, Adult, [id number] Referrals: Siddhartha Urbina MD [Primary Care Provider] - Forms: ED Department Discharge Additional Instructions: [facility] - Primary Care [address] [place] [address] [place] [address] The following information is given to patients seen in the emergency department who are being discharged to home. This information is to outline your options for follow-up care. We provide all patients seen in our emergency department with a follow-up referral. The need for follow-up, as well as the timing and circumstances, are variable depending upon the specifics of your emergency department visit. If you don't have a primary care physician on staff, we will provide you with a referral. We always advise you to contact your personal physician following an e mergency department visit to inform them of the circumstance of the visit and for follow-up with them and/or the need for any referrals to a consulting specialist. The emergency department will also refer you to a specialist when appropriate. This referral assures that you have the opportunity for follow-up care with a specialist. All of these measure are taken in an effort to provide you with op timal care, which includes your follow-up. Under all circumstances we always encourage you to contact your private physician who remains a resource for coordinating your care. When calling for follow-up care, please make the office aware that this follow-up is from your recent emergency room visit. If for any reason you are refused follow-up, please contact the [facility] Emergency Department at and asked to speak to the emergency department charge nurse. Sepsis Event Note (ED) - Focused Exam Vital Signs: Vital Signs Temp Pulse Resp BP Pulse Ox 12/16/20 03:55 37.1 C 122 H 20 147/70 H 92 L
[2020-12-16] MEDS ORDERED: predniSONE 20 MG Tab ONE (04:16)
--- NOTE | 2020-12-16 04:53 | CR ---
Indication: Technique: AP portable view of the chest. Comparison: October 29, 2020. Findings: The heart is normal in size. The lungs are clear. No infiltrate, pleural effusion, or pneumothorax is identified. Impression: No acute cardiopulmonary process Dictated by Dulce Lee MD @ 12/16/2020 4:51:[address] Dulce Lee @ Dec 16 2020 4:51AM
[2020-12-16 05:39] VITALS: BP 114/75; PULSE 120
== END 2020-12-16 05:25 | disposition home or self-care (01) ==
LOC: MW.ED 03:49
DX: U07.1 COVID-19 (principal); J45.901 Unspecified asthma with (acute) exacerbation; K21.9 Gastro-esophageal reflux disease without esophagitis; E66.9 Obesity, unspecified; Z68.39 Body mass index [BMI] 39.0-39.9, adult; Z88.5 Allergy status to narcotic agent; Z88.0 Allergy status to penicillin; Z91.018 Allergy to other foods; Z88.8 Allergy status to other drugs, medicaments and biological substances; Z79.899 Other long term (current) drug therapy; Z20.822 Contact with and (suspected) exposure to COVID-19
CPT/HCPCS: 71045; 87635; 99284; A9270; U0002

== ENCOUNTER 2020-12-20 02:03 | Inpatient (IN) | payer BC ==
[2020-12-20] MEDS ORDERED: Sodium Chloride 0.9% 2.5 ML Syringe FLUSH PRN ×2 (02:22→08:25)
[2020-12-20] MEDS ORDERED: Dexamethasone 10 MG/ML SDV IM ONE (02:22)
[2020-12-20] MEDS ORDERED: Sodium Chloride 0.9% 10 ML Syringe FLUSH PRN (02:22)
--- NOTE | 2020-12-20 02:26 | EDM.PDOC ---
ED HPI GENERAL MEDICAL PROBLEM - General Chief Complaint: Respiratory Problem Stated Complaint: SHORTNESS OF BREATH, COVID Time Seen by Provider: 12/20/20 02:05 - History of Present Illness INITIAL COMMENTS - FREE TEXT/NARRATIVE: History of present illness: [] The patient reports she is short of breath and has body aches. She is worse since he was over the last 10 days. 13 December he started having symptoms. 16 December he was diagnosed with Covid positive. X-ray was unremarkable. Patient was placed on steroids and using her inhaler with a spacer. She still feels short of breath and pain when she breathes. He feels like there is burning in her chest when she breathes. She has body aches and fatigue. Review of systems: As per history of present illness and below otherwise all systems reviewed and negative. Past medical history: As per history of present illness and as reviewed below otherwise noncontributory. Surgical history: As per history of present illness and as reviewed below otherwise noncontributo ry. Social history: No reported history of drug or alcohol abuse. Family history: As per history of present illness and as reviewed below otherwise noncontributory. Physical exam: Constitutional - well developed, well-nourished and in no acute distress HEENT - normocephalic, no evidence of trauma - external nose and mouth normal - no mass in neck and no JVD - mucosae moist EYES - full EOM, PERRL, no icterus - no evidence of inflammation, injection, or drainage Respiratory - no respiratory distress, equal bilateral expansion, lungs diminished breath sounds throughout. Prolonged expiratory phase of respiration. Scattered wheezes throughout. Oxygen saturation 89% on room air. Corrects with oxygen. Cardiovascular - Regular Rhythm with S1 and S2 appreciated and no murmur, gallop or rub. GI - abdomen soft without distension or organomegaly - normal bowel sounds - no guard or rebound Musculoskeletal no gross deformity of long bones or joints - no tenderness, swelling or edema Neurologic - Alert and oriented times four - CN II-XII grossly intact - motor sensory and coordination symmetrically normal Psychiatric - appropriate mood and affect with normal thought content Hematologic - No petechiae or purpura - mucosa appropriate color and sclera not pale - normal nail bed color and refill Integument - no rash or evidence of trauma - normal turgor Diagnostics: [] Therapeutics: [] Impression: [] Plan: [] Definitive disposition and diagnosis as appropriate pending reevaluation and review of above. generalized Pain Score (Numeric/FACES): 6 - Related Data Allergies Allergy/AdvReac Type Severity Reaction Status Date / Time codeine Allergy Severe Swelling Verified 12/20/20 02:15 amoxicillin [From Augmentin] Allergy Nausea and Verified 12/20/20 02:15 Vomiting cephalexin [From Keflex] Allergy Other Verified 12/20/20 02:15 clavulanic acid Allergy Nausea and Verified 12/20/20 02:15 [From Augmentin] Vomiting ibuprofen Allergy Other Verified 12/20/20 02:15 mushroom Allergy Swelling Uncoded 12/20/20 02:15 Home Meds: Home Meds Cetirizine [ZyrTEC] 10 mg PO DAILY 05/11/15 [History] Albuterol Sulfate 2.5 mg NEB Q4H PRN 01/04/19 [History] Fluticasone/Vilanterol [Breo Ellipta 200-25 MCG Inhalation Kit] 1 dose INH DAILY 01/04/19 [History] Montelukast [Singulair] 10 mg PO DAILY 12/27/19 [History] Phentermine HCl 37.5 mg PO DAILY 12/27/19 [History] Omeprazole 20 mg PO DAILY 06/18/20 [History] Acetaminophen [Tylenol] 650 mg PO Q4H PRN tablet 08/21/20 [Rx] Fluticasone/Vilanterol [Breo Ellipta 200-25 MCG Inhalation Kit] 1 each IH DAILY #1 each 08/21/20 [Rx] predniSONE [Prednisone] 40 mg PO DAILY #8 tablet 08/21/20 [Rx] Albuterol [Proventil HFA] 1 puff INH Q4HR PRN #1 inhaler 10/30/20 [Rx] predniSONE 40 mg PO WITHBREAKFAST #8 tab 10/30/20 [Rx] Benzonatate 200 mg PO TID PRN #10 capsule 12/16/20 [Rx] predniSONE [Prednisone] 60 mg PO DAILY #21 tablet 12/16/20 [Rx] Past Medical History HEENT History: Reports: Other (See Below) Other HEENT History: wears glasses, contacts Cardiovascular History: Reports: None Respiratory History: Reports: Asthma Other Respiratory History: uses rescue inhaler daily Gastrointestinal History: Reports: GERD Genitourinary History: Reports: Renal Calculus Other Genitourinary History: currently has kidney stone RN HOSPITAL History: Reports: 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, Musculoskeletal History: Reports: Other (See Below) Other Musculoskeletal History: carpal tunnel Neurological History: Reports: Migraines, Other (See Below) Other Neuro History: hx of motion sickness Psychiatric History: Reports: PTSD Endocrine/Metabolic History: Reports: Obesity/BMI 30+ Insulin Pump Model and Audio Video 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: None Hematologic History: Reports: None Immunologic History: Reports: None Oncologic (Cancer) History: Reports: None Dermatologic History: Reports: None - Infectious Disease History Infectious Disease History: Reports: Chicken Pox, Novel Coronavirus - Past Surgical History Head Surgeries/Procedures: Reports: None HEENT Surgical History: Reports: Naso-Sinus Surgery, Oral Surgery, Tonsillectomy Cardiovascular Surgical History: Reports: None Respiratory Surgical History: Reports: None GI Surgical History: Reports: Cholecystectomy Female Surgical History: Reports: Section Endocrine Surgical History: Reports: None Neurological Surgical History: Reports: None Musculoskeletal Surgical History: Reports: None Other Musculoskeletal Surgeries/Procedures:: carpal tunnel surgery 11/11/2016 Dermatological Surgical History: Reports: None Social & Family History - Family History Family Medical History: No Pertinent Family History HEENT: Reports: Glaucoma Cardiac: Reports: None Respiratory: Reports: Asthma GI: Reports: Other (See Below) Other GI Family History: ulcers OBGYN: Reports: 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, Recurrent Spontaneous Musculoskeletal: Reports: Fibromyalgia Endocrine/Metabolic: Reports: Diabetes, type II Dermatologic: Reports: Eczema Oncologic: Reports: Breast, Lung - Caffeine Use Caffeine Use: Reports: Soda, Tea Caffeine Use Comment: 2-3drinks/day - Recreational Drug Use Recreational Drug Use: No - Living Situation & Occupation Living situation: Reports: ED ROS GENERAL - Review of Systems Review Of Systems: Comprehensive ROS is negative, except as noted in HPI. ED EXAM, GENERAL - Physical Exam Exam: See Below Free Text/Narrative:: My physical exam is in the HPI Course - Vital Signs Text/Narrative:: Patient is already maximized therapy at home with inhaler with spacer, steroids. Discussed with Dr. Ozuna admitted for remdesivir and steroids as well as oxygen. Last Recorded V/S: Last Vital Signs Temp 38.7 C H 12/20/20 02:10 Pulse 112 H 12/20/20 02:10 Resp 24 H 12/20/20 02:10 BP 120/62 12/20/20 02:10 Pulse Ox 88 L 12/20/20 02:10 - Orders/Labs/Meds Orders: Active Orders 24 hr Category Date Time Status Chest 1V Frontal [CR] Stat Exams 12/20/20 02:23 Taken Sodium Chloride 0.9% [Saline Flush] Med 12/20/20 02:22 Active 10 ml FLUSH ASDIRECTED PRN Sodium Chloride 0.9% [Saline Flush] Med 12/20/20 02:22 Active 2.5 ml FLUSH ASDIRECTED PRN Saline Lock Insert [OM.PC] Stat Oth 12/20/20 02:22 Ordered Medication Orders Sodium Chloride (Sodium Chloride 0.9% 10 Ml Syringe) 10 ml FLUSH ASDIRECTED PRN PRN Reason: Keep Vein Open Sodium Chloride (Sodium Chloride 0.9% 2.5 Ml Syringe) 2.5 ml FLUSH ASDIRECTED PRN PRN Reason: Keep Vein Open Labs: Laboratory Tests 12/20/20 12/20/20 Range/Units 02:36 02:36 WBC 3.13 L (4.0-11.0) K/uL RBC 4.89 (4.30-5.90) M/uL Hgb 11.3 L (12.0-16.0) g/dL Hct 35.0 L (36.0-46.0) % MCV 71.6 L (80.0-98.0) fL MCH 23.1 L (27.0-32.0) pg MCHC 32.3 (31.0-37.0) g/dL RDW Std Deviation 41.4 (28.0-62.0) fl RDW Coeff of Shaniqua 16 H (11.0-15.0) % Plt Count 254 (150-400) K/uL MPV 9.20 (7.40-12.00) fL Neut % (Auto) 65.6 (48.0-80.0) % Lymph % (Auto) 22.0 (16.0-40.0) % [place] % (Auto) 12.1 (0.0-15.0) % Eos % (Auto) 0.3 (0.0-7.0) % Baso % (Auto) 0.0 (0.0-1.5) % Neut # (Auto) 2.1 (1.4-5.7) K/uL Lymph # (Auto) 0.7 (0.6-2.4) K/uL [place] # (Auto) 0.4 (0.0-0.8) K/uL Eos # (Auto) 0.0 (0.0-0.7) K/uL Baso # (Auto) 0.0 (0.0-0.1) K/uL Nucleated RBC % 0.0 /100WBC Nucleated RBCs # 0 K/uL Sodium 139 (136-145) mmol/L Potassium 3.4 L (3.5-5.1) mmol/L Chloride 100 (98-107) mmol/L Carbon Dioxide 29.7 (21.0-32.0) mmol/L BUN 11 (7.0-18.0) mg/dL Creatinine 0.9 (0.6-1.0) mg/dL Est Cr Clr Drug Dosing 80.90 mL/min Estimated GFR (MDRD) > 60.0 ml/min Glucose 85 (74-106) mg/dL Calcium 8.5 (8.5-10.1) mg/dL Total Bilirubin 0.4 (0.2-1.0) mg/dL AST 45 H (15-37) IU/L ALT 64 H (14-63) IU/L Alkaline Phosphatase 46 (46-116) U/L Total Protein 7.0 (6.4-8.2) g/dL Albumin 3.1 L (3.4-5.0) g/dL Globulin 3.9 (2.6-4.0) g/dL Albumin/Globulin Ratio 0.8 L (0.9-1.6) Meds: Medications Generic Name Dose Route Start Last Admin Trade Name Freq PRN Reason Stop Dose Admin Sodium Chloride 10 ml 12/20/20 02:22 Sodium Chloride 0.9% 10 Ml Syringe FLUSH ASDIRECTED PRN Keep Vein Open Sodium Chloride 2.5 ml 12/20/20 02:22 Sodium Chloride 0.9% 2.5 Ml Syringe FLUSH ASDIRECTED PRN Keep Vein Open Discontinued Medications Generic Name Dose Route Start Last Admin Trade Name Freq PRN Reason Stop Dose Admin Dexamethasone 10 mg 12/20/20 02:22 12/20/20 02:42 Dexamethasone 10 Mg/Ml Sdv IM 12/20/20 02:23 10 mg ONETIME ONE Administration Departure - Departure Time of Disposition: 03:36 Disposition: Admitted As Inpatient 64 Condition: Good Clinical Impression: Pneumonia due to COVID-19 virus, Hypoxia - Discharge Information Referrals: Siddhartha Urbina MD [Primary Care Provider] - Forms: ED Department Discharge Sepsis Event Note (ED) - Focused Exam Vital Signs: Vital Signs Temp Pulse Resp BP Pulse Ox 12/20/20 02:10 38.7 C H 112 H 24 H 120/62 88 L - My Orders Last 24 Hours: My Active Orders 12/20/20 02:22 Sodium Chloride 0.9% [Saline Flush] 10 ml FLUSH ASDIRECTED PRN Sodium Chloride 0.9% [Saline Flush] 2.5 ml FLUSH ASDIRECTED PRN Saline Lock Insert [OM.PC] Stat 12/20/20 02:23 Chest 1V Frontal [CR] Stat - Assessment/Plan Last 24 Hours: My Active Orders 12/20/20 02:22 Sodium Chloride 0.9% [Saline Flush] 10 ml FLUSH ASDIRECTED PRN Sodium Chloride 0.9% [Saline Flush] 2.5 ml FLUSH ASDIRECTED PRN Saline Lock Insert [OM.PC] Stat 12/20/20 02:23 Chest 1V Frontal [CR] Stat
[2020-12-20 03:18] LABS: BLOOD UREA NITROGEN,BUN 11 mg/dL (7.0-18.0); CARBON DIOXIDE,CO2 29.7 mmol/L (21.0-32.0); CHLORIDE,CL 100 mmol/L (98-107); GLUCOSE RANDOM 85 mg/dL (74-106); POTASSIUM,K 3.4 mmol/L (3.5-5.1); SODIUM,NA 139 mmol/L (136-145)
[2020-12-20] MEDS ORDERED: REMDESIVIR 200 MG in Sodium Chloride 0.9% 250 ML IV ONE (03:37)
[2020-12-20] MEDS ORDERED: Sodium Chloride 0.9% 1,000 ML IV STA (03:49)
[2020-12-20] MEDS ORDERED: Acetaminophen 500 MG Tab PO ONE (03:49)
--- NOTE | 2020-12-20 04:08 | CR ---
INDICATION: Dyspnea TECHNIQUE: Portable AP view of the chest COMPARISON: Repeat chest radiograph 10/29/2020 FINDINGS: There are patchy bilateral pulmonary opacities, which may represent edema or infiltrates. There is no sizable pleural effusion or pneumothorax. The cardiomediastinal silhouette is normal. The visualized osseous structures are unremarkable. IMPRESSION: Patchy bilateral pulmonary opacities, representing edema versus infiltrates. Correlate clinically. Dictated by Lin Rajan MD @ 12/20/2020 4:06:[address] Lin Rajan @ Dec 20 2020 4:06AM
[2020-12-20] MEDS ORDERED: Albuterol 8 GM Inhaler INH PRN (08:00)
--- NOTE | 2020-12-20 08:21 | PCM.HP.2 ---
H&P History of Present Illness - General Date of Service: 12/20/20 Admit Problem/Dx: Admission Diagnosis/Problem Admission Diagnosis/Problem Pneumonia Source of Information: Patient History Limitations: Reports: No Limitations - History of Present Illness Initial Comments - Free Text/Narative: This 34-year-old female with past medical history of asthma, GERD presented to the ER with complaints of shortness of breath and body aches. She reports she is worsened over the last 10 days. She reports she started having symptoms in December 13, 2020. On December 16, 2020 she was diagnosed Covid positive. At that time x-ray was unremarkable. She is placed on steroids and was using her inhaler as needed. She continues to feel short of breath and having pleuritic chest pain when she breathes. Denies any burning in her chest. She does report body aches and fatigue. She reports she and her family are sick, including her 16 yo son who also has asthma. She reports she attempted to use her inhalers at home without significant relief. She reports she has poor appetite and hasnt been eating or drinking much. Reports mild abdominal tenderness diffusely with diarrhea. Mild nausea no vomiting. SHe denies leg pain or swelling. She denies tobacco use, no alcohol use andno recreational drug use. Did not receive COVID vaccination. In the ER mild leukopenia noted 3.13. Hemoglobin 11.3. Platelets 254,000. Sodium 139 potassium 3.4. BUN 11 creatinine 0.9 mild elevation in AST ALT 45 and 64 respectively. Chest x-ray obtained in the ER which reveals patchy bilateral pulmonary opacities representing edema versus infiltrates correlate clinically. Findings likely secondary to COVID-19. In the ER she was noted to be febrile at 101.7 heart rate was 112. Tachypnea at 24 with hypoxia on room air 88%. She was placed on 3 L of oxygen and DrArtur Wilkinson improved to 95%. Heart rate improved as fever improved. Blood pressure 116/62. In the ER she was treated with 10 mg of Decadron. Initial loading dose of remdesivir as well as 1000 mg Tylenol. She will be admitted for acute hypoxic respiratory failure, COVID-19 and viral pneumonia generalized Pain Score (Numeric/FACES): 6 - Related Data Allergies/Adverse Reactions: Allergies Allergy/AdvReac Type Severity Reaction Status Date / Time codeine Allergy Severe Swelling Verified 12/20/20 05:06 amoxicillin [From Augmentin] Allergy Nausea and Verified 12/20/20 05:06 Vomiting cephalexin [From Keflex] Allergy Other Verified 12/20/20 05:06 clavulanic acid Allergy Nausea and Verified 12/20/20 05:06 [From Augmentin] Vomiting ibuprofen Allergy Other Verified 12/20/20 05:06 mushroom Allergy Swelling Uncoded 12/20/20 05:06 Home Medications: Home Meds Cetirizine [ZyrTEC] 10 mg PO DAILY 05/11/15 [History] Albuterol Sulfate 2.5 mg NEB Q4H PRN 01/04/19 [History] Fluticasone/Vilanterol [Breo Ellipta 200-25 MCG Inhalation Kit] 1 dose INH DAILY 01/04/19 [History] Montelukast [Singulair] 10 mg PO DAILY 12/27/19 [History] Phentermine HCl 37.5 mg PO DAILY 12/27/19 [History] Omeprazole 20 mg PO DAILY 06/18/20 [History] Acetaminophen [Tylenol] 650 mg PO Q4H PRN tablet 08/21/20 [Rx] Fluticasone/Vilanterol [Breo Ellipta 200-25 MCG Inhalation Kit] 1 each IH DAILY #1 each 08/21/20 [Rx] predniSONE [Prednisone] 40 mg PO DAILY #8 tablet 08/21/20 [Rx] predniSONE 40 mg PO WITHBREAKFAST #8 tab 10/30/20 [Rx] Benzonatate 200 mg PO TID PRN #10 capsule 12/16/20 [Rx] predniSONE [Prednisone] 60 mg PO DAILY #21 tablet 12/16/20 [Rx] Albuterol [Proventil HFA] 2 puff INH Q4HR PRN 12/20/20 [History] Past Medical History HEENT History: Reports: Other (See Below) Other HEENT History: wears glasses, contacts Cardiovascular History: Reports: None Respiratory History: Reports: Asthma Other Respiratory History: uses rescue inhaler daily Gastrointestinal History: Reports: GERD Genitourinary History: Reports: Renal Calculus Other Genitourinary History: currently has kidney stone 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: Reports: 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, Musculoskeletal History: Reports: Other (See Below) Other Musculoskeletal History: carpal tunnel Neurological History: Reports: Migraines, Other (See Below) Other Neuro History: hx of motion sickness Psychiatric History: Reports: PTSD Endocrine/Metabolic History: Reports: Obesity/BMI 30+ Insulin Pump Model and Spice Room Worker: None Hematologic History: Reports: None Immunologic History: Reports: None Oncologic (Cancer) History: Reports: None Dermatologic History: Reports: None - Infectious Disease History Infectious Disease History: Reports: Chicken Pox, Novel Coronavirus - Past Surgical History Head Surgeries/Procedures: Reports: None HEENT Surgical History: Reports: Naso-Sinus Surgery, Oral Surgery, Tonsillectomy Other HEENT Surgeries/Procedures: wisdom teeth Cardiovascular Surgical History: Reports: None Respiratory Surgical History: Reports: None GI Surgical History: Reports: Cholecystectomy Female Surgical History: Reports: Section Endocrine Surgical History: Reports: None Neurological Surgical History: Reports: None Musculoskeletal Surgical History: Reports: None Other Musculoskeletal Surgeries/Procedures:: carpal tunnel surgery 11/11/2016 Dermatological Surgical History: Reports: None Social & Family History - Family History Family Medical History: No Pertinent Family History HEENT: Reports: Glaucoma Cardiac: Reports: None Respiratory: Reports: Asthma GI: Reports: Other (See Below) Other GI Family History: ulcers OBGYN: Reports: 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, Recurrent Spontaneous Musculoskeletal: Reports: Fibromyalgia Endocrine/Metabolic: Reports: Diabetes, type II Dermatologic: Reports: Eczema Oncologic: Reports: Breast, Lung - Tobacco Use Tobacco Use Status *Q: Never Tobacco User - Caffeine Use Caffeine Use: Reports: Coffee Caffeine Use Comment: 2-3drinks/day - Recreational Drug Use Recreational Drug Use: No - Living Situation & Occupation Living situation: Reports: H&P Review of Systems - Review of Systems: Review Of Systems: See Below General: Reports: Fever, Chills, Malaise, Weakness, Fatigue, Decreased Appetite HEENT: Reports: Headaches, Post Nasal Drip, Sore Throat Pulmonary: Reports: Shortness of Breath, Wheezing, Cough Cardiovascular: Reports: Dyspnea on Exertion. Denies: Edema Gastrointestinal: Reports: Abdominal Pain (diffuse tenderness), Diarrhea, Decreased Appetite, Nausea. Denies: Black Stool, Bloody Stool, Vomiting Genitourinary: Reports: No Symptoms. Denies: Dysuria, Frequency, Burning Musculoskeletal: Reports: No Symptoms Skin: Reports: No Symptoms Psychiatric: Reports: No Symptoms Neurological: Reports: No Symptoms Hematologic/Lymphatic: Reports: No Symptoms Immunologic: Reports: No Symptoms Exam - Exam Exam: See Below - Vital Signs Vital Signs: Last Vital Signs Temp 98.7 F 12/20/20 05:03 Pulse 98 12/20/20 05:03 Resp 20 12/20/20 05:03 BP 116/62 12/20/20 05:03 Pulse Ox 93 L 12/20/20 05:46 Weight: 106.821 kg - Exam Quality Assessment: Supplemental Oxygen, DVT Prophylaxis General: Alert, Oriented HEENT: Conjunctiva Clear, Posterior Pharynx Clear. No: Mucosa Moist & [place] (dry) Lungs: Decreased Breath Sounds, Crackles (fine bibasilar crackles), Wheezing. No: Normal Respiratory Effort (dyspnea with speech) Cardiovascular: Regular Rate, Regular Rhythm, Normal S1, Normal S2. No: Systolic Murmur GI/Abdominal Exam: Normal Bowel Sounds, Soft, Non-Tender Extremities: Normal Inspection, Normal Range of Motion, Non-Tender, No Pedal Edema Skin: Warm, Dry Neuro Extensive - Mental Status: Alert, Oriented x3 Neuro Extensive - Motor, Sensory, Reflexes: CN II-XII Intact, Normal Gait, Normal Reflexes Psychiatric: Alert, Normal Affect, Normal Mood - Patient Data Lab Results Last 24 hrs: Laboratory Results - last 24 hr 12/20/20 12/20/20 12/20/20 Range/Units 02:36 02:36 02:36 WBC 3.13 L (4.0-11.0) K/uL RBC 4.89 (4.30-5.90) M/uL Hgb 11.3 L (12.0-16.0) g/dL Hct 35.0 L (36.0-46.0) % MCV 71.6 L (80.0-98.0) fL MCH 23.1 L (27.0-32.0) pg MCHC 32.3 (31.0-37.0) g/dL RDW Std Deviation 41.4 (28.0-62.0) fl RDW Coeff of Shaniqua 16 H (11.0-15.0) % Plt Count 254 (150-400) K/uL MPV 9.20 (7.40-12.00) fL Neut % (Auto) 65.6 (48.0-80.0) % Lymph % (Auto) 22.0 (16.0-40.0) % [place] % (Auto) 12.1 (0.0-15.0) % Eos % (Auto) 0.3 (0.0-7.0) % Baso % (Auto) 0.0 (0.0-1.5) % Neut # (Auto) 2.1 (1.4-5.7) K/uL Lymph # (Auto) 0.7 (0.6-2.4) K/uL [place] # (Auto) 0.4 (0.0-0.8) K/uL Eos # (Auto) 0.0 (0.0-0.7) K/uL Baso # (Auto) 0.0 (0.0-0.1) K/uL Nucleated RBC % 0.0 /100WBC Nucleated RBCs # 0 K/uL Sodium 139 (136-145) mmol/L Potassium 3.4 L (3.5-5.1) mmol/L Chloride 100 (98-107) mmol/L Carbon Dioxide 29.7 (21.0-32.0) mmol/L BUN 11 (7.0-18.0) mg/dL Creatinine 0.9 (0.6-1.0) mg/dL Est Cr Clr Drug Dosing 80.90 mL/min Estimated GFR (MDRD) > 60.0 ml/min Glucose 85 (74-106) mg/dL Calcium 8.5 (8.5-10.1) mg/dL Total Bilirubin 0.4 (0.2-1.0) mg/dL Direct Bilirubin 0.10 (0.0-0.5) mg/dL AST 45 H (15-37) IU/L ALT 64 H (14-63) IU/L Alkaline Phosphatase 46 (46-116) U/L Total Protein 7.0 (6.4-8.2) g/dL Albumin 3.1 L (3.4-5.0) g/dL Globulin 3.9 (2.6-4.0) g/dL Albumin/Globulin Ratio 0.8 L (0.9-1.6) Result Diagrams: 12/20/20 02:36 12/20/20 02:36 Sepsis Event Note - Evaluation Sepsis Screening Result: No Definite Risk - Focused Exam Vital Signs: Vital Signs Temp Temp Pulse Resp BP BP Pulse Ox 12/20/20 05:46 12/20/20 05:03 98.7 F 98 20 116/62 94 L 08/27/21 03:50 102.4 F H 12/20/20 03:00 102 H 20 106/61 95 12/20/20 02:15 94 L 12/20/20 02:10 101.7 F H 112 H 24 H 120/62 88 L Pulse Ox 12/20/20 05:46 93 L 12/20/20 05:03 12/20/20 03:50 12/20/20 03:00 12/20/20 02:15 12/20/20 02:10 - Problem List (1) Acute respiratory failure with hypoxia SNOMED Code(s): 74557076, 076523273 ICD Code: J96.01 - ACUTE RESPIRATORY FAILURE WITH HYPOXIA Status: Acute Current Visit: Yes (2) COVID-19 SNOMED Code(s): 955882234 ICD Code: U07.1 - COVID-19 Status: Acute Current Visit: Yes (3) Pneumonia SNOMED Code(s): 897802468 ICD Code: J18.9 - PNEUMONIA, UNSPECIFIED ORGANISM Status: Acute Current Visit: Yes (4) Asthma SNOMED Code(s): 375659011 ICD Code: J45.909 - UNSPECIFIED ASTHMA, UNCOMPLICATED Status: Chronic Current Visit: Yes (5) Environmental and seasonal allergies SNOMED Code(s): 403145736, 593075718, 167984996 ICD Code: J30.89 - OTHER ALLERGIC RHINITIS Status: Chronic Current Visit: No (6) GERD (gastroesophageal reflux disease) SNOMED Code(s): 783159914 ICD Code: K21.9 - GASTRO-ESOPHAGEAL REFLUX DISEASE WITHOUT ESOPHAGITIS Status: Chronic Current Visit: No Problem List Initiated/Reviewed/Updated: Yes Orders Last 24hrs: Active Orders 24 hr Category Date Time Status Admission Status [Patient Status] [ADT] Stat ADT 12/20/20 03:38 Active Oxygen Therapy [RC] ASDIRECTED Care 12/20/20 05:46 Active Up ad Suad [RC] ASDIRECTED Care 12/20/20 05:48 Active Regular Diet [DIET] Diet 12/20/20 Breakfast Active Acetaminophen [TylenoL] Med 12/20/20 05:46 Active 650 mg PO Q4H PRN Benzonatate [Tessalon Perles] Med 12/20/20 05:46 Active 100 mg PO Q6H PRN Sodium Chloride 0.9% [Normal Saline] 1,000 ml Med 12/20/20 03:49 Active IV NOW Sodium Chloride 0.9% [Saline Flush] Med 12/20/20 02:22 Active 10 ml FLUSH ASDIRECTED PRN Sodium Chloride 0.9% [Saline Flush] Med 12/20/20 02:22 Active 2.5 ml FLUSH ASDIRECTED PRN Saline Lock Insert [OM.PC] Stat Oth 12/20/20 02:22 Ordered Medication Orders Acetaminophen (Acetaminophen 325 Mg Tab) 650 mg PO Q4H PRN PRN Reason: Pain/Fever Benzonatate (Benzonatate 100 Mg Cap) 100 mg PO Q6H PRN PRN Reason: Cough Sodium Chloride (Normal Saline) 1,000 mls @ 100 mls/hr IV NOW STA Stop: 12/20/20 13:48 Last Admin: 12/20/20 04:12 Dose: 100 mls/hr Documented by: MARLEY Sodium Chloride (Sodium Chloride 0.9% 10 Ml Syringe) 10 ml FLUSH ASDIRECTED PRN PRN Reason: Keep Vein Open Sodium Chloride (Sodium Chloride 0.9% 2.5 Ml Syringe) 2.5 ml FLUSH ASDIRECTED PRN PRN Reason: Keep Vein Open Assessment/Plan Comment:: This 34-year-old admitted with acute hypoxic respiratory failure, COVID-19, and viral pneumonia 1. Acute hypoxic respiratory failure/COVID-19/viral pneumonia -Continue remdesivir 100 mg IV daily x4 days -Continue dexamethasone 6 mg p.o. daily -Add Combivent every 4 hours 2 puffs -Encourage I-S/Acapella and self proning -Lovenox daily -Monitor LFTs during remdesivir treatment -Oxygen to keep sats greater than 92% wean as possible 2. Asthma -Continue home albuterol as needed -Continue Zyrtec Singulair -Continue Breo VTE prophylaxis: Lovenox GI prophylaxis: Omeprazole CODE STATUS: Full code Dispo: 2 to 3 days pending improvement and ability to wean off oxygen.
[2020-12-20] MEDS ORDERED: Ondansetron 4 MG/2 ML SDV IVPUSH PRN (09:00)
[2020-12-20] MEDS: Omeprazole 20 MG Cap.CR PO SCH (09:29)
[2020-12-20] MEDS: Enoxaparin 40 MG/0.4 ML Syringe SUBCUT SCH (09:30)
[2020-12-20] MEDS: Cetirizine 10 MG Tab PO SCH (09:30)
[2020-12-20] MEDS: Montelukast 10 MG Tab PO SCH (09:30)
[2020-12-20] MEDS: FLUTICASONE INH SCH (09:31)
[2020-12-20] MEDS: VILANTEROL INH SCH (09:31)
[2020-12-20] MEDS: Albuterol/Ipratropium 4 GM Inhalation Spray INH SCH ×4 (09:32→21:18)
[2020-12-20] MEDS: Benzonatate 100 MG Cap PO PRN (21:16)
[2020-12-20] MEDS: Benzocaine/Cetylpyridinium/Menthol Lozenge MUCMEM PRN (21:16)
[2020-12-20] MEDS: Acetaminophen 325 MG Tab PO PRN (21:17)
[2020-12-21] MEDS: Albuterol/Ipratropium 4 GM Inhalation Spray INH SCH ×6 (02:57→21:22)
[2020-12-21 06:50] LABS: BLOOD UREA NITROGEN,BUN 15 mg/dL (7.0-18.0); CARBON DIOXIDE,CO2 26.3 mmol/L (21.0-32.0); CHLORIDE,CL 101 mmol/L (98-107); GLUCOSE RANDOM 102 mg/dL (74-106); POTASSIUM,K 3.9 mmol/L (3.5-5.1); SODIUM,NA 138 mmol/L (136-145)
[2020-12-21] MEDS: Dexamethasone 4 MG Tab PO SCH (09:14)
[2020-12-21] MEDS: Montelukast 10 MG Tab PO SCH (09:15)
[2020-12-21] MEDS: Omeprazole 20 MG Cap.CR PO SCH (09:15)
[2020-12-21] MEDS: Enoxaparin 40 MG/0.4 ML Syringe SUBCUT SCH (09:15)
[2020-12-21] MEDS: FLUTICASONE INH SCH (09:16)
[2020-12-21] MEDS: VILANTEROL INH SCH (09:16)
[2020-12-21] MEDS: REMDESIVIR 100 MG in Sodium Chloride 0.9% 100 ML IV SCH (09:18)
[2020-12-21] MEDS: Cetirizine 10 MG Tab PO SCH (09:18)
[2020-12-21] MEDS: Acetaminophen 325 MG Tab PO PRN ×2 (10:29→21:57)
[2020-12-21] MEDS: Benzonatate 100 MG Cap PO PRN ×2 (10:30→21:22)
--- NOTE | 2020-12-21 15:16 | PCM.PN ---
- General Info Date of Service: 12/21/20 - Review of Systems Systems Review Comment:: reports headache, shortness of breath and fatigue, no fevers - Patient Data Vitals - Most Recent: Last Vital Signs Temp 36.9 C 12/21/20 08:00 Pulse 79 12/21/20 08:00 Resp 18 12/21/20 03:03 BP 112/64 12/21/20 08:00 Pulse Ox 94 L 12/21/20 08:00 Weight - Most Recent: 106.821 kg I&O - Last 24 Hours: Intake & Output 12/21/20 12/21/20 12/21/20 06:59 14:59 22:59 Intake Total 640 Balance 640 Lab Results Last 24 Hours: Laboratory Results - last 24 hr 12/21/20 12/21/20 Range/Units 05:25 05:25 WBC 3.84 L (4.0-11.0) K/uL RBC 5.11 (4.30-5.90) M/uL Hgb 11.4 L (12.0-16.0) g/dL Hct 36.8 (36.0-46.0) % MCV 72.0 L (80.0-98.0) fL MCH 22.3 L (27.0-32.0) pg MCHC 31.0 (31.0-37.0) g/dL RDW Std Deviation 41.5 (28.0-62.0) fl RDW Coeff of Shaniqua 16 H (11.0-15.0) % Plt Count 304 (150-400) K/uL MPV 9.70 (7.40-12.00) fL Neut % (Auto) 58.9 (48.0-80.0) % Lymph % (Auto) 26.8 (16.0-40.0) % [place] % (Auto) 14.3 (0.0-15.0) % Eos % (Auto) 0.0 (0.0-7.0) % Baso % (Auto) 0.0 (0.0-1.5) % Neut # (Auto) 2.3 (1.4-5.7) K/uL Lymph # (Auto) 1.0 (0.6-2.4) K/uL [place] # (Auto) 0.6 (0.0-0.8) K/uL Eos # (Auto) 0.0 (0.0-0.7) K/uL Baso # (Auto) 0.0 (0.0-0.1) K/uL Nucleated RBC % 0.0 /100WBC Nucleated RBCs # 0 K/uL Sodium 138 (136-145) mmol/L Potassium 3.9 (3.5-5.1) mmol/L Chloride 101 (98-107) mmol/L Carbon Dioxide 26.3 (21.0-32.0) mmol/L BUN 15 (7.0-18.0) mg/dL Creatinine 0.8 (0.6-1.0) mg/dL Est Cr Clr Drug Dosing 91.51 mL/min Estimated GFR (MDRD) > 60.0 ml/min Glucose 102 (74-106) mg/dL Calcium 8.2 L (8.5-10.1) mg/dL Total Bilirubin 0.3 (0.2-1.0) mg/dL AST 35 (15-37) IU/L ALT 52 (14-63) IU/L Alkaline Phosphatase 45 L (46-116) U/L Total Protein 6.7 (6.4-8.2) g/dL Albumin 2.8 L (3.4-5.0) g/dL Globulin 3.9 (2.6-4.0) g/dL Albumin/Globulin Ratio 0.7 L (0.9-1.6) Med Orders - Current: Current Medications Acetaminophen (Acetaminophen 325 Mg Tab) 650 mg PO Q4H PRN PRN Reason: Pain/Fever Last Admin: 12/21/20 10:29 Dose: 650 mg Documented by: Albuterol (Albuterol 8 Gm Inhaler) 0 gm INH Q4HR PRN PRN Reason: Wheezing Albuterol/Ipratropium (Albuterol/Ipratropium 4 Gm Inhalation [place]) 0 gm INH Q4HRRT [facility] Last Admin: 12/21/20 13:43 Dose: Not Given Documented by: Benzocaine/Menthol (Benzocaine/Cetylpyridinium/Menthol Lozenge) 1 lozenge MUCMEM Q2H PRN PRN Reason: cough/sore throat Last Admin: 12/20/20 21:16 Dose: 1 lozenge Documented by: Benzonatate (Benzonatate 100 Mg Cap) 100 mg PO Q6H PRN PRN Reason: Cough Last Admin: 12/21/20 10:30 Dose: 100 mg Documented by: Cetirizine HCl (Cetirizine 10 Mg Tab) 10 mg PO DAILY [facility] Last Admin: 12/21/20 09:18 Dose: 10 mg Documented by: Dexamethasone (Dexamethasone 4 Mg Tab) 6 mg PO DAILY [facility] Last Admin: 12/21/20 09:14 Dose: 6 mg Documented by: Enoxaparin Sodium (Enoxaparin 40 Mg/0.4 Ml Syringe) 40 mg SUBCUT Q24H [facility] Last Admin: 12/21/20 09:15 Dose: 40 mg Documented by: Remdesivir 100 mg/ Sodium (Chloride) 100 mls @ 100 mls/hr IV Q24H [facility] Stop: 12/24/20 09:59 Last Admin: 12/21/20 09:18 Dose: 100 mls/hr Documented by: Montelukast Sodium (Montelukast 10 Mg Tab) 10 mg PO DAILY [facility] Last Admin: 12/21/20 09:15 Dose: 10 mg Documented by: Omeprazole (Omeprazole 20 Mg Cap.Cr) 20 mg PO ACBREAKFAST [facility] Last Admin: 12/21/20 09:15 Dose: 20 mg Documented by: Ondansetron HCl (Ondansetron 4 Mg/2 Ml Sdv) 4 mg IVPUSH Q4H PRN PRN Reason: Nausea Fluticasone/Vilanterol [Breo Ellipta 200-25 Mcg Inhalation] 1 each INH DAILY [facility] Last Admin: 12/21/20 09:16 Dose: Not Given Documented by: Sodium Chloride (Sodium Chloride 0.9% 2.5 Ml Syringe) 2.5 ml FLUSH ASDIRECTED PRN PRN Reason: Keep Vein Open Discontinued Medications Acetaminophen (Acetaminophen 500 Mg Tab) 1,000 mg PO ONETIME ONE Stop: 12/20/20 03:50 Last Admin: 12/20/20 04:11 Dose: 1,000 mg Documented by: Dexamethasone (Dexamethasone 10 Mg/Ml Sdv) 10 mg IM ONETIME ONE Stop: 12/20/20 02:23 Last Admin: 12/20/20 02:42 Dose: 10 mg Documented by: Remdesivir 200 mg/ Sodium (Chloride) 250 mls @ 250 mls/hr IV ONETIME ONE Stop: 12/20/20 03:38 Last Admin: 12/20/20 04:11 Dose: 250 mls/hr Documented by: Sodium Chloride (Normal Saline) 1,000 mls @ 100 mls/hr IV NOW STA Stop: 12/20/20 13:48 Last Admin: 12/20/20 04:12 Dose: 100 mls/hr Documented by: Sodium Chloride (Sodium Chloride 0.9% 10 Ml Syringe) 10 ml FLUSH ASDIRECTED PRN PRN Reason: Keep Vein Open Sodium Chloride (Sodium Chloride 0.9% 2.5 Ml Syringe) 2.5 ml FLUSH ASDIRECTED PRN PRN Reason: Keep Vein Open - Exam General: Alert, Oriented Lungs: Clear to Auscultation, Normal Respiratory Effort Cardiovascular: Regular Rate, Regular Rhythm GI/Abdominal Exam: Soft, Non-Tender, No Distention Extremities: Non-Tender, No Pedal Edema Skin: Warm, Dry, Intact Neurological: No New Focal Deficit - Patient Data Lab Results Last 24 hrs: Laboratory Results - last 24 hr 12/21/20 12/21/20 Range/Units 05:25 05:25 WBC 3.84 L (4.0-11.0) K/uL RBC 5.11 (4.30-5.90) M/uL Hgb 11.4 L (12.0-16.0) g/dL Hct 36.8 (36.0-46.0) % MCV 72.0 L (80.0-98.0) fL MCH 22.3 L (27.0-32.0) pg MCHC 31.0 (31.0-37.0) g/dL RDW Std Deviation 41.5 (28.0-62.0) fl RDW Coeff of [place] 16 H (11.0-15.0) % Plt Count 304 (150-400) K/uL MPV 9.70 (7.40-12.00) fL Neut % (Auto) 58.9 (48.0-80.0) % Lymph % (Auto) 26.8 (16.0-40.0) % [place] % (Auto) 14.3 (0.0-15.0) % Eos % (Auto) 0.0 (0.0-7.0) % Baso % (Auto) 0.0 (0.0-1.5) % Neut # (Auto) 2.3 (1.4-5.7) K/uL Lymph # (Auto) 1.0 (0.6-2.4) K/uL [place] # (Auto) 0.6 (0.0-0.8) K/uL Eos # (Auto) 0.0 (0.0-0.7) K/uL Baso # (Auto) 0.0 (0.0-0.1) K/uL Nucleated RBC % 0.0 /100WBC Nucleated RBCs # 0 K/uL Sodium 138 (136-145) mmol/L Potassium 3.9 (3.5-5.1) mmol/L Chloride 101 (98-107) mmol/L Carbon Dioxide 26.3 (21.0-32.0) mmol/L BUN 15 (7.0-18.0) mg/dL Creatinine 0.8 (0.6-1.0) mg/dL Est Cr Clr Drug Dosing 91.51 mL/min Estimated GFR (MDRD) > 60.0 ml/min Glucose 102 (74-106) mg/dL Calcium 8.2 L (8.5-10.1) mg/dL Total Bilirubin 0.3 (0.2-1.0) mg/dL AST 35 (15-37) IU/L ALT 52 (14-63) IU/L Alkaline Phosphatase 45 L (46-116) U/L Total Protein 6.7 (6.4-8.2) g/dL Albumin 2.8 L (3.4-5.0) g/dL Globulin 3.9 (2.6-4.0) g/dL Albumin/Globulin Ratio 0.7 L (0.9-1.6) Result Diagrams: 12/21/20 05:25 12/21/20 05:25 Sepsis Event Note - Evaluation Sepsis Screening Result: Possible Sepsis Risk - Focused Exam Vital Signs: Vital Signs Temp Pulse BP Pulse Ox 12/21/20 08:00 36.9 C 79 112/64 94 L - Problem List Review Problem List Initiated/Reviewed/Updated: Yes - Plan Plan:: This 34-year-old admitted with acute hypoxic respiratory failure, COVID-19, and viral pneumonia 1. Acute hypoxic respiratory failure/COVID-19/viral pneumonia -remdesivir 100 mg IV daily x4 days -dexamethasone 6 mg p.o. daily -Combivent every 4 hours 2 puffs -Encourage I-S/Acapella and self proning -Lovenox daily -Monitor LFTs during remdesivir treatment -Oxygen at 1 L NC. titrate to keep sats greater than 92% wean as possible 2. Asthma -albuterol as needed -Zyrtec Singulair -Breo VTE prophylaxis: Lovenox GI prophylaxis: Omeprazole CODE STATUS: Full code Dispo: 2 to 3 days pending improvement and ability to wean off oxygen.
[2020-12-22] MEDS: Albuterol/Ipratropium 4 GM Inhalation Spray INH SCH ×6 (03:31→23:37)
[2020-12-22] MEDS: Benzonatate 100 MG Cap PO PRN ×3 (05:39→21:47)
[2020-12-22 08:33] LABS: BLOOD UREA NITROGEN,BUN 14 mg/dL (7.0-18.0); CARBON DIOXIDE,CO2 28.5 mmol/L (21.0-32.0); CHLORIDE,CL 103 mmol/L (98-107); GLUCOSE RANDOM 98 mg/dL (74-106); POTASSIUM,K 3.7 mmol/L (3.5-5.1); SODIUM,NA 140 mmol/L (136-145)
[2020-12-22] MEDS: REMDESIVIR 100 MG in Sodium Chloride 0.9% 100 ML IV SCH (11:39)
[2020-12-22] MEDS: Cetirizine 10 MG Tab PO SCH (11:43)
[2020-12-22] MEDS: Enoxaparin 40 MG/0.4 ML Syringe SUBCUT SCH (11:43)
[2020-12-22] MEDS: Dexamethasone 4 MG Tab PO SCH (11:43)
[2020-12-22] MEDS: Montelukast 10 MG Tab PO SCH (11:43)
[2020-12-22] MEDS: Omeprazole 20 MG Cap.CR PO SCH (11:43)
[2020-12-22] MEDS: VILANTEROL INH SCH (11:44)
[2020-12-22] MEDS: FLUTICASONE INH SCH (11:44)
[2020-12-22] MEDS: Acetaminophen 325 MG Tab PO PRN ×2 (11:54→21:49)
[2020-12-22] MEDS: Benzocaine/Cetylpyridinium/Menthol Lozenge MUCMEM PRN ×2 (11:56→21:55)
--- NOTE | 2020-12-22 16:26 | PCM.PN ---
- General Info Date of Service: 12/22/20 Admission Dx/Problem (Free Text): Admission Diagnosis/Problem Admission Diagnosis/Problem Pneumonia Subjective Update: Patient seen at bedside, sleeping, not interested in having any conversation at bedside, had a nasal cannula of, when I tried to put it back on patient got upset and asked me " not shove it down her nose" , per nursing at bedside patient generally does not like to be woken up and prefers to be left alone, she has been refusing Combivent on several occasions as well, patient was counseled about importance of oxygen compliance as well as medication compliance she nodded her head in agreement but did not really participate in any conversation. Continues to have headache which she states is her migraines and she takes Tylenol for them. Functional Status: Reports: Tolerating Diet, Urinating. Denies: Ambulating - Review of Systems General: Reports: Weakness, Fatigue. Denies: Fever Pulmonary: Reports: Shortness of Breath, Cough. Denies: Pleuritic Chest Pain Cardiovascular: Denies: Chest Pain, Palpitations, Dyspnea on Exertion Gastrointestinal: Denies: Abdominal Pain, Constipation, Decreased Appetite Genitourinary: Denies: Dysuria, Frequency, Burning Musculoskeletal: Denies: Neck Pain, Shoulder Pain - Patient Data Vitals - Most Recent: Last Vital Signs Temp 35.8 C L 12/22/20 11:47 Pulse 106 H 12/22/20 11:47 Resp 16 12/22/20 11:47 BP 121/62 12/22/20 11:47 Pulse Ox 90 L 12/22/20 11:47 Weight - Most Recent: 106.821 kg I&O - Last 24 Hours: Intake & Output 12/22/20 12/22/20 12/22/20 06:59 14:59 22:59 Intake Total 860 Output Total 0 Balance 860 Lab Results Last 24 Hours: Laboratory Results - last 24 hr 12/22/20 12/22/20 Range/Units 07:26 07:26 WBC 6.10 (4.0-11.0) K/uL RBC 5.17 (4.30-5.90) M/uL Hgb 11.6 L (12.0-16.0) g/dL Hct 36.8 (36.0-46.0) % MCV 71.2 L (80.0-98.0) fL MCH 22.4 L (27.0-32.0) pg MCHC 31.5 (31.0-37.0) g/dL RDW Std Deviation 40.2 (28.0-62.0) fl RDW Coeff of [place]a 15 (11.0-15.0) % Plt Count 329 (150-400) K/uL MPV 9.80 (7.40-12.00) fL Neut % (Auto) 74.0 (48.0-80.0) % Lymph % (Auto) 15.1 L (16.0-40.0) % [place] % (Auto) 10.7 (0.0-15.0) % Eos % (Auto) 0.2 (0.0-7.0) % Baso % (Auto) 0.0 (0.0-1.5) % Neut # (Auto) 4.5 (1.4-5.7) K/uL Lymph # (Auto) 0.9 (0.6-2.4) K/uL [place] # (Auto) 0.7 (0.0-0.8) K/uL Eos # (Auto) 0.0 (0.0-0.7) K/uL Baso # (Auto) 0.0 (0.0-0.1) K/uL Nucleated RBC % 0.0 /100WBC Nucleated RBCs # 0 K/uL Sodium 140 (136-145) mmol/L Potassium 3.7 (3.5-5.1) mmol/L Chloride 103 (98-107) mmol/L Carbon Dioxide 28.5 (21.0-32.0) mmol/L BUN 14 (7.0-18.0) mg/dL Creatinine 0.8 (0.6-1.0) mg/dL Est Cr Clr Drug Dosing 91.51 mL/min Estimated GFR (MDRD) > 60.0 ml/min Glucose 98 (74-106) mg/dL Calcium 8.6 (8.5-10.1) mg/dL Total Bilirubin 0.4 (0.2-1.0) mg/dL AST 45 H (15-37) IU/L ALT 60 (14-63) IU/L Alkaline Phosphatase 49 (46-116) U/L Total Protein 6.8 (6.4-8.2) g/dL Albumin 2.8 L (3.4-5.0) g/dL Globulin 4.0 (2.6-4.0) g/dL Albumin/Globulin Ratio 0.7 L (0.9-1.6) Med Orders - Current: Current Medications Acetaminophen (Acetaminophen 325 Mg Tab) 650 mg PO Q4H PRN PRN Reason: Pain/Fever Last Admin: 12/22/20 11:54 Dose: 650 mg Documented by: Albuterol (Albuterol 8 Gm Inhaler) 0 gm INH Q4HR PRN PRN Reason: Wheezing Albuterol/Ipratropium (Albuterol/Ipratropium 4 Gm Inhalation [place]) 0 gm INH Q4HRRT [facility] Last Admin: 12/22/20 09:50 Dose: Not Given Documented by: Benzocaine/Menthol (Benzocaine/Cetylpyridinium/Menthol Lozenge) 1 lozenge MUCMEM Q2H PRN PRN Reason: cough/sore throat Last Admin: 12/22/20 11:56 Dose: 2 lozenge Documented by: Benzonatate (Benzonatate 100 Mg Cap) 100 mg PO Q6H PRN PRN Reason: Cough Last Admin: 12/22/20 11:56 Dose: 100 mg Documented by: Cetirizine HCl (Cetirizine 10 Mg Tab) 10 mg PO DAILY [facility] Last Admin: 12/22/20 11:43 Dose: 10 mg Documented by: Dexamethasone (Dexamethasone 4 Mg Tab) 6 mg PO DAILY [facility] Last Admin: 12/22/20 11:43 Dose: 6 mg Documented by: Enoxaparin Sodium (Enoxaparin 40 Mg/0.4 Ml Syringe) 40 mg SUBCUT Q24H [facility] Last Admin: 12/22/20 11:43 Dose: 40 mg Documented by: Remdesivir 100 mg/ Sodium (Chloride) 100 mls @ 100 mls/hr IV Q24H [facility] Stop: 12/24/20 09:59 Last Admin: 12/22/20 11:39 Dose: 100 mls/hr Documented by: Montelukast Sodium (Montelukast 10 Mg Tab) 10 mg PO DAILY [facility] Last Admin: 12/22/20 11:43 Dose: 10 mg Documented by: Omeprazole (Omeprazole 20 Mg Cap.Cr) 20 mg PO ACBREAKFAST [facility] Last Admin: 12/22/20 11:43 Dose: 20 mg Documented by: Ondansetron HCl (Ondansetron 4 Mg/2 Ml Sdv) 4 mg IVPUSH Q4H PRN PRN Reason: Nausea Fluticasone/Vilanterol [Breo Ellipta 200-25 Mcg Inhalation] 1 each INH DAILY [facility] Last Admin: 12/22/20 11:44 Dose: Not Given Documented by: Sodium Chloride (Sodium Chloride 0.9% 2.5 Ml Syringe) 2.5 ml FLUSH ASDIRECTED PRN PRN Reason: Keep Vein Open Discontinued Medications Acetaminophen (Acetaminophen 500 Mg Tab) 1,000 mg PO ONETIME ONE Stop: 12/20/20 03:50 Last Admin: 12/20/20 04:11 Dose: 1,000 mg Documented by: Dexamethasone (Dexamethasone 10 Mg/Ml Sdv) 10 mg IM ONETIME ONE Stop: 12/20/20 02:23 Last Admin: 12/20/20 02:42 Dose: 10 mg Documented by: Remdesivir 200 mg/ Sodium (Chloride) 250 mls @ 250 mls/hr IV ONETIME ONE Stop: 12/20/20 03:38 Last Admin: 12/20/20 04:11 Dose: 250 mls/hr Documented by: Sodium Chloride (Normal Saline) 1,000 mls @ 100 mls/hr IV NOW STA Stop: 12/20/20 13:48 Last Admin: 12/20/20 04:12 Dose: 100 mls/hr Documented by: Sodium Chloride (Sodium Chloride 0.9% 10 Ml Syringe) 10 ml FLUSH ASDIRECTED PRN PRN Reason: Keep Vein Open Sodium Chloride (Sodium Chloride 0.9% 2.5 Ml Syringe) 2.5 ml FLUSH ASDIRECTED PRN PRN Reason: Keep Vein Open - Exam Quality Assessment: Supplemental Oxygen General: Alert, Oriented, Mild Distress Neck: Supple Lungs: Normal Respiratory Effort, Decreased Breath Sounds, Crackles Cardiovascular: Regular Rate, Regular Rhythm GI/Abdominal Exam: Normal Bowel Sounds, Soft Extremities: Normal Inspection Psy/Mental Status: Agitated. No: Normal Affect, Suicidal Ideation, Homicidal Ideation, Hallucinations - Patient Data Lab Results Last 24 hrs: Laboratory Results - last 24 hr 12/22/20 12/22/20 Range/Units 07:26 07:26 WBC 6.10 (4.0-11.0) K/uL RBC 5.17 (4.30-5.90) M/uL Hgb 11.6 L (12.0-16.0) g/dL Hct 36.8 (36.0-46.0) % MCV 71.2 L (80.0-98.0) fL MCH 22.4 L (27.0-32.0) pg MCHC 31.5 (31.0-37.0) g/dL RDW Std Deviation 40.2 (28.0-62.0) fl RDW Coeff of [place] 15 (11.0-15.0) % Plt Count 329 (150-400) K/uL MPV 9.80 (7.40-12.00) fL Neut % (Auto) 74.0 (48.0-80.0) % Lymph % (Auto) 15.1 L (16.0-40.0) % [place] % (Auto) 10.7 (0.0-15.0) % Eos % (Auto) 0.2 (0.0-7.0) % Baso % (Auto) 0.0 (0.0-1.5) % Neut # (Auto) 4.5 (1.4-5.7) K/uL Lymph # (Auto) 0.9 (0.6-2.4) K/uL [place] # (Auto) 0.7 (0.0-0.8) K/uL Eos # (Auto) 0.0 (0.0-0.7) K/uL Baso # (Auto) 0.0 (0.0-0.1) K/uL Nucleated RBC % 0.0 /100WBC Nucleated RBCs # 0 K/uL Sodium 140 (136-145) mmol/L Potassium 3.7 (3.5-5.1) mmol/L Chloride 103 (98-107) mmol/L Carbon Dioxide 28.5 (21.0-32.0) mmol/L BUN 14 (7.0-18.0) mg/dL Creatinine 0.8 (0.6-1.0) mg/dL Est Cr Clr Drug Dosing 91.51 mL/min Estimated GFR (MDRD) > 60.0 ml/min Glucose 98 (74-106) mg/dL Calcium 8.6 (8.5-10.1) mg/dL Total Bilirubin 0.4 (0.2-1.0) mg/dL AST 45 H (15-37) IU/L ALT 60 (14-63) IU/L Alkaline Phosphatase 49 (46-116) U/L Total Protein 6.8 (6.4-8.2) g/dL Albumin 2.8 L (3.4-5.0) g/dL Globulin 4.0 (2.6-4.0) g/dL Albumin/Globulin Ratio 0.7 L (0.9-1.6) Result Diagrams: 12/22/20 07:26 12/22/20 07:26 Sepsis Event Note - Evaluation Sepsis Screening Result: Possible Sepsis Risk - Focused Exam Vital Signs: Vital Signs Temp Pulse Resp BP BP Pulse Ox 12/22/20 11:47 35.8 C L 106 H 16 121/62 90 L 12/22/20 07:50 37.0 C 87 20 112/56 L 84 L - Problem List & Annotations (1) Acute respiratory failure with hypoxia SNOMED Code(s): 55076672, 604144128 Code(s): J96.01 - ACUTE RESPIRATORY FAILURE WITH HYPOXIA Status: Acute Current Visit: Yes (2) COVID-19 SNOMED Code(s): 019617358 Code(s): U07.1 - COVID-19 Status: Acute Current Visit: Yes (3) Asthma SNOMED Code(s): 483668247 Code(s): J45.909 - UNSPECIFIED ASTHMA, UNCOMPLICATED Status: Chronic Current Visit: Yes - Problem List Review Problem List Initiated/Reviewed/Updated: Yes - Plan Plan:: This 34-year-old admitted with acute hypoxic respiratory failure, COVID-19, and viral pneumonia 1. Acute hypoxic respiratory failure/COVID-19/viral pneumonia -remdesivir 100 mg IV daily x4 days -dexamethasone 6 mg p.o. daily -Combivent every 4 hours 2 puffs -Encourage I-S/Acapella and self proning -Lovenox daily -Monitor LFTs during remdesivir treatment -Oxygen at 1 L NC. titrate to keep sats greater than 92% wean as possible 2. Asthma -albuterol as needed -Zyrtec Singulair -Breo VTE prophylaxis: Lovenox GI prophylaxis: Omeprazole CODE STATUS: Full code Dispo: 2 to 3 days pending improvement and ability to wean off oxygen.
[2020-12-22] MEDS ORDERED: Albuterol/Ipratropium 3.0-0.5 MG/3 ML Neb Soln NEB PRN (17:33)
[2020-12-23] MEDS: Albuterol/Ipratropium 4 GM Inhalation Spray INH SCH ×6 (03:16→21:34)
[2020-12-23] MEDS: Benzocaine/Cetylpyridinium/Menthol Lozenge MUCMEM PRN ×4 (03:33→21:32)
[2020-12-23] MEDS: Acetaminophen 325 MG Tab PO PRN ×3 (03:33→15:38)
[2020-12-23] MEDS: Benzonatate 100 MG Cap PO PRN ×3 (03:33→21:32)
[2020-12-23 07:09] LABS: BLOOD UREA NITROGEN,BUN 14 mg/dL (7.0-18.0); CHLORIDE,CL 101 mmol/L (98-107); GLUCOSE RANDOM 100 mg/dL (74-106); POTASSIUM,K 3.5 mmol/L (3.5-5.1); SODIUM,NA 137 mmol/L (136-145)
[2020-12-23] MEDS: Cetirizine 10 MG Tab PO SCH (08:13)
[2020-12-23] MEDS: Omeprazole 20 MG Cap.CR PO SCH (08:13)
[2020-12-23] MEDS: Dexamethasone 4 MG Tab PO SCH (08:13)
[2020-12-23] MEDS: Montelukast 10 MG Tab PO SCH (08:13)
[2020-12-23] MEDS: Enoxaparin 40 MG/0.4 ML Syringe SUBCUT SCH (08:14)
[2020-12-23] MEDS: REMDESIVIR 100 MG in Sodium Chloride 0.9% 100 ML IV SCH (08:18)
--- NOTE | 2020-12-23 08:18 | PCM.PN ---
- General Info Date of Service: 12/23/20 Admission Dx/Problem (Free Text): Admission Diagnosis/Problem Admission Diagnosis/Problem Pneumonia Subjective Update: Continues to have headache. Reports mild pleuritic chest pain especially coughing or taking deep breaths. Trying to limit deep breathing she is counseled that this is not a good idea as she needs to take deep breaths to help clear inflammation and congestion from her chest. Denies any nausea vomiting bu t otherwise continues to feel ill. Patient keeping lights off and had covered with blankets and/or washcloth. Limits eye contact and direct verbal communication. Functional Status: Reports: Tolerating Diet, Ambulating, Urinating. Denies: Pain Controlled (headache) - Review of Systems General: Reports: Weakness, Fatigue, Malaise. Denies: Fever HEENT: Reports: Headaches Pulmonary: Reports: Shortness of Breath, Pleuritic Chest Pain, Cough Cardiovascular: Reports: Dyspnea on Exertion Gastrointestinal: Reports: No Symptoms. Denies: Abdominal Pain, Nausea, Vomiting Genitourinary: Reports: No Symptoms. Denies: Dysuria, Frequency, Burning Musculoskeletal: Reports: No Symptoms Skin: Reports: No Symptoms Neurological: Reports: No Symptoms Psychiatric: Reports: No Symptoms - Patient Data Vitals - Most Recent: Last Vital Signs Temp 97.0 F 12/23/20 03:22 Pulse 78 12/23/20 03:22 Resp 20 12/23/20 03:22 BP 113/64 12/23/20 03:22 Pulse Ox 92 L 12/23/20 03:22 Weight - Most Recent: 106.821 kg I&O - Last 24 Hours: Intake & Output 12/22/20 12/23/20 12/23/20 22:59 06:59 14:59 Intake Total 620 780 Output Total 350 0 Balance 270 780 Lab Results Last 24 Hours: Laboratory Results - last 24 hr 12/22/20 12/23/20 12/23/20 Range/Units 07:26 06:01 06:01 WBC 3.53 L (4.0-11.0) K/uL RBC 4.97 (4.30-5.90) M/uL Hgb 11.1 L (12.0-16.0) g/dL Hct 35.2 L (36.0-46.0) % MCV 70.8 L (80.0-98.0) fL MCH 22.3 L (27.0-32.0) pg MCHC 31.5 (31.0-37.0) g/dL RDW Std Deviation 39.9 (28.0-62.0) fl RDW Coeff of Shaniqua 15 (11.0-15.0) % Plt Count 292 (150-400) K/uL MPV 9.10 (7.40-12.00) fL Neut % (Auto) 58.7 (48.0-80.0) % Lymph % (Auto) 21.5 (16.0-40.0) % [place] % (Auto) 19.5 H (0.0-15.0) % Eos % (Auto) 0.3 (0.0-7.0) % Baso % (Auto) 0.0 (0.0-1.5) % Neut # (Auto) 2.1 (1.4-5.7) K/uL Lymph # (Auto) 0.8 (0.6-2.4) K/uL [place] # (Auto) 0.7 (0.0-0.8) K/uL Eos # (Auto) 0.0 (0.0-0.7) K/uL Baso # (Auto) 0.0 (0.0-0.1) K/uL Nucleated RBC % 0.0 /100WBC Nucleated RBCs # 0 K/uL Sodium 140 137 (136-145) mmol/L Potassium 3.7 3.5 (3.5-5.1) mmol/L Chloride 103 101 (98-107) mmol/L Carbon Dioxide 28.5 28.0 (21.0-32.0) mmol/L BUN 14 14 (7.0-18.0) mg/dL Creatinine 0.8 0.8 (0.6-1.0) mg/dL Est Cr Clr Drug Dosing 91.51 91.51 mL/min Estimated GFR (MDRD) > 60.0 > 60.0 ml/min Glucose 98 100 (74-106) mg/dL Calcium 8.6 8.3 L (8.5-10.1) mg/dL Phosphorus 4.0 (2.6-4.7) mg/dL Magnesium 2.1 (1.8-2.4) mg/dL Total Bilirubin 0.4 0.4 (0.2-1.0) mg/dL AST 45 H 30 (15-37) IU/L ALT 60 52 (14-63) IU/L Alkaline Phosphatase 49 47 (46-116) U/L Total Protein 6.8 6.7 (6.4-8.2) g/dL Albumin 2.8 L 2.7 L (3.4-5.0) g/dL Globulin 4.0 4.0 (2.6-4.0) g/dL Albumin/Globulin Ratio 0.7 L 0.7 L (0.9-1.6) Med Orders - Current: Current Medications Acetaminophen (Acetaminophen 325 Mg Tab) 650 mg PO Q4H PRN PRN Reason: Pain/Fever Last Admin: 12/23/20 03:33 Dose: 650 mg Documented by: Albuterol (Albuterol 8 Gm Inhaler) 0 gm INH Q4HR PRN PRN Reason: Wheezing Albuterol/Ipratropium (Albuterol/Ipratropium 4 Gm Inhalation [place]) 0 gm INH Q4HRRT [facility] Last Admin: 12/23/20 06:08 Dose: Not Given Documented by: Albuterol/Ipratropium (Albuterol/Ipratropium 3.0-0.5 Mg/3 Ml Neb Soln) 3 ml NEB Q4HRRT PRN PRN Reason: Shortness of Breath Benzocaine/Menthol (Benzocaine/Cetylpyridinium/Menthol Lozenge) 1 lozenge MUCMEM Q2H PRN PRN Reason: cough/sore throat Last Admin: 12/23/20 03:33 Dose: 1 lozenge Documented by: Benzonatate (Benzonatate 100 Mg Cap) 100 mg PO Q6H PRN PRN Reason: Cough Last Admin: 12/23/20 03:33 Dose: 100 mg Documented by: Cetirizine HCl (Cetirizine 10 Mg Tab) 10 mg PO DAILY [facility] Last Admin: 12/23/20 08:13 Dose: 10 mg Documented by: Dexamethasone (Dexamethasone 4 Mg Tab) 6 mg PO DAILY [facility] Last Admin: 12/23/20 08:13 Dose: 6 mg Documented by: Enoxaparin Sodium (Enoxaparin 40 Mg/0.4 Ml Syringe) 40 mg SUBCUT Q24H [facility] Last Admin: 12/23/20 08:14 Dose: 40 mg Documented by: Remdesivir 100 mg/ Sodium (Chloride) 100 mls @ 100 mls/hr IV Q24H [facility] Stop: 12/24/20 09:59 Last Admin: 12/22/20 11:39 Dose: 100 mls/hr Documented by: Montelukast Sodium (Montelukast 10 Mg Tab) 10 mg PO DAILY [facility] Last Admin: 12/23/20 08:13 Dose: 10 mg Documented by: Omeprazole (Omeprazole 20 Mg Cap.Cr) 20 mg PO ACBREAKFAST [facility] Last Admin: 12/23/20 08:13 Dose: 20 mg Documented by: Ondansetron HCl (Ondansetron 4 Mg/2 Ml Sdv) 4 mg IVPUSH Q4H PRN PRN Reason: Nausea Fluticasone/Vilanterol [Breo Ellipta 200-25 Mcg Inhalation] 1 each INH DAILY [facility] Last Admin: 12/22/20 11:44 Dose: Not Given Documented by: Sodium Chloride (Sodium Chloride 0.9% 2.5 Ml Syringe) 2.5 ml FLUSH ASDIRECTED PRN PRN Reason: Keep Vein Open Discontinued Medications Acetaminophen (Acetaminophen 500 Mg Tab) 1,000 mg PO ONETIME ONE Stop: 12/20/20 03:50 Last Admin: 12/20/20 04:11 Dose: 1,000 mg Documented by: Dexamethasone (Dexamethasone 10 Mg/Ml Sdv) 10 mg IM ONETIME ONE Stop: 12/20/20 02:23 Last Admin: 12/20/20 02:42 Dose: 10 mg Documented by: Remdesivir 200 mg/ Sodium (Chloride) 250 mls @ 250 mls/hr IV ONETIME ONE Stop: 12/20/20 03:38 Last Admin: 12/20/20 04:11 Dose: 250 mls/hr Documented by: Sodium Chloride (Normal Saline) 1,000 mls @ 100 mls/hr IV NOW STA Stop: 12/20/20 13:48 Last Admin: 12/20/20 04:12 Dose: 100 mls/hr Documented by: Sodium Chloride (Sodium Chloride 0.9% 10 Ml Syringe) 10 ml FLUSH ASDIRECTED PRN PRN Reason: Keep Vein Open Sodium Chloride (Sodium Chloride 0.9% 2.5 Ml Syringe) 2.5 ml FLUSH ASDIRECTED PRN PRN Reason: Keep Vein Open - Exam Quality Assessment: Supplemental Oxygen, DVT Prophylaxis General: Alert, Oriented, Cooperative, Mild Distress (headache, keeping eyes closed and covered with washcloth. ) Neck: Supple, Other (No nuchal rigidity denies neck pain) Lungs: Decreased Breath Sounds, Crackles Cardiovascular: Regular Rate, Regular Rhythm GI/Abdominal Exam: Normal Bowel Sounds, Soft, Non-Tender Extremities: Normal Inspection, Normal Range of Motion, Non-Tender, No Pedal Edema Skin: Warm, Dry, Intact Neurological: No New Focal Deficit, Other (Headache no neurological findings.) Psy/Mental Status: Alert, Normal Affect, Normal Mood - Patient Data Lab Results Last 24 hrs: Laboratory Results - last 24 hr 12/22/20 12/23/20 12/23/20 Range/Units 07:26 06:01 06:01 WBC 3.53 L (4.0-11.0) K/uL RBC 4.97 (4.30-5.90) M/uL Hgb 11.1 L (12.0-16.0) g/dL Hct 35.2 L (36.0-46.0) % MCV 70.8 L (80.0-98.0) fL MCH 22.3 L (27.0-32.0) pg MCHC 31.5 (31.0-37.0) g/dL RDW Std Deviation 39.9 (28.0-62.0) fl RDW Coeff of Shaniqua 15 (11.0-15.0) % Plt Count 292 (150-400) K/uL MPV 9.10 (7.40-12.00) fL Neut % (Auto) 58.7 (48.0-80.0) % Lymph % (Auto) 21.5 (16.0-40.0) % Harney % (Auto) 19.5 H (0.0-15.0) % Eos % (Auto) 0.3 (0.0-7.0) % Baso % (Auto) 0.0 (0.0-1.5) % Neut # (Auto) 2.1 (1.4-5.7) K/uL Lymph # (Auto) 0.8 (0.6-2.4) K/uL [place]ney # (Auto) 0.7 (0.0-0.8) K/uL Eos # (Auto) 0.0 (0.0-0.7) K/uL Baso # (Auto) 0.0 (0.0-0.1) K/uL Nucleated RBC % 0.0 /100WBC Nucleated RBCs # 0 K/uL Sodium 140 137 (136-145) mmol/L Potassium 3.7 3.5 (3.5-5.1) mmol/L Chloride 103 101 (98-107) mmol/L Carbon Dioxide 28.5 28.0 (21.0-32.0) mmol/L BUN 14 14 (7.0-18.0) mg/dL Creatinine 0.8 0.8 (0.6-1.0) mg/dL Est Cr Clr Drug Dosing 91.51 91.51 mL/min Estimated GFR (MDRD) > 60.0 > 60.0 ml/min Glucose 98 100 (74-106) mg/dL Calcium 8.6 8.3 L (8.5-10.1) mg/dL Phosphorus 4.0 (2.6-4.7) mg/dL Magnesium 2.1 (1.8-2.4) mg/dL Total Bilirubin 0.4 0.4 (0.2-1.0) mg/dL AST 45 H 30 (15-37) IU/L ALT 60 52 (14-63) IU/L Alkaline Phosphatase 49 47 (46-116) U/L Total Protein 6.8 6.7 (6.4-8.2) g/dL Albumin 2.8 L 2.7 L (3.4-5.0) g/dL Globulin 4.0 4.0 (2.6-4.0) g/dL Albumin/Globulin Ratio 0.7 L 0.7 L (0.9-1.6) Result Diagrams: 12/23/20 06:01 12/23/20 06:01 Sepsis Event Note - Evaluation Sepsis Screening Result: No Definite Risk - Focused Exam Vital Signs: Vital Signs Temp Pulse Resp BP BP Pulse Ox 12/23/20 03:22 97.0 F 78 20 113/64 92 L 12/22/20 23:40 97.1 F 89 20 105/55 L 90 L 12/22/20 21:55 91 L 12/22/20 21:45 97.1 F 87 20 128/62 - Problem List & Annotations (1) Acute respiratory failure with hypoxia SNOMED Code(s): 13489479, 922523978 Code(s): J96.01 - ACUTE RESPIRATORY FAILURE WITH HYPOXIA Status: Acute C urrent Visit: Yes (2) COVID-19 SNOMED Code(s): 565845842 Code(s): U07.1 - COVID-19 Status: Acute Current Visit: Yes (3) Pneumonia SNOMED Code(s): 694543236 Code(s): J18.9 - PNEUMONIA, UNSPECIFIED ORGANISM Status: Acute Current Visit: Yes (4) Asthma SNOMED Code(s): 572697431 Code(s): J45.909 - UNSPECIFIED ASTHMA, UNCOMPLICATED Status: Chronic Current Visit: Yes (5) Environmental and seasonal allergies SNOMED Code(s): 599496974, 725918997, 903157762 Code(s): J30.89 - OTHER ALLERGIC RHINITIS Status: Chronic Current Visit: No (6) GERD (gastroesophageal reflux disease) SNOMED Code(s): 880810138 Code(s): K21.9 - GASTRO-ESOPHAGEAL REFLUX DISEASE WITHOUT ESOPHAGITIS Status: Chronic Current Visit: No (7) Migraine headache SNOMED Code(s): 22313664 Status: Acute Current Visit: No - Problem List Review Problem List Initiated/Reviewed/Updated: Yes - Plan Plan:: This 34-year-old admitted with acute hypoxic respiratory failure, COVID-19, and viral pneumonia 1. Acute hypoxic respiratory failure/COVID-19/viral pneumonia -remdesivir 100 mg IV daily x4 days -dexamethasone 6 mg p.o. daily -Combivent every 4 hours 2 puffs -Encourage I-S/Acapella and self proning -Lovenox daily -Monitor LFTs during remdesivir treatment -Oxygen titrate to keep sats greater than 92% wean as possible, currently on 2- 1/2 L continue to monitor -Encourage coughing as she reports she is holding this. Counseling that coughing is going to help clear her lung congestion and improve oxygenation 2. Asthma -albuterol as needed -Rosa Maria Brown 3. History of migraines -Current ongoing migraine -Reports she usually takes 6000 mg of Tylenol which he was counseled that this is excessive and could cause toxicity -We will give sumatriptan 6 mg subcu x1 if headache not relieved in over 2 hours may repeat dose monitor relief. VTE prophylaxis: Lovenox GI prophylaxis: Omeprazole CODE STATUS: Full code Dispo: 2 to 3 days pending improvement and ability to wean off oxygen.
[2020-12-23] MEDS: VILANTEROL INH SCH (08:27)
[2020-12-23] MEDS: FLUTICASONE INH SCH (08:27)
[2020-12-23] MEDS: SUMAtriptan 6 MG/0.5 ML SDV SUBCUT PRN ×2 (18:17→21:27)
[2020-12-24] MEDS: Acetaminophen 325 MG Tab PO PRN ×3 (00:24→23:14)
[2020-12-24] MEDS: Benzocaine/Cetylpyridinium/Menthol Lozenge MUCMEM PRN ×3 (00:39→23:15)
[2020-12-24] MEDS: Albuterol/Ipratropium 4 GM Inhalation Spray INH SCH ×3 (03:39→14:09)
[2020-12-24] MEDS: Benzonatate 100 MG Cap PO PRN ×2 (03:42→18:46)
[2020-12-24 07:05] LABS: BLOOD UREA NITROGEN,BUN 12 mg/dL (7.0-18.0); CARBON DIOXIDE,CO2 28.6 mmol/L (21.0-32.0); CHLORIDE,CL 101 mmol/L (98-107); GLUCOSE RANDOM 128 mg/dL (74-106); POTASSIUM,K 3.3 mmol/L (3.5-5.1); SODIUM,NA 138 mmol/L (136-145)
--- NOTE | 2020-12-24 08:01 | PCM.PN ---
- General Info Date of Service: 12/24/20 Admission Dx/Problem (Free Text): Admission Diagnosis/Problem Admission Diagnosis/Problem Pneumonia Subjective Update: Feeling okay today. Continues to have migraine. Shortness of breath is improving remains on 2 L. Very eager to go home after fifth dose of remdesivir. Which likely will be in the morning to attempt to try to wean further oxygen. Reports she is eating and drinking okay. No other concerns at this time. Functional Status: Reports: Tolerating Diet, Ambulating, Urinating. Denies: Pain Controlled (Headache continues Imitrex helped slightly but is requesting Toradol cocktail.) - Review of Systems General: Reports: Weakness, Fatigue HEENT: Reports: No Symptoms. Denies: Headaches, Sore Throat, Visual Changes Pulmonary: Reports: Shortness of Breath, Cough. Denies: Wheezing Cardiovascular: Reports: Dyspnea on Exertion Gastrointestinal: Reports: No Symptoms. Denies: Abdominal Pain, Nausea, Vomiting Genitourinary: Reports: No Symptoms. Denies: Dysuria, Frequency Musculoskeletal: Reports: No Symptoms Skin: Reports: No Symptoms Neurological: Reports: No Symptoms Psychiatric: Reports: No Symptoms - Patient Data Vitals - Most Recent: Last Vital Signs Temp 96.9 F 12/24/20 03:46 Pulse 74 12/24/20 03:46 Resp 15 12/24/20 03:46 BP 99/52 L 12/24/20 03:46 Pulse Ox 94 L 12/24/20 03:46 Weight - Most Recent: 106.821 kg I&O - Last 24 Hours: Intake & Output 12/23/20 12/24/20 12/24/20 22:59 06:59 14:59 Intake Total 590 Output Total 0 Balance 590 Lab Results Last 24 Hours: Laboratory Results - last 24 hr 12/24/20 12/24/20 Range/Units 05:54 05:54 WBC 7.43 (4.0-11.0) K/uL RBC 5.16 (4.30-5.90) M/uL Hgb 11.7 L (12.0-16.0) g/dL Hct 36.3 (36.0-46.0) % MCV 70.3 L (80.0-98.0) fL MCH 22.7 L (27.0-32.0) pg MCHC 32.2 (31.0-37.0) g/dL RDW Std Deviation 38.4 (28.0-62.0) fl RDW Coeff of Shaniqua 15 (11.0-15.0) % Plt Count 322 (150-400) K/uL MPV 9.60 (7.40-12.00) fL Neut % (Auto) 74.3 (48.0-80.0) % Lymph % (Auto) 12.7 L (16.0-40.0) % Stone % (Auto) 12.5 (0.0-15.0) % Eos % (Auto) 0.4 (0.0-7.0) % Baso % (Auto) 0.1 (0.0-1.5) % Neut # (Auto) 5.5 (1.4-5.7) K/uL Lymph # (Auto) 0.9 (0.6-2.4) K/uL Stone # (Auto) 0.9 H (0.0-0.8) K/uL Eos # (Auto) 0.0 (0.0-0.7) K/uL Baso # (Auto) 0.0 (0.0-0.1) K/uL Nucleated RBC % 0.0 /100WBC Nucleated RBCs # 0 K/uL Sodium 138 (136-145) mmol/L Potassium 3.3 L (3.5-5.1) mmol/L Chloride 101 (98-107) mmol/L Carbon Dioxide 28.6 (21.0-32.0) mmol/L BUN 12 (7.0-18.0) mg/dL Creatinine 0.7 (0.6-1.0) mg/dL Est Cr Clr Drug Dosing 104.58 mL/min Estimated GFR (MDRD) > 60.0 ml/min Glucose 128 H (74-106) mg/dL Calcium 8.6 (8.5-10.1) mg/dL Total Bilirubin 0.3 (0.2-1.0) mg/dL AST 24 (15-37) IU/L ALT 45 (14-63) IU/L Alkaline Phosphatase 53 (46-116) U/L Total Protein 6.4 (6.4-8.2) g/dL Albumin 2.6 L (3.4-5.0) g/dL Globulin 3.8 (2.6-4.0) g/dL Albumin/Globulin Ratio 0.7 L (0.9-1.6) Med Orders - Current: Current Medications Acetaminophen (Acetaminophen 325 Mg Tab) 650 mg PO Q4H PRN PRN Reason: Pain/Fever Last Admin: 12/24/20 00:24 Dose: 650 mg Documented by: Albuterol (Albuterol 8 Gm Inhaler) 0 gm INH Q4HR PRN PRN Reason: Wheezing Albuterol/Ipratropium (Albuterol/Ipratropium 4 Gm Inhalation [place]) 0 gm INH Q4HRRT [facility] Last Admin: 12/24/20 06:04 Dose: Not Given Documented by: Albuterol/Ipratropium (Albuterol/Ipratropium 3.0-0.5 Mg/3 Ml Neb Soln) 3 ml NEB Q4HRRT PRN PRN Reason: Shortness of Breath Benzocaine/Menthol (Benzocaine/Cetylpyridinium/Menthol Lozenge) 1 lozenge MUCMEM Q2H PRN PRN Reason: cough/sore throat Last Admin: 12/24/20 00:39 Dose: 1 lozenge Documented by: Benzonatate (Benzonatate 100 Mg Cap) 100 mg PO Q6H PRN PRN Reason: Cough Last Admin: 12/24/20 03:42 Dose: 100 mg Documented by: Cetirizine HCl (Cetirizine 10 Mg Tab) 10 mg PO DAILY [facility] Last Admin: 12/23/20 08:13 Dose: 10 mg Documented by: Dexamethasone (Dexamethasone 4 Mg Tab) 6 mg PO DAILY [facility] Last Admin: 12/23/20 08:13 Dose: 6 mg Documented by: Enoxaparin Sodium (Enoxaparin 40 Mg/0.4 Ml Syringe) 40 mg SUBCUT Q24H [facility] Last Admin: 12/23/20 08:14 Dose: 40 mg Documented by: Remdesivir 100 mg/ Sodium (Chloride) 100 mls @ 100 mls/hr IV Q24H [facility] Stop: 12/24/20 09:59 Last Admin: 12/23/20 08:18 Dose: 100 mls/hr Documented by: Montelukast Sodium (Montelukast 10 Mg Tab) 10 mg PO DAILY [facility] Last Admin: 12/23/20 08:13 Dose: 10 mg Documented by: Omeprazole (Omeprazole 20 Mg Cap.Cr) 20 mg PO ACBREAKFAST [facility] Last Admin: 12/23/20 08:13 Dose: 20 mg Documented by: Ondansetron HCl (Ondansetron 4 Mg/2 Ml Sdv) 4 mg IVPUSH Q4H PRN PRN Reason: Nausea Fluticasone/Vilanterol [Breo Ellipta 200-25 Mcg Inhalation] 1 each INH DAILY [facility] Last Admin: 12/23/20 08:27 Dose: Not Given Documented by: Sodium Chloride (Sodium Chloride 0.9% 2.5 Ml Syringe) 2.5 ml FLUSH ASDIRECTED PRN PRN Reason: Keep Vein Open Discontinued Medications Acetaminophen (Acetaminophen 500 Mg Tab) 1,000 mg PO ONETIME ONE Stop: 12/20/20 03:50 Last Admin: 12/20/20 04:11 Dose: 1,000 mg Documented by: Dexamethasone (Dexamethasone 10 Mg/Ml Sdv) 10 mg IM ONETIME ONE Stop: 12/20/20 02:23 Last Admin: 12/20/20 02:42 Dose: 10 mg Documented by: Remdesivir 200 mg/ Sodium (Chloride) 250 mls @ 250 mls/hr IV ONETIME ONE Stop: 12/20/20 03:38 Last Admin: 12/20/20 04:11 Dose: 250 mls/hr Documented by: Sodium Chloride (Normal Saline) 1,000 mls @ 100 mls/hr IV NOW STA Stop: 12/20/20 13:48 Last Admin: 12/20/20 04:12 Dose: 100 mls/hr Documented by: Sodium Chloride (Sodium Chloride 0.9% 10 Ml Syringe) 10 ml FLUSH ASDIRECTED PRN PRN Reason: Keep Vein Open Sodium Chloride (Sodium Chloride 0.9% 2.5 Ml Syringe) 2.5 ml FLUSH ASDIRECTED PRN PRN Reason: Keep Vein Open Sumatriptan Succinate (Sumatriptan 6 Mg/0.5 Ml Sdv) 6 mg SUBCUT Q2H PRN PRN Reason: migraine Last Admin: 12/23/20 21:27 Dose: 6 mg Documented by: - Exam Quality Assessment: Supplemental Oxygen (2 L), DVT Prophylaxis General: Alert, Oriented, Cooperative, Mild Distress (Migraine washcloth remains over her eyes in a darkened room) Lungs: Decreased Breath Sounds (Bibasilar but improving), Other (Counseled on not withholding cough as this will help continue to open lungs and wean from oxygen). No: Normal Respiratory Effort Cardiovascular: Regular Rate, Regular Rhythm GI/Abdominal Exam: Normal Bowel Sounds, Soft, Non-Tender Extremities: Normal Inspection, Normal Range of Motion, Non-Tender, No Pedal Edema Neurological: No New Focal Deficit Psy/Mental Status: Alert, Normal Affect, Normal Mood - Patient Data Lab Results Last 24 hrs: Laboratory Results - last 24 hr 12/24/20 12/24/20 Range/Units 05:54 05:54 WBC 7.43 (4.0-11.0) K/uL RBC 5.16 (4.30-5.90) M/uL Hgb 11.7 L (12.0-16.0) g/dL Hct 36.3 (36.0-46.0) % MCV 70.3 L (80.0-98.0) fL MCH 22.7 L (27.0-32.0) pg MCHC 32.2 (31.0-37.0) g/dL RDW Std Deviation 38.4 (28.0-62.0) fl RDW Coeff of Shaniqua 15 (11.0-15.0) % Plt Count 322 (150-400) K/uL MPV 9.60 (7.40-12.00) fL Neut % (Auto) 74.3 (48.0-80.0) % Lymph % (Auto) 12.7 L (16.0-40.0) % Stone % (Auto) 12.5 (0.0-15.0) % Eos % (Auto) 0.4 (0.0-7.0) % Baso % (Auto) 0.1 (0.0-1.5) % Neut # (Auto) 5.5 (1.4-5.7) K/uL Lymph # (Auto) 0.9 (0.6-2.4) K/uL Stone # (Auto) 0.9 H (0.0-0.8) K/uL Eos # (Auto) 0.0 (0.0-0.7) K/uL Baso # (Auto) 0.0 (0.0-0.1) K/uL Nucleated RBC % 0.0 /100WBC Nucleated RBCs # 0 K/uL Sodium 138 (136-145) mmol/L Potassium 3.3 L (3.5-5.1) mmol/L Chloride 101 (98-107) mmol/L Carbon Dioxide 28.6 (21.0-32.0) mmol/L BUN 12 (7.0-18.0) mg/dL Creatinine 0.7 (0.6-1.0) mg/dL Est Cr Clr Drug Dosing 104.58 mL/min Estimated GFR (MDRD) > 60.0 ml/min Glucose 128 H (74-106) mg/dL Calcium 8.6 (8.5-10.1) mg/dL Total Bilirubin 0.3 (0.2-1.0) mg/dL AST 24 (15-37) IU/L ALT 45 (14-63) IU/L Alkaline Phosphatase 53 (46-116) U/L Total Protein 6.4 (6.4-8.2) g/dL Albumin 2.6 L (3.4-5.0) g/dL Globulin 3.8 (2.6-4.0) g/dL Albumin/Globulin Ratio 0.7 L (0.9-1.6) Result Diagrams: 12/24/20 05:54 12/24/20 05:54 Sepsis Event Note - Evaluation Sepsis Screening Result: Possible Sepsis Risk - Focused Exam Vital Signs: Vital Signs Temp Pulse Resp BP Pulse Ox 12/24/20 03:46 96.9 F 74 15 99/52 L 94 L 12/24/20 00:28 68 14 121/73 88 L 12/23/20 21:37 98.4 F 66 15 139/61 90 L - Problem List & Annotations (1) Acute respiratory failure with hypoxia SNOMED Code(s): 03765363, 573241612 Code(s): J96.01 - ACUTE RESPIRATORY FAILURE WITH HYPOXIA Status: Acute Current Visit: Yes (2) COVID-19 SNOMED Code(s): 427871382 Code(s): U07.1 - COVID-19 Status: Acute Current Visit: Yes (3) Pneumonia SNOMED Code(s): 184542691 Code(s): J18.9 - PNEUMONIA, UNSPECIFIED ORGANISM Status: Acute Current Visit: Yes (4) Asthma SNOMED Code(s): 243335572 Code(s): J45.909 - UNSPECIFIED ASTHMA, UNCOMPLICATED Status: Chronic Current Visit: Yes (5) Environmental and seasonal allergies SNOMED Code(s): 652538316, 181871653, 146104914 Code(s): J30.89 - OTHER ALLERGIC RHINITIS Status: Chronic Current Visit: No (6) GERD (gastroesophageal reflux disease) SNOMED Code(s): 454977287 Code(s): K21.9 - GASTRO-ESOPHAGEAL REFLUX DISEASE WITHOUT ESOPHAGITIS Status: Chronic Current Visit: No (7) Migraine headache SNOMED Code(s): 63211349 Status: Acute Current Visit: No - Problem List Review Problem List Initiated/Reviewed/Updated: Yes - My Orders Last 24 Hours: My Active Orders 12/25/20 05:11 CBC WITH AUTO DIFF [HEME] AM COMPREHENSIVE METABOLIC PN,CMP [CHEM] AM 12/26/20 05:11 CBC WITH AUTO DIFF [HEME] AM COMPREHENSIVE METABOLIC PN,CMP [CHEM] AM 12/27/20 05:11 CBC WITH AUTO DIFF [HEME] AM COMPREHENSIVE METABOLIC PN,CMP [CHEM] AM - Plan Plan:: This 34-year-old admitted with acute hypoxic respiratory failure, COVID-19, and viral pneumonia 1. Acute hypoxic respiratory failure/COVID-19/viral pneumonia -remdesivir 100 mg IV daily x4 days today day 5 of 5 -dexamethasone 6 mg p.o. daily -Combivent every 4 hours 2 puffs -Encourage I-S/Acapella and self proning -Lovenox daily -Monitor LFTs during remdesivir treatment -Oxygen titrate to keep sats greater than 92% wean as possible, currently on 2-1/2 L continue to monitor -Encourage coughing as she reports she is holding this. Counseling that cou ghing is going to help clear her lung congestion and improve oxygenation 2. Asthma -albuterol as needed -Rosa Maria Brown 3. History of migraines -Current ongoing migraine -Mild improvement with sumatriptan. Requesting Toradol cocktail today as she reports she has tolerated this well with improvement of her headache. Patient does confirm allergy to ibuprofen but this only gives her stomach upset no hives or angioedema. VTE prophylaxis: Lovenox GI prophylaxis: Omeprazole CODE STATUS: Full code Dispo: Likely home in a.m. Will need to have room air challenge and oxygen walking challenge as patient may need oxygen on discharge. Patient well aware and okay with this as she is eager to be discharged home tomorrow.
[2020-12-24] MEDS: Omeprazole 20 MG Cap.CR PO SCH (08:24)
[2020-12-24] MEDS ORDERED: Metoclopramide 10 MG/2 ML SDV IVPUSH ONE (09:47)
[2020-12-24] MEDS ORDERED: diphenhydrAMINE 50 MG/ML SDV IVPUSH ONE (09:47)
[2020-12-24] MEDS ORDERED: Ketorolac 30 MG/ML SDV IVPUSH ONE (09:47)
[2020-12-24] MEDS: FLUTICASONE INH SCH (10:04)
[2020-12-24] MEDS: VILANTEROL INH SCH (10:04)
[2020-12-24] MEDS: REMDESIVIR 100 MG in Sodium Chloride 0.9% 100 ML IV SCH (10:08)
[2020-12-24] MEDS: Dexamethasone 4 MG Tab PO SCH (10:09)
[2020-12-24] MEDS: Montelukast 10 MG Tab PO SCH (10:09)
[2020-12-24] MEDS: Enoxaparin 40 MG/0.4 ML Syringe SUBCUT SCH (10:09)
[2020-12-24] MEDS: Cetirizine 10 MG Tab PO SCH (10:09)
[2020-12-24] MEDS ORDERED: Albuterol/Ipratropium 4 GM Inhalation Spray INH PRN (11:25)
[2020-12-25] MEDS: Benzonatate 100 MG Cap PO PRN ×3 (00:30→21:54)
[2020-12-25 06:13] LABS: BLOOD UREA NITROGEN,BUN 13 mg/dL (7.0-18.0); CARBON DIOXIDE,CO2 30.1 mmol/L (21.0-32.0); CHLORIDE,CL 101 mmol/L (98-107); GLUCOSE RANDOM 161 mg/dL (74-106); POTASSIUM,K 3.4 mmol/L (3.5-5.1); SODIUM,NA 138 mmol/L (136-145)
[2020-12-25] MEDS: Acetaminophen 325 MG Tab PO PRN ×2 (09:13→23:41)
[2020-12-25] MEDS: Omeprazole 20 MG Cap.CR PO SCH (09:14)
[2020-12-25] MEDS: Montelukast 10 MG Tab PO SCH (09:14)
[2020-12-25] MEDS: Dexamethasone 4 MG Tab PO SCH (09:14)
[2020-12-25] MEDS: Cetirizine 10 MG Tab PO SCH (09:14)
[2020-12-25] MEDS: Enoxaparin 40 MG/0.4 ML Syringe SUBCUT SCH (09:15)
[2020-12-25] MEDS: FLUTICASONE INH SCH (09:15)
[2020-12-25] MEDS: VILANTEROL INH SCH (09:15)
--- NOTE | 2020-12-25 11:21 | PCM.PN ---
- General Info Date of Service: 12/25/20 Admission Dx/Problem (Free Text): Admission Diagnosis/Problem Admission Diagnosis/Problem acute hypoxic respiratory failure, Covid pneumonia Subjective Update: Reports she is feeling "like shit". Continues to have headache cocktail did today asking for this to be repeated again. Patient reports she is feeling wheezy but has been continuously refusing or declining respiratory treatments. Patient has not been out of bed. Today she is counseled heavily on getting out of bed sitting up in chair being more motivated to improve as she will not improve laying in bed continuously and deconditioning herself. Patient appeared not very thrilled or conversational when recommendations were being made. Does not feel safe going home today. - Review of Systems General: Reports: Fatigue, Malaise HEENT: Reports: Headaches, Sinus Congestion Pulmonary: Reports: Shortness of Breath, Cough, Wheezing, Other (Again counseled on not holding and cough) Cardiovascular: Reports: No Symptoms. Denies: Chest Pain Gastrointestinal: Reports: No Symptoms. Denies: Abdominal Pain, Nausea, Vomiting Genitourinary: Reports: No Symptoms. Denies: Dysuria, Frequency, Burning Musculoskeletal: Reports: No Symptoms Skin: Reports: No Symptoms Neurological: Reports: No Symptoms Psychiatric: Reports: No Symptoms - Patient Data Vitals - Most Recent: Last Vital Signs Temp 96.8 F L 12/25/20 09:19 Pulse 80 12/25/20 09:19 Resp 18 12/25/20 09:19 BP 109/49 L 12/25/20 09:19 Pulse Ox 90 L 12/25/20 09:19 Weight - Most Recent: 106.821 kg I&O - Last 24 Hours: Intake & Output 12/24/20 12/25/20 12/25/20 22:59 06:59 14:59 Intake Total 620 Output Total 400 Balance 220 Lab Results Last 24 Hours: Laboratory Results - last 24 hr 12/25/20 12/25/20 Range/Units 05:30 05:30 WBC 8.10 (4.0-11.0) K/uL RBC 5.01 (4.30-5.90) M/uL Hgb 11.3 L (12.0-16.0) g/dL Hct 35.2 L (36.0-46.0) % MCV 70.3 L (80.0-98.0) fL MCH 22.6 L (27.0-32.0) pg MCHC 32.1 (31.0-37.0) g/dL RDW Std Deviation 38.5 (28.0-62.0) fl RDW Coeff of Shaniqua 15 (11.0-15.0) % Plt Count 328 (150-400) K/uL MPV 9.10 (7.40-12.00) fL Neut % (Auto) 79.4 (48.0-80.0) % Lymph % (Auto) 12.1 L (16.0-40.0) % [place] % (Auto) 8.1 (0.0-15.0) % Eos % (Auto) 0.4 (0.0-7.0) % Baso % (Auto) 0.0 (0.0-1.5) % Neut # (Auto) 6.4 H (1.4-5.7) K/uL Lymph # (Auto) 1.0 (0.6-2.4) K/uL [place] # (Auto) 0.7 (0.0-0.8) K/uL Eos # (Auto) 0.0 (0.0-0.7) K/uL Baso # (Auto) 0.0 (0.0-0.1) K/uL Nucleated RBC % 0.3 /100WBC Nucleated RBCs # 0 K/uL Sodium 138 (136-145) mmol/L Potassium 3.4 L (3.5-5.1) mmol/L Chloride 101 (98-107) mmol/L Carbon Dioxide 30.1 (21.0-32.0) mmol/L BUN 13 (7.0-18.0) mg/dL Creatinine 0.8 (0.6-1.0) mg/dL Est Cr Clr Drug Dosing 91.51 mL/min Estimated GFR (MDRD) > 60.0 ml/min Glucose 161 H (74-106) mg/dL Calcium 8.5 (8.5-10.1) mg/dL Total Bilirubin 0.4 (0.2-1.0) mg/dL AST 25 (15-37) IU/L ALT 51 (14-63) IU/L Alkaline Phosphatase 58 (46-116) U/L Total Protein 6.2 L (6.4-8.2) g/dL Albumin 2.4 L (3.4-5.0) g/dL Globulin 3.8 (2.6-4.0) g/dL Albumin/Globulin Ratio 0.6 L (0.9-1.6) Med Orders - Current: Current Medications Acetaminophen (Acetaminophen 325 Mg Tab) 650 mg PO Q4H PRN PRN Reason: Pain/Fever Last Admin: 12/25/20 09:13 Dose: 650 mg Documented by: Albuterol (Albuterol 8 Gm Inhaler) 0 gm INH Q4HR PRN PRN Reason: Wheezing Albuterol/Ipratropium (Albuterol/Ipratropium 3.0-0.5 Mg/3 Ml Neb Soln) 3 ml NEB Q4HRRT PRN PRN Reason: Shortness of Breath Albuterol/Ipratropium (Albuterol/Ipratropium 4 Gm Inhalation [place]) 0 gm INH Q4HRRT PRN PRN Reason: wheezing/dyspnea Last Admin: 12/25/20 00:32 Dose: 2 puff Documented by: Benzocaine/Menthol (Benzocaine/Cetylpyridinium/Menthol Lozenge) 1 lozenge MUCMEM Q2H PRN PRN Reason: cough/sore throat Last Admin: 12/24/20 23:15 Dose: 1 lozenge Documented by: Benzonatate (Benzonatate 100 Mg Cap) 100 mg PO Q6H PRN PRN Reason: Cough Last Admin: 12/25/20 09:14 Dose: 100 mg Documented by: Cetirizine HCl (Cetirizine 10 Mg Tab) 10 mg PO DAILY [facility] Last Admin: 12/25/20 09:14 Dose: 10 mg Documented by: Dexamethasone (Dexamethasone 4 Mg Tab) 6 mg PO DAILY [facility] Last Admin: 12/25/20 09:14 Dose: 6 mg Documented by: Enoxaparin Sodium (Enoxaparin 40 Mg/0.4 Ml Syringe) 40 mg SUBCUT Q24H [facility] Last Admin: 12/25/20 09:15 Dose: 40 mg Documented by: Montelukast Sodium (Montelukast 10 Mg Tab) 10 mg PO DAILY [facility] Last Admin: 12/25/20 09:14 Dose: 10 mg Documented by: Omeprazole (Omeprazole 20 Mg Cap.Cr) 20 mg PO ACBREAKFAST [facility] Last Admin: 12/25/20 09:14 Dose: 20 mg Documented by: Ondansetron HCl (Ondansetron 4 Mg/2 Ml Sdv) 4 mg IVPUSH Q4H PRN PRN Reason: Nausea Fluticasone/Vilanterol [Breo Ellipta 200-25 Mcg Inhalation] 1 each INH DAILY [facility] Last Admin: 12/25/20 09:15 Dose: Not Given Documented by: Sodium Chloride (Sodium Chloride 0.9% 2.5 Ml Syringe) 2.5 ml FLUSH ASDIRECTED PRN PRN Reason: Keep Vein Open Discontinued Medications Acetaminophen (Acetaminophen 500 Mg Tab) 1,000 mg PO ONETIME ONE Stop: 12/20/20 03:50 Last Admin: 12/20/20 04:11 Dose: 1,000 mg Documented by: Albuterol/Ipratropium (Albuterol/Ipratropium 4 Gm Inhalation [place]) 0 gm INH Q4HRRT [facility] Last Admin: 12/24/20 14:09 Dose: Not Given Documented by: Dexamethasone (Dexamethasone 10 Mg/Ml Sdv) 10 mg IM ONETIME ONE Stop: 12/20/20 02:23 Last Admin: 12/20/20 02:42 Dose: 10 mg Documented by: Diphenhydramine HCl (Diphenhydramine 50 Mg/Ml Sdv) 25 mg IVPUSH ONETIME ONE Stop: 12/24/20 09:48 Last Admin: 12/24/20 10:20 Dose: 25 mg Documented by: Remdesivir 200 mg/ Sodium (Chloride) 250 mls @ 250 mls/hr IV ONETIME ONE Stop: 12/20/20 03:38 Last Admin: 12/20/20 04:11 Dose: 250 mls/hr Documented by: Sodium Chloride (Normal Saline) 1,000 mls @ 100 mls/hr IV NOW STA Stop: 12/20/20 13:48 Last Admin: 12/20/20 04:12 Dose: 100 mls/hr Documented by: Remdesivir 100 mg/ Sodium (Chloride) 100 mls @ 100 mls/hr IV Q24H [facility] Stop: 12/24/20 09:59 Last Admin: 12/24/20 10:08 Dose: 100 mls/hr Documented by: Ketorolac Tromethamine (Ketorolac 30 Mg/Ml Sdv) 30 mg IVPUSH ONETIME ONE Stop: 12/24/20 09:48 Last Admin: 12/24/20 10:19 Dose: 30 mg Documented by: Metoclopramide HCl (Metoclopramide 10 Mg/2 Ml Sdv) 10 mg IVPUSH ONETIME ONE Stop: 12/24/20 09:48 Last Admin: 12/24/20 10:20 Dose: 10 mg Documented by: Sodium Chloride (Sodium Chloride 0.9% 10 Ml Syringe) 10 ml FLUSH ASDIRECTED PRN PRN Reason: Keep Vein Open Sodium Chloride (Sodium Chloride 0.9% 2.5 Ml Syringe) 2.5 ml FLUSH ASDIRECTED PRN PRN Reason: Keep Vein Open Sumatriptan Succinate (Sumatriptan 6 Mg/0.5 Ml Sdv) 6 mg SUBCUT Q2H PRN PRN Reason: migraine Last Admin: 12/23/20 21:27 Dose: 6 mg Documented by: - Exam Quality Assessment: Supplemental Oxygen (2 L nasal cannula), DVT Prophylaxis General: Alert, Oriented. No: Cooperative (Not fully interactive with assessment interview) Neck: Supple Lungs: Decreased Breath Sounds, Wheezing Cardiovascular: Regular Rate, Regular Rhythm GI/Abdominal Exam: Normal Bowel Sounds, Soft, Non-Tender Extremities: Normal Inspection, Normal Range of Motion, Non-Tender, No Pedal Edema Neurological: No New Focal Deficit Psy/Mental Status: Alert, Normal Affect, Normal Mood - Patient Data Lab Results Last 24 hrs: Laboratory Results - last 24 hr 12/25/20 12/25/20 Range/Units 05:30 05:30 WBC 8.10 (4.0-11.0) K/uL RBC 5.01 (4.30-5.90) M/uL Hgb 11.3 L (12.0-16.0) g/dL Hct 35.2 L (36.0-46.0) % MCV 70.3 L (80.0-98.0) fL MCH 22.6 L (27.0-32.0) pg MCHC 32.1 (31.0-37.0) g/dL RDW Std Deviation 38.5 (28.0-62.0) fl RDW Coeff of Shaniqua 15 (11.0-15.0) % Plt Count 328 (150-400) K/uL MPV 9.10 (7.40-12.00) fL Neut % (Auto) 79.4 (48.0-80.0) % Lymph % (Auto) 12.1 L (16.0-40.0) % [place] % (Auto) 8.1 (0.0-15.0) % Eos % (Auto) 0.4 (0.0-7.0) % Baso % (Auto) 0.0 (0.0-1.5) % Neut # (Auto) 6.4 H (1.4-5.7) K/uL Lymph # (Auto) 1.0 (0.6-2.4) K/uL [place] # (Auto) 0.7 (0.0-0.8) K/uL Eos # (Auto) 0.0 (0.0-0.7) K/uL Baso # (Auto) 0.0 (0.0-0.1) K/uL Nucleated RBC % 0.3 /100WBC Nucleated RBCs # 0 K/uL Sodium 138 (136-145) mmol/L Potassium 3.4 L (3.5-5.1) mmol/L Chloride 101 (98-107) mmol/L Carbon Dioxide 30.1 (21.0-32.0) mmol/L BUN 13 (7.0-18.0) mg/dL Creatinine 0.8 (0.6-1.0) mg/dL Est Cr Clr Drug Dosing 91.51 mL/min Estimated GFR (MDRD) > 60.0 ml/min Glucose 161 H (74-106) mg/dL Calcium 8.5 (8.5-10.1) mg/dL Total Bilirubin 0.4 (0.2-1.0) mg/dL AST 25 (15-37) IU/L ALT 51 (14-63) IU/L Alkaline Phosphatase 58 (46-116) U/L Total Protein 6.2 L (6.4-8.2) g/dL Albumin 2.4 L (3.4-5.0) g/dL Globulin 3.8 (2.6-4.0) g/dL Albumin/Globulin Ratio 0.6 L (0.9-1.6) Result Diagrams: 12/25/20 05:30 12/25/20 05:30 Sepsis Event Note - Evaluation Sepsis Screening Result: No Definite Risk - Focused Exam Vital Signs: Vital Signs Temp Pulse Resp BP Pulse Ox 12/25/20 09:19 96.8 F L 80 18 109/49 L 90 L 12/25/20 05:22 97.8 F 83 18 135/62 92 L 12/25/20 00:27 76 18 131/81 95 - Problem List & Annotations (1) Acute respiratory failure with hypoxia SNOMED Code(s): 71360180, 047833962 Code(s): J96.01 - ACUTE RESPIRATORY FAILURE WITH HYPOXIA Status: Acute Current Visit: Yes (2) COVID-19 SNOMED Code(s): 663573436 Code(s): U07.1 - COVID-19 Status: Acute Current Visit: Yes (3) Pneumonia SNOMED Code(s): 154497475 Code(s): J18.9 - PNEUMONIA, UNSPECIFIED ORGANISM Status: Acute Current Visit: Yes (4) Asthma SNOMED Code(s): 954872601 Code(s): J45.909 - UNSPECIFIED ASTHMA, UNCOMPLICATED Status: Chronic Current Visit: Yes (5) Environmental and seasonal allergies SNOMED Code(s): 324249852, 666303524, 780519938 Code(s): J30.89 - OTHER ALLERGIC RHINITIS Status: Chronic Current Visit: No (6) GERD (gastroesophageal reflux disease) SNOMED Code(s): 088630762 Code(s): K21.9 - GASTRO-ESOPHAGEAL REFLUX DISEASE WITHOUT ESOPHAGITIS Status: Chronic Current Visit: No (7) Migraine headache SNOMED Code(s): 11857312 Status: Acute Current Visit: No - Problem List Review Problem List Initiated/Reviewed/Updated: Yes - My Orders Last 24 Hours: My Active Orders 12/24/20 11:25 Albuterol/Ipratropium [Combivent Respimat] See Dose Instructions INH Q4HRRT PRN 12/25/20 07:57 Communication Order [RC] ROUTINE 12/26/20 05:11 CBC WITH AUTO DIFF [HEME] AM COMPREHENSIVE METABOLIC PN,CMP [CHEM] AM 12/27/20 05:11 CBC WITH AUTO DIFF [HEME] AM COMPREHENSIVE METABOLIC PN,CMP [CHEM] AM - Plan Plan:: This 34-year-old admitted with acute hypoxic respiratory failure, COVID-19, and viral pneumonia 1. Acute hypoxic respiratory failure/COVID-19/viral pneumonia -Completed remdesivir therapy -dexamethasone 6 mg p.o. daily -Combivent every 4 hours 2 puffs -Encourage I-S/Acapella and self proning -Lovenox daily -Monitor LFTs during remdesivir treatment -Oxygen titrate to keep sats greater than 92% wean as possible, currently on 2- 1/2 L continue to monitor -Encouraged getting out of bed more to improve respiratory status. 2. Asthma -albuterol as needed -Zyrtec [place] -[place] 3. History of migraines -Current ongoing migraine VTE prophylaxis: Lovenox GI prophylaxis: Omeprazole CODE STATUS: Full code Dispo: 1-2 days
[2020-12-25] MEDS ORDERED: Metoclopramide 10 MG/2 ML SDV IVPUSH ONE (12:45)
[2020-12-25] MEDS ORDERED: diphenhydrAMINE 50 MG/ML SDV IVPUSH ONE (12:45)
[2020-12-25] MEDS ORDERED: Ketorolac 30 MG/ML SDV IVPUSH ONE (12:45)
[2020-12-25] MEDS: Benzocaine/Cetylpyridinium/Menthol Lozenge MUCMEM PRN (21:54)
[2020-12-26 06:40] LABS: BLOOD UREA NITROGEN,BUN 14 mg/dL (7.0-18.0); CARBON DIOXIDE,CO2 30.6 mmol/L (21.0-32.0); CHLORIDE,CL 102 mmol/L (98-107); GLUCOSE RANDOM 100 mg/dL (74-106); POTASSIUM,K 3.7 mmol/L (3.5-5.1); SODIUM,NA 138 mmol/L (136-145)
[2020-12-26] MEDS: Enoxaparin 40 MG/0.4 ML Syringe SUBCUT SCH (08:17)
[2020-12-26] MEDS: Dexamethasone 4 MG Tab PO SCH (08:18)
[2020-12-26] MEDS: Acetaminophen 325 MG Tab PO PRN (08:19)
[2020-12-26] MEDS: Benzocaine/Cetylpyridinium/Menthol Lozenge MUCMEM PRN (08:21)
[2020-12-26] MEDS: Omeprazole 20 MG Cap.CR PO SCH (08:21)
[2020-12-26] MEDS: Cetirizine 10 MG Tab PO SCH (08:21)
[2020-12-26] MEDS: Benzonatate 100 MG Cap PO PRN (08:21)
[2020-12-26] MEDS: Montelukast 10 MG Tab PO SCH (08:22)
[2020-12-26] MEDS: FLUTICASONE INH SCH (08:27)
[2020-12-26] MEDS: VILANTEROL INH SCH (08:27)
--- NOTE | 2020-12-26 11:12 | PCM.DCSUM1 ---
Discharge Summary - Hospital Course Diagnosis: Stroke: No - Discharge Data Discharge Disposition: Home, Self-Care 01 Condition: Stable - Referral to Home Health Primary Care Physician: Siddhartha Urbina MD - Discharge Diagnosis/Problem(s) (1) Acute respiratory failure with hypoxia SNOMED Code(s): 50470988, 967038523 ICD Code: J96.01 - ACUTE RESPIRATORY FAILURE WITH HYPOXIA Status: Acute Current Visit: Yes (2) COVID-19 SNOMED Code(s): 997068823 ICD Code: U07.1 - COVID-19 Status: Acute Current Visit: Yes (3) Asthma SNOMED Code(s): 732005167 ICD Code: J45.909 - UNSPECIFIED ASTHMA, UNCOMPLICATED Status: Chronic Current Visit: Yes - Patient Instructions Diet: Regular Diet as Tolerated Activity: No Strenuous Activities, Rest and Relax Today Showering/Bathing: May Shower Notify Provider of: Fever, Increased Pain, Swelling and Redness, Drainage, Nausea and/or Vomiting Other/Special Instructions: Due to severity of illness and requiring admission in the hospital, CDC recommends 20 day quarantine perid from symptom onset. May return to work and normal activity after 01/02/2021. Continue to use social distancing and masking in public areas where social distancing is not possible. Encourage receving COVID vaccination when feeling improved. Return to ER for increasing shortness of breath, increasing oxygen requirement - Discharge Plan *PRESCRIPTION DRUG MONITORING PROGRAM REVIEWED*: Not Applicable *COPY OF PRESCRIPTION DRUG MONITORING REPORT IN PATIENT GINGER: Not Applicable Prescriptions/Med Rec: Albuterol/Ipratropium [Combivent Respimat] 2 puff INH Q4HRRT PRN #1 inhaler PRN Reason: wheezing/dyspnea dexAMETHasone [Dexamethasone] 6 mg PO DAILY #4 tablet Home Medications: Home Meds Cetirizine [ZyrTEC] 10 mg PO DAILY 05/11/15 [History] Albuterol Sulfate 2.5 mg NEB Q4H PRN 01/04/19 [History] Fluticasone/Vilanterol [Breo Ellipta 200-25 MCG Inhalation Kit] 1 dose INH DAILY 01/04/19 [History] Montelukast [Singulair] 10 mg PO DAILY 12/27/19 [History] Phentermine HCl 37.5 mg PO DAILY 12/27/19 [History] Omeprazole 20 mg PO DAILY 06/18/20 [History] Acetaminophen [Tylenol] 650 mg PO Q4H PRN tablet 08/21/20 [Rx] Fluticasone/Vilanterol [Breo Ellipta 200-25 MCG Inhalation Kit] 1 each IH DAILY #1 each 08/21/20 [Rx] Benzonatate 200 mg PO TID PRN #10 capsule 12/16/20 [Rx] Albuterol [Proventil HFA] 2 puff INH Q4HR PRN 12/20/20 [History] Albuterol/Ipratropium [Combivent Respimat] 2 puff INH Q4HRRT PRN #1 inhaler 12/26/20 [Rx] dexAMETHasone [Dexamethasone] 6 mg PO DAILY #4 tablet 12/26/20 [Rx] Oxygen Therapy Mode: Nasal Cannula Patient Handouts: COVID-19, COVID-19: How to Protect Yourself and Others - [facility], Frequently Asked Questions About COVID-19 Vaccination - [facility] (08/20/2020), Infection Prevention in the Home, COVID-19: Quarantine vs. Isolation - [facility] (04/11/2020) Referrals: Siddhartha Urbina MD [Primary Care Provider] - 01/10/21 10:30 am - Patient Data Vitals - Most Recent: Last Vital Signs Temp 36.2 C 12/26/20 07:46 Pulse 101 H 12/26/20 07:46 Resp 18 12/26/20 07:46 BP 113/66 12/26/20 07:46 Pulse Ox 92 L 12/26/20 09:08 Weight - Most Recent: 106.821 kg I&O - Last 24 hours: Intake & Output 12/25/20 12/26/20 12/26/20 22:59 06:59 14:59 Intake Total 1600 Balance 1600 Lab Results - Last 24 hrs: Laboratory Results - last 24 hr 12/26/20 12/26/20 Range/Units 06:00 06:00 WBC 9.08 (4.0-11.0) K/uL RBC 5.08 (4.30-5.90) M/uL Hgb 11.4 L (12.0-16.0) g/dL Hct 35.6 L (36.0-46.0) % MCV 70.1 L (80.0-98.0) fL MCH 22.4 L (27.0-32.0) pg MCHC 32.0 (31.0-37.0) g/dL RDW Std Deviation 37.6 (28.0-62.0) fl RDW Coeff of Shaniqua 15 (11.0-15.0) % Plt Count 331 (150-400) K/uL MPV 9.30 (7.40-12.00) fL Neut % (Auto) 80.4 H (48.0-80.0) % Lymph % (Auto) 10.0 L (16.0-40.0) % [place] % (Auto) 9.1 (0.0-15.0) % Eos % (Auto) 0.4 (0.0-7.0) % Baso % (Auto) 0.1 (0.0-1.5) % Neut # (Auto) 7.3 H (1.4-5.7) K/uL Lymph # (Auto) 0.9 (0.6-2.4) K/uL [place] # (Auto) 0.8 (0.0-0.8) K/uL Eos # (Auto) 0.0 (0.0-0.7) K/uL Baso # (Auto) 0.0 (0.0-0.1) K/uL Nucleated RBC % 0.0 /100WBC Nucleated RBCs # 0 K/uL Sodium 138 (136-145) mmol/L Potassium 3.7 (3.5-5.1) mmol/L Chloride 102 (98-107) mmol/L Carbon Dioxide 30.6 (21.0-32.0) mmol/L BUN 14 (7.0-18.0) mg/dL Creatinine 0.8 (0.6-1.0) mg/dL Est Cr Clr Drug Dosing 91.51 mL/min Estimated GFR (MDRD) > 60.0 ml/min Glucose 100 (74-106) mg/dL Calcium 8.3 L (8.5-10.1) mg/dL Total Bilirubin 0.5 (0.2-1.0) mg/dL AST 15 (15-37) IU/L ALT 40 (14-63) IU/L Alkaline Phosphatase 50 (46-116) U/L Total Protein 6.4 (6.4-8.2) g/dL Albumin 2.4 L (3.4-5.0) g/dL Globulin 4.0 (2.6-4.0) g/dL Albumin/Globulin Ratio 0.6 L (0.9-1.6) Med Orders - Current: Current Medications Acetaminophen (Acetaminophen 325 Mg Tab) 650 mg PO Q4H PRN PRN Reason: Pain/Fever Last Admin: 12/26/20 08:19 Dose: 650 mg Documented by: Albuterol (Albuterol 8 Gm Inhaler) 0 gm INH Q4HR PRN PRN Reason: Wheezing Albuterol/Ipratropium (Albuterol/Ipratropium 3.0-0.5 Mg/3 Ml Neb Soln) 3 ml NEB Q4HRRT PRN PRN Reason: Shortness of Breath Albuterol/Ipratropium (Albuterol/Ipratropium 4 Gm Inhalation [place]) 0 gm INH Q4HRRT PRN PRN Reason: wheezing/dyspnea Last Admin: 12/25/20 00:32 Dose: 2 puff Documented by: Benzocaine/Menthol (Benzocaine/Cetylpyridinium/Menthol Lozenge) 1 lozenge MUCMEM Q2H PRN PRN Reason: cough/sore throat Last Admin: 12/26/20 08:21 Dose: 1 lozenge Documented by: Benzonatate (Benzonatate 100 Mg Cap) 100 mg PO Q6H PRN PRN Reason: Cough Last Admin: 12/26/20 08:21 Dose: 100 mg Documented by: Cetirizine HCl (Cetirizine 10 Mg Tab) 10 mg PO DAILY [facility] Last Admin: 12/26/20 08:21 Dose: 10 mg Documented by: Dexamethasone (Dexamethasone 4 Mg Tab) 6 mg PO DAILY [facility] Last Admin: 12/26/20 08:18 Dose: 6 mg Documented by: Enoxaparin Sodium (Enoxaparin 40 Mg/0.4 Ml Syringe) 40 mg SUBCUT Q24H [facility] Last Admin: 12/26/20 08:17 Dose: 40 mg Documented by: Montelukast Sodium (Montelukast 10 Mg Tab) 10 mg PO DAILY [facility] Last Admin: 12/26/20 08:22 Dose: 10 mg Documented by: Omeprazole (Omeprazole 20 Mg Cap.Cr) 20 mg PO ACBREAKFAST [facility] Last Admin: 12/26/20 08:21 Dose: 20 mg Documented by: Ondansetron HCl (Ondansetron 4 Mg/2 Ml Sdv) 4 mg IVPUSH Q4H PRN PRN Reason: Nausea Fluticasone/Vilanterol [Breo Ellipta 200-25 Mcg Inhalation] 1 each INH DAILY [facility] Last Admin: 12/26/20 08:27 Dose: Not Given Documented by: Sodium Chloride (Sodium Chloride 0.9% 2.5 Ml Syringe) 2.5 ml FLUSH ASDIRECTED PRN PRN Reason: Keep Vein Open Discontinued Medications Acetaminophen (Acetaminophen 500 Mg Tab) 1,000 mg PO ONETIME ONE Stop: 12/20/20 03:50 Last Admin: 12/20/20 04:11 Dose: 1,000 mg Documented by: Albuterol/Ipratropium (Albuterol/Ipratropium 4 Gm Inhalation [place]) 0 gm INH Q4HRRT [facility] Last Admin: 12/24/20 14:09 Dose: Not Given Documented by: Dexamethasone (Dexamethasone 10 Mg/Ml Sdv) 10 mg IM ONETIME ONE Stop: 12/20/20 02:23 Last Admin: 12/20/20 02:42 Dose: 10 mg Documented by: Diphenhydramine HCl (Diphenhydramine 50 Mg/Ml Sdv) 25 mg IVPUSH ONETIME ONE Stop: 12/24/20 09:48 Last Admin: 12/24/20 10:20 Dose: 25 mg Documented by: Diphenhydramine HCl (Diphenhydramine 50 Mg/Ml Sdv) 25 mg IVPUSH ONETIME ONE Stop: 12/25/20 12:46 Last Admin: 12/25/20 14:17 Dose: 25 mg Documented by: Remdesivir 200 mg/ Sodium (Chloride) 250 mls @ 250 mls/hr IV ONETIME ONE Stop: 12/20/20 03:38 Last Admin: 12/20/20 04:11 Dose: 250 mls/hr Documented by: Sodium Chloride (Normal Saline) 1,000 mls @ 100 mls/hr IV NOW STA Stop: 12/20/20 13:48 Last Admin: 12/20/20 04:12 Dose: 100 mls/hr Documented by: Remdesivir 100 mg/ Sodium (Chloride) 100 mls @ 100 mls/hr IV Q24H [facility] Stop: 12/24/20 09:59 Last Admin: 12/24/20 10:08 Dose: 100 mls/hr Documented by: Ketorolac Tromethamine (Ketorolac 30 Mg/Ml Sdv) 30 mg IVPUSH ONETIME ONE Stop: 12/24/20 09:48 Last Admin: 12/24/20 10:19 Dose: 30 mg Documented by: Ketorolac Tromethamine (Ketorolac 30 Mg/Ml Sdv) 30 mg IVPUSH ONETIME ONE Stop: 12/25/20 12:46 Last Admin: 12/25/20 14:17 Dose: 30 mg Documented by: Metoclopramide HCl (Metoclopramide 10 Mg/2 Ml Sdv) 10 mg IVPUSH ONETIME ONE Stop: 12/24/20 09:48 Last Admin: 12/24/20 10:20 Dose: 10 mg Documented by: Metoclopramide HCl (Metoclopramide 10 Mg/2 Ml Sdv) 10 mg IVPUSH ONETIME ONE Stop: 12/25/20 12:46 Last Admin: 12/25/20 14:17 Dose: 10 mg Documented by: Sodium Chloride (Sodium Chloride 0.9% 10 Ml Syringe) 10 ml FLUSH ASDIRECTED PRN PRN Reason: Keep Vein Open Sodium Chloride (Sodium Chloride 0.9% 2.5 Ml Syringe) 2.5 ml FLUSH ASDIRECTED PRN PRN Reason: Keep Vein Open Sumatriptan Succinate (Sumatriptan 6 Mg/0.5 Ml Sdv) 6 mg SUBCUT Q2H PRN PRN Reason: migraine Last Admin: 12/23/20 21:27 Dose: 6 mg Documented by:
[2020-12-26 11:38] VITALS: BP 113/63; PULSE 103
== END 2020-12-26 11:55 | disposition home or self-care (01) | DRG 137 ==
LOC: MW.ED 02:03 → MW.MS 03:38
PROVIDERS: ADMIT Internal Medicine; ATTEND Internal Medicine
PROC: XW033E5 Introduction of Remdesivir Anti-infective into Peripheral Vein, Percutaneous Approach, New Technology Group 5 (ICD-10-PCS; principal; 2020-12-20)
DX: U07.1 COVID-19 (principal); J96.01 Acute respiratory failure with hypoxia; J45.909 Unspecified asthma, uncomplicated; K21.9 Gastro-esophageal reflux disease without esophagitis; J12.82 Pneumonia due to coronavirus disease 2019; H54.7 Unspecified visual loss; G43.909 Migraine, unspecified, not intractable, without status migrainosus; F43.10 Post-traumatic stress disorder, unspecified; E66.9 Obesity, unspecified; Z88.1 Allergy status to other antibiotic agents; Z79.899 Other long term (current) drug therapy; Z88.5 Allergy status to narcotic agent; Z88.6 Allergy status to analgesic agent; Z91.018 Allergy to other foods; Z79.52 Long term (current) use of systemic steroids; Z87.442 Personal history of urinary calculi; Z86.19 Personal history of other infectious and parasitic diseases; Z86.16 Personal history of COVID-19; Z90.89 Acquired absence of other organs; Z90.49 Acquired absence of other specified parts of digestive tract; J30.89 Other allergic rhinitis
CPT/HCPCS: 36415; 71045; 71045-26; 80053; 82248; 83735; 84100; 85025; 96372; 99284; 99285-25; A9270-GY; J1100; J1200; J1650; J1885; J2765; J3030; J7030; J7050; J8540

== ENCOUNTER 2022-05-11 19:48 | Emergency (ER) | payer BC ==
[2022-05-11 20:07] VITALS: BP 114/78; PULSE 100
[2022-05-11] MEDS ORDERED: Albuterol/Ipratropium 3.0-0.5 MG/3 ML Neb Soln NEB ONE (20:24)
[2022-05-11] MEDS ORDERED: methylPREDNISolone Sodium Succinate 125 MG/2 ML SDV IM ONE (20:24)
[2022-05-11 21:20] LABS: CORONAVIRUS COVID-19 NAA NEGATIVE (NEGATIVE); INFLUENZA A NAA NEGATIVE (NEGATIVE); INFLUENZA B NAA NEGATIVE (NEGATIVE); RESPIRATORY SYNCYTIAL VIR NAA NEGATIVE (NEGATIVE)
== END 2022-05-11 21:39 | disposition home or self-care (01) ==
LOC: MW.ED 19:48
DX: J45.901 Unspecified asthma with (acute) exacerbation (principal); E66.9 Obesity, unspecified; Z68.37 Body mass index [BMI] 37.0-37.9, adult; Z88.5 Allergy status to narcotic agent; Z88.0 Allergy status to penicillin; Z88.1 Allergy status to other antibiotic agents; Z91.018 Allergy to other foods; Z79.899 Other long term (current) drug therapy; Z86.16 Personal history of COVID-19; Z90.49 Acquired absence of other specified parts of digestive tract; Z20.822 Contact with and (suspected) exposure to COVID-19
CPT/HCPCS: 0241U; 71046; 94640; 96372; 99285; J2930; J7620-GY

== ENCOUNTER 2022-07-11 19:46 | Emergency (ER) | payer BC ==
[2022-07-11] MEDS ORDERED: Ketorolac 30 MG/ML SDV IM STA (22:58)
[2022-07-11] MEDS ORDERED: Diazepam 5 MG Tab PO ONE (22:58)
[2022-07-11] MEDS ORDERED: Morphine 4 MG/ML Syringe IM ONE (23:52)
[2022-07-12] MEDS ORDERED: Sodium Chloride 0.9% 2.5 ML Syringe FLUSH PRN (00:33)
[2022-07-12] MEDS ORDERED: HYDROmorphone 1 MG/ML Syringe IVPUSH ONE (00:33)
[2022-07-12] MEDS ORDERED: Sodium Chloride 0.9% 10 ML Syringe FLUSH PRN (00:33)
[2022-07-12] MEDS ORDERED: Haloperidol Lactate 5 MG/ML SDV IM ONE (01:52)
[2022-07-12] MEDS ORDERED: Morphine 4 MG/ML Syringe IVPUSH ONE (01:52)
[2022-07-12 02:52] VITALS: BP 130/70; PULSE 72
== END 2022-07-12 03:05 | disposition home or self-care (01) ==
LOC: MW.ED 19:46
DX: M54.6 Pain in thoracic spine (principal); J45.909 Unspecified asthma, uncomplicated; K21.9 Gastro-esophageal reflux disease without esophagitis; E66.9 Obesity, unspecified; Z68.33 Body mass index [BMI] 33.0-33.9, adult; Z88.5 Allergy status to narcotic agent; Z88.0 Allergy status to penicillin; Z88.1 Allergy status to other antibiotic agents; Z88.6 Allergy status to analgesic agent; Z91.018 Allergy to other foods; Z79.899 Other long term (current) drug therapy; Z86.16 Personal history of COVID-19
CPT/HCPCS: 72070; 96372; 96374; 96375; 99283; A9270; J1170; J1630; J1885; J2270; J3490

== ENCOUNTER 2023-02-03 02:22 | Emergency (ER) | payer BC ==
[2023-02-03] MEDS ORDERED: Lidocaine 4% 1 each Patch TOP STA (02:53)
[2023-02-03] MEDS ORDERED: Diazepam 5 MG Tab PO ONE (02:53)
[2023-02-03] MEDS ORDERED: Ketorolac 30 MG/ML SDV IM ONE (04:24)
[2023-02-03] MEDS ORDERED: Ondansetron 4 MG Tab.DIS PO ONE (06:03)
[2023-02-03] MEDS ORDERED: Acetaminophen/HYDROcodone 325-5 MG Tab PO ONE (06:03)
[2023-02-03 06:29] VITALS: BP 131/95; PULSE 89
== END 2023-02-03 06:29 | disposition home or self-care (01) ==
LOC: MW.ED 02:22
DX: M25.551 Pain in right hip (principal); K21.9 Gastro-esophageal reflux disease without esophagitis; J45.909 Unspecified asthma, uncomplicated; E66.9 Obesity, unspecified; Z68.37 Body mass index [BMI] 37.0-37.9, adult; Z79.899 Other long term (current) drug therapy; Z86.16 Personal history of COVID-19; Z88.0 Allergy status to penicillin; Z88.1 Allergy status to other antibiotic agents; Z88.5 Allergy status to narcotic agent; Z88.6 Allergy status to analgesic agent; Z91.018 Allergy to other foods
CPT/HCPCS: 73502; 73700; 96372; 99284; A9270; J1885; 99283

== ENCOUNTER 2023-02-24 05:06 | Emergency (ER) | payer BC ==
[2023-02-24] MEDS ORDERED: Tetracaine HCl/PF 0.5% 4 ML Bottle EYERT ONE (05:11)
[2023-02-24] MEDS ORDERED: Fluorescein 1 MG Ophth Strip EYEBOTH ONE (05:13)
[2023-02-24 06:01] VITALS: BP 143/97; PULSE 89
== END 2023-02-24 06:01 | disposition home or self-care (01) ==
LOC: MW.ED 05:06
DX: H11.421 Conjunctival edema, right eye (principal); H57.8A1 Foreign body sensation, right eye; J45.909 Unspecified asthma, uncomplicated; K21.9 Gastro-esophageal reflux disease without esophagitis; E66.9 Obesity, unspecified; Z68.38 Body mass index [BMI] 38.0-38.9, adult; Z86.16 Personal history of COVID-19; Z88.5 Allergy status to narcotic agent; Z88.0 Allergy status to penicillin; Z88.1 Allergy status to other antibiotic agents; Z88.6 Allergy status to analgesic agent; Z91.018 Allergy to other foods; Z79.899 Other long term (current) drug therapy
CPT/HCPCS: 99283

== ENCOUNTER 2023-03-04 03:16 | Emergency (ER) | payer BC ==
[2023-03-04] MEDS ORDERED: Sodium Chloride 0.9% 2.5 ML Syringe FLUSH PRN (03:51)
[2023-03-04] MEDS ORDERED: Dexamethasone 10 MG/ML SDV IVPUSH ONE (03:51)
[2023-03-04] MEDS ORDERED: Sodium Chloride 0.9% 1,000 ML IV ONE (03:51)
[2023-03-04] MEDS ORDERED: Prochlorperazine 10 MG/2 ML SDV IVPUSH ONE (03:51)
[2023-03-04] MEDS ORDERED: diphenhydrAMINE 50 MG/ML SDV IVPUSH ONE (03:51)
[2023-03-04] MEDS ORDERED: Sodium Chloride 0.9% 10 ML Syringe FLUSH PRN (03:51)
[2023-03-04] MEDS ORDERED: Ketorolac 30 MG/ML SDV IVPUSH ONE (03:57)
[2023-03-04 04:21] LABS: BASOPHILS ABSOLUTE AUTO 0.05 K/uL (0.00-0.20); BASOPHILS PERCENT AUTO 0.7 % (0.0-1.0); EOSINOPHILS PERCENT AUTO 4.1 % (0.0-6.0); HEMATOCRIT 39.7 % (37.0-47.0); HEMOGLOBIN 14.4 g/dL (12.0-16.0); IMMATURE GRAN ABSOLUTE AUTO 0.02 K/uL (0.00-0.05); IMMATURE GRAN PERCENT AUTO 0.3 % (0.0-0.4); LYMPHOCYTES PERCENT AUTO 27.1 % (24.0-44.0); MEAN CORPUSCULAR HEMOGLOBIN 29.4 pg (28.0-32.0); MEAN CORPUSCULAR HGB CONC 36.3 g/dL (32.0-36.0); MEAN CORPUSCULAR VOLUME 81.2 fL (83.0-99.0); MONOCYTES ABSOLUTE AUTO 0.92 K/uL (0.00-0.80); MONOCYTES PERCENT AUTO 12.5 % (0.0-8.0); NEUTROPHILS ABSOLUTE AUTO 4.08 K/uL (1.80-7.70); NEUTROPHILS PERCENT AUTO 55.3 % (41.0-71.0); PLATELET COUNT,PLT 249 K/uL (150-400); RED BLOOD CELL COUNT 4.89 M/uL (4.10-5.30); WHITE BLOOD CELL COUNT,WBC 7.37 K/uL (3.9-11.3)
[2023-03-04 04:44] LABS: A/G RATIO 0.8 (0.9-1.6); BILIRUBIN TOTAL 0.4 mg/dL (0.2-1.0); CALCIUM 8.8 mg/dL (8.5-10.1); CARBON DIOXIDE,CO2 25.8 mmol/L (21.0-32.0); CREATININE 0.8 mg/dL (0.6-1.0); EST CRCL DRUG DOSING (CG) 88.38 mL/min; POTASSIUM,K 3.4 mmol/L (3.5-5.1); PROTEIN TOTAL,TP 6.7 g/dL (6.4-8.2)
[2023-03-04 06:43] VITALS: BP 129/68; PULSE 87
== END 2023-03-04 06:42 | disposition home or self-care (01) ==
LOC: MW.ED 03:16
DX: G43.909 Migraine, unspecified, not intractable, without status migrainosus (principal); J45.909 Unspecified asthma, uncomplicated; K21.9 Gastro-esophageal reflux disease without esophagitis; E66.9 Obesity, unspecified; Z68.38 Body mass index [BMI] 38.0-38.9, adult; Z86.16 Personal history of COVID-19; Z88.5 Allergy status to narcotic agent; Z88.0 Allergy status to penicillin; Z88.1 Allergy status to other antibiotic agents; Z88.6 Allergy status to analgesic agent; Z91.018 Allergy to other foods; Z79.899 Other long term (current) drug therapy
CPT/HCPCS: 36415; 80053; 85025; 96361; 96374; 96375; 99283; J0780; J1100; J1200; J1885; J3490; J7030; 99284

== ENCOUNTER 2023-04-14 05:40 | Emergency (ER) | payer BC ==
[2023-04-14] MEDS ORDERED: Sodium Chloride 0.9% 2.5 ML Syringe FLUSH PRN (05:56)
[2023-04-14] MEDS ORDERED: Sodium Chloride 0.9% 1,000 ML IV ONE (05:56)
[2023-04-14] MEDS ORDERED: Sodium Chloride 0.9% 10 ML Syringe FLUSH PRN (05:56)
[2023-04-14 06:36] LABS: BASOPHILS ABSOLUTE AUTO 0.02 K/uL (0.00-0.20); BASOPHILS PERCENT AUTO 0.3 % (0.0-1.0); EOSINOPHILS PERCENT AUTO 1.7 % (0.0-6.0); HEMATOCRIT 38.1 % (37.0-47.0); HEMOGLOBIN 13.5 g/dL (12.0-16.0); IMMATURE GRAN ABSOLUTE AUTO 0.02 K/uL (0.00-0.05); IMMATURE GRAN PERCENT AUTO 0.3 % (0.0-0.4); LYMPHOCYTES ABSOLUTE AUTO 1.03 K/uL (1.00-4.80); LYMPHOCYTES PERCENT AUTO 17.4 % (24.0-44.0); MEAN CORPUSCULAR HEMOGLOBIN 28.9 pg (28.0-32.0); MEAN CORPUSCULAR HGB CONC 35.4 g/dL (32.0-36.0); MEAN CORPUSCULAR VOLUME 81.6 fL (83.0-99.0); MEAN PLATELET VOLUME 9.2 fL (9.4-12.3); MONOCYTES ABSOLUTE AUTO 0.83 K/uL (0.00-0.80); NEUTROPHILS ABSOLUTE AUTO 3.93 K/uL (1.80-7.70); NEUTROPHILS PERCENT AUTO 66.3 % (41.0-71.0); PLATELET COUNT,PLT 196 K/uL (150-400); RED BLOOD CELL COUNT 4.67 M/uL (4.10-5.30); WHITE BLOOD CELL COUNT,WBC 5.93 K/uL (3.9-11.3)
[2023-04-14 07:01] LABS: CALCIUM 8.8 mg/dL (8.5-10.1); CREATININE 0.8 mg/dL (0.6-1.0); EST CRCL DRUG DOSING (CG) 84.95 mL/min; POTASSIUM,K 3.4 mmol/L (3.5-5.1)
[2023-04-14 08:17] VITALS: BP 139/82; PULSE 92
== END 2023-04-14 08:14 | disposition home or self-care (01) ==
LOC: MW.ED 05:40
DX: S41.151A Open bite of right upper arm, initial encounter (principal); K21.9 Gastro-esophageal reflux disease without esophagitis; J45.909 Unspecified asthma, uncomplicated; E66.9 Obesity, unspecified; Z68.41 Body mass index [BMI] 40.0-44.9, adult; W53.11XA Bitten by rat, initial encounter; Z86.16 Personal history of COVID-19; Z79.899 Other long term (current) drug therapy; Z88.0 Allergy status to penicillin; Z88.1 Allergy status to other antibiotic agents; Z88.5 Allergy status to narcotic agent; Z88.6 Allergy status to analgesic agent; Z91.018 Allergy to other foods
CPT/HCPCS: 36415; 73130; 80048; 85025; 99283; J3490; J7030

== ENCOUNTER 2023-04-14 18:17 | Inpatient (IN) | payer BC ==
[2023-04-14] MEDS ORDERED: Sodium Chloride 0.9% 2.5 ML Syringe FLUSH PRN (18:59)
[2023-04-14] MEDS ORDERED: Ondansetron 4 MG/2 ML SDV IVPUSH ONE (18:59)
[2023-04-14] MEDS ORDERED: Sodium Chloride 0.9% 10 ML Syringe FLUSH PRN (18:59)
[2023-04-14] MEDS ORDERED: Sodium Chloride 0.9% 1,000 ML IV ONE ×2 (18:59→20:20)
[2023-04-14] MEDS ORDERED: Cefepime 2 GM in Sodium Chloride 0.9% 50 ML IV ONE (18:59)
[2023-04-14] MEDS ORDERED: Acetaminophen 500 MG Tab PO ONE (18:59)
[2023-04-14] MEDS ORDERED: Ondansetron 4 MG/2 ML SDV ONE (19:21)
[2023-04-14 19:45] LABS: BASOPHILS ABSOLUTE AUTO 0.03 K/uL (0.00-0.20); BASOPHILS PERCENT AUTO 0.4 % (0.0-1.0); EOSINOPHILS ABSOLUTE AUTO 0.22 K/uL (0.00-0.45); EOSINOPHILS PERCENT AUTO 2.7 % (0.0-6.0); HEMATOCRIT 37.4 % (37.0-47.0); HEMOGLOBIN 13.4 g/dL (12.0-16.0); IMMATURE GRAN ABSOLUTE AUTO 0.02 K/uL (0.00-0.05); IMMATURE GRAN PERCENT AUTO 0.2 % (0.0-0.4); LYMPHOCYTES ABSOLUTE AUTO 1.48 K/uL (1.00-4.80); LYMPHOCYTES PERCENT AUTO 18.3 % (24.0-44.0); MEAN CORPUSCULAR HEMOGLOBIN 29.1 pg (28.0-32.0); MEAN CORPUSCULAR HGB CONC 35.8 g/dL (32.0-36.0); MEAN CORPUSCULAR VOLUME 81.3 fL (83.0-99.0); MEAN PLATELET VOLUME 9.7 fL (9.4-12.3); MONOCYTES ABSOLUTE AUTO 1.09 K/uL (0.00-0.80); MONOCYTES PERCENT AUTO 13.5 % (0.0-8.0); NEUTROPHILS ABSOLUTE AUTO 5.24 K/uL (1.80-7.70); NEUTROPHILS PERCENT AUTO 64.9 % (41.0-71.0); PLATELET COUNT,PLT 221 K/uL (150-400); WHITE BLOOD CELL COUNT,WBC 8.08 K/uL (3.9-11.3)
[2023-04-14] MEDS ORDERED: Famotidine 20 MG/2 ML SDV IVPUSH ONE (19:58)
[2023-04-14] MEDS ORDERED: EPINEPHrine 1 MG/1 ML Amp IM ONE (19:58)
[2023-04-14] MEDS ORDERED: diphenhydrAMINE 50 MG/ML SDV IVPUSH ONE (19:58)
[2023-04-14] MEDS ORDERED: EPINEPHrine 1 MG/1 ML Amp ONE (19:58)
[2023-04-14] MEDS ORDERED: methylPREDNISolone Sodium Succinate 125 MG/2 ML SDV IVPUSH ONE (19:59)
[2023-04-14] MEDS ORDERED: VANCOmycin 2 GM/400 ML 2 GM in Premix Bag 1 BAG IV ONE (20:00)
[2023-04-14] MEDS ORDERED: LORazepam 2 MG/ML SDV IVPUSH ONE ×2 (20:02→20:20)
[2023-04-14] MEDS ORDERED: LORazepam 2 MG/ML SDV ONE (20:04)
[2023-04-14] MEDS ORDERED: Albuterol/Ipratropium 3.0-0.5 MG/3 ML Neb Soln NEB ONE (20:07)
[2023-04-14 20:17] LABS: A/G RATIO 0.9 (0.9-1.6); ALBUMIN 3.2 g/dL (3.4-5.0); BILIRUBIN TOTAL 0.5 mg/dL (0.2-1.0); C-REACTIVE PROTEIN 6.57 mg/dL (<0.3); CALCIUM 8.7 mg/dL (8.5-10.1); CARBON DIOXIDE,CO2 24.4 mmol/L (21.0-32.0); CREATININE 0.8 mg/dL (0.6-1.0); EST CRCL DRUG DOSING (CG) 88.38 mL/min; POTASSIUM,K 3.3 mmol/L (3.5-5.1); PROTEIN TOTAL,TP 6.9 g/dL (6.4-8.2)
[2023-04-14 20:20] LABS: LACTIC ACID 1.2 mmol/L (0.4-2.0)
[2023-04-14 21:15] LABS: APPEARANCE,URINE CLEAR; BILIRUBIN,URINE NEGATIVE (NEGATIVE); COLOR,URINE YELLOW; GLUCOSE,URINE NEGATIVE (NEGATIVE); KETONES,URINE NEGATIVE (NEGATIVE); LEUKOCYTE ESTERASE,URINE NEGATIVE (NEGATIVE); NITRITE,URINE NEGATIVE (NEGATIVE); OCCULT BLOOD,URINE NEGATIVE (NEGATIVE); PH,URINE 6.5 (5.0-8.0); PROTEIN,URINE 100 mg/dL (NEGATIVE); UROBILINOGEN,URINE 0.2 EU/dL (<2.0)
[2023-04-14 21:25] LABS: BACTERIA,URINE FEW (NEGATIVE); EPITHELIAL CELLS,URINE MODERATE (NONE-FEW); HYALINE CASTS,URINE 0-2 (0-2/LPF); MUCUS,URINE LIGHT (NONE-MOD); RBC,URINE 0-2 (0-2/HPF); WBC,URINE 0-2 (0-5/HPF)
[2023-04-14] MEDS ORDERED: Iopamidol 755 MG/ML 500 ML Multipack Bottle IVPUSH ONE (22:02)
[2023-04-14] MEDS ORDERED: Diphtheria,Pertussis(Acell),Tetanus Vaccine 0.5 ML Syringe IM ONE (23:42)
[2023-04-15] MEDS: metroNIDAZOLE/Normal Saline 500 MG in Premix Bag 1 BAG IV SCH ×4 (00:55→23:58)
[2023-04-15] MEDS: Ciprofloxacin in D5W 400 MG in Premix Bag 1 BAG IV SCH ×6 (00:55→23:58)
[2023-04-15 05:44] LABS: BASOPHILS ABSOLUTE AUTO 0.01 K/uL (0.00-0.20); BASOPHILS PERCENT AUTO 0.2 % (0.0-1.0); HEMATOCRIT 35.7 % (37.0-47.0); HEMOGLOBIN 12.7 g/dL (12.0-16.0); IMMATURE GRAN ABSOLUTE AUTO 0.01 K/uL (0.00-0.05); IMMATURE GRAN PERCENT AUTO 0.2 % (0.0-0.4); LYMPHOCYTES ABSOLUTE AUTO 0.58 K/uL (1.00-4.80); LYMPHOCYTES PERCENT AUTO 8.9 % (24.0-44.0); MEAN CORPUSCULAR HEMOGLOBIN 28.9 pg (28.0-32.0); MEAN CORPUSCULAR HGB CONC 35.6 g/dL (32.0-36.0); MEAN CORPUSCULAR VOLUME 81.1 fL (83.0-99.0); MEAN PLATELET VOLUME 9.3 fL (9.4-12.3); MONOCYTES PERCENT AUTO 3.1 % (0.0-8.0); NEUTROPHILS ABSOLUTE AUTO 5.69 K/uL (1.80-7.70); NEUTROPHILS PERCENT AUTO 87.6 % (41.0-71.0); PLATELET COUNT,PLT 226 K/uL (150-400); WHITE BLOOD CELL COUNT,WBC 6.49 K/uL (3.9-11.3)
[2023-04-15 06:05] LABS: CALCIUM 8.1 mg/dL (8.5-10.1); CARBON DIOXIDE,CO2 25.6 mmol/L (21.0-32.0); CREATININE 0.8 mg/dL (0.6-1.0); EST CRCL DRUG DOSING (CG) 88.38 mL/min
[2023-04-15] MEDS: Doxycycline 100 MG in Sodium Chloride 0.9% 100 ML IV SCH ×2 (08:21→19:42)
[2023-04-15] MEDS: SUMAtriptan 50 MG Tab PO PRN ×2 (08:21→13:05)
[2023-04-15] MEDS ORDERED: Albuterol/Ipratropium 3.0-0.5 MG/3 ML Neb Soln NEB PRN (08:49)
[2023-04-15] MEDS ORDERED: Sodium Chloride 0.9% 10 ML Syringe FLUSH PRN (08:50)
[2023-04-15] MEDS ORDERED: Sodium Chloride 0.9% 2.5 ML Syringe FLUSH PRN (08:50)
[2023-04-15] MEDS ORDERED: VANCOmycin 1.5 GM/300 ML 1.5 GM in Premix Bag 1 BAG IV SCH (09:00)
[2023-04-15] MEDS ORDERED: VANCOmycin 1.25 GM/250 ML 1.25 GM in Premix Bag 1 BAG IV SCH (09:30)
[2023-04-15] MEDS: Famotidine 20 MG Tab PO SCH ×2 (09:39→20:43)
[2023-04-15] MEDS: Cetirizine 10 MG Tab PO SCH ×2 (09:56→20:43)
[2023-04-15] MEDS: Lidocaine 4% 1 each Patch TOP SCH ×3 (11:54→15:13)
[2023-04-15] MEDS: Lidocaine 5% 700 MG Patch TOP SCH ×2 (12:30→15:20)
[2023-04-15] MEDS ORDERED: Acetaminophen 325 MG Tab PO PRN (15:29)
[2023-04-15] MEDS ORDERED: Albuterol 8 GM Inhaler INH PRN (15:30)
[2023-04-15] MEDS: oxyCODONE 5 MG Tab PO PRN (20:43)
[2023-04-15] MEDS: Montelukast 10 MG Tab PO SCH (20:43)
[2023-04-16] MEDS: oxyCODONE 5 MG Tab PO PRN ×2 (02:54→21:22)
[2023-04-16 05:34] LABS: BASOPHILS ABSOLUTE AUTO 0.03 K/uL (0.00-0.20); BASOPHILS PERCENT AUTO 0.4 % (0.0-1.0); EOSINOPHILS ABSOLUTE AUTO 0.12 K/uL (0.00-0.45); EOSINOPHILS PERCENT AUTO 1.6 % (0.0-6.0); HEMATOCRIT 34.6 % (37.0-47.0); IMMATURE GRAN ABSOLUTE AUTO 0.03 K/uL (0.00-0.05); IMMATURE GRAN PERCENT AUTO 0.4 % (0.0-0.4); LYMPHOCYTES ABSOLUTE AUTO 1.64 K/uL (1.00-4.80); LYMPHOCYTES PERCENT AUTO 22.1 % (24.0-44.0); MEAN CORPUSCULAR HEMOGLOBIN 28.9 pg (28.0-32.0); MEAN CORPUSCULAR HGB CONC 34.7 g/dL (32.0-36.0); MEAN CORPUSCULAR VOLUME 83.4 fL (83.0-99.0); MEAN PLATELET VOLUME 9.5 fL (9.4-12.3); MONOCYTES ABSOLUTE AUTO 0.81 K/uL (0.00-0.80); MONOCYTES PERCENT AUTO 10.9 % (0.0-8.0); NEUTROPHILS ABSOLUTE AUTO 4.79 K/uL (1.80-7.70); NEUTROPHILS PERCENT AUTO 64.6 % (41.0-71.0); PLATELET COUNT,PLT 198 K/uL (150-400); RED BLOOD CELL COUNT 4.15 M/uL (4.10-5.30); WHITE BLOOD CELL COUNT,WBC 7.42 K/uL (3.9-11.3)
[2023-04-16 05:56] LABS: CALCIUM 8.4 mg/dL (8.5-10.1); CREATININE 0.8 mg/dL (0.6-1.0); EST CRCL DRUG DOSING (CG) 88.38 mL/min; POTASSIUM,K 3.9 mmol/L (3.5-5.1)
[2023-04-16] MEDS: metroNIDAZOLE/Normal Saline 500 MG in Premix Bag 1 BAG IV SCH ×3 (07:36→23:29)
[2023-04-16] MEDS: Doxycycline 100 MG in Sodium Chloride 0.9% 100 ML IV SCH ×2 (08:54→20:51)
[2023-04-16] MEDS: Famotidine 20 MG Tab PO SCH ×2 (08:54→21:22)
[2023-04-16] MEDS: Cetirizine 10 MG Tab PO SCH ×2 (08:54→21:22)
[2023-04-16] MEDS: Formoterol/Mometasone 200-5 MCG 8.8 GM Inhaler INH SCH ×2 (09:06→22:11)
[2023-04-16] MEDS: SUMAtriptan 50 MG Tab PO PRN ×2 (09:54→12:34)
[2023-04-16] MEDS: Ciprofloxacin in D5W 400 MG in Premix Bag 1 BAG IV SCH ×2 (12:35)
[2023-04-16] MEDS: Lidocaine 5% 700 MG Patch TOP SCH (13:32)
[2023-04-16] MEDS: Montelukast 10 MG Tab PO SCH (21:22)
[2023-04-17] MEDS: Ciprofloxacin in D5W 400 MG in Premix Bag 1 BAG IV SCH ×2 (01:22)
[2023-04-17] MEDS ORDERED: Morphine 2 MG/ML SYRINGE IVPUSH PRN (03:31)
[2023-04-17 05:52] LABS: BASOPHILS ABSOLUTE AUTO 0.05 K/uL (0.00-0.20); BASOPHILS PERCENT AUTO 0.8 % (0.0-1.0); EOSINOPHILS ABSOLUTE AUTO 0.29 K/uL (0.00-0.45); EOSINOPHILS PERCENT AUTO 4.4 % (0.0-6.0); HEMOGLOBIN 13.4 g/dL (12.0-16.0); IMMATURE GRAN ABSOLUTE AUTO 0.02 K/uL (0.00-0.05); IMMATURE GRAN PERCENT AUTO 0.3 % (0.0-0.4); LYMPHOCYTES ABSOLUTE AUTO 1.86 K/uL (1.00-4.80); MEAN CORPUSCULAR HEMOGLOBIN 28.6 pg (28.0-32.0); MEAN CORPUSCULAR HGB CONC 34.4 g/dL (32.0-36.0); MEAN CORPUSCULAR VOLUME 83.2 fL (83.0-99.0); MEAN PLATELET VOLUME 9.1 fL (9.4-12.3); MONOCYTES ABSOLUTE AUTO 0.87 K/uL (0.00-0.80); MONOCYTES PERCENT AUTO 13.1 % (0.0-8.0); NEUTROPHILS ABSOLUTE AUTO 3.56 K/uL (1.80-7.70); NEUTROPHILS PERCENT AUTO 53.4 % (41.0-71.0); PLATELET COUNT,PLT 214 K/uL (150-400); RED BLOOD CELL COUNT 4.69 M/uL (4.10-5.30); WHITE BLOOD CELL COUNT,WBC 6.65 K/uL (3.9-11.3)
[2023-04-17 06:19] LABS: CALCIUM 8.7 mg/dL (8.5-10.1); CARBON DIOXIDE,CO2 27.7 mmol/L (21.0-32.0); CREATININE 0.8 mg/dL (0.6-1.0); EST CRCL DRUG DOSING (CG) 88.38 mL/min; POTASSIUM,K 3.9 mmol/L (3.5-5.1)
[2023-04-17] MEDS: metroNIDAZOLE/Normal Saline 500 MG in Premix Bag 1 BAG IV SCH (06:51)
[2023-04-17] MEDS: SUMAtriptan 50 MG Tab PO PRN (07:32)
[2023-04-17] MEDS: Famotidine 20 MG Tab PO SCH (08:19)
[2023-04-17] MEDS: Cetirizine 10 MG Tab PO SCH (08:19)
[2023-04-17] MEDS: Doxycycline 100 MG in Sodium Chloride 0.9% 100 ML IV SCH (08:22)
[2023-04-17] MEDS: Formoterol/Mometasone 200-5 MCG 8.8 GM Inhaler INH SCH (08:37)
[2023-04-17] MEDS ORDERED: Doxycycline 100 MG Cap PO ONE (09:34)
[2023-04-17 12:03] VITALS: BP 139/71; PULSE 80
== END 2023-04-17 12:20 | disposition home or self-care (01) | DRG 383 ==
LOC: MW.ED 18:17 → MW.MS 23:44
PROVIDERS: ADMIT Internal Medicine; ATTEND Internal Medicine
PROC: 3E033XZ Introduction of Vasopressor into Peripheral Vein, Percutaneous Approach (ICD-10-PCS; principal; 2023-04-14)
DX: L03.011 Cellulitis of right finger (principal); J45.909 Unspecified asthma, uncomplicated; G43.909 Migraine, unspecified, not intractable, without status migrainosus; T78.2XXA Anaphylactic shock, unspecified, initial encounter; K21.9 Gastro-esophageal reflux disease without esophagitis; F43.10 Post-traumatic stress disorder, unspecified; E66.9 Obesity, unspecified; F41.9 Anxiety disorder, unspecified; Z79.51 Long term (current) use of inhaled steroids; Z79.899 Other long term (current) drug therapy; Z88.0 Allergy status to penicillin; Z88.8 Allergy status to other drugs, medicaments and biological substances; Z88.5 Allergy status to narcotic agent; Z90.89 Acquired absence of other organs; Z90.49 Acquired absence of other specified parts of digestive tract; Z98.890 Other specified postprocedural states; W53.11XA Bitten by rat, initial encounter
CPT/HCPCS: 36415; 71045; 71045-26; 71275; 71275-26; 73201-26-RT; 73201-RT; 80048; 80053; 80202; 81001; 83605; 84484; 85025; 86140; 87040; 93005; 93010; 96361; 96365; 96366; 96372; 96375; 99285-25; 99291; A9270-GY; J0171; J0692; J0744; J1200; J2060; J2270; J2405; J2930; J3370; J3490; J7030; J7620-GY; Q9967

== ENCOUNTER 2023-09-07 02:29 | Emergency (ER) | payer BC ==
[2023-09-07] MEDS: Albuterol/Ipratropium 3.0-0.5 MG/3 ML Neb Soln NEB ONE (03:38)
[2023-09-07] MEDS: Acetaminophen/HYDROcodone 325-5 MG Tab PO ONE (03:39)
[2023-09-07] MEDS: Bacitracin Oint 28.35 GM Tube TOP STA (04:31)
[2023-09-07 05:32] VITALS: PULSE 85
== END 2023-09-07 05:31 | disposition home or self-care (01) ==
LOC: MW.ED 02:29
DX: L55.1 Sunburn of second degree (principal); L55.0 Sunburn of first degree; Z88.5 Allergy status to narcotic agent; Z88.8 Allergy status to other drugs, medicaments and biological substances; Z88.1 Allergy status to other antibiotic agents; Z88.6 Allergy status to analgesic agent; Z91.018 Allergy to other foods; Z79.899 Other long term (current) drug therapy; Z79.51 Long term (current) use of inhaled steroids; Z90.49 Acquired absence of other specified parts of digestive tract
CPT/HCPCS: 99283; A9270; J7620-GY

== ENCOUNTER 2023-11-20 13:13 | Emergency (ER) | payer BC ==
[2023-11-20] MEDS: Ketorolac 30 MG/ML SDV IM ONE (14:26)
[2023-11-20] MEDS: Lidocaine 4% 1 each Patch TOP PRN (14:29)
[2023-11-20 14:31] VITALS: BP 147/79; PULSE 77
== END 2023-11-20 14:36 | disposition home or self-care (01) ==
LOC: MW.ED 13:13
DX: M54.6 Pain in thoracic spine (principal); J45.909 Unspecified asthma, uncomplicated; E66.9 Obesity, unspecified; Z75.8 Other problems related to medical facilities and other health care; Z88.0 Allergy status to penicillin; Z88.1 Allergy status to other antibiotic agents; Z88.8 Allergy status to other drugs, medicaments and biological substances; Z91.018 Allergy to other foods; Z79.899 Other long term (current) drug therapy; Z90.49 Acquired absence of other specified parts of digestive tract; Z68.33 Body mass index [BMI] 33.0-33.9, adult
CPT/HCPCS: 96372; 99282; A9270; J1885; 99283

== ENCOUNTER 2024-03-06 11:49 | Emergency (ER) | payer BC ==
[2024-03-06] MEDS: Morphine 4 MG/ML Syringe IVPUSH ONE ×3 (12:39→15:59)
[2024-03-06] MEDS: Ondansetron 4 MG/2 ML SDV IVPUSH ONE (12:39)
[2024-03-06] MEDS: Sodium Chloride 0.9% 1,000 ML IV ONE (12:39)
[2024-03-06 12:42] LABS: BASOPHILS ABSOLUTE AUTO 0.06 K/uL (0.00-0.20); BASOPHILS PERCENT AUTO 0.7 % (0.0-1.0); EOSINOPHILS ABSOLUTE AUTO 0.37 K/uL (0.00-0.45); HEMATOCRIT 41.3 % (37.0-47.0); HEMOGLOBIN 14.6 g/dL (12.0-16.0); IMMATURE GRAN ABSOLUTE AUTO 0.03 K/uL (0.00-0.05); IMMATURE GRAN PERCENT AUTO 0.3 % (0.0-0.4); LYMPHOCYTES ABSOLUTE AUTO 2.32 K/uL (1.00-4.80); LYMPHOCYTES PERCENT AUTO 25.2 % (24.0-44.0); MEAN CORPUSCULAR HEMOGLOBIN 29.2 pg (28.0-32.0); MEAN CORPUSCULAR HGB CONC 35.4 g/dL (32.0-36.0); MEAN CORPUSCULAR VOLUME 82.6 fL (83.0-99.0); MONOCYTES PERCENT AUTO 9.8 % (0.0-8.0); NEUTROPHILS ABSOLUTE AUTO 5.53 K/uL (1.80-7.70); PLATELET COUNT,PLT 260 K/uL (150-400); WHITE BLOOD CELL COUNT,WBC 9.21 K/uL (3.9-11.3)
[2024-03-06 13:18] LABS: A/G RATIO 1.1 (0.9-1.6); ALBUMIN 3.8 g/dL (3.4-5.0); BILIRUBIN TOTAL 0.7 mg/dL (0.2-1.0); CALCIUM 9.5 mg/dL (8.5-10.1); CARBON DIOXIDE,CO2 25.3 mmol/L (21.0-32.0); CREATININE 0.9 mg/dL (0.6-1.0); EST CRCL DRUG DOSING (CG) 77.79 mL/min; MAGNESIUM 1.9 mg/dL (1.8-2.4); POTASSIUM,K 3.8 mmol/L (3.5-5.1); PROTEIN TOTAL,TP 7.2 g/dL (6.4-8.2)
[2024-03-06 14:53] LABS: BILIRUBIN,URINE NEGATIVE (NEGATIVE); COLOR,URINE YELLOW; GLUCOSE,URINE NEGATIVE (NEGATIVE); KETONES,URINE NEGATIVE (NEGATIVE); LEUKOCYTE ESTERASE,URINE NEGATIVE (NEGATIVE); NITRITE,URINE NEGATIVE (NEGATIVE); OCCULT BLOOD,URINE MODERATE (NEGATIVE); PH,URINE 6.5 (5.0-8.0); PROTEIN,URINE TRACE mg/dL (NEGATIVE); UROBILINOGEN,URINE 0.2 EU/dL (<2.0)
[2024-03-06 15:02] LABS: APPEARANCE,URINE HAZY
[2024-03-06 15:05] VITALS: BP 164/75; PULSE 73
[2024-03-06] MEDS: Iopamidol 755 MG/ML 500 ML Multipack Bottle IVPUSH STA (15:05)
[2024-03-06 15:17] LABS: BACTERIA,URINE FEW (NEGATIVE); MUCUS,URINE LIGHT (NONE-MOD); RBC,URINE 20-30 (0-2/HPF); SQUAMOUS EPITHELIAL CELLS,UR MODERATE; WBC,URINE 0-2 (0-5/HPF)
[2024-03-06] MEDS: Acetaminophen/oxyCODONE 325-5 MG Tab PO ONE (16:56)
[2024-03-06] MEDS: Tamsulosin 0.4 MG Cap.ER PO ONE (16:56)
== END 2024-03-06 17:00 | disposition home or self-care (01) ==
LOC: MW.ED 11:49
DX: N13.2 Hydronephrosis with renal and ureteral calculous obstruction (principal); N94.89 Other specified conditions associated with female genital organs and menstrual cycle; J45.909 Unspecified asthma, uncomplicated; E66.9 Obesity, unspecified; Z68.33 Body mass index [BMI] 33.0-33.9, adult; Z90.49 Acquired absence of other specified parts of digestive tract; E11.9 Type 2 diabetes mellitus without complications; Z79.899 Other long term (current) drug therapy; Z88.5 Allergy status to narcotic agent; Z88.1 Allergy status to other antibiotic agents; Z88.0 Allergy status to penicillin; Z91.018 Allergy to other foods; Z88.8 Allergy status to other drugs, medicaments and biological substances
CPT/HCPCS: 36415; 74177; 80053; 81001; 83690; 83735; 84703; 85025; 96361; 96374; 96375; 96376; 99284; A9270; J2270; J2405; J7030; Q9967

== ENCOUNTER 2024-05-29 13:34 | Emergency (ER) | payer BC ==
[2024-05-29] MEDS: predniSONE 20 MG Tab PO ONE (14:24)
[2024-05-29] MEDS: Acetaminophen 500 MG Tab PO ONE (14:24)
[2024-05-29] MEDS: Sodium Chloride 0.9% 1,000 ML IV ONE (14:44)
[2024-05-29 16:34] VITALS: BP 130/74; PULSE 108
== END 2024-05-29 16:33 | disposition home or self-care (01) ==
LOC: MW.ED 13:34
DX: U07.1 COVID-19 (principal); J45.909 Unspecified asthma, uncomplicated; K21.9 Gastro-esophageal reflux disease without esophagitis; E66.9 Obesity, unspecified; Z79.899 Other long term (current) drug therapy; Z88.0 Allergy status to penicillin; Z88.1 Allergy status to other antibiotic agents; Z88.5 Allergy status to narcotic agent; Z88.6 Allergy status to analgesic agent; Z88.8 Allergy status to other drugs, medicaments and biological substances; Z91.018 Allergy to other foods; Z68.33 Body mass index [BMI] 33.0-33.9, adult
CPT/HCPCS: 96360; 99284; A9270; J7030; 99283

== ENCOUNTER 2024-07-14 07:42 | Emergency (ER) | payer BC ==
[2024-07-14 09:21] VITALS: BP 150/94; PULSE 74
== END 2024-07-14 09:18 | disposition home or self-care (01) ==
LOC: MW.ED 07:42
DX: M25.511 Pain in right shoulder (principal); J45.909 Unspecified asthma, uncomplicated; Z88.5 Allergy status to narcotic agent; Z88.1 Allergy status to other antibiotic agents; Z88.8 Allergy status to other drugs, medicaments and biological substances; Z91.018 Allergy to other foods; Z79.51 Long term (current) use of inhaled steroids; Z79.899 Other long term (current) drug therapy
CPT/HCPCS: 99283

== ENCOUNTER 2024-10-02 06:45 | Emergency (ER) | payer BC ==
[2024-10-02] MEDS ORDERED: Sodium Chloride 0.9% 10 ML Syringe FLUSH PRN (07:11)
[2024-10-02] MEDS ORDERED: Sodium Chloride 0.9% 2.5 ML Syringe FLUSH PRN (07:11)
[2024-10-02] MEDS ORDERED: Sodium Chloride 0.9% 20 ML SDV IV PRN (07:11)
[2024-10-02 07:28] LABS: BASOPHILS ABSOLUTE AUTO 0.04 K/uL (0.00-0.20); BASOPHILS PERCENT AUTO 0.7 % (0.0-1.0); EOSINOPHILS ABSOLUTE AUTO 0.54 K/uL (0.00-0.45); EOSINOPHILS PERCENT AUTO 8.8 % (0.0-6.0); HEMATOCRIT 41.5 % (37.0-47.0); HEMOGLOBIN 14.5 g/dL (12.0-16.0); IMMATURE GRAN ABSOLUTE AUTO 0.01 K/uL (0.00-0.05); IMMATURE GRAN PERCENT AUTO 0.2 % (0.0-0.4); LYMPHOCYTES ABSOLUTE AUTO 1.85 K/uL (1.00-4.80); LYMPHOCYTES PERCENT AUTO 30.1 % (24.0-44.0); MEAN CORPUSCULAR HEMOGLOBIN 29.2 pg (28.0-32.0); MEAN CORPUSCULAR HGB CONC 34.9 g/dL (32.0-36.0); MEAN CORPUSCULAR VOLUME 83.5 fL (83.0-99.0); MEAN PLATELET VOLUME 9.1 fL (9.4-12.3); MONOCYTES ABSOLUTE AUTO 0.68 K/uL (0.00-0.80); MONOCYTES PERCENT AUTO 11.1 % (0.0-8.0); NEUTROPHILS ABSOLUTE AUTO 3.03 K/uL (1.80-7.70); NEUTROPHILS PERCENT AUTO 49.1 % (41.0-71.0); PLATELET COUNT,PLT 319 K/uL (150-400); RED BLOOD CELL COUNT 4.97 M/uL (4.10-5.30); WHITE BLOOD CELL COUNT,WBC 6.15 K/uL (3.9-11.3)
[2024-10-02] MEDS: diphenhydrAMINE 50 MG/ML SDV IVPUSH ONE (07:30)
[2024-10-02] MEDS: Ketorolac 30 MG/ML SDV IVPUSH ONE (07:30)
[2024-10-02] MEDS: Metoclopramide 10 MG/2 ML SDV IVPUSH ONE (07:30)
[2024-10-02] MEDS: Sodium Chloride 0.9% 1,000 ML IV ONE (07:30)
[2024-10-02 08:00] LABS: A/G RATIO 1.1 (0.9-1.6); ALBUMIN 3.5 g/dL (3.4-5.0); BILIRUBIN TOTAL 0.7 mg/dL (0.2-1.0); CALCIUM 9.4 mg/dL (8.5-10.1); EST CRCL DRUG DOSING (CG) 70.01 mL/min; PROTEIN TOTAL,TP 6.8 g/dL (6.4-8.2)
[2024-10-02 08:30] VITALS: BP 129/76; PULSE 62
== END 2024-10-02 08:54 | disposition home or self-care (01) ==
LOC: MW.ED 06:45
DX: R51.9 Headache, unspecified (principal); E66.9 Obesity, unspecified; Z88.0 Allergy status to penicillin; Z88.1 Allergy status to other antibiotic agents; Z88.8 Allergy status to other drugs, medicaments and biological substances; Z91.018 Allergy to other foods; Z79.899 Other long term (current) drug therapy; Z90.49 Acquired absence of other specified parts of digestive tract
CPT/HCPCS: 36415; 80053; 85025; 96361; 96374; 96375; 99284; J1200; J1885; J2765; J7030; 99283

== ENCOUNTER 2024-11-19 17:33 | Emergency (ER) | payer BC ==
[2024-11-19] MEDS: Ketorolac 30 MG/ML SDV IM ONE (19:07)
[2024-11-19 19:51] LABS: CANDIDA DNA PROBE NEGATIVE (NEGATIVE); GARDNERELLA DNA PROBE POSITIVE (NEGATIVE); TRICHOMONAS DNA PROBE NEGATIVE (NEGATIVE)
[2024-11-19 20:18] VITALS: BP 138/78; PULSE 88
== END 2024-11-19 20:18 | disposition home or self-care (01) ==
LOC: MW.ED 17:33
DX: J45.901 Unspecified asthma with (acute) exacerbation (principal); N76.0 Acute vaginitis; N64.4 Mastodynia
CPT/HCPCS: 36415; 71045; 84703; 85014; 85018; 87480; 87510; 87660; 96372; 99285; A9270; J1885; J7620; 99284

== ENCOUNTER 2024-12-17 09:42 | Emergency (ER) | payer BC ==
[2024-12-17 11:21] VITALS: BP 153/100; PULSE 83
== END 2024-12-17 10:52 | disposition home or self-care (01) ==
LOC: MW.ED 09:42
DX: M25.511 Pain in right shoulder (principal); J45.909 Unspecified asthma, uncomplicated; K21.9 Gastro-esophageal reflux disease without esophagitis; E66.9 Obesity, unspecified; Z68.31 Body mass index [BMI] 31.0-31.9, adult; Z98.84 Bariatric surgery status; Z90.49 Acquired absence of other specified parts of digestive tract; Z88.1 Allergy status to other antibiotic agents; Z88.5 Allergy status to narcotic agent; Z88.6 Allergy status to analgesic agent; Z88.8 Allergy status to other drugs, medicaments and biological substances; Z91.018 Allergy to other foods; Z79.51 Long term (current) use of inhaled steroids; Z79.899 Other long term (current) drug therapy; Z75.3 Unavailability and inaccessibility of health-care facilities
CPT/HCPCS: 73030; 99283; A9270

== ENCOUNTER 2024-12-25 02:37 | Emergency (ER) | payer BC ==
[2024-12-25 04:20] VITALS: BP 156/98; PULSE 78
== END 2024-12-25 04:18 | disposition home or self-care (01) ==
LOC: MW.ED 02:37
DX: S40.012A Contusion of left shoulder, initial encounter (principal); J45.909 Unspecified asthma, uncomplicated; Z88.5 Allergy status to narcotic agent; Z88.1 Allergy status to other antibiotic agents; Z88.0 Allergy status to penicillin; Z91.018 Allergy to other foods; Z79.899 Other long term (current) drug therapy; W18.39XA Other fall on same level, initial encounter; Y93.89 Activity, other specified
CPT/HCPCS: 73030; 99283; A9270

== ENCOUNTER 2025-01-05 19:11 | Emergency (ER) | payer BC ==
[2025-01-05 20:10] LABS: BASOPHILS ABSOLUTE AUTO 0.05 K/uL (0.00-0.20); BASOPHILS PERCENT AUTO 0.5 % (0.0-1.0); EOSINOPHILS ABSOLUTE AUTO 0.41 K/uL (0.00-0.45); EOSINOPHILS PERCENT AUTO 4.1 % (0.0-6.0); IMMATURE GRAN ABSOLUTE AUTO 0.06 K/uL (0.00-0.05); IMMATURE GRAN PERCENT AUTO 0.6 % (0.0-0.4); LYMPHOCYTES ABSOLUTE AUTO 2.37 K/uL (1.00-4.80); LYMPHOCYTES PERCENT AUTO 24.0 % (24.0-44.0); MEAN PLATELET VOLUME 8.9 fL (9.4-12.3); MONOCYTES ABSOLUTE AUTO 1.05 K/uL (0.00-0.80); MONOCYTES PERCENT AUTO 10.6 % (0.0-8.0); NEUTROPHILS ABSOLUTE AUTO 5.94 K/uL (1.80-7.70); NEUTROPHILS PERCENT AUTO 60.2 % (41.0-71.0); NRBC ABSOLUTE 0.00 K/uL (0.00-0.02); NRBC PERCENT 0.0 /100WBC (0.0-0.2); PLATELET COUNT,PLT 284 K/uL (150-400); RED BLOOD CELL COUNT 5.16 M/uL (4.10-5.30); WHITE BLOOD CELL COUNT,WBC 9.88 K/uL (3.9-11.3)
[2025-01-05] MEDS: Alum Hydrox/Mag Hydrox/Simeth 15 ML, Lidocaine 2% 5 ML PO ONE (20:19)
[2025-01-05 20:21] LABS: A/G RATIO 0.9 (0.9-1.6); ALANINE AMINOTRANSFERASE,ALT 15.0 IU/L (14-63); ASPARTATE AMNIOTRANSFERASE,AST 20.0 IU/L (15-37); BILIRUBIN TOTAL 0.5 mg/dL (0.2-1.0); BLOOD UREA NITROGEN,BUN 10.0 mg/dL (7.0-18.0); CARBON DIOXIDE,CO2 27.7 mmol/L (21.0-32.0); CHLORIDE,CL 104.0 mmol/L (98-107); CREATININE 1.0 mg/dL (0.6-1.0); EST CRCL DRUG DOSING (CG) 69.31 mL/min; ESTIMATED GFR 73.0 mL/min (>60); GLUCOSE RANDOM 93.0 mg/dL (74-106); POTASSIUM,K 3.7 mmol/L (3.5-5.1); PROTEIN TOTAL,TP 6.6 g/dL (6.4-8.2); SODIUM,NA 141.0 mmol/L (136-145)
[2025-01-05] MEDS: Iopamidol 755 MG/ML 500 ML Multipack Bottle IVPUSH ONE (20:49)
[2025-01-05] MEDS: Pantoprazole 40 MG in Sodium Chloride 0.9% 10 ML IVPUSH ONE (21:14)
[2025-01-05] MEDS: Ondansetron 4 MG/2 ML SDV IVPUSH ONE (21:14)
[2025-01-05 22:16] VITALS: BP 145/88; PULSE 78
== END 2025-01-05 22:17 | disposition home or self-care (01) ==
LOC: MW.ED 19:11
DX: K29.70 Gastritis, unspecified, without bleeding (principal); N20.0 Calculus of kidney; N83.202 Unspecified ovarian cyst, left side; Z75.3 Unavailability and inaccessibility of health-care facilities
CPT/HCPCS: 36415; 74177; 80053; 83690; 85025; 96361; 96374; 96375; 99284; J2405; J2470; J3490; J7030; Q9967; A9270-GY

== ENCOUNTER 2025-02-22 02:28 | Emergency (ER) | payer BC ==
[2025-02-22] MEDS ORDERED: Sodium Chloride 0.9% 2.5 ML Syringe FLUSH PRN (02:33)
[2025-02-22] MEDS ORDERED: Sodium Chloride 0.9% 10 ML Syringe FLUSH PRN (02:33)
[2025-02-22] MEDS: Magnesium Sulfate 2 GM/50 mL 2 GM in Premix Bag 1 BAG IV ONE (02:39)
[2025-02-22] MEDS: methylPREDNISolone Sodium Succinate 125 MG/2 ML SDV IVPUSH ONE (02:39)
[2025-02-22 02:43] LABS: MEAN PLATELET VOLUME 8.8 fL (9.4-12.3); NRBC ABSOLUTE 0.00 K/uL (0.00-0.02); NRBC PERCENT 0.0 /100WBC (0.0-0.2); PLATELET COUNT,PLT 327 K/uL (150-400); RED BLOOD CELL COUNT 5.43 M/uL (4.10-5.30); WHITE BLOOD CELL COUNT,WBC 10.71 K/uL (3.9-11.3)
[2025-02-22 03:06] LABS: D-DIMER QUANTITATIVE 4.79 mg/L FEU (0.00-0.50); INR 1.04 (0.86-1.11)
[2025-02-22 03:11] LABS: LYMPHOCYTES ABSOLUTE MAN 2.89 K/uL (1.00-4.80); LYMPHOCYTES PERCENT MAN 27 % (24-44); SEG NEUTROPHILS ABSOLUTE MAN 3.96 K/uL (1.80-7.70); SEG NEUTROPHILS PERCENT MAN 37 % (41-71)
[2025-02-22 03:12] LABS: BASOPHILS ABSOLUTE MAN 0.11 K/uL (0.00-0.20); BASOPHILS PERCENT MAN 1 % (0-1); EOSINOPHILS ABSOLUTE MAN 3.00 K/uL (0.00-0.45); EOSINOPHILS PERCENT MAN 28 % (0-6); MONOCYTES ABSOLUTE MAN 0.75 K/uL (0.00-0.80); MONOCYTES PERCENT MAN 7 % (0-8)
[2025-02-22 03:13] LABS: A/G RATIO 1.1 (0.9-1.6); ALANINE AMINOTRANSFERASE,ALT 24 IU/L (14-63); ASPARTATE AMNIOTRANSFERASE,AST 22 IU/L (15-37); BILIRUBIN TOTAL 0.8 mg/dL (0.2-1.0); BLOOD UREA NITROGEN,BUN 15 mg/dL (7.0-18.0); CARBON DIOXIDE,CO2 24.0 mmol/L (21.0-32.0); CHLORIDE,CL 107 mmol/L (98-107); CREATININE 0.8 mg/dL (0.6-1.0); EST CRCL DRUG DOSING (CG) 86.63 mL/min; GLUCOSE RANDOM 97 mg/dL (74-106); POTASSIUM,K 3.8 mmol/L (3.5-5.1); PRO B-TYPE NATRIUR PEPT,BNPPRO 43 pg/mL (0-125); PROTEIN TOTAL,TP 7.4 g/dL (6.4-8.2); SODIUM,NA 143 mmol/L (136-145)
[2025-02-22 03:20] LABS: ESTIMATED GFR 95 mL/min (>60)
[2025-02-22 03:32] LABS: PH,VENOUS 7.44 (7.32-7.43)
[2025-02-22 03:33] LABS: BASE EXCESS VENOUS -1.5 (-2.0-3.0); BICARBONATE,VENOUS 22.0 mEq/L (22-29); PCO2 VENOUS 32.0 mmHG (41-51); PO2 VENOUS 62.0 mmHG (35-45)
[2025-02-22] MEDS: diphenhydrAMINE 50 MG/ML SDV IVPUSH ONE (03:37)
[2025-02-22] MEDS: Ondansetron 4 MG/2 ML SDV IVPUSH ONE (03:40)
[2025-02-22] MEDS: Ketorolac 30 MG/ML SDV IVPUSH ONE (03:40)
[2025-02-22] MEDS: Iopamidol 755 MG/ML 500 ML Multipack Bottle IVPUSH STA (04:02)
[2025-02-22 05:03] VITALS: BP 125/74; PULSE 88
== END 2025-02-22 05:00 | disposition home or self-care (01) ==
LOC: MW.ED 02:28
DX: J45.41 Moderate persistent asthma with (acute) exacerbation (principal); D72.10 Eosinophilia, unspecified; G43.909 Migraine, unspecified, not intractable, without status migrainosus; K21.9 Gastro-esophageal reflux disease without esophagitis; Z88.5 Allergy status to narcotic agent; Z88.0 Allergy status to penicillin; Z88.1 Allergy status to other antibiotic agents; Z88.8 Allergy status to other drugs, medicaments and biological substances; Z91.018 Allergy to other foods; Z79.899 Other long term (current) drug therapy
CPT/HCPCS: 36415; 71045; 71275; 80053; 82803; 83735; 83880; 84484; 85025; 85379; 85610; 93005; 96361; 96365; 96375; 99285; J1200; J1885; J2405; J2919; J3475; J7030; J7620; Q9967; 93010; 99284; A9270-GY

== ENCOUNTER 2025-02-22 17:14 | Emergency (ER) | payer BC ==
[2025-02-22] MEDS ORDERED: Sodium Chloride 0.9% 2.5 ML Syringe FLUSH PRN (18:52)
[2025-02-22] MEDS ORDERED: Sodium Chloride 0.9% 10 ML Syringe FLUSH PRN (18:52)
[2025-02-22] MEDS: Ketorolac 30 MG/ML SDV IVPUSH ONE ×2 (19:04→20:22)
[2025-02-22] MEDS: diphenhydrAMINE 50 MG/ML SDV IVPUSH ONE (19:05)
[2025-02-22] MEDS: Prochlorperazine 10 MG/2 ML SDV IVPUSH ONE (19:05)
[2025-02-22] MEDS: droPERidol 2.5 MG/ML SDV IVPUSH ONE (20:12)
[2025-02-22 20:43] VITALS: BP 138/74; PULSE 89
== END 2025-02-22 20:56 | disposition home or self-care (01) ==
LOC: MW.ED 17:14
DX: G43.909 Migraine, unspecified, not intractable, without status migrainosus (principal); J45.909 Unspecified asthma, uncomplicated; K21.9 Gastro-esophageal reflux disease without esophagitis; Z88.5 Allergy status to narcotic agent; Z88.0 Allergy status to penicillin; Z88.1 Allergy status to other antibiotic agents; Z88.8 Allergy status to other drugs, medicaments and biological substances; Z91.018 Allergy to other foods; Z79.899 Other long term (current) drug therapy
CPT/HCPCS: 70450; 87428; 96374; 96375; 96376; 99284; J0780; J1200; J1790; J1885

== ENCOUNTER 2025-03-31 14:03 | Emergency (ER) | payer BC ==
[2025-03-31] MEDS: EPINEPHrine 1 MG/ML SDV IM ONE (17:09)
[2025-03-31] MEDS: Dexamethasone Sod Phos Preservative Free 10 MG/ML Vial IM ONE (17:10)
[2025-03-31 17:29] VITALS: BP 155/108; PULSE 87
== END 2025-03-31 18:07 | disposition home or self-care (01) ==
LOC: MW.ED 14:03
DX: R21 Rash and other nonspecific skin eruption (principal); J45.909 Unspecified asthma, uncomplicated; K21.9 Gastro-esophageal reflux disease without esophagitis; E66.9 Obesity, unspecified; Z68.32 Body mass index [BMI] 32.0-32.9, adult; Z98.84 Bariatric surgery status; Z90.49 Acquired absence of other specified parts of digestive tract; Z88.0 Allergy status to penicillin; Z88.5 Allergy status to narcotic agent; Z88.8 Allergy status to other drugs, medicaments and biological substances; Z91.018 Allergy to other foods
CPT/HCPCS: 96372; 99282; A9270; J0169; J1100; 99284